=== PATIENT | female | born 1955 | race Hispanic/Latino ===

== ENCOUNTER 2016-07-21 00:48 | Inpatient (IN) | payer MEDICAID ==
[2016-04-20 15:01] VITALS: BMI 16.5
[2016-07-21] MEDS ORDERED: Piperacillin/Tazobact 3.375 gm 100 ML IVPB STA (02:00)
[2016-07-21] MEDS ORDERED: levoFLOXacin 750 mg in D5W 750 MG/150 ML BAG IVPB STA (02:00)
[2016-07-21] MEDS ORDERED: Heparin25000 units/250ml 1/2NS 25,000 UNITS/250 ML BAG IV SCH (03:30)
[2016-07-21] MEDS ORDERED: Vancomycin 1gm in NS 250ml 1 GM/250 ML BAG IVPB STA (03:30)
[2016-07-21] MEDS ORDERED: Potassium Chloride 40 mEq/30 ml LIQ UD GT SCH (04:00)
[2016-07-21] MEDS ORDERED: [UNRECOGNIZED DRUG - OTHER] IV SCH (05:30)
[2016-07-21] MEDS ORDERED: DEXTROSE IV SCH (05:30)
[2016-07-21] MEDS ORDERED: SODIUM BICARBONATE IV SCH (05:30)
[2016-07-21] MEDS ORDERED: Potassium Chloride 40 mEq/30 ml LIQ UD PO ONE (07:01)
[2016-07-21] MEDS ORDERED: Sodium Chloride 0.9% 1,000 ML IV ONE (15:56)
[2016-07-21 20:22] LABS: ADD MANUAL DIFF? NO
[2016-07-21 20:47] LABS: ARTERIAL BLOOD GAS PH 7.19 (7.35-7.45)
[2016-07-21 20:48] LABS: ARTERIAL BLOOD GAS HCO3 17.6 mmol/L (21-28)
[2016-07-21] MEDS ORDERED: DOPamine 400mg/250ml D5W 400 MG/250 ML BAG IV ONE (20:59)
[2016-07-21] MEDS: Albuterol-Ipratrop 3 mg / 0.5 (3 ml) UD IH SCH (21:00)
[2016-07-21] MEDS: DOPamine 400mg/250ml D5W 400 MG/250 ML BAG IV PRN (21:00)
[2016-07-21] MEDS: Sodium Bicarbonate 8.4% 150 MEQ in Dextrose 5%/0.45% NS 1,000 ML IV SCH (22:00)
[2016-07-21] MEDS: Piperacillin/Tazobact 3.375 gm 100 ML IVPB SCH (23:00)
[2016-07-21] MEDS: MethylPREDNISolone 40 mg Vial IVP SCH (23:00)
[2016-07-22] MEDS: Albuterol-Ipratrop 3 mg / 0.5 (3 ml) UD IH SCH ×4 (02:20→19:40)
[2016-07-22] MEDS: Midazolam 2 MG/2 ML VIAL IVP PRN ×3 (03:28→10:30)
[2016-07-22] MEDS: Vancomycin 1gm in NS 250ml 1 GM/250 ML BAG IVPB SCH (04:30)
[2016-07-22] MEDS: Piperacillin/Tazobact 3.375 gm 100 ML IVPB SCH ×5 (05:00→22:53)
--- NOTE | 2016-07-22 05:17 | CP.PCM.CON ---
<Jennifer Mendes - Last Filed: 07/22/16 09:21> History of Present Illness - History of Present Illness History of Present Illness: Resident ICU Consult Note for Dr. Dunbar 61 year old female with past medical history of anemia, anxiety, depression, osteoporosis and rheumatoid arthritis presents to [facility] ED for weakness and cough. Patient's son reports he found the patient lethargic on the bathroom floor at midnight. Patient was recovering from a cold recently. Two days ago patient became significantly weaker and coughing up brown color phlegm. Patient also had subjective fever and chills. Patient was admitted to the hospital 3 months for pneumonia and diarrhea. During that admission patient was found to have C. diff infection. Patient was lethargic during the examination. History was provided by her son through telephone. Patient did not have headache, shortness of breath, chest pain, abdominal pain, nausea, vomiting , diarrhea, or urinary symptoms. PMD: Keith, Son: Karson [phone], Pharmacy [facility] PMHx: osteoporosis and RA PSHx: Thyroid FNA 2013 Allergy: NKDA Social hx: former smoker, denies alcohol and other drug use Family hx: non contributory Home meds: gabapentin, motrin, methotrexate, ambien, lidoderm Review of Systems - Review of Systems Systems not reviewed;Unavailable: Respiratory Distress, Other (lethargic, unable to provide history) - Constitutional Constitutional: As Per HPI, Chills, Fever, Lethargy, Weakness. absent: Increased Appetite - EENT Eyes: As Per HPI Ears: As Per HPI Nose/Mouth/Throat: As Per HPI. absent: Change in Voice - Cardiovascular Cardiovascular: As Per HPI, Edema, Leg Edema, Pedal Edema. absent: Chest Pain - Respiratory Respiratory: As Per HPI, Cough, Dyspnea - Gastrointestinal Gastrointestinal: As Per HPI. absent: Nausea, Vomiting - Genitourinary Genitourinary: As Per HPI. absent: Urinary Incontinence, Urinary Frequency, Urinary Hesitance - Musculoskeletal Musculoskeletal: As Per HPI. absent: Numbness, Tingling - Integumentary Integumentary: As Per HPI. absent: Rash, Skin Pain - Neurological Neurological: As Per HPI, Weakness - Psychiatric Psychiatric: As Per HPI. absent: Auditory Hallucinations, Hallucinations, Visual Hallucinations - Endocrine Endocrine: As Per HPI - Hematologic/Lymphatic Hematologic: As Per HPI Past Patient History - Infectious Disease Hx of Infectious Diseases: None - Tetanus Immunizations Tetanus Immunization: Unknown - Past Social History Smoking Status: Former Smoker - CARDIAC Hx Pacemaker: No - PULMONARY Hx Respiratory Disorders: No Hx Sleep Apnea: No Hx Tuberculosis: No - NEUROLOGICAL Hx Paralysis: No - HEENT Hx HEENT Problems: No - RENAL Hx Chronic Kidney Disease: No - ENDOCRINE/METABOLIC Hx Endocrine Disorders: No - HEMATOLOGICAL/ONCOLOGICAL Hx Blood Disorders: No - INTEGUMENTARY Hx Dermatological Problems: No - MUSCULOSKELETAL/RHEUMATOLOGICAL Hx Arthritis: Yes Hx Rheumatoid Arthritis: Yes - GASTROINTESTINAL Hx Gastrointestinal Disorders: No - GENITOURINARY/GYNECOLOGICAL Hx Genitourinary Disorders: No (URGENCY) - PSYCHIATRIC Hx Substance Use: No - SURGICAL HISTORY Hx Amputation: No Hx Appendectomy: No Hx Cardiac Catheterization: No Hx Cholecystectomy: No Hx Coronary Stent: No Hx Gastric Bypass Surgery: No Hx Hysterectomy: No Hx Joint Replacement: No Hx Kidney Transplant: No Hx Liver Transplant: No Hx Mastectomy: No Hx Musculoskeletal Surgery: No Hx Open Heart Surgery: No Hx Orthopedic Surgery: No Hx Splenectomy: No Hx Valve Replacement: No - ANESTHESIA Hx Anesthesia Reactions: No Hx Malignant Hyperthermia: No Meds Allergies/Adverse Reactions: Allergies Allergy/AdvReac Type Severity Reaction Status Date / Time No Known Allergies Allergy Verified 02/11/14 09:05 - Medications Medications: Current Medications Albuterol/Ipratropium (Duoneb 3 Mg/0.5 Mg (3 Ml) Ud) 3 ml IH [id number] NISHANT Last Admin: 07/22/16 02:20 Dose: 3 ml Aspirin (Ecotrin) 81 mg PO DAILY NISHANT Clopidogrel Bisulfate (Plavix) 75 mg PO DAILY [facility] Heparin Sodium/Sodium Chloride (Heparin 55542 Units/250ml 1/2 Normal Saline) 25 ,000 units in 250 mls @ 5.389 mls/hr IV .Q24H NISHANT; 12 UNITS/KG/HR PRN Reason: Protocol Vancomycin HCl (Vancomycin 1gm) 1 gm in 250 mls @ 167 mls/hr IVPB Q12H NISHANT Piperacillin Sod/Tazobactam Sod (Zosyn 3.375 In Ns 100ml) 100 mls @ 200 mls/hr IVPB Q6H NISHANT Stop: 07/28/16 04:01 Last Admin: 07/21/16 23:00 Dose: 200 mls/hr Fentanyl Citrate (Fentanyl Citrate/Sodium Chloride 1 Mg/100 Ml) 1,000 mcg in 100 mls @ 7.5 mls/hr IV .[id number] PRN; Protocol; 75 MCG/HR PRN Reason: TITRATE PER MD ORDER Sodium Bicarbonate 150 meq/ (Dextrose/Sodium Chloride) 1,150 mls @ 75 mls/hr IV .[id number] NISHANT Last Admin: 07/21/16 22:00 Dose: 75 mls/hr Dopamine HCl/Dextrose (Dopamine 400mg/250ml D5w) 400 mg in 250 mls @ 3.368 mls/ hr IV .Q24H PRN; Protocol; 2 MCG/KG/MIN PRN Reason: TITRATE PER MD ORDER Last Admin: 07/21/16 21:00 Dose: 10 mcg/kg/min, 16.84 mls/hr Methylprednisolone (Solu-Medrol) 40 mg IVP Q8 [facility] Last Admin: 07/21/16 23:00 Dose: 40 mg Midazolam HCl (Versed Inj) 2 mg IVP Q2H PRN PRN Reason: Agitation Last Admin: 07/22/16 03:28 Dose: 2 mg Pantoprazole Sodium (Protonix Inj) 40 mg IVP DAILY [facility] Physical Exam - Constitutional Appears: Toxic, Older Than Stated Age, Chronically Ill - Head Exam Head Exam: ATRAUMATIC, NORMAL INSPECTION, NORMOCEPHALIC - Eye Exam Eye Exam: EOMI, Normal appearance, PERRL - ENT Exam ENT Exam: Mucous Membranes Moist - Neck Exam Neck exam: Positive for: Normal Inspection - Respiratory Exam Respiratory Exam: Decreased Breath Sounds, Respiratory Distress - Cardiovascular Exam Cardiovascular Exam: REGULAR RHYTHM, RRR, +S1, +S2 - GI/Abdominal Exam GI & Abdominal Exam: Normal Bowel Sounds, Soft. absent: Tenderness - Extremities Exam Extremities exam: Positive for: joint swelling, normal capillary refill, pedal edema, pedal pulses present - Back Exam Back exam: NORMAL INSPECTION - Neurological Exam Additional comments: lethargic, responsive to pain stimuli - Skin Skin Exam: Intact, Mottled, Pallor Results - Vital Signs Recent Vital Signs: Last Vital Signs Temp Pulse 85 07/21/16 23:43 Resp BP Pulse Ox 96 07/21/16 23:43 - Labs Result Diagrams: 07/22/16 07:15 Labs: Laboratory Results - last 24 hr 07/21/16 07/21/16 07/22/16 04:15 04:49 03:15 APTT 33.6 H pCO2 46 H pO2 276.0 H HCO3 17.6 L ABG pH 7.19 L* ABG Total CO2 19.0 L ABG O2 Saturation 10.2 L ABG Base Excess -10.0 L Chloride 118.0 H Glucose 119 H Lactate 1.0 Influenza Typ A,B (EIA) Negative for flu a/b Assessment & Plan - Assessment and Plan (Free Text) Assessment: 61 year old female with past medical history of anemia, anxiety, depression, osteoporosis and rheumatoid arthritis present with weakness cough was found to have hypoxic respiratory failure secondary to pneumonia, sepsis, NSTEMI, CHF. Patient was intubated in the ED and admitted to ICU. Plan: Neuro -Lethargic -No focal neuro deficits -Continue to monitor Cardiovascular -Elevated BNP -Echocardiogram performed 3 months ago showed 65% EF -NSTEMI -IV heparin -Trend cardiac enzyme -Cardiology consult, Dr. Jackson Pulmonary -Hypoxic respiratory failure secondary to pneumonia -Intubated in the ED, vent setting: PRVC, TV 300, PEEP 5, RR16 -Follow up ABG -Solumedrol -Duoneb -HCAP, started vancomycin and zosyn -Follow up procalcitonin, serum mycoplasma IgM, legionella ag, strep pneumo ag GI -NPO -OG tube inserted -Protonix IV ppx -Follow up C. diff toxin due to recent history of c.diff Renal -Slightly elevated Cr, unable to compare due to [facility] offline -Monitor urine output -Strict I & O -Hypokalemia, KCl 40meq x 2 via OG tube -monitor bmp repeats ID -Follow up rapid flu -Follow up blood and urine cultures -Follow up C. Diff toxin -Vancomycin 1gm IV q12 -Zosyn 3.375gm IV q6 Heme -Bandemia 20 on admission -Immunosupressed due to methotrexate use for RA treatment Endocrine -No acute issues Psych -Unable to assess <Latrell Dunbar Q - Last Filed: 07/23/16 00:58> Meds - Medications Medications: Current Medications Albuterol/Ipratropium (Duoneb 3 Mg/0.5 Mg (3 Ml) Ud) 3 ml IH [id number] [facility] Last Admin: 07/22/16 19:40 Dose: 3 ml Aspirin (Ecotrin) 81 mg PO DAILY NISHANT Last Admin: 07/22/16 09:48 Dose: Not Given Clopidogrel Bisulfate (Plavix) 75 mg PO DAILY [facility] Last Admin: 07/22/16 09:49 Dose: Not Given Vancomycin HCl (Vancomycin 1gm) 1 gm in 250 mls @ 167 mls/hr IVPB Q12H [facility] Last Admin: 07/22/16 04:30 Dose: 167 mls/hr Piperacillin Sod/Tazobactam Sod (Zosyn 3.375 In Ns 100ml) 100 mls @ 200 mls/hr IVPB Q6H [facility] Stop: 07/28/16 04:01 Last Admin: 07/22/16 22:53 Dose: 200 mls/hr Fentanyl Citrate (Fentanyl Citrate/Sodium Chloride 1 Mg/100 Ml) 1,000 mcg in 100 mls @ 7.5 mls/hr IV .[id number] PRN; Protocol; 75 MCG/HR PRN Reason: TITRATE PER MD ORDER Last Admin: 07/22/16 13:29 Dose: 100 mcg/hr, 10 mls/hr Sodium Bicarbonate 150 meq/ (Dextrose/Sodium Chloride) 1,150 mls @ 75 mls/hr IV .[id number] [facility] Last Admin: 07/22/16 17:43 Dose: 75 mls/hr Dopamine HCl/Dextrose (Dopamine 400mg/250ml D5w) 400 mg in 250 mls @ 3.368 mls/ hr IV .Q24H PRN; Protocol; 2 MCG/KG/MIN PRN Reason: TITRATE PER MD ORDER Last Titration: 07/22/16 14:51 Dose: 0 mcg/kg/min, 0 mls/hr Doxycycline Hyclate 100 mg/ (Sodium Chloride) 100 mls @ 100 mls/hr IVPB Q12 NISHANT PRN Reason: Protocol Last Admin: 07/22/16 22:45 Dose: 100 mls/hr Heparin Sodium/Sodium Chloride (Heparin 97573 Units/250ml 1/2 Normal Saline) 25 ,000 units in 250 mls @ 8.655 mls/hr IV .Q24H PRN; Protocol; 18 UNITS/KG/HR PRN Reason: ADJUST RATE PER PROTOCOL Last Admin: 07/22/16 12:49 Dose: 18 units/kg/hr, 8.655 mls/hr Dexmedetomidine HCl (Precedex 4 Mcg/Ml (100 Ml)) 400 mcg in 100 mls @ 2.404 mls /hr IV .Q24H PRN; Protocol; 0.2 MCG/KG/HR PRN Reason: Agitation Last Titration: 07/22/16 17:42 Dose: 0 mcg/kg/hr, 0 mls/hr Methylprednisolone (Solu-Medrol) 40 mg IVP Q8 NISHANT Last Admin: 07/22/16 22:53 Dose: 40 mg Midazolam HCl (Versed Inj) 2 mg IVP Q2H PRN PRN Reason: Agitation Last Admin: 07/22/16 10:30 Dose: 2 mg Morphine Sulfate (Morphine) 2 mg IVP Q4H PRN PRN Reason: Pain, moderate (4-7) Last Admin: 07/22/16 21:17 Dose: 2 mg Pantoprazole Sodium (Protonix Inj) 40 mg IVP DAILY [facility] Last Admin: 07/22/16 13:27 Dose: Not Given Results - Vital Signs Recent Vital Signs: Last Vital Signs Temp 97.1 F L 07/22/16 16:00 Pulse 51 L 07/22/16 18:01 Resp 30 H 07/22/16 18:01 BP 108/54 L 07/22/16 18:01 Pulse Ox 99 07/22/16 18:01 - Labs Result Diagrams: 07/22/16 07:15 07/22/16 18:31 Labs: Laboratory Results - last 24 hr 07/21/16 07/21/16 07/21/16 06:00 07:00 07:00 WBC 7.5 RBC 3.33 L Hgb 9.7 L Hct 29.0 L MCV 87.1 MCH 29.1 MCHC 33.4 RDW 14.0 Plt Count 442 MPV 9.4 Gran % Lymph % (Auto) [place] % (Auto) Eos % (Auto) Baso % (Auto) Gran # Lymph # [place] # Eos # Baso # PT INR APTT > 180.0 H* pCO2 pO2 HCO3 ABG pH ABG Total CO2 ABG O2 Saturation ABG Base Excess ABG Hemoglobin ABG Carboxyhemoglobin POC ABG HHb (Measured) ABG Methemoglobin ABG O2 Capacity ABG Potassium Hgb O2 Saturation Glucose Lactate FiO2 Sodium 142 Potassium 4.5 Chloride 112 H Carbon Dioxide 20 L Anion Gap 15 BUN 21 Creatinine 1.0 Est GFR ( Amer) > 60 Est GFR (Non-Af Amer) 57 Random Glucose 224 H Calcium 7.9 L Total Bilirubin AST ALT Alkaline Phosphatase Lactate Dehydrogenase Total Creatine Kinase Troponin I Total Protein Albumin Globulin Albumin/Globulin Ratio Procalcitonin Arterial Blood Potassium Urine Color Urine Appearance Urine pH Ur Specific [place] Urine Protein Urine Glucose (UA) Urine Ketones Urine Blood Urine Nitrate Urine Bilirubin Urine Urobilinogen Ur Leukocyte Esterase Urine RBC Urine WBC Ur Epithelial Cells 07/21/16 07/21/16 07/21/16 17:37 19:05 19:13 WBC RBC Hgb Hct MCV MCH MCHC RDW Plt Count MPV Gran % Lymph % (Auto) [place] % (Auto) Eos % (Auto) Baso % (Auto) Gran # Lymph # [place] # Eos # Baso # PT 19.5 H INR 1.81 H APTT 40.9 H pCO2 42 pO2 110.0 H HCO3 21.1 ABG pH 7.31 L ABG Total CO2 22.4 ABG O2 Saturation 99.4 H ABG Base Excess -4.9 L ABG Hemoglobin 9.6 L ABG Carboxyhemoglobin 1.8 H POC ABG HHb (Measured) 0.6 ABG Methemoglobin 1.4 ABG O2 Capacity 13.3 L ABG Potassium Hgb O2 Saturation 96.3 Glucose Lactate FiO2 50 Sodium Potassium Chloride Carbon Dioxide Anion Gap BUN Creatinine Est GFR ( Amer) Est GFR (Non-Af Amer) Random Glucose Calcium Total Bilirubin AST ALT Alkaline Phosphatase Lactate Dehydrogenase Total Creatine Kinase Troponin I Total Protein Albumin Globulin Albumin/Globulin Ratio Procalcitonin Arterial Blood Potassium Urine Color Straw Urine Appearance Sl cloudy Urine pH 7.0 Ur Specific [place] 1.010 Urine Protein Trace H Urine Glucose (UA) Negative Urine Ketones Negative Urine Blood Large H Urine Nitrate Negative Urine Bilirubin Negative Urine Urobilinogen 0.2 Ur Leukocyte Esterase Negative Urine RBC Tntc Urine WBC 0 - 2 Ur Epithelial Cells 0 - 2 07/22/16 07/22/16 07/22/16 03:15 06:09 07:15 WBC 12.0 H D RBC 3.31 L Hgb 9.7 L Hct 28.4 L MCV 85.8 MCH 29.3 MCHC 34.2 RDW 14.2 Plt Count 436 MPV 9.5 Gran % 95.2 H Lymph % (Auto) 2.3 L [place] % (Auto) 2.4 Eos % (Auto) 0.0 L Baso % (Auto) 0.1 Gran # 11.44 H Lymph # 0.3 L [place] # 0.3 Eos # 0.0 Baso # 0.01 PT INR APTT 33.6 H pCO2 40 pO2 156.0 H HCO3 25.4 ABG pH 7.41 ABG Total CO2 26.6 ABG O2 Saturation 99.9 H ABG Base Excess 0.7 ABG Hemoglobin ABG Carboxyhemoglobin POC ABG HHb (Measured) ABG Methemoglobin ABG O2 Capacity ABG Potassium 1.8 L* Hgb O2 Saturation Glucose 276 H Lactate 1.9 FiO2 50.0 Sodium 142.0 Potassium Chloride 116.0 H Carbon Dioxide Anion Gap BUN Creatinine Est GFR ( Amer) Est GFR (Non-Af Amer) Random Glucose Calcium Total Bilirubin AST ALT Alkaline Phosphatase Lactate Dehydrogenase Total Creatine Kinase Troponin I Total Protein Albumin Globulin Albumin/Globulin Ratio Procalcitonin Arterial Blood Potassium 1.8 L* Urine Color Urine Appearance Urine pH Ur Specific [place] Urine Protein Urine Glucose (UA) Urine Ketones Urine Blood Urine Nitrate Urine Bilirubin Urine Urobilinogen Ur Leukocyte Esterase Urine RBC Urine WBC Ur Epithelial Cells 07/22/16 07/22/16 07/22/16 07:15 07:15 07:15 WBC RBC Hgb Hct MCV MCH MCHC RDW Plt Count MPV Gran % Lymph % (Auto) [place] % (Auto) Eos % (Auto) Baso % (Auto) Gran # Lymph # [place] # Eos # Baso # PT 14.3 H INR 1.32 H APTT 33.2 H pCO2 pO2 HCO3 ABG pH ABG Total CO2 ABG O2 Saturation ABG Base Excess ABG Hemoglobin ABG Carboxyhemoglobin POC ABG HHb (Measured) ABG Methemoglobin ABG O2 Capacity ABG Potassium Hgb O2 Saturation Glucose Lactate FiO2 Sodium Cancelled 144 Potassium Cancelled 3.4 L Chloride Cancelled 107 Carbon Dioxide Cancelled 26 Anion Gap Cancelled 14 BUN Cancelled 14 Creatinine Cancelled 0.6 Est GFR ( Amer) Cancelled > 60 Est GFR (Non-Af Amer) Cancelled > 60 Random Glucose Cancelled 231 H Calcium Cancelled 6.5 L* Total Bilirubin Cancelled 0.5 AST Cancelled 16 ALT Cancelled 29 Alkaline Phosphatase Cancelled 70 Lactate Dehydrogenase 805 H Total Creatine Kinase 58 Troponin I 0.13 H* D Total Protein Cancelled 5.3 L Albumin Cancelled 2.4 L Globulin Cancelled 2.9 Albumin/Globulin Ratio Cancelled 0.8 L Procalcitonin Arterial Blood Potassium Urine Color Urine Appearance Urine pH Ur Specific [place] Urine Protein Urine Glucose (UA) Urine Ketones Urine Blood Urine Nitrate Urine Bilirubin Urine Urobilinogen Ur Leukocyte Esterase Urine RBC Urine WBC Ur Epithelial Cells 07/22/16 07/22/16 07/22/16 12:00 18:31 18:31 WBC RBC Hgb Hct MCV MCH MCHC RDW Plt Count MPV Gran % Lymph % (Auto) [place] % (Auto) Eos % (Auto) Baso % (Auto) Gran # Lymph # [place] # Eos # Baso # PT INR APTT 79.8 H* pCO2 pO2 HCO3 ABG pH ABG Total CO2 ABG O2 Saturation ABG Base Excess ABG Hemoglobin ABG Carboxyhemoglobin POC ABG HHb (Measured) ABG Methemoglobin ABG O2 Capacity ABG Potassium Hgb O2 Saturation Glucose Lactate FiO2 Sodium 141 Potassium 3.0 L Chloride 108 H Carbon Dioxide 27 Anion Gap 9 L BUN 13 Creatinine 0.6 Est GFR ( Amer) > 60 Est GFR (Non-Af Amer) > 60 Random Glucose 234 H Calcium 6.1 L* Total Bilirubin 0.4 AST 13 L ALT 26 Alkaline Phosphatase 62 Lactate Dehydrogenase 739 H Total Creatine Kinase 45 Troponin I 0.09 D Total Protein 4.4 L Albumin 2.2 L Globulin 2.3 Albumin/Globulin Ratio 1.0 L Procalcitonin 1.90 H Arterial Blood Potassium Urine Color Urine Appearance Urine pH Ur Specific [place] Urine Protein Urine Glucose (UA) Urine Ketones Urine Blood Urine Nitrate Urine Bilirubin Urine Urobilinogen Ur Leukocyte Esterase Urine RBC Urine WBC Ur Epithelial Cells Attending/Attestation - Attestation I have personally seen and examined this patient.: Yes I have fully participated in the care of the patient.: Yes I have reviewed all pertinent clinical information: Yes Notes (Text): 07/23/16 00:56 I agree with the above note and exam by the Resident with the addition/ exception of the followin y.o female with a PMHx RA presented to the ED after being found to be increasingly lethargic by her son. In the ED the patient was deemed to become increasingly obtunded and eventually wound up getting intubated due to her being unable to protect her airway. She was in the hospital recently back in April and treated for a pneumonia at that time. She is currently being admitted for a possible NSTEMI, HCAP vs lung disease due to immunosuppression with chronic Methotrexate. Case discussed at length with the physician caring for the patient in the ED labs and iamges reviewed personally total time of care: 45 minutes
[2016-07-22] MEDS: MethylPREDNISolone 40 mg Vial IVP SCH ×4 (05:41→22:53)
[2016-07-22 06:14] LABS: ARTERIAL BLOOD GAS HCO3 25.4 mmol/L (21-28); ARTERIAL BLOOD GAS PH 7.41 (7.35-7.45)
[2016-07-22 07:41] LABS: ADD MANUAL DIFF? NO
[2016-07-22 07:52] LABS: BASO # 0.01 K/mm3 (0.0-2.0); BASO % 0.1 % (0.0-3.0); GRAN # 11.44 (1.4-6.5); GRAN % 95.2 % (50.0-68.0); HEMATOCRIT 28.4 % (36.0-48.0); LYMPH # 0.3 (1.2-3.4); LYMPH % 2.3 % (22.0-35.0); MEAN CELL VOLUME 85.8 fL (80.0-105.0); MEAN CORPUSCULAR HEMOGLOBIN 29.3 pg (25.0-35.0); MEAN CORPUSCULAR HGB CONC 34.2 g/dl (31.0-37.0); MEAN PLATELET VOLUME 9.5 fl (7.0-11.0); MONO # 0.3 (0.1-0.6); MONO % 2.4 % (1.0-6.0); PLATELET COUNT 436 10^3/uL (120.0-450.0); RED CELL DISTRIBUTION WIDTH 14.2 % (11.5-14.5)
[2016-07-22 08:04] LABS: INR 1.32 (0.93-1.08); PARTIAL THROMBOPLASTIN TIME 33.2 Seconds (23.7-30.8)
--- NOTE | 2016-07-22 08:17 | CON ---
DATE: 07/21/2016 LOCATION: CCU 129, bed 4. The patient was seen earlier this morning in [facility], 07/21/2016. REASON FOR CONSULTATION: Rule out sepsis. HISTORY OF PRESENT ILLNESS: This is a 61-year-old female with past medical history of rheumatoid art hritis, history of pneumonia in 04/2016 who was brought in to [facility] because of gener alized weakness as well as confusion and lethargy for the past 2-3 days which has worsened. Yesterda y when the patient came into the ED, the patient was very lethargic and decision was made to intubate the patient for airway protection. The patient was also noted to be tachycardic and with low-grade fevers. There was apparently no note of convulsions, no loss of consciousness. No vomiting, no kecia turia, no diarrhea. REVIEW OF SYSTEMS: A full review of systems could not be obtained because the patient is currently i ntubated and relatively sedated. PAST MEDICAL HISTORY: As per history of present illness. FAMILY MEDICAL HISTORY: Noncontributory. PERSONAL AND SOCIAL HISTORY: Could not be obtained currently because of the patient's current condit ion and the patient is intubated. ALLERGIES: There are no known antibiotic allergies for the patient. OBJECTIVE: VITAL SIGNS: The patient is currently afebrile. The patient has a heart rate of 110, respiratory ra te of 24, blood pressure 100/70. HEENT: Normocephalic, atraumatic. ET tube in place in the mouth. CHEST: Decreased breath sounds bilaterally. HEART: The patient is tachycardic. S1, S2 are normal. ABDOMEN: Soft, nontender, nondistended. LABORATORY DATA: Unfortunately, because the computer systems are currently down we are unable to ful ly reviewed the patient's labs, but we do not know that the troponin that was taken yesterday was sli ghtly elevated at 0.9. CURRENT MEDICATIONS: For antibiotics, the patient is currently on vancomycin and Zosyn. ASSESSMENT: This is a 61-year-old female with past medical history of rheumatoid arthritis and pneum onia in 04/2016. Comes in with altered mental status, lethargy, and systemic inflammatory response s yndrome, now with ventilator-dependent respiratory failure, need to rule out sepsis, source to be det ermined, but we need to rule out healthcare-associated pneumonia. PLAN: We have started the patient on vancomycin and Zosyn pending blood cultures, urine cultures, sp utum cultures, procalcitonin and the chest x-ray. We have discussed this with the ICU team and we wi ll follow up further results before recommending further changes to the antibiotics that we have. Th e patient is currently in critical condition. Jonny Bardales M.D. cc: [id number] TT: 07/21/2016 14:14:33 Confirmation # [id number] Dictation # [id number] mn
--- NOTE | 2016-07-22 08:17 | CON ---
DATE: 07/20/2016 ADDENDUM Echo reviewed. Severely decreased RV function, severely dilated RV, low normal LV function, ejection fraction 50%-55%, right ventricular systolic pressure 51. Most likely the patient may have a PE sin ce the patient already on IV heparin. Awaiting for lower leg ___ which is swollen. We should order in the morning. We will consider a CT angio. We will discuss with the goldbeater. For now, in the interim, continue IV heparin. We will follow with you. Thank you, ____, for providing the opportunity in taking care of this patient. Robert Jackson MD cc: [id number] TT: 07/21/2016 18:30:10 Confirmation # [id number] Dictation # [id number] jn
--- NOTE | 2016-07-22 08:18 | CON ---
DATE: 07/21/2016 REASON FOR CONSULTATION: Non-ST segment myocardial infarction, status post respiratory failure, intu bated. BRIEF CLINICAL HISTORY: This is a 61-year-old female with a past medical history significant for rhe umatoid arthritis, osteoarthritis, who was in the rehab center, recently discharged from the hospital , went to rehab and then went home. The patient was being monitored by his son on video camera, marsha acosta he noticed that the patient collapsed, so he came to the Emergency Room, called the ambulance. The patient was found collapsed, so son saw on video and came to the Emergency Room, called the ambul ance 911. According to patient's son, Michael, telephone [phone], that patient was very weak ____ to talk, but later on in the ER her condition deteriorated, requiring intubation. The patient is cu rrently intubated. Repeat troponin shows 0.9 and CPK-MB fraction was 9. Most labs are not available as the computer system is down. Information obtained from the word of the mouth and very sketchy hi story from the chart because the computer system is down. PAST MEDICAL HISTORY: Significant for rheumatoid arthritis and osteoarthritis. CURRENT MEDICATIONS: Not available. FAMILY HISTORY: Not significant. SOCIAL HISTORY: No history of smoking. No history of alcohol abuse. Information obtained from the son. PHYSICAL EXAMINATION: GENERAL: The patient is currently intubated. VITAL SIGNS: Temperature afebrile, heart rate 86, blood pressure 110/60. HEENT: PERRLA. Extraocular muscles intact. NECK: Supple. No carotid bruits. No thyromegaly. CHEST: Clear to auscultation. HEART: S1, S2 regular. ABDOMEN: Soft. EXTREMITIES: Clubbing and cyanosis negative. EKG shows sinus tachycardia, nonspecific ST-T changes noted. LABORATORY DATA: Blood workup as follows: The lab ____ available 5.3 WBC, hemoglobin ____, hematocr it 30.9, platelet count 300. Sodium 139, potassium 3.4, chloride 108, carbon dioxide 20, BUN 25, cre atinine 1.3, blood glucose 129, PTT 277. IMPRESSION: Non-ST segment myocardial infarction, status post respiratory failure, swelling of the l eft leg, rule out deep venous thrombosis, respiratory failure, rule out sepsis, rule out pneumonia, e levated WBC count ____ admission. RECOMMENDATION: We will continue IV heparin. We will hold heparin since PTT is 277. We will check PTT at 11 accordingly, continue protocol. Start aspirin and Plavix. Will get a duplex scan of lower extremity to rule out DVT. We will get echo to assess LV function. Discussed with the son. Joo wheeler recommendation per the hospital course, depending upon the course. We will follow with you. Thank you, Dr. Davis, for providing the opportunity in taking care of the patient. Will ge t lipid profile, TSH, hemoglobin A1c, follow up serial CPK, troponin. Possible patient may need card iac catheterization depending upon the patient's course. We will follow with you. Robert Jackson MD cc: [id number] TT: 07/21/2016 15:58:35 Confirmation # [id number] Dictation # [id number] seda
[2016-07-22] MEDS ORDERED: Heparin25000 units/250ml 1/2NS 25,000 UNITS/250 ML BAG IV SCH (09:00)
--- NOTE | 2016-07-22 09:18 | CARD ---
APPROVED REPORT EXAM: Two-dimensional and M-mode echocardiogram with Doppler and color Doppler. INDICATION Cardiac Disease: CAD 2D DIMENSIONS Left Atrium (2D)3.8 (1.6-4.0cm)IVSd0.8 (0.7-1.1cm) LVDd3.1 (3.9-5.9cm)PWd0.9 (0.7-1.1cm) LVDs2.6 (2.5-4.0cm)FS (%) 18.5 % LVEF (%)39.7 (>50%) M-Mode DIMENSIONS Aortic Root2.80 (2.2-3.7cm)Aortic Cusp Exc.1.70 (1.5-2.0cm) Aortic Valve AoV Peak Lmnptdoh665.0cm/Lori Peak GR.11mmHg Mitral Valve E/A ratio0.0 TDI E/Lateral E'0.0E/Medial E'0.0 Tricuspid Valve TR Peak [id number] [id number] Peak Gr.41mmHg [id number] LEFT VENTRICLE The left ventricle is normal size. There is normal left ventricular wall thickness. The left ventricular function is low normal EF-50-55%. There is normal LV segmental wall motion. The left ventricular diastolic function is normal. No left ventricle thrombus noted on this study. There is no ventricular septal defect visualized. There is no left ventricular aneurysm. There is no mass noted in the left ventricle. RIGHT VENTRICLE The right ventricle is severely dilated. There is normal right ventricular wall thickness. Systolic function of RV is severely reduced. ATRIA The left atrium size is normal. The right atrium is moderately dilated. The interatrial septum is intact with no evidence for an atrial septal defect. AORTIC VALVE The aortic valve is thickened but opens well. No aortic regurgitation is present. There is no aortic valvular stenosis. There is no aortic valvular vegetation. MITRAL VALVE The mitral valve is thickened but opens well. Mitral regurgitation is trace. There is no mitral valve stenosis. There is no evidence of mitral valve prolapse. TRICUSPID VALVE The tricuspid valve leaflets are thickened , but open well. There is moderate tricuspid regurgitation.[id number] There is no tricuspid valve stenosis. There is no tricuspid valve prolapse or vegetation. PULMONIC VALVE The pulmonic valve is not well visualized. GREAT VESSELS The aortic root is normal in size. The ascending aorta is normal in size. The pulmonary artery is normal. The IVC is dilated. PERICARDIAL EFFUSION There is no pleural effusion. There is a trivial pericardial effusion. <Conclusion> The left ventricle is normal size. There is normal left ventricular wall thickness. The left ventricular function is low normal EF-50-55%. There is normal LV segmental wall motion. No aortic regurgitation is present. Mitral regurgitation is trace. There is moderate tricuspid regurgitation.[id number] The IVC is dilated. The left ventricle is normal size. There is normal left ventricular wall thickness. The left ventricular function is low normal EF-50-55%. The right ventricle is severely dilated. Systolic function of RV is severely reduced. No aortic regurgitation is present. Mitral regurgitation is trace. There is moderate tricuspid regurgitation.[id number] The IVC is dilated. There is a trivial pericardial effusion.
[2016-07-22 09:29] LABS: INR 1.81 (0.93-1.08); PARTIAL THROMBOPLASTIN TIME 40.9 Seconds (23.7-30.8)
[2016-07-22] MEDS ORDERED: Magnesium Sulfate 2 GM in Sodium Chloride 0.9% 100 ML IVPB ONE (09:30)
[2016-07-22] MEDS ORDERED: Iodixanol 320 MG/ML 100 ML BOTTLE IV ONE (09:41)
[2016-07-22] MEDS: Potassium Chloride 40 mEq/30 ml LIQ UD PO SCH ×3 (09:43→13:34)
--- NOTE | 2016-07-22 09:44 | RAD ---
HISTORY: intubated, respiratory failure COMPARISON: 04/25/2016 FINDINGS: LUNGS: Improvement in upper lobe infiltrates. PLEURA: Small pleural effusions right greater than left CARDIOVASCULAR: Normal. OSSEOUS STRUCTURES: No significant abnormalities. VISUALIZED UPPER ABDOMEN: Normal. OTHER FINDINGS: Endotracheal tube in satisfactory position. Nasogastric tube extends beyond the GE junction. One of the sideholes is above the diaphragm. The tube could be advanced IMPRESSION: Small pleural effusions. Improved infiltrates
[2016-07-22 10:08] LABS: URINE BILIRUBIN NEGATIVE (NEGATIVE); URINE BLOOD LARGE (NEGATIVE); URINE GLUCOSE (UA) NEGATIVE (NEGATIVE); URINE KETONE NEGATIVE (NEGATIVE); URINE LEUKOCYTE ESTERASE NEGATIVE Leu/uL (NEGATIVE); URINE PROTEIN TRACE mg/dL (<30 mg/dL); URINE UROBILINOGEN 0.2 E.U./dL (<1 E.U./dL)
[2016-07-22 10:09] LABS: URINE APPEARANCE SL CLOUDY (CLEAR); URINE COLOR STRAW (YELLOW)
[2016-07-22 10:10] LABS: URINE EPITHELIAL CELLS 0 - 2 /hpf (0-5); URINE RBC TNTC /hpf (0-2); URINE WBC 0 - 2 /hpf (0-6)
--- NOTE | 2016-07-22 10:11 | PN ---
DATE: 07/22/2016 REASON FOR CONSULTATION AND FOLLOWUP: Rule out [id number]-PC-[id number] myocardial infarction, positive tropon in, has respiratory failure, intubated. BRIEF CLINICAL HISTORY: This is a 61-year-old female with past medical history significant for rheum atoid arthritis, osteoarthritis, who was recently discharged to the [facility] and was at home, kt denly collapsed in the bathroom. The son noticed in the video monitor and came in, then called the carlos [facility] 911. The patient was very weak, lethargic in ER requiring intubation. The patient has a po sitive troponin. Cardiac consult was called. The patient is currently being intubated. Left leg ap pears swollen and echo was done yesterday, shows a huge enlargement of RV, preserved LV function, lo w normal, mild MR, but significant tricuspid regurg, RV systolic pressure of 50. The patient is alre zay on heparin, currently being intubated, remains on vent. PHYSICAL EXAMINATION: VITAL SIGNS: Temperature afebrile, heart rate 88, blood pressure 100/70. HEENT: PERRLA. Extraocular muscles intact. NECK: Supple. No carotid bruits. No thyromegaly. CHEST: Clear to auscultation. HEART: S1, S2 regular. ABDOMEN: Soft. EXTREMITIES: Clubbing and cyanosis negative. LABORATORY DATA: WBC 12, hemoglobin 9, hematocrit 28.4, platelet count 436. Chemistry shows sodium pending. The system was down. EKG shows normal sinus, heart rate 86, low voltage, T inversion noted in II, III, aVF and V5; left atrial abnormality. The patient had echocardiography done yesterday th at showed ejection fraction 55%. No segmental wall motion abnormality noted. The right ventricle is severely dilated. Systolic function was severely reduced. No aortic regurgitation is noted. Moder ate tricuspid regurg, RV systolic pressure of 51. The patient's prior echo on 04/26/2016; at that radha e, right ventricle was normal in size and thickness, RV systolic pressure 32. Though patient has a b orderline troponin yesterday that was reported 0.9, because of system is down, cannot see the trend. IMPRESSION: Definitely needs to rule out acute pulmonary embolism, rule out deep venous thrombosis. Continue heparin, continue aspirin and Plavix. Cannot rule out definitely coronary artery disease w ith acute coronary syndrome, but more likely, index of suspicion is for deep venous thrombosis/pulmon gema embolism. RECOMMENDATION: Continue heparin. We will get a CT angio to rule out PE. There is a significant ch birdie in echo from 2 month. There was a normal RV, now with RV severely dilated. Discussed with Dr. Cárdenas last night. I discussed this morning with Dr. Juan Holden, fitness center attendant, and also the reside nt taking care of the patient. We will get a duplex lower extremity as well as CT angio. For time b eing, no plan to take to the optical lab technician until the patient has a definite diagnosis. We will follow ser ial CPK, troponin and also we will order a lipid profile, TSH, hemoglobin A1c. Thank you, Dr. Padron, for providing us the opportunity in taking care of the patient. Robert Jackson MD cc: [id number] TT: 07/22/2016 10:10:53 Confirmation # [id number] Dictation # [id number] tn
--- NOTE | 2016-07-22 10:38 | US ---
HISTORY: Leg pain and swelling. Evaluate for DVT PHYSICIAN(S): Blu Vanegas MD. TECHNIQUE: Duplex sonography and color-flow Doppler with graded compression were used to evaluate the deep venous systems of both lower extremities. The exam is very limited by the patient's inability to position or cooperate FINDINGS: The visualized deep venous systems of both lower extremities are sonographically normal and compressible. Normal wave forms and augmentation are seen. There is no sonographic evidence for deep venous thrombosis in the visualized segments of both lower extremities. The tibial veins are not adequately seen IMPRESSION: No sonographic evidence for deep venous thrombosis in the visualized segments of both lower extremities. Limited study.
[2016-07-22 11:00] LABS: BLOOD UREA NITROGEN 21 mg/dL (7-21); CALCIUM 7.9 mg/dL (8.4-10.5); CARBON DIOXIDE 20 mmol/L (21-33); CHLORIDE 112 mmol/L (98-107); GFR AFRICAN-AMERICAN > 60; GLUCOSE,RANDOM 224 mg/dL (70-110); POTASSIUM 4.5 mmol/L (3.6-5.0); SODIUM 142 mmol/L (132-148)
--- NOTE | 2016-07-22 11:54 | CT ---
PROCEDURE: CT Chest with contrast (Pulmonary Angiogram) HISTORY: R/o Pulmonary embolism protocol COMPARISON: None available. TECHNIQUE: Axial computed tomography images were obtained of the chest in the pulmonary arterial phase of enhancement. Coronal and sagittal reformatted images were created and reviewed. Maximum intensity projection (MIP) reconstructed images in the following planes: Coronal only. Intravenous contrast dose: 100 cc Visipaque 320 Mean Hounsfield unit values in the main pulmonary artery: 323.87 Radiation dose: Total exam DLP = 271.31 mGy-cm. This CT exam was performed using one or more of the following dose reduction techniques: Automated exposure control, adjustment of the mA and/or kV according to patient size, and/or use of iterative reconstruction technique. FINDINGS: PULMONARY ARTERIES: Pulmonary emboli affecting right lower lobe, right middle lobe and left lower lobe. AORTA: No acute findings. No thoracic aortic aneurysm. LUNGS: Multifocal infiltrates affecting both upper and lower lobes. Underlying interstitial lung disease. Multiple large cysts/bulla identified. Bronchiectatic changes including cystic and traction bronchiectasis. PLEURAL SPACES: small right pleural effusion. HEART: Unremarkable. No cardiomegaly. No significant pericardial effusion. LYMPH NODES: No lymphadenopathy. BONES, CHEST WALL: Unremarkable. No fracture or destructive lesion OTHER FINDINGS: Satisfactory position of endotracheal tube and nasogastric tube. IMPRESSION: Bilateral acute pulmonary emboli affecting right lower lobe, right middle lobe and left upper lobe pulmonary arteries. Multifocal infiltrates. Communication of critical results: I discussed these critical findings with the hospitalist at 11:34. July 22, 2016.
--- NOTE | 2016-07-22 12:08 | CP.PCM.PN ---
Subjective - Date & Time of Evaluation Date of Evaluation: 07/22/16 Time of Evaluation: 09:40 - Subjective Subjective: Continues to be on the ventilator, sedated. Afebrile overnight. Objective - Vital Signs/Intake and Output Vital Signs (last 24 hours): Temp Pulse Resp BP Pulse Ox 99.4 F 94 H 24 88/63 L 86 L 07/22/16 08:00 07/22/16 09:45 07/22/16 08:23 07/22/16 09:45 07/22/16 09:45 Intake and Output: 07/22/16 07/22/16 06:59 18:59 Intake Total 1372 Output Total 1200 Balance 172 - Medications Medications: Current Medications Albuterol/Ipratropium (Duoneb 3 Mg/0.5 Mg (3 Ml) Ud) 3 ml IH [id number] [facility] Last Admin: 07/22/16 08:21 Dose: 3 ml Aspirin (Ecotrin) 81 mg PO DAILY [facility] Last Admin: 07/22/16 09:48 Dose: Not Given Clopidogrel Bisulfate (Plavix) 75 mg PO DAILY [facility] Last Admin: 07/22/16 09:49 Dose: Not Given Vancomycin HCl (Vancomycin 1gm) 1 gm in 250 mls @ 167 mls/hr IVPB Q12H [facility] Last Admin: 07/22/16 04:30 Dose: 167 mls/hr Piperacillin Sod/Tazobactam Sod (Zosyn 3.375 In Ns 100ml) 100 mls @ 200 mls/hr IVPB Q6H [facility] Stop: 07/28/16 04:01 Last Admin: 07/22/16 08:13 Dose: 200 mls/hr Fentanyl Citrate (Fentanyl Citrate/Sodium Chloride 1 Mg/100 Ml) 1,000 mcg in 100 mls @ 7.5 mls/hr IV .[id number] PRN; Protocol; 75 MCG/HR PRN Reason: TITRATE PER MD ORDER Last Admin: 07/22/16 00:00 Dose: 150 mcg/hr, 15 mls/hr Sodium Bicarbonate 150 meq/ (Dextrose/Sodium Chloride) 1,150 mls @ 75 mls/hr IV .[id number] [facility] Last Admin: 07/21/16 22:00 Dose: 75 mls/hr Dopamine HCl/Dextrose (Dopamine 400mg/250ml D5w) 400 mg in 250 mls @ 3.368 mls/ hr IV .Q24H PRN; Protocol; 2 MCG/KG/MIN PRN Reason: TITRATE PER MD ORDER Last Admin: 07/21/16 21:00 Dose: 10 mcg/kg/min, 16.84 mls/hr Heparin Sodium/Sodium Chloride (Heparin 40578 Units/250ml 1/2 Normal Saline) 25 ,000 units in 250 mls @ 5.77 mls/hr IV .Q24H NISHANT; 12 UNITS/KG/HR PRN Reason: Protocol Last Admin: 07/22/16 11:25 Dose: 12 units/kg/hr, 5.77 mls/hr Potassium Chloride (Potassium Chloride 20 Meq/100 Ml) 20 meq in 100 mls @ 50 mls/hr IVPB Q2H NISHANT Stop: 07/22/16 13:29 Last Admin: 07/22/16 09:42 Dose: 50 mls/hr Methylprednisolone (Solu-Medrol) 40 mg IVP Q8 NISHANT Last Admin: 07/22/16 05:41 Dose: 40 mg Midazolam HCl (Versed Inj) 2 mg IVP Q2H PRN PRN Reason: Agitation Last Admin: 07/22/16 08:11 Dose: 2 mg Pantoprazole Sodium (Protonix Inj) 40 mg IVP DAILY NISHANT Last Admin: 07/22/16 08:30 Dose: 40 mg Potassium Chloride (Potassium Chloride Oral Soln) 40 meq PO Q2H NISHANT Stop: 07/22/16 15:31 Last Admin: 07/22/16 11:40 Dose: 40 meq - Labs Labs: 07/22/16 07:15 07/22/16 07:15 PT 14.3 Seconds (9.9-11.8) H 07/22/16 07:15 INR 1.32 (0.93-1.08) H 07/22/16 07:15 APTT 33.2 Seconds (23.7-30.8) H 07/22/16 07:15 - Constitutional Appears: Other (Intubated, sedated) - ENT Exam Additional comments: ET tube in place - Neck Exam Neck Exam: absent: Lymphadenopathy, Meningismus - Respiratory Exam Respiratory Exam: Decreased Breath Sounds - Cardiovascular Exam Cardiovascular Exam: +S1, +S2 - GI/Abdominal Exam GI & Abdominal Exam: Soft. absent: Tenderness Assessment and Plan - Assessment and Plan (Free Text) Plan: Assessment Severe sepsis with ventilator-dependent respiratory failure due to multifocal healthcare-associated pneumonia with possible gram positive cocci and/or gram negative bacilli Acute pulmonary embolism history of bilateral upper lobe severe pneumonia with associated systemic viral illness with Influenza, with associated persistent Methicillin-sensitive Staph aureus bacteremia history of C diff associated diarrhea rheumatoid arthritis osteoarthritis history of depression and anxiety history of pneumonia Plan will hold IV Vancomycin for now because of the mild decrease in renal function and continue Zosyn (day 2) and add Doxycycline pending blood and sputum cx and PCT; reviewed CT chest; patient on anticoagulation of the pulmonary embolism will monitor clinically
[2016-07-22 12:15] LABS: ALB/GLOB RATIO 0.8 (1.1-1.8); ALKALINE PHOSPHATASE 70 U/L (38-133); ALT/SGPT 29 U/L (7-56); AST/SGOT 16 U/L (15-39); BILIRUBIN,TOTAL 0.5 mg/dL (0.2-1.3); BLOOD UREA NITROGEN 14 mg/dL (7-21); CARBON DIOXIDE 26 mmol/L (21-33); CHLORIDE 107 mmol/L (98-107); GFR AFRICAN-AMERICAN > 60; GLUCOSE,RANDOM 231 mg/dL (70-110); POTASSIUM 3.4 mmol/L (3.6-5.0); SODIUM 144 mmol/L (132-148); TOTAL PROTEIN 5.3 g/dL (5.8-8.3)
[2016-07-22 12:21] LABS: ARTERIAL BLOOD GAS HCO3 21.1 mmol/L (21-28); ARTERIAL BLOOD GAS PH 7.31 (7.35-7.45)
[2016-07-22 12:22] LABS: CALCIUM 6.5 mg/dL (8.4-10.5)
[2016-07-22 12:22] LABS: ARTERIAL BLOOD GAS O2 CAPACITY 13.3 mL/dL (16-24)
[2016-07-22 12:23] LABS: ARTERIAL BLOOD HGB O2 SAT 96.3 % (95.0-98.0); CARBOXYHEMOGLOBIN 1.8 % (0.5-1.5); HHB 0.6 % (0-5); METHEMOGLOBIN 1.4 % (0.0-3.0)
--- NOTE | 2016-07-22 12:46 | RAD ---
HISTORY: Shortness of breath COMPARISON: No prior. FINDINGS: LUNGS: Bilateral upper lobe infiltrates are seen. PLEURA: Small right pleural effusion CARDIOVASCULAR: Normal. OSSEOUS STRUCTURES: No significant abnormalities. VISUALIZED UPPER ABDOMEN: Normal. OTHER FINDINGS: None. IMPRESSION: Bilateral upper lobe infiltrates and small right effusion
--- NOTE | 2016-07-22 12:47 | RAD ---
HISTORY: Shortness of breath COMPARISON: No prior. FINDINGS: LUNGS: There is a left upper lobe interstitial infiltrate and dense consolidation in the right apex. PLEURA: Small right pleural effusion CARDIOVASCULAR: Normal. OSSEOUS STRUCTURES: No significant abnormalities. VISUALIZED UPPER ABDOMEN: Normal. OTHER FINDINGS: Endotracheal tube in satisfactory position IMPRESSION: Upper lobe infiltrates. Small right effusion. Endotracheal tube in satisfactory position
[2016-07-22] MEDS: Heparin25000 units/250ml 1/2NS 25,000 UNITS/250 ML BAG IV PRN (12:49)
[2016-07-22 13:00] LABS: TROPONIN I 0.13 ng/mL
[2016-07-22] MEDS: DOPamine 400mg/250ml D5W 400 MG/250 ML BAG IV PRN (13:25)
[2016-07-22] MEDS: Fentanyl 1000mcg/100ml NS 1,000 MCG/100 ML BAG IV PRN ×2 (13:29)
[2016-07-22 13:37] LABS: MEAN CELL VOLUME 87.1 fL (80.0-105.0); MEAN CORPUSCULAR HEMOGLOBIN 29.1 pg (25.0-35.0); MEAN CORPUSCULAR HGB CONC 33.4 g/dl (31.0-37.0); MEAN PLATELET VOLUME 9.4 fl (7.0-11.0); WHITE BLOOD COUNT 7.5 10^3/ul (4.5-11.0)
[2016-07-22] MEDS ORDERED: Dexmedetomidine HCl 4mcg/ml 400 MCG/100 ML BOTTLE IV PRN (14:26)
--- NOTE | 2016-07-22 15:36 | PN ---
DATE: 07/22/2016 ADDENDUM to the initial progress note dictated this morning. REASON FOR ADDENDUM: CAT scan angio, as suspected, shows multilobar PE. The patient is already on heparin, but because of mental status will get CT head to rule out any intracerebellar bleed, also some heparin issue. PLAN: To continue heparin. Later on will change to Coumadin or novel anticoagulant, Eliquis or Xarelto, depending on the clinical course, once the patient gets extubated. No further cardiac workup is planned or warranted at this time.Mild positive troponin is secondary to RV strain from PE. As mentioned, will change heparin to p.o. anticoagulation, Coumadin versus novel anticoagulant. Discuss with Dr. Cárdenas, yesterday and todat discuss with Dr. Juan Holden. Discuss with Dr. Parker also today. Robert Jackson MD cc: [id number] TT: 07/22/2016 15:36:21 Confirmation # [id number] Dictation # [id number] LR
--- NOTE | 2016-07-22 17:07 | CP.CCUPN ---
<Gilles Goddard - Last Filed: 07/22/16 16:49> CCU Subjective - Physician Review Events Since Last Encounter (Free Text): 07/22/16 16:50 Gilles Goddard D.O. PGY-1, Internal Medicine Resident, ICU Progress Note 61 year old female with a PMH of RA, chronic pain, osteoporosis who presented to [facility], brought in by her son who lives with her, after he found her down in the bathroom. Patient was seen and examined at bedside. Patient continues to be intubated so ROS unavailable. However, patient is able to follow commands and reaches for the ET with both hands. CCU Objective - Vital Signs / Intake & Output Vital Signs (Last 4 hours): Vital Signs Temp Pulse Resp BP Pulse Ox 07/22/16 16:00 97.1 F L 73 24 100/50 L 98 07/22/16 15:56 77 93/59 L 98 07/22/16 15:50 83 95/66 L 98 07/22/16 15:45 85 99/60 L 97 07/22/16 15:41 88 84/50 L 98 07/22/16 15:40 88 98 07/22/16 15:35 90 87/48 L 98 07/22/16 15:30 91 H 89/52 L 98 07/22/16 15:25 94 H 93/42 L 98 07/22/16 15:21 92 H 93/46 L 98 07/22/16 15:20 93 H 97 07/22/16 15:17 96 H 93/64 L 97 07/22/16 15:11 95 H 87/64 L 95 07/22/16 15:10 101 H 97 07/22/16 15:05 97 H 91/55 L 97 07/22/16 15:00 102 H 88/66 L 96 07/22/16 14:55 102 H 93/57 L 97 07/22/16 14:50 103 H 90/69 L 97 07/22/16 14:48 95 H 113/76 97 07/22/16 14:45 107 H 90/63 L 81 L 07/22/16 14:40 95 H 103/60 81 L 07/22/16 14:35 110 H 90/50 L 82 L 07/22/16 14:30 110 H 89/49 L 89 L 07/22/16 14:25 110 H 96/61 L 94 L 07/22/16 14:20 104 H 105/65 95 07/22/16 14:15 108 H 108/53 L 95 07/22/16 14:10 108 H 95 07/22/16 13:40 99 H 106/69 93 L 07/22/16 13:35 90 87/60 L 98 07/22/16 13:30 94 H 85/62 L 94 L 07/22/16 13:25 85 98/65 L 93 L 07/22/16 13:20 77 93 L 07/22/16 13:15 73 115/71 93 L 07/22/16 13:10 79 94 L 07/22/16 13:00 79 107/73 95 07/22/16 12:50 73 95 Intake and Output (Last 8hrs): Intake & Output 07/22/16 07/22/16 07/22/16 06:59 14:59 22:59 Intake Total 1472 155 0.5 Output Total 1200 Balance 272 155 0.5 Weight 48.081 kg Intake: IV 100 155 0.5 Oral 0 Other 1372 Output: Urine 1200 Urethral (Rondon) 1200 Stool 0 Other: Voiding Method Indwelling Catheter # Bowel Movements 0 - Physical Exam Head: Positive for: Atraumatic, Normocephalic Pupils: Positive for: PERRL Extroacular Muscles: Positive for: EOMI Conjunctiva: Positive for: Normal. Negative for: Injected, Icteric Ears: Positive for: Normal Mouth: Positive for: Other (ET tube in place) Pharnyx: Positive for: Other (ET tube in place) Nose (External): Positive for: Atraumatic Neck: Positive for: Trachea Midline. Negative for: JVD, Lymphadenopathy Respiratory/Chest: Positive for: Decreased Breath Sounds, Rhonchi (bibasilar). Negative for: Respiratory Distress, Accessory Muscle Use, Wheezes Cardiovascular: Positive for: Regular Rate and Rhythm, Murmurs (2/6 LSB). Negative for: Rub, Gallop Abdomen: Positive for: Normal Bowel Sounds. Negative for: Tenderness, Distention, Peritoneal Signs Back: Negative for: Midline Tenderness, Paraspinal Tenderness Upper Extremity: Positive for: Normal Inspection, Capillary Refill < 2s. Negative for: Cyanosis, Edema Lower Extremity: Positive for: Normal Inspection, Capillary Refill < 2 s. Negative for: Edema, CALF TENDERNESS Neurological: Positive for: Motor Func Grossly Intact. Negative for: GCS=15 ( 11T) Skin: Positive for: Warm, Dry - Medications Active Medications: Active Medications Generic Name Dose Route Start Last Admin Trade Name Freq PRN Reason Stop Dose Admin Albuterol/Ipratropium 3 ml 07/21/16 04:00 07/22/16 13:32 Duoneb 3 Mg/0.5 Mg (3 Ml) Ud IH 3 ml [id number] NISHANT Administration Aspirin 81 mg 07/22/16 10:00 07/22/16 09:48 Ecotrin PO Not Given DAILY NISHANT Calcium Gluconate 1,000 mg 07/22/16 16:45 Calcium Gluconate Iv IVP 07/22/16 16:46 ONCE ONE Clopidogrel Bisulfate 75 mg 07/22/16 10:00 07/22/16 09:49 Plavix PO Not Given DAILY NISHANT Vancomycin HCl 1 gm in 250 mls @ 167 mls/hr 07/21/16 04:00 07/22/16 04:30 Vancomycin 1gm IVPB 167 mls/hr Q12H NISHANT Administration Piperacillin Sod/Tazobactam Sod 100 mls @ 200 mls/hr 07/21/16 04:00 07/22/16 15:42 Zosyn 3.375 In Ns 100ml IVPB 07/28/16 04:01 200 mls/hr Q6H NISHANT Administration Fentanyl Citrate 1,000 mcg in 100 mls @ 7.5 mls/hr 07/21/16 04:00 07/22/16 13 :29 Fentanyl Citrate/Sodium Chloride 1 Mg/100 Ml IV 100 mcg/hr .[id number] PRN 10 mls/hr TITRATE PER MD ORDER Administration Protocol 75 MCG/HR Sodium Bicarbonate 150 meq/ 1,150 mls @ 75 mls/hr 07/21/16 06:00 07/21/16 22: 00 Dextrose/Sodium Chloride IV 75 mls/hr .[id number] NISHANT Administration Dopamine HCl/Dextrose 400 mg in 250 mls @ 3.368 mls/hr 07/22/16 01:17 14:51 Dopamine 400mg/250ml D5w IV 0 mcg/kg/min .Q24H PRN 0 mls/hr TITRATE PER MD ORDER Titration Protocol 2 MCG/KG/MIN Doxycycline Hyclate 100 mg/ 100 mls @ 100 mls/hr 07/22/16 12:15 07/22/16 15: 34 Sodium Chloride IVPB 100 mls/hr Q12 NISHANT Administration Protocol Heparin Sodium/Sodium Chloride 25,000 units in 250 mls @ 8.655 mls/hr 12:31 07/22/16 12:49 Heparin 94065 Units/250ml 1/2 Normal Saline IV 18 units/kg/hr .Q24H PRN 8.655 mls/hr ADJUST RATE PER PROTOCOL Administration Protocol 18 UNITS/KG/HR Dexmedetomidine HCl 400 mcg in 100 mls @ 2.404 mls/hr 07/22/16 14:26 15:36 Precedex 4 Mcg/Ml (100 Ml) IV 1 mcg/kg/hr .Q24H PRN 12.02 mls/hr Agitation Titration Protocol 0.2 MCG/KG/HR Methylprednisolone 40 mg 07/21/16 06:00 07/22/16 13:39 Solu-Medrol IVP 40 mg Q8 NISHANT Administration Midazolam HCl 2 mg 07/21/16 20:43 07/22/16 10:30 Versed Inj IVP 2 mg Q2H PRN Administration Agitation Pantoprazole Sodium 40 mg 07/21/16 10:00 07/22/16 13:27 Protonix Inj IVP Not Given DAILY [facility] - Patient Studies Lab Studies: Lab Studies 07/22/16 07/22/16 07/22/16 Range/Units 07:15 07:15 07:15 WBC (4.5-11.0) 10^3/ul RBC (3.5-6.1) 10^6/uL Hgb (12.0-16.0) gm/dL Hct (36.0-48.0) % MCV (80.0-105.0) fL MCH (25.0-35.0) pg MCHC (31.0-37.0) g/dl RDW (11.5-14.5) % Plt Count (120.0-450.0) 10^3/uL MPV (7.0-11.0) fl Gran % (50.0-68.0) % Lymph % (Auto) (22.0-35.0) % Whitfield % (Auto) (1.0-6.0) % Eos % (Auto) (1.5-5.0) % Baso % (Auto) (0.0-3.0) % Gran # (1.4-6.5) Lymph # (1.2-3.4) Whitfield # (0.1-0.6) Eos # (0.0-0.7) Baso # (0.0-2.0) K/mm3 PT 14.3 H (9.9-11.8) Seconds INR 1.32 H (0.93-1.08) APTT 33.2 H (23.7-30.8) Seconds pCO2 (35-45) mm/Hg pO2 (80-100) mm/Hg HCO3 (21-28) mmol/L ABG pH (7.35-7.45) ABG Total CO2 (22-28) mmol.L ABG O2 Saturation (95-98) % ABG Base Excess (-2.0-3.0) mmol/L ABG Hemoglobin (11.7-17.4) g/dL ABG Carboxyhemoglobin (0.5-1.5) % POC ABG HHb (Measured) (0-5) % ABG Methemoglobin (0.0-3.0) % ABG O2 Capacity (16-24) mL/dL ABG Potassium (3.6-5.2) mmol/L Hgb O2 Saturation (95.0-98.0) % Chloride 107 Cancelled (98-107) mmol/L Glucose (65-105) mg/dl Lactate (0.7-2.1) mmol/L FiO2 % Sodium 144 Cancelled (132-148) mmol/L Potassium 3.4 L Cancelled (3.6-5.0) mmol/L Carbon Dioxide 26 Cancelled (21-33) mmol/L Anion Gap 14 Cancelled (10-20) BUN 14 Cancelled (7-21) mg/dL Creatinine 0.6 Cancelled (0.5-1.4) mg/dL Est GFR ( Amer) > 60 Cancelled Est GFR (Non-Af Amer) > 60 Cancelled Random Glucose 231 H Cancelled (70-110) mg/dL Calcium 6.5 L* Cancelled (8.4-10.5) mg/dL Total Bilirubin 0.5 Cancelled AST 16 Cancelled ALT 29 Cancelled Alkaline Phosphatase 70 Cancelled Lactate Dehydrogenase 805 H (333-699) U/L Total Creatine Kinase 58 (35-230) U/L Troponin I 0.13 H* D ng/mL Total Protein 5.3 L Cancelled Albumin 2.4 L Cancelled Globulin 2.9 Cancelled Albumin/Globulin Ratio 0.8 L Cancelled Arterial Blood Potassium (3.6-5.2) mmol/L Urine Color (YELLOW) Urine Appearance (CLEAR) Urine pH (4.7-8.0) Ur Specific Leckrone (1.005-1.035) Urine Protein (<30 mg/dL) mg/dL Urine Glucose (UA) (NEGATIVE) mg/dL Urine Ketones (NEGATIVE) mg/dL Urine Blood (NEGATIVE) Urine Nitrate (NEGATIVE) Urine Bilirubin (NEGATIVE) Urine Urobilinogen (<1 E.U./dL) E.U./dL Ur Leukocyte Esterase (NEGATIVE) Remy/uL Urine RBC (0-2) /hpf Urine WBC (0-6) /hpf Ur Epithelial Cells (0-5) /hpf Influenza Typ A,B (EIA) (NEGATIVE) 07/22/16 07/22/16 07/22/16 Range/Units 07:15 06:09 03:15 WBC 12.0 H D (4.5-11.0) 10^3/ul RBC 3.31 L (3.5-6.1) 10^6/uL Hgb 9.7 L (12.0-16.0) gm/dL Hct 28.4 L (36.0-48.0) % MCV 85.8 (80.0-105.0) fL MCH 29.3 (25.0-35.0) pg MCHC 34.2 (31.0-37.0) g/dl RDW 14.2 (11.5-14.5) % Plt Count 436 (120.0-450.0) 10^3/uL MPV 9.5 (7.0-11.0) fl Gran % 95.2 H (50.0-68.0) % Lymph % (Auto) 2.3 L (22.0-35.0) % Whitfield % (Auto) 2.4 (1.0-6.0) % Eos % (Auto) 0.0 L (1.5-5.0) % Baso % (Auto) 0.1 (0.0-3.0) % Gran # 11.44 H (1.4-6.5) Lymph # 0.3 L (1.2-3.4) Whitfield # 0.3 (0.1-0.6) Eos # 0.0 (0.0-0.7) Baso # 0.01 (0.0-2.0) K/mm3 PT (9.9-11.8) Seconds INR (0.93-1.08) APTT 33.6 H (23.7-30.8) Seconds pCO2 40 (35-45) mm/Hg pO2 156.0 H (80-100) mm/Hg HCO3 25.4 (21-28) mmol/L ABG pH 7.41 (7.35-7.45) ABG Total CO2 26.6 (22-28) mmol.L ABG O2 Saturation 99.9 H (95-98) % ABG Base Excess 0.7 (-2.0-3.0) mmol/L ABG Hemoglobin (11.7-17.4) g/dL ABG Carboxyhemoglobin (0.5-1.5) % POC ABG HHb (Measured) (0-5) % ABG Methemoglobin (0.0-3.0) % ABG O2 Capacity (16-24) mL/dL ABG Potassium 1.8 L* (3.6-5.2) mmol/L Hgb O2 Saturation (95.0-98.0) % Chloride 116.0 H (98-107) mmol/L Glucose 276 H (65-105) mg/dl Lactate 1.9 (0.7-2.1) mmol/L FiO2 50.0 % Sodium 142.0 (132-148) mmol/L Potassium (3.6-5.0) mmol/L Carbon Dioxide (21-33) mmol/L Anion Gap (10-20) BUN (7-21) mg/dL Creatinine (0.5-1.4) mg/dL Est GFR ( Amer) Est GFR (Non-Af Amer) Random Glucose (70-110) mg/dL Calcium (8.4-10.5) mg/dL Total Bilirubin AST ALT Alkaline Phosphatase Lactate Dehydrogenase (333-699) U/L Total Creatine Kinase (35-230) U/L Troponin I ng/mL Total Protein Albumin Globulin Albumin/Globulin Ratio Arterial Blood Potassium 1.8 L* (3.6-5.2) mmol/L Urine Color (YELLOW) Urine Appearance (CLEAR) Urine pH (4.7-8.0) Ur Specific Le[place]rone (1.005-1.035) Urine Protein (<30 mg/dL) mg/dL Urine Glucose (UA) (NEGATIVE) mg/dL Urine Ketones (NEGATIVE) mg/dL Urine Blood (NEGATIVE) Urine Nitrate (NEGATIVE) Urine Bilirubin (NEGATIVE) Urine Urobilinogen (<1 E.U./dL) E.U./dL Ur Leukocyte Esterase (NEGATIVE) Remy/uL Urine RBC (0-2) /hpf Urine WBC (0-6) /hpf Ur Epithelial Cells (0-5) /hpf Influenza Typ A,B (EIA) (NEGATIVE) 07/21/16 07/21/16 07/21/16 Range/Units 19:13 19:05 17:37 WBC (4.5-11.0) 10^3/ul RBC (3.5-6.1) 10^6/uL Hgb (12.0-16.0) gm/dL Hct (36.0-48.0) % MCV (80.0-105.0) fL MCH (25.0-35.0) pg MCHC (31.0-37.0) g/dl RDW (11.5-14.5) % Plt Count (120.0-450.0) 10^3/uL MPV (7.0-11.0) fl Gran % (50.0-68.0) % Lymph % (Auto) (22.0-35.0) % Whitfield % (Auto) (1.0-6.0) % Eos % (Auto) (1.5-5.0) % Baso % (Auto) (0.0-3.0) % Gran # (1.4-6.5) Lymph # (1.2-3.4) Whitfield # (0.1-0.6) Eos # (0.0-0.7) Baso # (0.0-2.0) K/mm3 PT 19.5 H (9.9-11.8) Seconds INR 1.81 H (0.93-1.08) APTT 40.9 H (23.7-30.8) Seconds pCO2 42 (35-45) mm/Hg pO2 110.0 H (80-100) mm/Hg HCO3 21.1 (21-28) mmol/L ABG pH 7.31 L (7.35-7.45) ABG Total CO2 22.4 (22-28) mmol.L ABG O2 Saturation 99.4 H (95-98) % ABG Base Excess -4.9 L (-2.0-3.0) mmol/L ABG Hemoglobin 9.6 L (11.7-17.4) g/dL ABG Carboxyhemoglobin 1.8 H (0.5-1.5) % POC ABG HHb (Measured) 0.6 (0-5) % ABG Methemoglobin 1.4 (0.0-3.0) % ABG O2 Capacity 13.3 L (16-24) mL/dL ABG Potassium (3.6-5.2) mmol/L Hgb O2 Saturation 96.3 (95.0-98.0) % Chloride (98-107) mmol/L Glucose (65-105) mg/dl Lactate (0.7-2.1) mmol/L FiO2 50 % Sodium (132-148) mmol/L Potassium (3.6-5.0) mmol/L Carbon Dioxide (21-33) mmol/L Anion Gap (10-20) BUN (7-21) mg/dL Creatinine (0.5-1.4) mg/dL Est GFR ( Amer) Est GFR (Non-Af Amer) Random Glucose (70-110) mg/dL Calcium (8.4-10.5) mg/dL Total Bilirubin AST ALT Alkaline Phosphatase Lactate Dehydrogenase (333-699) U/L Total Creatine Kinase (35-230) U/L Troponin I ng/mL Total Protein Albumin Globulin Albumin/Globulin Ratio Arterial Blood Potassium (3.6-5.2) mmol/L Urine Color Straw (YELLOW) Urine Appearance Sl cloudy (CLEAR) Urine pH 7.0 (4.7-8.0) Ur Specific [place] 1.010 (1.005-1.035) Urine Protein Trace H (<30 mg/dL) mg/dL Urine Glucose (UA) Negative (NEGATIVE) mg/dL Urine Ketones Negative (NEGATIVE) mg/dL Urine Blood Large H (NEGATIVE) Urine Nitrate Negative (NEGATIVE) Urine Bilirubin Negative (NEGATIVE) Urine Urobilinogen 0.2 (<1 E.U./dL) E.U./dL Ur Leukocyte Esterase Negative (NEGATIVE) Remy/uL Urine RBC Tntc (0-2) /hpf Urine WBC 0 - 2 (0-6) /hpf Ur Epithelial Cells 0 - 2 (0-5) /hpf Influenza Typ A,B (EIA) (NEGATIVE) 07/21/16 07/21/16 07/21/16 Range/Units 07:00 07:00 06:00 WBC 7.5 D (4.5-11.0) 10^3/ul RBC 3.33 L (3.5-6.1) 10^6/uL Hgb 9.7 L (12.0-16.0) gm/dL Hct 29.0 L (36.0-48.0) % MCV 87.1 (80.0-105.0) fL MCH 29.1 (25.0-35.0) pg MCHC 33.4 (31.0-37.0) g/dl RDW 14.0 (11.5-14.5) % Plt Count 442 (120.0-450.0) 10^3/uL MPV 9.4 (7.0-11.0) fl Gran % (50.0-68.0) % Lymph % (Auto) (22.0-35.0) % [place]field % (Auto) (1.0-6.0) % Eos % (Auto) (1.5-5.0) % Baso % (Auto) (0.0-3.0) % Gran # (1.4-6.5) Lymph # (1.2-3.4) Whitfield # (0.1-0.6) Eos # (0.0-0.7) Baso # (0.0-2.0) K/mm3 PT (9.9-11.8) Seconds INR (0.93-1.08) APTT > 180.0 H* (23.7-30.8) Seconds pCO2 (35-45) mm/Hg pO2 (80-100) mm/Hg HCO3 (21-28) mmol/L ABG pH (7.35-7.45) ABG Total CO2 (22-28) mmol.L ABG O2 Saturation (95-98) % ABG Base Excess (-2.0-3.0) mmol/L ABG Hemoglobin (11.7-17.4) g/dL ABG Carboxyhemoglobin (0.5-1.5) % POC ABG HHb (Measured) (0-5) % ABG Methemoglobin (0.0-3.0) % ABG O2 Capacity (16-24) mL/dL ABG Potassium (3.6-5.2) mmol/L Hgb O2 Saturation (95.0-98.0) % Chloride 112 H (98-107) mmol/L Glucose (65-105) mg/dl Lactate (0.7-2.1) mmol/L FiO2 % Sodium 142 (132-148) mmol/L Potassium 4.5 (3.6-5.0) mmol/L Carbon Dioxide 20 L (21-33) mmol/L Anion Gap 15 (10-20) BUN 21 (7-21) mg/dL Creatinine 1.0 (0.5-1.4) mg/dL Est GFR ( Amer) > 60 Est GFR (Non-Af Amer) 57 Random Glucose 224 H (70-110) mg/dL Calcium 7.9 L (8.4-10.5) mg/dL Total Bilirubin AST ALT Alkaline Phosphatase Lactate Dehydrogenase (333-699) U/L Total Creatine Kinase (35-230) U/L Troponin I ng/mL Total Protein Albumin Globulin Albumin/Globulin Ratio Arterial Blood Potassium (3.6-5.2) mmol/L Urine Color (YELLOW) Urine Appearance (CLEAR) Urine pH (4.7-8.0) Ur Specific Leckrone (1.005-1.035) Urine Protein (<30 mg/dL) mg/dL Urine Glucose (UA) (NEGATIVE) mg/dL Urine Ketones (NEGATIVE) mg/dL Urine Blood (NEGATIVE) Urine Nitrate (NEGATIVE) Urine Bilirubin (NEGATIVE) Urine Urobilinogen (<1 E.U./dL) E.U./dL Ur Leukocyte Esterase (NEGATIVE) Remy/uL Urine RBC (0-2) /hpf Urine WBC (0-6) /hpf Ur Epithelial Cells (0-5) /hpf Influenza Typ A,B (EIA) (NEGATIVE) 07/21/16 07/21/16 Range/Units 04:49 04:15 WBC (4.5-11.0) 10^3/ul RBC (3.5-6.1) 10^6/uL Hgb (12.0-16.0) gm/dL Hct (36.0-48.0) % MCV (80.0-105.0) fL MCH (25.0-35.0) pg MCHC (31.0-37.0) g/dl RDW (11.5-14.5) % Plt Count (120.0-450.0) 10^3/uL MPV (7.0-11.0) fl Gran % (50.0-68.0) % Lymph % (Auto) (22.0-35.0) % Whitfield % (Auto) (1.0-6.0) % Eos % (Auto) (1.5-5.0) % Baso % (Auto) (0.0-3.0) % Gran # (1.4-6.5) Lymph # (1.2-3.4) Whitfield # (0.1-0.6) Eos # (0.0-0.7) Baso # (0.0-2.0) K/mm3 PT (9.9-11.8) Seconds INR (0.93-1.08) APTT (23.7-30.8) Seconds pCO2 46 H (35-45) mm/Hg pO2 276.0 H (80-100) mm/Hg HCO3 17.6 L (21-28) mmol/L ABG pH 7.19 L* (7.35-7.45) ABG Total CO2 19.0 L (22-28) mmol.L ABG O2 Saturation 10.2 L (95-98) % ABG Base Excess -10.0 L (-2.0-3.0) mmol/L ABG Hemoglobin (11.7-17.4) g/dL ABG Carboxyhemoglobin (0.5-1.5) % POC ABG HHb (Measured) (0-5) % ABG Methemoglobin (0.0-3.0) % ABG O2 Capacity (16-24) mL/dL ABG Potassium (3.6-5.2) mmol/L Hgb O2 Saturation (95.0-98.0) % Chloride 118.0 H (98-107) mmol/L Glucose 119 H (65-105) mg/dl Lactate 1.0 (0.7-2.1) mmol/L FiO2 % Sodium (132-148) mmol/L Potassium (3.6-5.0) mmol/L Carbon Dioxide (21-33) mmol/L Anion Gap (10-20) BUN (7-21) mg/dL Creatinine (0.5-1.4) mg/dL Est GFR ( Amer) Est GFR (Non-Af Amer) Random Glucose (70-110) mg/dL Calcium (8.4-10.5) mg/dL Total Bilirubin AST ALT Alkaline Phosphatase Lactate Dehydrogenase (333-699) U/L Total Creatine Kinase (35-230) U/L Troponin I ng/mL Total Protein Albumin Globulin Albumin/Globulin Ratio Arterial Blood Potassium (3.6-5.2) mmol/L Urine Color (YELLOW) Urine Appearance (CLEAR) Urine pH (4.7-8.0) Ur Specific [place]rone (1.005-1.035) Urine Protein (<30 mg/dL) mg/dL Urine Glucose (UA) (NEGATIVE) mg/dL Urine Ketones (NEGATIVE) mg/dL Urine Blood (NEGATIVE) Urine Nitrate (NEGATIVE) Urine Bilirubin (NEGATIVE) Urine Urobilinogen (<1 E.U./dL) E.U./dL Ur Leukocyte Esterase (NEGATIVE) Remy/uL Urine RBC (0-2) /hpf Urine WBC (0-6) /hpf Ur Epithelial Cells (0-5) /hpf Influenza Typ A,B (EIA) Negative for flu a/b (NEGATIVE) Laboratory Results - last 24 hr 07/21/16 07/21/16 07/21/16 04:15 04:49 06:00 WBC 7.5 D RBC 3.33 L Hgb 9.7 L Hct 29.0 L MCV 87.1 MCH 29.1 MCHC 33.4 RDW 14.0 Plt Count 442 MPV 9.4 Gran % Lymph % (Auto) [place]field % (Auto) Eos % (Auto) Baso % (Auto) Gran # Lymph # Whitfield # Eos # Baso # PT INR APTT pCO2 46 H pO2 276.0 H HCO3 17.6 L ABG pH 7.19 L* ABG Total CO2 19.0 L ABG O2 Saturation 10.2 L ABG Base Excess -10.0 L ABG Hemoglobin ABG Carboxyhemoglobin POC ABG HHb (Measured) ABG Methemoglobin ABG O2 Capacity ABG Potassium Hgb O2 Saturation Chloride 118.0 H Glucose 119 H Lactate 1.0 FiO2 Sodium Potassium Carbon Dioxide Anion Gap BUN Creatinine Est GFR ( Amer) Est GFR (Non-Af Amer) Random Glucose Calcium Total Bilirubin AST ALT Alkaline Phosphatase Lactate Dehydrogenase Total Creatine Kinase Troponin I Total Protein Albumin Globulin Albumin/Globulin Ratio Arterial Blood Potassium Urine Color Urine Appearance Urine pH Ur Specific Leckrone Urine Protein Urine Glucose (UA) Urine Ketones Urine Blood Urine Nitrate Urine Bilirubin Urine Urobilinogen Ur Leukocyte Esterase Urine RBC Urine WBC Ur Epithelial Cells Influenza Typ A,B (EIA) Negative for flu a/b 07/21/16 07/21/16 07/21/16 07:00 07:00 17:37 WBC RBC Hgb Hct MCV MCH MCHC RDW Plt Count MPV Gran % Lymph % (Auto) [place]field % (Auto) Eos % (Auto) Baso % (Auto) Gran # Lymph # Whitfield # Eos # Baso # PT INR APTT > 180.0 H* pCO2 pO2 HCO3 ABG pH ABG Total CO2 ABG O2 Saturation ABG Base Excess ABG Hemoglobin ABG Carboxyhemoglobin POC ABG HHb (Measured) ABG Methemoglobin ABG O2 Capacity ABG Potassium Hgb O2 Saturation Chloride 112 H Glucose Lactate FiO2 Sodium 142 Potassium 4.5 Carbon Dioxide 20 L Anion Gap 15 BUN 21 Creatinine 1.0 Est GFR ( Amer) > 60 Est GFR (Non-Af Amer) 57 Random Glucose 224 H Calcium 7.9 L Total Bilirubin AST ALT Alkaline Phosphatase Lactate Dehydrogenase Total Creatine Kinase Troponin I Total Protein Albumin Globulin Albumin/Globulin Ratio Arterial Blood Potassium Urine Color Straw Urine Appearance Sl cloudy Urine pH 7.0 Ur Specific [place] 1.010 Urine Protein Trace H Urine Glucose (UA) Negative Urine Ketones Negative Urine Blood Large H Urine Nitrate Negative Urine Bilirubin Negative Urine Urobilinogen 0.2 Ur Leukocyte Esterase Negative Urine RBC Tntc Urine WBC 0 - 2 Ur Epithelial Cells 0 - 2 Influenza Typ A,B (EIA) 07/21/16 07/21/16 07/22/16 19:05 19:13 03:15 WBC RBC Hgb Hct MCV MCH MCHC RDW Plt Count MPV Gran % Lymph % (Auto) [place]field % (Auto) Eos % (Auto) Baso % (Auto) Gran # Lymph # [place]field # Eos # Baso # PT 19.5 H INR 1.81 H APTT 40.9 H 33.6 H pCO2 42 pO2 110.0 H HCO3 21.1 ABG pH 7.31 L ABG Total CO2 22.4 ABG O2 Saturation 99.4 H ABG Base Excess -4.9 L ABG Hemoglobin 9.6 L ABG Carboxyhemoglobin 1.8 H POC ABG HHb (Measured) 0.6 ABG Methemoglobin 1.4 ABG O2 Capacity 13.3 L ABG Potassium Hgb O2 Saturation 96.3 Chloride Glucose Lactate FiO2 50 Sodium Potassium Carbon Dioxide Anion Gap BUN Creatinine Est GFR ( Amer) Est GFR (Non-Af Amer) Random Glucose Calcium Total Bilirubin AST ALT Alkaline Phosphatase Lactate Dehydrogenase Total Creatine Kinase Troponin I Total Protein Albumin Globulin Albumin/Globulin Ratio Arterial Blood Potassium Urine Color Urine Appearance Urine pH Ur Specific [place] Urine Protein Urine Glucose (UA) Urine Ketones Urine Blood Urine Nitrate Urine Bilirubin Urine Urobilinogen Ur Leukocyte Esterase Urine RBC Urine WBC Ur Epithelial Cells Influenza Typ A,B (EIA) 07/22/16 07/22/16 07/22/16 06:09 07:15 07:15 WBC 12.0 H D RBC 3.31 L Hgb 9.7 L Hct 28.4 L MCV 85.8 MCH 29.3 MCHC 34.2 RDW 14.2 Plt Count 436 MPV 9.5 Gran % 95.2 H Lymph % (Auto) 2.3 L Whitfield % (Auto) 2.4 Eos % (Auto) 0.0 L Baso % (Auto) 0.1 Gran # 11.44 H Lymph # 0.3 L Whitfield # 0.3 Eos # 0.0 Baso # 0.01 PT 14.3 H INR 1.32 H APTT 33.2 H pCO2 40 pO2 156.0 H HCO3 25.4 ABG pH 7.41 ABG Total CO2 26.6 ABG O2 Saturation 99.9 H ABG Base Excess 0.7 ABG Hemoglobin ABG Carboxyhemoglobin POC ABG HHb (Measured) ABG Methemoglobin ABG O2 Capacity ABG Potassium 1.8 L* Hgb O2 Saturation Chloride 116.0 H Glucose 276 H Lactate 1.9 FiO2 50.0 Sodium 142.0 Potassium Carbon Dioxide Anion Gap BUN Creatinine Est GFR ( Amer) Est GFR (Non-Af Amer) Random Glucose Calcium Total Bilirubin AST ALT Alkaline Phosphatase Lactate Dehydrogenase Total Creatine Kinase Troponin I Total Protein Albumin Globulin Albumin/Globulin Ratio Arterial Blood Potassium 1.8 L* Urine Color Urine Appearance Urine pH Ur Specific [place] Urine Protein Urine Glucose (UA) Urine Ketones Urine Blood Urine Nitrate Urine Bilirubin Urine Urobilinogen Ur Leukocyte Esterase Urine RBC Urine WBC Ur Epithelial Cells Influenza Typ A,B (EIA) 07/22/16 07/22/16 07:15 07:15 WBC RBC Hgb Hct MCV MCH MCHC RDW Plt Count MPV Gran % Lymph % (Auto) Whitfield % (Auto) Eos % (Auto) Baso % (Auto) Gran # Lymph # Whitfield # Eos # Baso # PT INR APTT pCO2 pO2 HCO3 ABG pH ABG Total CO2 ABG O2 Saturation ABG Base Excess ABG Hemoglobin ABG Carboxyhemoglobin POC ABG HHb (Measured) ABG Methemoglobin ABG O2 Capacity ABG Potassium Hgb O2 Saturation Chloride Cancelled 107 Glucose Lactate FiO2 Sodium Cancelled 144 Potassium Cancelled 3.4 L Carbon Dioxide Cancelled 26 Anion Gap Cancelled 14 BUN Cancelled 14 Creatinine Cancelled 0.6 Est GFR ( Amer) Cancelled > 60 Est GFR (Non-Af Amer) Cancelled > 60 Random Glucose Cancelled 231 H Calcium Cancelled 6.5 L* Total Bilirubin Cancelled 0.5 AST Cancelled 16 ALT Cancelled 29 Alkaline Phosphatase Cancelled 70 Lactate Dehydrogenase 805 H Total Creatine Kinase 58 Troponin I 0.13 H* D Total Protein Cancelled 5.3 L Albumin Cancelled 2.4 L Globulin Cancelled 2.9 Albumin/Globulin Ratio Cancelled 0.8 L Arterial Blood Potassium Urine Color Urine Appearance Urine pH Ur Specific [place] Urine Protein Urine Glucose (UA) Urine Ketones Urine Blood Urine Nitrate Urine Bilirubin Urine Urobilinogen Ur Leukocyte Esterase Urine RBC Urine WBC Ur Epithelial Cells Influenza Typ A,B (EIA) Review of Systems - Review of Systems Systems not reviewed;Unavailable: Intubated Critical Care Progress Note - Ventilator Checklist Head of Bed 30 Degrees: Yes Daily Sedation Vacation: Yes Daily Assessment of Readiness to Wean: Yes Daily Spontaneous Breathing Trial: Yes PUD Prophalyxis: Yes DVT Prophylaxis: Yes Oral Care with Chlorhexidine Gluconate {CHG}: Yes - Vent Settings MODE:: PRVC TIDAL VOLUME:: 350 RESP RATE:: 25 FIO2:: 40 PEEP:: 10 - Extremities/Vascular Does the Patient have a Central Venous Catheter?: No Does the Patient have a Rondon Catheter?: Yes Does the Patient need a Rondon Catheter?: Yes Catheter Insertion Criteria: Need for accurate measurement of output in critically ill patient - Restraints Justification for Restraints: High risk for self extubation, High risk for removing IV access - Prophylaxis GI Prophylaxis GI: PPI - Prophylaxis DVT Prophylaxis DVT: Heparin SQ (DRIP) Assessment/Plan - Assessment and Plan (Free Text) Assessment: 61 year old female with a PMH of RA, chronic pain, osteoporosis who presented to [facility], brought in by her son who lives with her, after he found her down in the bathroom, brought in and needed intubation due to tachypnea and inability to protect airway, code sepsis called for elevated lactate and bandemia as well as tachypnea, now found to have a pulmonary embolus. Plan: Neurological Following commands off sedation, nonfocal exam Sedation vacations, on fentanyl gtt, PRN versed Cardiovascular Hypotension responding to fluids, continue IV hydration Echo showed RV systolic dysfunction, poss RV ischemia, on heparin drip, cardio following, on ASA and plavix Poss PE, pending CTA chest PE protocol, could be cause for RV dilation and dysfunction On duonebs and solumedrol 40q8 Pulmonary Intubated, 350/25/10/40%, maintain O2sat >90%, poss extubation today if does well on trial CXR appears improved Renal/ Fluids / Electrolytes Gentle hydration Repleting K, check again in afternoon On bicarb drip for metabolic acidosis Continue to maintain euvolemia GI NPO, intubated, GI ppx Infectious disease ID following, on vanco/zosyn day 2 BCxs, Sputum Cx, and urine cx pending Hematology/Oncology Hgb stable, on methotrexate at home Hemodynamically improved Hem/Onc following Endocrine Maintain euglycemia Prophylaxis PPI/SCDs/heparin drip Patient was seen and examined and case was discussed at length with attending physician. - Date & Time Date: 07/22/16 Time: 09:45 <Juan Holden MD H - Last Filed: 07/22/16 18:46> CCU Objective - Vital Signs / Intake & Output Vital Signs (Last 4 hours): Vital Signs Temp Pulse Resp BP Pulse Ox 07/22/16 18:01 51 L 30 H 108/54 L 99 07/22/16 18:00 52 L 29 H 99 07/22/16 17:50 53 L 31 H 99 07/22/16 17:41 54 L 29 H 106/47 L 99 07/22/16 17:40 52 L 27 H 99 07/22/16 17:30 52 L 25 H 99 07/22/16 17:20 49 L 29 H 109/59 L 99 07/22/16 17:10 56 L 24 98 07/22/16 17:00 58 L 26 H 109/68 97 07/22/16 16:52 18 07/22/16 16:50 74 26 H 91 L 07/22/16 16:40 73 26 H 102/69 91 L 07/22/16 16:30 85 33 H 90 L 07/22/16 16:20 71 26 H 93/63 L 93 L 07/22/16 16:10 82 34 H 94 L 07/22/16 16:00 97.1 F L 73 24 100/50 L 98 07/22/16 15:56 77 93/59 L 98 07/22/16 15:50 83 95/66 L 98 07/22/16 15:45 85 99/60 L 97 07/22/16 15:41 88 84/50 L 98 07/22/16 15:40 88 98 07/22/16 15:35 90 87/48 L 98 07/22/16 15:30 91 H 89/52 L 98 07/22/16 15:25 94 H 93/42 L 98 07/22/16 15:21 92 H 93/46 L 98 07/22/16 15:20 93 H 97 07/22/16 15:17 96 H 93/64 L 97 07/22/16 15:11 95 H 87/64 L 95 07/22/16 15:10 101 H 97 07/22/16 15:05 97 H 91/55 L 97 07/22/16 15:00 102 H 88/66 L 96 07/22/16 14:55 102 H 93/57 L 97 07/22/16 14:50 103 H 90/69 L 97 07/22/16 14:48 95 H 113/76 97 07/22/16 14:45 107 H 90/63 L 81 L Intake and Output (Last 8hrs): Intake & Output 07/22/16 07/22/16 07/22/16 06:59 14:59 22:59 Intake Total 0676 486 5856.0 Output Total 1200 1400 Balance 272 155 -33.0 Weight 106 lb Intake: IV 305 953 9753.0 Left Hand 1292 Oral 0 Other 1372 Output: Urine 1200 1400 Urethral ([place]) 1200 1400 Stool 0 Other: Voiding Method Indwelling Catheter # Bowel Movements 0 1 - Medications Active Medications: Active Medications Generic Name Dose Route Start Last Admin Trade Name Freq PRN Reason Stop Dose Admin Albuterol/Ipratropium 3 ml 07/21/16 04:00 07/22/16 13:32 Duoneb 3 Mg/0.5 Mg (3 Ml) Ud IH 3 ml [id number] NISHANT Administration Aspirin 81 mg 07/22/16 10:00 07/22/16 09:48 Ecotrin PO Not Given DAILY NISHANT Clopidogrel Bisulfate 75 mg 07/22/16 10:00 07/22/16 09:49 Plavix PO Not Given DAILY NISHANT Vancomycin HCl 1 gm in 250 mls @ 167 mls/hr 07/21/16 04:00 07/22/16 04:30 Vancomycin 1gm IVPB 167 mls/hr Q12H NISHANT Administration Piperacillin Sod/Tazobactam Sod 100 mls @ 200 mls/hr 07/21/16 04:00 07/22/16 15:42 Zosyn 3.375 In Ns 100ml IVPB 07/28/16 04:01 200 mls/hr Q6H NISHANT Administration Fentanyl Citrate 1,000 mcg in 100 mls @ 7.5 mls/hr 07/21/16 04:00 07/22/16 13 :29 Fentanyl Citrate/Sodium Chloride 1 Mg/100 Ml IV 100 mcg/hr .[id number] PRN 10 mls/hr TITRATE PER MD ORDER Administration Protocol 75 MCG/HR Sodium Bicarbonate 150 meq/ 1,150 mls @ 75 mls/hr 07/21/16 06:00 07/22/16 17: 43 Dextrose/Sodium Chloride IV 75 mls/hr .[id number] NISHANT Administration Dopamine HCl/Dextrose 400 mg in 250 mls @ 3.368 mls/hr 07/22/16 01:17 14:51 Dopamine 400mg/250ml D5w IV 0 mcg/kg/min .Q24H PRN 0 mls/hr TITRATE PER MD ORDER Titration Protocol 2 MCG/KG/MIN Doxycycline Hyclate 100 mg/ 100 mls @ 100 mls/hr 07/22/16 12:15 07/22/16 15: 34 Sodium Chloride IVPB 100 mls/hr Q12 NISHANT Administration Protocol Heparin Sodium/Sodium Chloride 25,000 units in 250 mls @ 8.655 mls/hr 12:31 07/22/16 12:49 Heparin 43139 Units/250ml 1/2 Normal Saline IV 18 units/kg/hr .Q24H PRN 8.655 mls/hr ADJUST RATE PER PROTOCOL Administration Protocol 18 UNITS/KG/HR Dexmedetomidine HCl 400 mcg in 100 mls @ 2.404 mls/hr 07/22/16 14:26 17:42 Precedex 4 Mcg/Ml (100 Ml) IV 0 mcg/kg/hr .Q24H PRN 0 mls/hr Agitation Titration Protocol 0.2 MCG/KG/HR Methylprednisolone 40 mg 07/21/16 06:00 07/22/16 13:39 Solu-Medrol IVP 40 mg Q8 NISHANT Administration Midazolam HCl 2 mg 07/21/16 20:43 07/22/16 10:30 Versed Inj IVP 2 mg Q2H PRN Administration Agitation Pantoprazole Sodium 40 mg 07/21/16 10:00 07/22/16 13:27 Protonix Inj IVP Not Given DAILY NISHANT - Patient Studies Lab Studies: Lab Studies 07/22/16 07/22/16 07/22/16 Range/Units 07:15 07:15 07:15 WBC (4.5-11.0) 10^3/ul RBC (3.5-6.1) 10^6/uL Hgb (12.0-16.0) gm/dL Hct (36.0-48.0) % MCV (80.0-105.0) fL MCH (25.0-35.0) pg MCHC (31.0-37.0) g/dl RDW (11.5-14.5) % Plt Count (120.0-450.0) 10^3/uL MPV (7.0-11.0) fl Gran % (50.0-68.0) % Lymph % (Auto) (22.0-35.0) % [place] % (Auto) (1.0-6.0) % Eos % (Auto) (1.5-5.0) % Baso % (Auto) (0.0-3.0) % Gran # (1.4-6.5) Lymph # (1.2-3.4) [place] # (0.1-0.6) Eos # (0.0-0.7) Baso # (0.0-2.0) K/mm3 PT 14.3 H (9.9-11.8) Seconds INR 1.32 H (0.93-1.08) APTT 33.2 H (23.7-30.8) Seconds pCO2 (35-45) mm/Hg pO2 (80-100) mm/Hg HCO3 (21-28) mmol/L ABG pH (7.35-7.45) ABG Total CO2 (22-28) mmol.L ABG O2 Saturation (95-98) % ABG Base Excess (-2.0-3.0) mmol/L ABG Hemoglobin (11.7-17.4) g/dL ABG Carboxyhemoglobin (0.5-1.5) % POC ABG HHb (Measured) (0-5) % ABG Methemoglobin (0.0-3.0) % ABG O2 Capacity (16-24) mL/dL ABG Potassium (3.6-5.2) mmol/L Hgb O2 Saturation (95.0-98.0) % Chloride 107 Cancelled (98-107) mmol/L Glucose (65-105) mg/dl Lactate (0.7-2.1) mmol/L FiO2 % Sodium 144 Cancelled (132-148) mmol/L Potassium 3.4 L Cancelled (3.6-5.0) mmol/L Carbon Dioxide 26 Cancelled (21-33) mmol/L Anion Gap 14 Cancelled (10-20) BUN 14 Cancelled (7-21) mg/dL Creatinine 0.6 Cancelled (0.5-1.4) mg/dL Est GFR ( Amer) > 60 Cancelled Est GFR (Non-Af Amer) > 60 Cancelled Random Glucose 231 H Cancelled (70-110) mg/dL Calcium 6.5 L* Cancelled (8.4-10.5) mg/dL Total Bilirubin 0.5 Cancelled AST 16 Cancelled ALT 29 Cancelled Alkaline Phosphatase 70 Cancelled Lactate Dehydrogenase 805 H (333-699) U/L Total Creatine Kinase 58 (35-230) U/L Troponin I 0.13 H* D ng/mL Total Protein 5.3 L Cancelled Albumin 2.4 L Cancelled Globulin 2.9 Cancelled Albumin/Globulin Ratio 0.8 L Cancelled Arterial Blood Potassium (3.6-5.2) mmol/L Urine Color (YELLOW) Urine Appearance (CLEAR) Urine pH (4.7-8.0) Ur Specific [place] (1.005-1.035) Urine Protein (<30 mg/dL) mg/dL Urine Glucose (UA) (NEGATIVE) mg/dL Urine Ketones (NEGATIVE) mg/dL Urine Blood (NEGATIVE) Urine Nitrate (NEGATIVE) Urine Bilirubin (NEGATIVE) Urine Urobilinogen (<1 E.U./dL) E.U./dL Ur Leukocyte Esterase (NEGATIVE) Remy/uL Urine RBC (0-2) /hpf Urine WBC (0-6) /hpf Ur Epithelial Cells (0-5) /hpf Influenza Typ A,B (EIA) (NEGATIVE) 07/22/16 07/22/16 07/22/16 Range/Units 07:15 06:09 03:15 WBC 12.0 H D (4.5-11.0) 10^3/ul RBC 3.31 L (3.5-6.1) 10^6/uL Hgb 9.7 L (12.0-16.0) gm/dL Hct 28.4 L (36.0-48.0) % MCV 85.8 (80.0-105.0) fL MCH 29.3 (25.0-35.0) pg MCHC 34.2 (31.0-37.0) g/dl RDW 14.2 (11.5-14.5) % Plt Count 436 (120.0-450.0) 10^3/uL MPV 9.5 (7.0-11.0) fl Gran % 95.2 H (50.0-68.0) % Lymph % (Auto) 2.3 L (22.0-35.0) % [place] % (Auto) 2.4 (1.0-6.0) % Eos % (Auto) 0.0 L (1.5-5.0) % Baso % (Auto) 0.1 (0.0-3.0) % Gran # 11.44 H (1.4-6.5) Lymph # 0.3 L (1.2-3.4) [place] # 0.3 (0.1-0.6) Eos # 0.0 (0.0-0.7) Baso # 0.01 (0.0-2.0) K/mm3 PT (9.9-11.8) Seconds INR (0.93-1.08) APTT 33.6 H (23.7-30.8) Seconds pCO2 40 (35-45) mm/Hg pO2 156.0 H (80-100) mm/Hg HCO3 25.4 (21-28) mmol/L ABG pH 7.41 (7.35-7.45) ABG Total CO2 26.6 (22-28) mmol.L ABG O2 Saturation 99.9 H (95-98) % ABG Base Excess 0.7 (-2.0-3.0) mmol/L ABG Hemoglobin (11.7-17.4) g/dL ABG Carboxyhemoglobin (0.5-1.5) % POC ABG HHb (Measured) (0-5) % ABG Methemoglobin (0.0-3.0) % ABG O2 Capacity (16-24) mL/dL ABG Potassium 1.8 L* (3.6-5.2) mmol/L Hgb O2 Saturation (95.0-98.0) % Chloride 116.0 H (98-107) mmol/L Glucose 276 H (65-105) mg/dl Lactate 1.9 (0.7-2.1) mmol/L FiO2 50.0 % Sodium 142.0 (132-148) mmol/L Potassium (3.6-5.0) mmol/L Carbon Dioxide (21-33) mmol/L Anion Gap (10-20) BUN (7-21) mg/dL Creatinine (0.5-1.4) mg/dL Est GFR ( Amer) Est GFR (Non-Af Amer) Random Glucose (70-110) mg/dL Calcium (8.4-10.5) mg/dL Total Bilirubin AST ALT Alkaline Phosphatase Lactate Dehydrogenase (333-699) U/L Total Creatine Kinase (35-230) U/L Troponin I ng/mL Total Protein Albumin Globulin Albumin/Globulin Ratio Arterial Blood Potassium 1.8 L* (3.6-5.2) mmol/L Urine Color (YELLOW) Urine Appearance (CLEAR) Urine pH (4.7-8.0) Ur Specific [place] (1.005-1.035) Urine Protein (<30 mg/dL) mg/dL Urine Glucose (UA) (NEGATIVE) mg/dL Urine Ketones (NEGATIVE) mg/dL Urine Blood (NEGATIVE) Urine Nitrate (NEGATIVE) Urine Bilirubin (NEGATIVE) Urine Urobilinogen (<1 E.U./dL) E.U./dL Ur Leukocyte Esterase (NEGATIVE) Remy/uL Urine RBC (0-2) /hpf Urine WBC (0-6) /hpf Ur Epithelial Cells (0-5) /hpf Influenza Typ A,B (EIA) (NEGATIVE) 07/21/16 07/21/16 07/21/16 Range/Units 19:13 19:05 17:37 WBC (4.5-11.0) 10^3/ul RBC (3.5-6.1) 10^6/uL Hgb (12.0-16.0) gm/dL Hct (36.0-48.0) % MCV (80.0-105.0) fL MCH (25.0-35.0) pg MCHC (31.0-37.0) g/dl RDW (11.5-14.5) % Plt Count (120.0-450.0) 10^3/uL MPV (7.0-11.0) fl Gran % (50.0-68.0) % Lymph % (Auto) (22.0-35.0) % [place] % (Auto) (1.0-6.0) % Eos % (Auto) (1.5-5.0) % Baso % (Auto) (0.0-3.0) % Gran # (1.4-6.5) Lymph # (1.2-3.4) [place] # (0.1-0.6) Eos # (0.0-0.7) Baso # (0.0-2.0) K/mm3 PT 19.5 H (9.9-11.8) Seconds INR 1.81 H (0.93-1.08) APTT 40.9 H (23.7-30.8) Seconds pCO2 42 (35-45) mm/Hg pO2 110.0 H (80-100) mm/Hg HCO3 21.1 (21-28) mmol/L ABG pH 7.31 L (7.35-7.45) ABG Total CO2 22.4 (22-28) mmol.L ABG O2 Saturation 99.4 H (95-98) % ABG Base Excess -4.9 L (-2.0-3.0) mmol/L ABG Hemoglobin 9.6 L (11.7-17.4) g/dL ABG Carboxyhemoglobin 1.8 H (0.5-1.5) % POC ABG HHb (Measured) 0.6 (0-5) % ABG Methemoglobin 1.4 (0.0-3.0) % ABG O2 Capacity 13.3 L (16-24) mL/dL ABG Potassium (3.6-5.2) mmol/L Hgb O2 Saturation 96.3 (95.0-98.0) % Chloride (98-107) mmol/L Glucose (65-105) mg/dl Lactate (0.7-2.1) mmol/L FiO2 50 % Sodium (132-148) mmol/L Potassium (3.6-5.0) mmol/L Carbon Dioxide (21-33) mmol/L Anion Gap (10-20) BUN (7-21) mg/dL Creatinine (0.5-1.4) mg/dL Est GFR ( Amer) Est GFR (Non-Af Amer) Random Glucose (70-110) mg/dL Calcium (8.4-10.5) mg/dL Total Bilirubin AST ALT Alkaline Phosphatase Lactate Dehydrogenase (333-699) U/L Total Creatine Kinase (35-230) U/L Troponin I ng/mL Total Protein Albumin Globulin Albumin/Globulin Ratio Arterial Blood Potassium (3.6-5.2) mmol/L Urine Color Straw (YELLOW) Urine Appearance Sl cloudy (CLEAR) Urine pH 7.0 (4.7-8.0) Ur Specific [place] 1.010 (1.005-1.035) Urine Protein Trace H (<30 mg/dL) mg/dL Urine Glucose (UA) Negative (NEGATIVE) mg/dL Urine Ketones Negative (NEGATIVE) mg/dL Urine Blood Large H (NEGATIVE) Urine Nitrate Negative (NEGATIVE) Urine Bilirubin Negative (NEGATIVE) Urine Urobilinogen 0.2 (<1 E.U./dL) E.U./dL Ur Leukocyte Esterase Negative (NEGATIVE) Remy/uL Urine RBC Tntc (0-2) /hpf Urine WBC 0 - 2 (0-6) /hpf Ur Epithelial Cells 0 - 2 (0-5) /hpf Influenza Typ A,B (EIA) (NEGATIVE) 07/21/16 07/21/16 07/21/16 Range/Units 07:00 07:00 06:00 WBC 7.5 (4.5-11.0) 10^3/ul RBC 3.33 L (3.5-6.1) 10^6/uL Hgb 9.7 L (12.0-16.0) gm/dL Hct 29.0 L (36.0-48.0) % MCV 87.1 (80.0-105.0) fL MCH 29.1 (25.0-35.0) pg MCHC 33.4 (31.0-37.0) g/dl RDW 14.0 (11.5-14.5) % Plt Count 442 (120.0-450.0) 10^3/uL MPV 9.4 (7.0-11.0) fl Gran % (50.0-68.0) % Lymph % (Auto) (22.0-35.0) % [place] % (Auto) (1.0-6.0) % Eos % (Auto) (1.5-5.0) % Baso % (Auto) (0.0-3.0) % Gran # (1.4-6.5) Lymph # (1.2-3.4) [place] # (0.1-0.6) Eos # (0.0-0.7) Baso # (0.0-2.0) K/mm3 PT (9.9-11.8) Seconds INR (0.93-1.08) APTT > 180.0 H* (23.7-30.8) Seconds pCO2 (35-45) mm/Hg pO2 (80-100) mm/Hg HCO3 (21-28) mmol/L ABG pH (7.35-7.45) ABG Total CO2 (22-28) mmol.L ABG O2 Saturation (95-98) % ABG Base Excess (-2.0-3.0) mmol/L ABG Hemoglobin (11.7-17.4) g/dL ABG Carboxyhemoglobin (0.5-1.5) % POC ABG HHb (Measured) (0-5) % ABG Methemoglobin (0.0-3.0) % ABG O2 Capacity (16-24) mL/dL ABG Potassium (3.6-5.2) mmol/L Hgb O2 Saturation (95.0-98.0) % Chloride 112 H (98-107) mmol/L Glucose (65-105) mg/dl Lactate (0.7-2.1) mmol/L FiO2 % Sodium 142 (132-148) mmol/L Potassium 4.5 (3.6-5.0) mmol/L Carbon Dioxide 20 L (21-33) mmol/L Anion Gap 15 (10-20) BUN 21 (7-21) mg/dL Creatinine 1.0 (0.5-1.4) mg/dL Est GFR ( Amer) > 60 Est GFR (Non-Af Amer) 57 Random Glucose 224 H (70-110) mg/dL Calcium 7.9 L (8.4-10.5) mg/dL Total Bilirubin AST ALT Alkaline Phosphatase Lactate Dehydrogenase (333-699) U/L Total Creatine Kinase (35-230) U/L Troponin I ng/mL Total Protein Albumin Globulin Albumin/Globulin Ratio Arterial Blood Potassium (3.6-5.2) mmol/L Urine Color (YELLOW) Urine Appearance (CLEAR) Urine pH (4.7-8.0) Ur Specific [place] (1.005-1.035) Urine Protein (<30 mg/dL) mg/dL Urine Glucose (UA) (NEGATIVE) mg/dL Urine Ketones (NEGATIVE) mg/dL Urine Blood (NEGATIVE) Urine Nitrate (NEGATIVE) Urine Bilirubin (NEGATIVE) Urine Urobilinogen (<1 E.U./dL) E.U./dL Ur Leukocyte Esterase (NEGATIVE) Remy/uL Urine RBC (0-2) /hpf Urine WBC (0-6) /hpf Ur Epithelial Cells (0-5) /hpf Influenza Typ A,B (EIA) (NEGATIVE) 07/21/16 07/21/16 Range/Units 04:49 04:15 WBC (4.5-11.0) 10^3/ul RBC (3.5-6.1) 10^6/uL Hgb (12.0-16.0) gm/dL Hct (36.0-48.0) % MCV (80.0-105.0) fL MCH (25.0-35.0) pg MCHC (31.0-37.0) g/dl RDW (11.5-14.5) % Plt Count (120.0-450.0) 10^3/uL MPV (7.0-11.0) fl Gran % (50.0-68.0) % Lymph % (Auto) (22.0-35.0) % [place] % (Auto) (1.0-6.0) % Eos % (Auto) (1.5-5.0) % Baso % (Auto) (0.0-3.0) % Gran # (1.4-6.5) Lymph # (1.2-3.4) [place] # (0.1-0.6) Eos # (0.0-0.7) Baso # (0.0-2.0) K/mm3 PT (9.9-11.8) Seconds INR (0.93-1.08) APTT (23.7-30.8) Seconds pCO2 46 H (35-45) mm/Hg pO2 276.0 H (80-100) mm/Hg HCO3 17.6 L (21-28) mmol/L ABG pH 7.19 L* (7.35-7.45) ABG Total CO2 19.0 L (22-28) mmol.L ABG O2 Saturation 10.2 L (95-98) % ABG Base Excess -10.0 L (-2.0-3.0) mmol/L ABG Hemoglobin (11.7-17.4) g/dL ABG Carboxyhemoglobin (0.5-1.5) % POC ABG HHb (Measured) (0-5) % ABG Methemoglobin (0.0-3.0) % ABG O2 Capacity (16-24) mL/dL ABG Potassium (3.6-5.2) mmol/L Hgb O2 Saturation (95.0-98.0) % Chloride 118.0 H (98-107) mmol/L Glucose 119 H (65-105) mg/dl Lactate 1.0 (0.7-2.1) mmol/L FiO2 % Sodium (132-148) mmol/L Potassium (3.6-5.0) mmol/L Carbon Dioxide (21-33) mmol/L Anion Gap (10-20) BUN (7-21) mg/dL Creatinine (0.5-1.4) mg/dL Est GFR ( Amer) Est GFR (Non-Af Amer) Random Glucose (70-110) mg/dL Calcium (8.4-10.5) mg/dL Total Bilirubin AST ALT Alkaline Phosphatase Lactate Dehydrogenase (333-699) U/L Total Creatine Kinase (35-230) U/L Troponin I ng/mL Total Protein Albumin Globulin Albumin/Globulin Ratio Arterial Blood Potassium (3.6-5.2) mmol/L Urine Color (YELLOW) Urine Appearance (CLEAR) Urine pH (4.7-8.0) Ur Specific [place] (1.005-1.035) Urine Protein (<30 mg/dL) mg/dL Urine Glucose (UA) (NEGATIVE) mg/dL Urine Ketones (NEGATIVE) mg/dL Urine Blood (NEGATIVE) Urine Nitrate (NEGATIVE) Urine Bilirubin (NEGATIVE) Urine Urobilinogen (<1 E.U./dL) E.U./dL Ur Leukocyte Esterase (NEGATIVE) Remy/uL Urine RBC (0-2) /hpf Urine WBC (0-6) /hpf Ur Epithelial Cells (0-5) /hpf Influenza Typ A,B (EIA) Negative for flu a/b (NEGATIVE) Laboratory Results - last 24 hr 07/21/16 07/21/16 07/21/16 04:15 04:49 06:00 WBC 7.5 RBC 3.33 L Hgb 9.7 L Hct 29.0 L MCV 87.1 MCH 29.1 MCHC 33.4 RDW 14.0 Plt Count 442 MPV 9.4 Gran % Lymph % (Auto) [place] % (Auto) Eos % (Auto) Baso % (Auto) Gran # Lymph # [place] # Eos # Baso # PT INR APTT pCO2 46 H pO2 276.0 H HCO3 17.6 L ABG pH 7.19 L* ABG Total CO2 19.0 L ABG O2 Saturation 10.2 L ABG Base Excess -10.0 L ABG Hemoglobin ABG Carboxyhemoglobin POC ABG HHb (Measured) ABG Methemoglobin ABG O2 Capacity ABG Potassium Hgb O2 Saturation Chloride 118.0 H Glucose 119 H Lactate 1.0 FiO2 Sodium Potassium Carbon Dioxide Anion Gap BUN Creatinine Est GFR ( Amer) Est GFR (Non-Af Amer) Random Glucose Calcium Total Bilirubin AST ALT Alkaline Phosphatase Lactate Dehydrogenase Total Creatine Kinase Troponin I Total Protein Albumin Globulin Albumin/Globulin Ratio Arterial Blood Potassium Urine Color Urine Appearance Urine pH Ur Specific [place] Urine Protein Urine Glucose (UA) Urine Ketones Urine Blood Urine Nitrate Urine Bilirubin Urine Urobilinogen Ur Leukocyte Esterase Urine RBC Urine WBC Ur Epithelial Cells Influenza Typ A,B (EIA) Negative for flu a/b 07/21/16 07/21/16 07/21/16 07:00 07:00 17:37 WBC RBC Hgb Hct MCV MCH MCHC RDW Plt Count MPV Gran % Lymph % (Auto) [place] % (Auto) Eos % (Auto) Baso % (Auto) Gran # Lymph # [place] # Eos # Baso # PT INR APTT > 180.0 H* pCO2 pO2 HCO3 ABG pH ABG Total CO2 ABG O2 Saturation ABG Base Excess ABG Hemoglobin ABG Carboxyhemoglobin POC ABG HHb (Measured) ABG Methemoglobin ABG O2 Capacity ABG Potassium Hgb O2 Saturation Chloride 112 H Glucose Lactate FiO2 Sodium 142 Potassium 4.5 Carbon Dioxide 20 L Anion Gap 15 BUN 21 Creatinine 1.0 Est GFR ( Amer) > 60 Est GFR (Non-Af Amer) 57 Random Glucose 224 H Calcium 7.9 L Total Bilirubin AST ALT Alkaline Phosphatase Lactate Dehydrogenase Total Creatine Kinase Troponin I Total Protein Albumin Globulin Albumin/Globulin Ratio Arterial Blood Potassium Urine Color Straw Urine Appearance Sl cloudy Urine pH 7.0 Ur Specific [place] 1.010 Urine Protein Trace H Urine Glucose (UA) Negative Urine Ketones Negative Urine Blood Large H Urine Nitrate Negative Urine Bilirubin Negative Urine Urobilinogen 0.2 Ur Leukocyte Esterase Negative Urine RBC Tntc Urine WBC 0 - 2 Ur Epithelial Cells 0 - 2 Influenza Typ A,B (EIA) 07/21/16 07/21/16 07/22/16 19:05 19:13 03:15 WBC RBC Hgb Hct MCV MCH MCHC RDW Plt Count MPV Gran % Lymph % (Auto) [place] % (Auto) Eos % (Auto) Baso % (Auto) Gran # Lymph # [place] # Eos # Baso # PT 19.5 H INR 1.81 H APTT 40.9 H 33.6 H pCO2 42 pO2 110.0 H HCO3 21.1 ABG pH 7.31 L ABG Total CO2 22.4 ABG O2 Saturation 99.4 H ABG Base Excess -4.9 L ABG Hemoglobin 9.6 L ABG Carboxyhemoglobin 1.8 H POC ABG HHb (Measured) 0.6 ABG Methemoglobin 1.4 ABG O2 Capacity 13.3 L ABG Potassium Hgb O2 Saturation 96.3 Chloride Glucose Lactate FiO2 50 Sodium Potassium Carbon Dioxide Anion Gap BUN Creatinine Est GFR ( Amer) Est GFR (Non-Af Amer) Random Glucose Calcium Total Bilirubin AST ALT Alkaline Phosphatase Lactate Dehydrogenase Total Creatine Kinase Troponin I Total Protein Albumin Globulin Albumin/Globulin Ratio Arterial Blood Potassium Urine Color Urine Appearance Urine pH Ur Specific [place] Urine Protein Urine Glucose (UA) Urine Ketones Urine Blood Urine Nitrate Urine Bilirubin Urine Urobilinogen Ur Leukocyte Esterase Urine RBC Urine WBC Ur Epithelial Cells Influenza Typ A,B (EIA) 07/22/16 07/22/16 07/22/16 06:09 07:15 07:15 WBC 12.0 H D RBC 3.31 L Hgb 9.7 L Hct 28.4 L MCV 85.8 MCH 29.3 MCHC 34.2 RDW 14.2 Plt Count 436 MPV 9.5 Gran % 95.2 H Lymph % (Auto) 2.3 L Whitfield % (Auto) 2.4 Eos % (Auto) 0.0 L Baso % (Auto) 0.1 Gran # 11.44 H Lymph # 0.3 L Whitfield # 0.3 Eos # 0.0 Baso # 0.01 PT 14.3 H INR 1.32 H APTT 33.2 H pCO2 40 pO2 156.0 H HCO3 25.4 ABG pH 7.41 ABG Total CO2 26.6 ABG O2 Saturation 99.9 H ABG Base Excess 0.7 ABG Hemoglobin ABG Carboxyhemoglobin POC ABG HHb (Measured) ABG Methemoglobin ABG O2 Capacity ABG Potassium 1.8 L* Hgb O2 Saturation Chloride 116.0 H Glucose 276 H Lactate 1.9 FiO2 50.0 Sodium 142.0 Potassium Carbon Dioxide Anion Gap BUN Creatinine Est GFR ( Amer) Est GFR (Non-Af Amer) Random Glucose Calcium Total Bilirubin AST ALT Alkaline Phosphatase Lactate Dehydrogenase Total Creatine Kinase Troponin I Total Protein Albumin Globulin Albumin/Globulin Ratio Arterial Blood Potassium 1.8 L* Urine Color Urine Appearance Urine pH Ur Specific [place] Urine Protein Urine Glucose (UA) Urine Ketones Urine Blood Urine Nitrate Urine Bilirubin Urine Urobilinogen Ur Leukocyte Esterase Urine RBC Urine WBC Ur Epithelial Cells Influenza Typ A,B (EIA) 07/22/16 07/22/16 07:15 07:15 WBC RBC Hgb Hct MCV MCH MCHC RDW Plt Count MPV Gran % Lymph % (Auto) Whitfield % (Auto) Eos % (Auto) Baso % (Auto) Gran # Lymph # Whitfield # Eos # Baso # PT INR APTT pCO2 pO2 HCO3 ABG pH ABG Total CO2 ABG O2 Saturation ABG Base Excess ABG Hemoglobin ABG Carboxyhemoglobin POC ABG HHb (Measured) ABG Methemoglobin ABG O2 Capacity ABG Potassium Hgb O2 Saturation Chloride Cancelled 107 Glucose Lactate FiO2 Sodium Cancelled 144 Potassium Cancelled 3.4 L Carbon Dioxide Cancelled 26 Anion Gap Cancelled 14 BUN Cancelled 14 Creatinine Cancelled 0.6 Est GFR ( Amer) Cancelled > 60 Est GFR (Non-Af Amer) Cancelled > 60 Random Glucose Cancelled 231 H Calcium Cancelled 6.5 L* Total Bilirubin Cancelled 0.5 AST Cancelled 16 ALT Cancelled 29 Alkaline Phosphatase Cancelled 70 Lactate Dehydrogenase 805 H Total Creatine Kinase 58 Troponin I 0.13 H* D Total Protein Cancelled 5.3 L Albumin Cancelled 2.4 L Globulin Cancelled 2.9 Albumin/Globulin Ratio Cancelled 0.8 L Arterial Blood Potassium Urine Color Urine Appearance Urine pH Ur Specific [place] Urine Protein Urine Glucose (UA) Urine Ketones Urine Blood Urine Nitrate Urine Bilirubin Urine Urobilinogen Ur Leukocyte Esterase Urine RBC Urine WBC Ur Epithelial Cells Influenza Typ A,B (EIA) Attending/Attestation - Attestation I have personally seen and examined this patient.: Yes I have fully participated in the care of the patient.: Yes I have reviewed all pertinent clinical information: Yes Notes (Text): 07/22/16 18:41 61 y/o F w/ Acute resp failure brought in and found to be hypotensive yesterday. Unclear RV function, but bedside ECHO showed normal RV but Colapsed IVC After 1 L n.S pt's BP improved and Dopamine was stopped. STAT CT chest was done and found to have subsegmental P.E B/L, unlikely to contribute to the hypotension and hypoxia. On Heparin drip for P.E protocol w/ PTT WNL Started on Precedex and P.S trial and patient tolerated 2 hrs at p.s 6. Extubated on on Precedex and minimal Fentanyl. Placed on HFNC due to some poor effort. 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 High concern for METHTREXATE LUNG and ILD. Would be carefull w/ Narcotics , steroids in the setting of poor lung function. cc time 72 min
[2016-07-22] MEDS: Sodium Bicarbonate 8.4% 150 MEQ in Dextrose 5%/0.45% NS 1,000 ML IV SCH ×2 (17:10→17:43)
[2016-07-22 18:37] LABS: BASO # 0.01 K/mm3 (0.0-2.0); BASO % 0.1 % (0.0-3.0); GRAN % 90.7 % (50.0-68.0); LYMPH # 0.4 (1.2-3.4); LYMPH % 5.6 % (22.0-35.0); MEAN CORPUSCULAR HEMOGLOBIN 29.1 pg (25.0-35.0); MEAN CORPUSCULAR HGB CONC 30.6 g/dl (31.0-37.0); MEAN PLATELET VOLUME 10.6 fl (7.0-11.0); MONO # 0.3 (0.1-0.6); MONO % 3.6 % (1.0-6.0); PLATELET COUNT 493 10^3/uL (120.0-450.0); RED CELL DISTRIBUTION WIDTH 14.2 % (11.5-14.5); WHITE BLOOD COUNT 7.5 10^3/ul (4.5-11.0)
[2016-07-22 18:45] LABS: ALKALINE PHOSPHATASE 62 U/L (38-133); ALT/SGPT 26 U/L (7-56); AST/SGOT 13 U/L (15-39); BILIRUBIN,TOTAL 0.4 mg/dL (0.2-1.3); BLOOD UREA NITROGEN 13 mg/dL (7-21); CARBON DIOXIDE 27 mmol/L (21-33); CHLORIDE 108 mmol/L (98-107); GFR AFRICAN-AMERICAN > 60; GLUCOSE,RANDOM 234 mg/dL (70-110); SODIUM 141 mmol/L (132-148); TOTAL PROTEIN 4.4 g/dL (5.8-8.3)
[2016-07-22 18:58] LABS: TROPONIN I 0.09 ng/mL
[2016-07-22 19:10] LABS: CALCIUM 6.1 mg/dL (8.4-10.5)
[2016-07-22] MEDS ORDERED: Albumin Human 25% (12.5 gm/50 ml) IV ONE (19:45)
[2016-07-22] MEDS: Morphine 2 mg/ml ISec IVP PRN (21:17)
--- NOTE | 2016-07-22 21:20 | PN ---
DATE: 07/22/2016 The patient remains in intensive care unit. She is intubated. She was admitted for respiratory failure, hypotension and sepsis. The patient is sedated. She is presently on dopamine, heparin and IV fluids. PHYSICAL EXAMINATION: VITAL SIGNS: Temperature this morning was 98.4, pulse 88, blood pressure 89/49 , respiratory rate 24. Oxygen saturation 98%. GENERAL: The patient is sedated, pale looking. NECK: With no jaundice. LUNGS: With decreased breath sounds, some crackles in the base, no wheezing. HEART: With regular rhythm, rate of 88 per minute. ABDOMEN: Soft, nontender, nondistended. EXTREMITIES: With some distal edema of both hands and some edema of the lower extremities. DIAGNOSTIC TESTS: This morning, CBC with WBC 12, hemoglobin 9.7, hematocrit 28.4 and platelet count 436,000. Chemistry: Sodium 144, potassium 3.4. Her renal function is stable with BUN 14, creatinine 0.6. Her glucose was 231. Calcium is low at 6.5. Her troponin was slightly elevated at 0.13. Her total protein is low at 5.3. Her chest x-ray yesterday showed right upper lobe infiltrations with consolidation in the right apex. The venous Doppler of yesterday was negative for DVT. The patient had an echocardiogram with severe right ventricular dilation and suspicious for pulmonary embolism. Her CT angiogram done today showed bilateral diffuse pulmonary emboli. Her cultures are still pending. ASSESSMENT: 1. Respiratory failure with severe hypoxia, intubated. 2. Bilateral pulmonary embolism. 3. Sepsis with bilateral pneumonia. 4. Hypocalcemia. 5. Rheumatoid arthritis. PLAN OF TREATMENT: The case was discussed with reservoir engineering consultant and supervisor engine assembly. The patient is on heparin drip since yesterday. We will continue with present antibiotic coverage, Zosyn and doxycycline. Respiratory treatment will depend on patient's condition with plans of extubation for this evening. We will monitor patient closely. Her condition is guarded. Mini Davis MD cc: [id number] TT: 07/22/2016 21:19:56 Confirmation # [id number] Dictation # [id number] [facility]
--- NOTE | 2016-07-22 22:39 | CT ---
EXAM: CT Head Without Intravenous Contrast CLINICAL HISTORY: 61 years old, female; Signs and symptoms; Other: R/O icb TECHNIQUE: Axial computed tomography images of the head/brain without intravenous contrast. This CT exam was performed using one or more of the following dose reduction techniques: automated exposure control, adjustment of the mA and/or kV according to patient size, and/or use of iterative reconstruction technique. COMPARISON: CT - HEAD W/O CONTRAST 04/20/2016 3:58:57 PM FINDINGS: Evaluation limited by streak artifact from bilateral ears. Evaluation of the inferior aspect of the brain is limited. Brain: No hemorrhage. No significant white matter disease. No edema. Vascular calcification. Ventricles: No hydrocephalus. Bones: Skull is intact. Sinuses: No acute sinusitis. Mastoid air cells: No mastoid effusion. IMPRESSION: Evaluation limited by streak artifact from bilateral ears. Evaluation of the inferior aspect of the brain is limited. Within the limitations of study, no CT evidence of acute intracranial abnormality. If clinical concern persists, repeat imaging recommended.
[2016-07-22] MEDS ORDERED: DiphenhydrAMINE 50 mg/ml Inj IVP ONE (22:58)
--- NOTE | 2016-07-22 23:18 | CARD ---
APPROVED REPORT EKG Measurement Heart [id number] <Conclusion> Normal sinus rhythm T wave abnormality, consider inferior ischemia Prolonged QT Abnormal ECG
[2016-07-23] MEDS: Morphine 2 mg/ml ISec IVP PRN (01:44)
[2016-07-23] MEDS: Albuterol-Ipratrop 3 mg / 0.5 (3 ml) UD IH SCH ×4 (03:15→20:09)
[2016-07-23] MEDS: Piperacillin/Tazobact 3.375 gm 100 ML IVPB SCH (04:00)
[2016-07-23] MEDS: MethylPREDNISolone 40 mg Vial IVP SCH ×4 (05:48→22:05)
[2016-07-23 06:01] LABS: MEAN CELL VOLUME 85.6 fL (80.0-105.0); MEAN CORPUSCULAR HEMOGLOBIN 28.4 pg (25.0-35.0); MEAN CORPUSCULAR HGB CONC 33.2 g/dl (31.0-37.0); MEAN PLATELET VOLUME 9.6 fl (7.0-11.0); PLATELET COUNT 332 10^3/uL (120.0-450.0); RED CELL DISTRIBUTION WIDTH 14.2 % (11.5-14.5); WHITE BLOOD COUNT 12.1 10^3/ul (4.5-11.0)
[2016-07-23 06:08] LABS: ALKALINE PHOSPHATASE 66 U/L (38-133); ALT/SGPT 31 U/L (7-56); AST/SGOT 24 U/L (15-39); BILIRUBIN,TOTAL 0.5 mg/dL (0.2-1.3); BLOOD UREA NITROGEN 14 mg/dL (7-21); CARBON DIOXIDE 33 mmol/L (21-33); CHLORIDE 108 mmol/L (98-107); GFR AFRICAN-AMERICAN > 60; GLUCOSE,RANDOM 199 mg/dL (70-110); MAGNESIUM 1.8 mg/dL (1.7-2.2); SODIUM 146 mmol/L (132-148); TOTAL PROTEIN 4.7 g/dL (5.8-8.3)
[2016-07-23 06:19] LABS: TROPONIN I 0.09 ng/mL
[2016-07-23 06:24] LABS: ADD MANUAL DIFF? YES
[2016-07-23 06:28] LABS: INR 1.26 (0.93-1.08)
[2016-07-23 06:36] LABS: PARTIAL THROMBOPLASTIN TIME 88.5 Seconds (23.7-30.8)
[2016-07-23 07:06] LABS: CHOLESTEROL < 50 mg/dL (130-200)
[2016-07-23 07:09] LABS: CALCIUM 6.8 mg/dL (8.4-10.5); PHOSPHOROUS 0.9 mg/dL (2.5-4.5); POTASSIUM 2.6 mmol/L (3.6-5.0)
[2016-07-23] MEDS ORDERED: Magnesium Sulfate 2 GM in Sodium Chloride 0.9% 100 ML IVPB ONE (07:34)
[2016-07-23] MEDS ORDERED: Albumin Human 25% (12.5 gm/50 ml) IV ONE (07:34)
[2016-07-23] MEDS ORDERED: Potassium Chloride 20 mEq ER Tab PO SCH (07:45)
[2016-07-23] MEDS: Sodium Bicarbonate 8.4% 150 MEQ in Dextrose 5%/0.45% NS 1,000 ML IV SCH (08:21)
[2016-07-23] MEDS ORDERED: Potassium Phosphate 15 MMOLE in Sodium Chloride 0.9% 250 ML IVPB ONE (08:40)
[2016-07-23 08:50] LABS: BAND 3 % (0-2); NEUTROPHIL 90 % (50.0-70.0)
[2016-07-23 08:51] LABS: ANISOCYTOSIS 1+; HYPOCHROMIA 2+; OVALOCYTES SLIGHT; PLATELET ESTIMATE NORMAL (NORMAL); POIKILOCYTOSIS SLIGHT; POLYCHROMASIA SLIGHT; TEAR DROP CELLS SLIGHT
--- NOTE | 2016-07-23 09:10 | PN ---
DATE: 07/23/2016 (For Dr. Jackson.) The patient is extubated, remains mildly dyspneic at rest. PHYSICAL EXAMINATION: VITAL SIGNS: Blood pressure is 96/60, the heart rate is in the 90s, normal sinus rhythm. NECK: Negative JVD. LUNGS: Decreased breath sounds. HEART: Reveals S1, S2. EXTREMITIES: Without edema. LABORATORY DATA: Hemoglobin is 8.3. Chemistries: The troponins are 0.09 with a potassium of 2.6. IMPRESSION: 1. Pneumonia. 2. Pulmonary embolism. 3. Status post respiratory failure. 4. Dyspnea. 5. Hypokalemia. PLAN: Given these findings, the patient on anticoagulation. We will order potassium replacement. Blu Ferreira MD cc: [id number] TT: 07/23/2016 09:09:47 Confirmation # [id number] Dictation # [id number] tn
[2016-07-23] MEDS: Potassium & Sodium Phosphate PO SCH ×4 (09:21→17:20)
[2016-07-23] MEDS: Potassium Chloride 40 mEq/30 ml LIQ UD PO SCH ×2 (09:21→10:18)
[2016-07-23] MEDS: Magnesium Oxide 400 mg Tab UD PO SCH ×2 (09:23→17:19)
[2016-07-23] MEDS: PIGGYBACK IVPB SCH ×3 (10:23→22:00)
[2016-07-23] MEDS: MEROPENEM IVPB SCH ×3 (10:23→22:00)
--- NOTE | 2016-07-23 10:32 | PN ---
DATE: 07/23/2016 SUBJECTIVE: The patient is resting in bed with high-flow oxygen. Note that she is at this time awak e and alert, has a good cough and is coughing up the phlegm. The patient is on high flow oxygen, but continues to have some shortness of breath, but is comfortable. She has an IV heparin drip. Albumi n is being given at this time and sodium bicarb drip as well. PHYSICAL EXAMINATION: VITAL SIGNS: Note that her temperature is 99, her pulse is 71, respirations are 22, and BP is 96/60. SKIN: Warm and dry. HEAD: Atraumatic, normocephalic. EYES: Reactive to light. EARS, NOSE AND THROAT: Seem to be within normal limits. NECK: Supple, no JVD, no thyroid enlargement, no lymph nodes. HEART: Has a regular rate and rhythm. Normal S1, S2. LUNGS: Reveal bilateral rhonchi. ABDOMEN: Soft. Decreased bowel sounds. GENITALIA AND RECTAL: Deferred. MUSCULOSKELETAL: The patient does have some joint deformity secondary to her arthritis. EXTREMITIES: Reveal positive edema. NEUROLOGIC: She seemed to be grossly intact. LABORATORY DATA: Her white count is 12.1, hemoglobin is 8.3 and hematocrit is 25 with platelets of 3 32,000. PT is 13.6, INR is 1.26 and PTT is 88.5. Arterial blood gas is pending and her sodium is 14 3, potassium 2.6, chloride 108, CO2 of 33 with a glucose of 199. The patient's calcium is 6.8, phosp horus is 0.9. IMPRESSION: This patient has respiratory failure with pulmonary fibrosis and bilateral pulmonary emb olus. She has severe rheumatoid arthritis and a history of methotrexate and this may be methotrexate pulmonary fibrosis in the lung. The patient does not have coagulopathy. 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 PLAN: We will continue with high flow oxygen support. The patient is on doxycycline twice a day as well as DuoNeb and aspirin. She is on heparin IV and getting magnesium replacement and antibiotic is meropenem. She is on Protonix and continues to get IV fluid. Note that the patient is on heparin I V, albumin IV and a sodium bicarb drip. She is getting Solu-Medrol as well as her vancomycin and karuna e Xanax for anxiety. We will continue to follow and watch her labs and correct as needed and continu e to treat aggressively along with the other consultants and the primary care doctor. Latrell Cuellar MD cc: [id number] TT: 07/23/2016 10:31:26 Confirmation # [id number] Dictation # [id number] tn
[2016-07-23] MEDS ORDERED: Oxycodone/Acetaminophen 10/325 mg Tab PO PRN (11:04)
--- NOTE | 2016-07-23 11:43 | PN ---
DATE: 07/23/2016 SUBJECTIVE: The patient remains in intensive care unit. The patient was extubated last night. She is tolerating nasal cannula. The patient is anxious. She is n.p.o. She complains of generalized pain. PHYSICAL EXAMINATION: VITAL SIGNS: Temperature is 99, blood pressure 96/60, pulse 70 per minute and regular, respiratory rate 26. Her oxygen saturation is 95% on 50% of FiO2. GENERAL: She is alert, awake, anxious. HEENT: Pale looking. Oral mucosa is dry. NECK: Supple. LUNGS: With decreased breath sounds, some crackles in anterior upper chest bilaterally. HEART: Regular rhythm and rate. ABDOMEN: Soft, nontender, nondistended. EXTREMITIES: With no edema. DIAGNOSTIC TESTS: CBC this morning significant for WBC 12.1, which is stable, hemoglobin 8.3 down from 9.7 yesterday, platelet count 332. She has gram negative rods in sputum. Chemistry severe hypokalemia with potassium of 2.6. This morning, sodium 146, CO2 32. BUN is 14, creatinine 0.6. The patient has low calcium and low albumin and protein level. Her procalcitonin is positive at 1.9. Followup troponin is stable at 0.09. CT angiogram yesterday showed bilateral pulmonary emboli. The patient is currently on heparin drip. ASSESSMENT: 1. Status post respiratory failure with severe hypoxia, extubated and improved. 2. Pulmonary emboli, bilateral. 3. Sepsis with bilateral pneumonia. 4. Hypocalcemia with hypoproteinemia and malnutrition. 5. Anemia of chronic disease. 6. Diarrhea, rule out C.difficle infection. 7. Anxiety. 8. Severe rheumatoid arthritis. PLAN OF TREATMENT: Discussed with security installer and resident. The patient will remain on heparin drip. Will continue IV antibiotic coverage. Follow up blood cultures and sputum culture when available. Stool will be sent for evaluation. We will continue gastric protection with Protonix. The patient is currently n.p.o. We will evaluate with swallow study and will start nutrition. Mini Davis MD cc: [id number] TT: 07/23/2016 11:42:46 Confirmation # [id number] Dictation # [id number] seda [facility]
--- NOTE | 2016-07-23 12:28 | CP.PCM.PN ---
Subjective - Date & Time of Evaluation Date of Evaluation: 07/23/16 Time of Evaluation: 09:50 - Subjective Subjective: Patient is now extubated and feeling better, on high flow O2 and speaking in phrases, not in sentences yet. No fevers overnight. Objective - Vital Signs/Intake and Output Vital Signs (last 24 hours): Temp Pulse Resp BP Pulse Ox 99 F 71 22 96/60 L 95 07/23/16 06:00 07/23/16 05:40 07/23/16 06:00 07/23/16 05:40 07/23/16 05:40 Intake and Output: 07/23/16 07/23/16 06:59 18:59 Intake Total 1220 Output Total 700 Balance 520 - Medications Medications: Current Medications Albuterol/Ipratropium (Duoneb 3 Mg/0.5 Mg (3 Ml) Ud) 3 ml IH [id number] [facility] Last Admin: 07/23/16 07:47 Dose: 3 ml Alprazolam (Xanax) 0.5 mg PO BID [facility] PRN Reason: Protocol Aspirin (Ecotrin) 81 mg PO DAILY [facility] Last Admin: 07/23/16 09:23 Dose: 81 mg Clopidogrel Bisulfate (Plavix) 75 mg PO DAILY [facility] Last Admin: 07/23/16 09:23 Dose: 75 mg Vancomycin HCl (Vancomycin 1gm) 1 gm in 250 mls @ 167 mls/hr IVPB Q12H [facility] Last Admin: 07/22/16 04:30 Dose: 167 mls/hr Dopamine HCl/Dextrose (Dopamine 400mg/250ml D5w) 400 mg in 250 mls @ 3.368 mls/ hr IV .Q24H PRN; Protocol; 2 MCG/KG/MIN PRN Reason: TITRATE PER MD ORDER Last Titration: 07/22/16 14:51 Dose: 0 mcg/kg/min, 0 mls/hr Doxycycline Hyclate 100 mg/ (Sodium Chloride) 100 mls @ 100 mls/hr IVPB Q12 [facility] PRN Reason: Protocol Last Admin: 07/23/16 09:19 Dose: 100 mls/hr Heparin Sodium/Sodium Chloride (Heparin 43182 Units/250ml 1/2 Normal Saline) 25 ,000 units in 250 mls @ 8.655 mls/hr IV .Q24H PRN; Protocol; 18 UNITS/KG/HR PRN Reason: ADJUST RATE PER PROTOCOL Last Admin: 07/22/16 12:49 Dose: 18 units/kg/hr, 8.655 mls/hr Dexmedetomidine HCl (Precedex 4 Mcg/Ml (100 Ml)) 400 mcg in 100 mls @ 2.404 mls /hr IV .Q24H PRN; Protocol; 0.2 MCG/KG/HR PRN Reason: Agitation Last Titration: 07/22/16 17:42 Dose: 0 mcg/kg/hr, 0 mls/hr Potassium Phosphate 15 mmole/ (Sodium Chloride) 255 mls @ 42.5 mls/hr IVPB ONCE ONE Stop: 07/23/16 14:39 Last Admin: 07/23/16 10:27 Dose: 42.5 mls/hr Meropenem 1g/NS 100mL IVPB (Meropenem 1g/Ns 100ml Ivpb) 1 g in 100 mls @ 100 mls/hr IVPB Q8 [facility] PRN Reason: Protocol Stop: 07/30/16 09:16 Last Admin: 07/23/16 10:23 Dose: 100 mls/hr Potassium Chloride (Potassium Chloride 20 Meq/100 Ml) 20 meq in 100 mls @ 50 mls/hr IVPB Q2H [facility] Stop: 07/23/16 17:59 Last Admin: 07/23/16 10:24 Dose: 50 mls/hr Magnesium Oxide (Mag-Ox) 400 mg PO BID [facility] Last Admin: 07/23/16 09:23 Dose: 400 mg Methylprednisolone (Solu-Medrol) 40 mg IVP Q8 [facility] Last Admin: 07/23/16 05:48 Dose: 40 mg Midazolam HCl (Versed Inj) 2 mg IVP Q2H PRN PRN Reason: Agitation Last Admin: 07/22/16 10:30 Dose: 2 mg Morphine Sulfate (Morphine) 2 mg IVP Q4H PRN PRN Reason: Pain, moderate (4-7) Last Admin: 07/23/16 01:44 Dose: 2 mg Nystatin (Nystatin Oral Susp) 5 ml PO QID [facility] Oxycodone/Acetaminophen (Percocet 10/325 Mg Tab) 1 tab PO Q4H PRN PRN Reason: Pain, severe (8-10) Pantoprazole Sodium (Protonix Inj) 40 mg IVP DAILY [facility] Last Admin: 07/23/16 09:21 Dose: 40 mg Potassium Phos/Sodium Phos (Neutra-Phos) 2 pkt PO TID [facility] Last Admin: 07/23/16 10:17 Dose: Not Given - Labs Labs: 07/23/16 05:00 07/23/16 05:00 PT 13.6 Seconds (9.9-11.8) H 07/23/16 05:00 INR 1.26 (0.93-1.08) H 07/23/16 05:00 APTT 88.5 Seconds (23.7-30.8) H* 07/23/16 05:00 - Constitutional Appears: Other (still in some respiratory distress ) - Head Exam Head Exam: NORMAL INSPECTION - Neck Exam Neck Exam: absent: Lymphadenopathy, Meningismus - Respiratory Exam Respiratory Exam: Decreased Breath Sounds - Cardiovascular Exam Cardiovascular Exam: +S1, +S2 - GI/Abdominal Exam GI & Abdominal Exam: Soft. absent: Tenderness Assessment and Plan - Assessment and Plan (Free Text) Plan: Assessment Severe sepsis with ventilator-dependent respiratory failure due to multifocal healthcare-associated pneumonia with gram negative bacilli Acute pulmonary embolism history of bilateral upper lobe severe pneumonia with associated systemic viral illness with Influenza, with associated persistent Methicillin-sensitive Staph aureus bacteremia history of C diff associated diarrhea rheumatoid arthritis osteoarthritis history of depression and anxiety history of pneumonia Plan will continue IV Vancomycin fanmd switch Zosyn to Merrem (day 3) and Doxycycline pending identification and sensitivities of the gram negative bacilli in the sputum will continue to monitor clinically
--- NOTE | 2016-07-23 12:59 | CARD ---
APPROVED REPORT EKG Measurement Heart [id number] [place] 126P56 [id number] <Conclusion> Sinus bradycardia with premature supraventricular complexes Low voltage QRS Anterior ischemic T wave abnormality Prolonged QT Abnormal ECG
[2016-07-23] MEDS: Midazolam 2 MG/2 ML VIAL IVP PRN (13:01)
[2016-07-23] MEDS: Nystatin 100,000 Units/ml Oral Susp 5 ml UD PO SCH ×3 (13:01→22:00)
[2016-07-23 13:22] LABS: ALKALINE PHOSPHATASE 54 U/L (38-133); ALT/SGPT 29 U/L (7-56); AST/SGOT 25 U/L (15-39); BILIRUBIN,TOTAL 0.1 mg/dL (0.2-1.3); BLOOD UREA NITROGEN 11 mg/dL (7-21); CARBON DIOXIDE 25 mmol/L (21-33); CHLORIDE 111 mmol/L (98-107); GFR AFRICAN-AMERICAN > 60; GLUCOSE,RANDOM 97 mg/dL (70-110); SODIUM 146 mmol/L (132-148); TOTAL PROTEIN 3.8 g/dL (5.8-8.3)
[2016-07-23 13:36] LABS: POTASSIUM 5.7 mmol/L (3.6-5.0)
[2016-07-23 14:32] LABS: ALKALINE PHOSPHATASE 75 U/L (38-133); ALT/SGPT 33 U/L (7-56); AST/SGOT 26 U/L (15-39); BILIRUBIN,TOTAL 0.5 mg/dL (0.2-1.3); BLOOD UREA NITROGEN 14 mg/dL (7-21); CARBON DIOXIDE 30 mmol/L (21-33); GFR AFRICAN-AMERICAN > 60; GLUCOSE,RANDOM 182 mg/dL (70-110); POTASSIUM 3.1 mmol/L (3.6-5.0); SODIUM 146 mmol/L (132-148); TOTAL PROTEIN 5.2 g/dL (5.8-8.3)
[2016-07-23 14:39] LABS: CHLORIDE 109 mmol/L (98-107)
[2016-07-23 14:41] LABS: CALCIUM 6.6 mg/dL (8.4-10.5)
[2016-07-23] MEDS: Heparin25000 units/250ml 1/2NS 25,000 UNITS/250 ML BAG IV PRN (14:55)
[2016-07-23] MEDS: Albumin Human 25% (12.5 gm/50 ml) IV SCH ×4 (14:58→20:51)
[2016-07-23] MEDS ORDERED: Dexmedetomidine HCl 4mcg/ml 400 MCG/100 ML BOTTLE IV PRN (15:39)
[2016-07-23] MEDS: Vancomycin 1gm in NS 250ml 1 GM/250 ML BAG IVPB SCH (16:26)
[2016-07-23] MEDS: Vancomycin 25 MG/ML PO SCH ×2 (17:45→22:05)
[2016-07-23 17:47] LABS: ARTERIAL BLOOD GAS HCO3 30.3 mmol/L (21-28); ARTERIAL BLOOD GAS O2 CAPACITY 10.6 mL/dl (16-24); ARTERIAL BLOOD GAS O2 CONTENT 10.5 ML/dl (15-23); ARTERIAL BLOOD GAS PH 7.51 (7.35-7.45); ARTERIAL BLOOD HGB O2 SAT 96.7 % (95.0-98.0); CARBOXYHEMOGLOBIN 1.7 % (0.5-1.5); HHB 0.6 % (0-5)
--- NOTE | 2016-07-23 18:06 | RAD ---
HISTORY: PNA, crackles COMPARISON: 07/22/2016 at 4:56 a.m. FINDINGS: LUNGS: Left upper lobe opacity persists without significant interval change. Examination limited due to steep Sigifredo oblique positioning. PLEURA: Small right pleural effusion. No left pleural effusion. No pneumothorax. CARDIOVASCULAR: Normal. OSSEOUS STRUCTURES: Bilateral chronic rotator cuff insufficiency with remodeling of the acromion bilaterally. VISUALIZED UPPER ABDOMEN: Normal. OTHER FINDINGS: None. IMPRESSION: Left upper lobe infiltrate, unchanged. Small right pleural effusion.
[2016-07-23 21:08] LABS: ALB/GLOB RATIO 1.3 (1.1-1.8); ALKALINE PHOSPHATASE 61 U/L (38-133); ALT/SGPT 36 U/L (7-56); AST/SGOT 31 U/L (15-39); BILIRUBIN,TOTAL 0.5 mg/dL (0.2-1.3); BLOOD UREA NITROGEN 14 mg/dL (7-21); CARBON DIOXIDE 30 mmol/L (21-33); GFR AFRICAN-AMERICAN > 60; GLUCOSE,RANDOM 181 mg/dL (70-110); SODIUM 148 mmol/L (132-148); TOTAL PROTEIN 5.4 g/dL (5.8-8.3)
[2016-07-23 21:18] LABS: CHLORIDE 112 mmol/L (98-107)
[2016-07-23 21:19] LABS: CALCIUM 6.8 mg/dL (8.4-10.5)
[2016-07-24] MEDS: Albuterol-Ipratrop 3 mg / 0.5 (3 ml) UD IH SCH ×4 (02:00→20:16)
[2016-07-24] MEDS: Vancomycin 1gm in NS 250ml 1 GM/250 ML BAG IVPB SCH (03:31)
[2016-07-24] MEDS: MEROPENEM IVPB SCH ×3 (05:30→21:16)
[2016-07-24] MEDS: PIGGYBACK IVPB SCH ×3 (05:30→21:16)
[2016-07-24] MEDS: MethylPREDNISolone 40 mg Vial IVP SCH ×3 (05:32→21:51)
[2016-07-24 06:00] LABS: ALB/GLOB RATIO 1.2 (1.1-1.8); ALKALINE PHOSPHATASE 66 U/L (38-133); ALT/SGPT 33 U/L (7-56); AST/SGOT 38 U/L (15-39); BILIRUBIN,TOTAL 0.4 mg/dL (0.2-1.3); BLOOD UREA NITROGEN 19 mg/dL (7-21); CARBON DIOXIDE 29 mmol/L (21-33); CHLORIDE 113 mmol/L (98-107); GFR AFRICAN-AMERICAN > 60; GLUCOSE,RANDOM 174 mg/dL (70-110); POTASSIUM 4.1 mmol/L (3.6-5.0); SODIUM 151 mmol/L (132-148); TOTAL PROTEIN 5.5 g/dL (5.8-8.3)
[2016-07-24 06:01] LABS: BASO # 0.01 K/mm3 (0.0-2.0); BASO % 0.1 % (0.0-3.0); EOS % 0.1 % (1.5-5.0); GRAN # 9.83 (1.4-6.5); HEMATOCRIT 24.1 % (36.0-48.0); LYMPH # 0.3 (1.2-3.4); LYMPH % 3.1 % (22.0-35.0); MEAN CELL VOLUME 88.3 fL (80.0-105.0); MEAN CORPUSCULAR HEMOGLOBIN 28.6 pg (25.0-35.0); MEAN CORPUSCULAR HGB CONC 32.4 g/dl (31.0-37.0); MEAN PLATELET VOLUME 9.9 fl (7.0-11.0); MONO # 0.4 (0.1-0.6); MONO % 3.7 % (1.0-6.0); PLATELET COUNT 263 10^3/uL (120.0-450.0); RED CELL DISTRIBUTION WIDTH 14.7 % (11.5-14.5); WHITE BLOOD COUNT 10.6 10^3/ul (4.5-11.0)
[2016-07-24 06:06] LABS: INR 1.28 (0.93-1.08); PARTIAL THROMBOPLASTIN TIME 60.7 Seconds (23.7-30.8)
[2016-07-24 06:53] LABS: CALCIUM 6.8 mg/dL (8.4-10.5)
[2016-07-24 07:43] LABS: ADD MANUAL DIFF? NO
[2016-07-24] MEDS ORDERED: Propofol 10 mg/ml 1,000 MG/100 ML VIAL ONE (07:59)
[2016-07-24] MEDS: Propofol 10 mg/ml 1,000 MG/100 ML VIAL IV PRN ×2 (08:10→17:47)
[2016-07-24] MEDS: Nystatin 100,000 Units/ml Oral Susp 5 ml UD PO SCH ×4 (09:48→21:51)
[2016-07-24] MEDS: Potassium & Sodium Phosphate PO SCH ×3 (09:48→17:49)
[2016-07-24] MEDS: Vancomycin 25 MG/ML PO SCH ×4 (09:48→21:52)
[2016-07-24] MEDS: Magnesium Oxide 400 mg Tab UD PO SCH ×2 (09:48→17:49)
--- NOTE | 2016-07-24 11:10 | PN ---
DATE: 07/24/2016 SUBJECTIVE: The patient, this morning, had respiratory insufficiency with labored breathing, increas ing respiratory rate and very somnolent, required intubation. At this time, she is on the ventilator and FiO2 is being titrated down as tolerated. The patient's O2 saturation is 100%. She is very com fortable. She is on Diprivan for comfort and sedation. PHYSICAL EXAMINATION: VITAL SIGNS: Her temperature is 98.3, her pulse is 78, respirations are 28, and her BP is 117/86. SKIN: Warm and dry. HEAD: Atraumatic, normocephalic. EYES: Reactive to light. EARS, NOSE AND THROAT: Seem to be within normal limits. NECK: Supple, positive JVD, no thyroid enlargement, no lymph nodes. HEART: Has a regular rate and rhythm. Normal S1, S2. LUNGS: Reveal bilateral rhonchi. ABDOMEN: Soft. Decreased bowel sounds. GENITALIA AND RECTAL: Deferred. MUSCULOSKELETAL: No joint deformities. EXTREMITIES: Reveal trace lower extremity edema. NEUROLOGIC: She is grossly intact, but at this time she is sedated on the ventilator. As far as her chest x-ray, it reveals a left upper lobe infiltrate unchanged and a small right pleura l effusion. LABORATORIES: Reveal white count of 10.6, hemoglobin is 7.8, hematocrit 24.1 with platelets of 263,0 00. Arterial blood gas is pending. Sodium is 151, potassium 4.1, chloride 113, CO2 of 29 with a BUN of 19, creatinine of 0.7 and a glucose of 174. IMPRESSION: The patient has respiratory failure requiring ventilator support. She has pulmonary fib rosis with bilateral pulmonary emboli. The patient has severe rheumatoid arthritis with a history of methotrexate and there may be a component of methotrexate fibrosis. She carries a diagnosis of oste oporosis, chronic pain syndrome, hypertension, and at this time does have anemia. PLAN: We will continue to titrate the FiO2 down as the patient tolerates. Follow her chest x-ray an d arterial blood gas closely. The patient will continue on doxycycline and DuoNeb as well as aspirin . She is on IV heparin and meropenem as well as Protonix and IV fluids. We will continue with the S rossy-Medrol as well as the vancomycin and we will follow closely and treat aggressively along with the other consultants and the primary care doctor. Latrell Cuellar MD cc: [id number] TT: 07/24/2016 11:09:08 Confirmation # [id number] Dictation # [id number]
[2016-07-24 11:16] LABS: ARTERIAL BLOOD GAS PH 7.38 (7.35-7.45)
[2016-07-24 11:17] LABS: ARTERIAL BLOOD GAS HCO3 25.4 mmol/L (21-28)
--- NOTE | 2016-07-24 12:34 | RAD ---
HISTORY: ETT placement COMPARISON: No prior. FINDINGS: LUNGS: Persistent left upper lobe opacity without significant interval change. Probable right basilar subsegmental atelectasis. PLEURA: Small right pleural effusion. No left pleural effusion. . CARDIOVASCULAR: Normal heart size. New ET tube positioned 3 cm above tracheal sidney. NG tube extends to left upper quadrant of abdomen. OSSEOUS STRUCTURES: No significant abnormalities. VISUALIZED UPPER ABDOMEN: Normal. OTHER FINDINGS: None. IMPRESSION: Persistent left upper lobe opacity. Small right pleural effusion. New ET tube and NG tube in grossly appropriate positioning.
--- NOTE | 2016-07-24 14:14 | CP.PCM.PN ---
Subjective - Date & Time of Evaluation Date of Evaluation: 07/24/16 Time of Evaluation: 11:00 - Subjective Subjective: Patient was re-intubated today, has some loose stools, afebrile overnight. Objective - Vital Signs/Intake and Output Vital Signs (last 24 hours): Temp Pulse Resp BP Pulse Ox 97.4 F L 72 32 H 115/78 93 L 07/24/16 13:54 07/24/16 13:54 07/24/16 13:54 07/24/16 13:54 07/24/16 06:00 Intake and Output: 07/24/16 07/24/16 06:59 18:59 Intake Total 801.5 0 Output Total 600 Balance 201.5 0 - Medications Medications: Current Medications Albuterol/Ipratropium (Duoneb 3 Mg/0.5 Mg (3 Ml) Ud) 3 ml IH [id number] [facility] Last Admin: 07/24/16 13:58 Dose: 3 ml Alprazolam (Xanax) 0.5 mg PO BID [facility] PRN Reason: Protocol Last Admin: 07/24/16 09:50 Dose: Not Given Aspirin (Ecotrin) 81 mg PO DAILY [facility] Last Admin: 07/24/16 09:48 Dose: 81 mg Clopidogrel Bisulfate (Plavix) 75 mg PO DAILY [facility] Last Admin: 07/24/16 09:48 Dose: 75 mg Dopamine HCl/Dextrose (Dopamine 400mg/250ml D5w) 400 mg in 250 mls @ 3.368 mls/ hr IV .Q24H PRN; Protocol; 2 MCG/KG/MIN PRN Reason: TITRATE PER MD ORDER Last Titration: 07/22/16 14:51 Dose: 0 mcg/kg/min, 0 mls/hr Doxycycline Hyclate 100 mg/ (Sodium Chloride) 100 mls @ 100 mls/hr IVPB Q12 [facility] PRN Reason: Protocol Last Admin: 07/24/16 09:47 Dose: 100 mls/hr Heparin Sodium/Sodium Chloride (Heparin 19413 Units/250ml 1/2 Normal Saline) 25 ,000 units in 250 mls @ 8.655 mls/hr IV .Q24H PRN; Protocol; 18 UNITS/KG/HR PRN Reason: ADJUST RATE PER PROTOCOL Last Admin: 07/23/16 14:55 Dose: 16 units/kg/hr, 7.693 mls/hr Meropenem 1g/NS 100mL IVPB (Meropenem 1g/Ns 100ml Ivpb) 1 g in 100 mls @ 100 mls/hr IVPB Q8 [facility] PRN Reason: Protocol Stop: 07/30/16 09:16 Last Admin: 07/24/16 13:43 Dose: 100 mls/hr Dexmedetomidine HCl (Precedex 4 Mcg/Ml (100 Ml)) 400 mcg in 100 mls @ 2.722 mls /hr IV .Q24H PRN; Protocol; 0.2 MCG/KG/HR PRN Reason: Agitation Last Titration: 07/23/16 23:55 Dose: 1.5 mcg/kg/hr, 20.412 mls/hr Propofol (Diprivan) 1,000 mg in 100 mls @ 1.633 mls/hr IV .Q24H PRN; Protocol; 5 MCG/KG/MIN PRN Reason: TITRATE PER MD ORDER Last Admin: 07/24/16 08:10 Dose: 20 mcg/kg/min, 6.532 mls/hr Magnesium Oxide (Mag-Ox) 400 mg PO BID [facility] Last Admin: 07/24/16 09:48 Dose: 400 mg Methylprednisolone (Solu-Medrol) 40 mg IVP Q8 [facility] Last Admin: 07/24/16 13:43 Dose: 40 mg Midazolam HCl (Versed Inj) 2 mg IVP Q2H PRN PRN Reason: Agitation Last Admin: 07/23/16 13:01 Dose: 2 mg Morphine Sulfate (Morphine) 2 mg IVP Q4H PRN PRN Reason: Pain, moderate (4-7) Last Admin: 07/23/16 01:44 Dose: 2 mg Nystatin (Nystatin Oral Susp) 5 ml PO QID [facility] Last Admin: 07/24/16 13:43 Dose: 5 ml Oxycodone/Acetaminophen (Percocet 10/325 Mg Tab) 1 tab PO Q4H PRN PRN Reason: Pain, severe (8-10) Pantoprazole Sodium (Protonix Inj) 40 mg IVP DAILY [facility] Last Admin: 07/24/16 09:50 Dose: 40 mg Potassium Phos/Sodium Phos (Neutra-Phos) 2 pkt PO TID [facility] Last Admin: 07/24/16 13:45 Dose: 2 pkt Vancomycin HCl (Vancocin 25 Mg/Ml (Oral Use)) 125 mg PO QID [facility] PRN Reason: Protocol Last Admin: 07/24/16 13:44 Dose: 125 mg - Labs Labs: 07/24/16 05:00 07/24/16 05:00 PT 13.8 Seconds (9.9-11.8) H 07/24/16 05:00 INR 1.28 (0.93-1.08) H 07/24/16 05:00 APTT 60.7 Seconds (23.7-30.8) H 07/24/16 05:00 - Constitutional Appears: Other (Intubated and sedated) - ENT Exam Additional comments: ET tube in place - Neck Exam Neck Exam: absent: Lymphadenopathy, Meningismus - Respiratory Exam Respiratory Exam: Decreased Breath Sounds - Cardiovascular Exam Cardiovascular Exam: +S1, +S2 - GI/Abdominal Exam GI & Abdominal Exam: Soft. absent: Tenderness Assessment and Plan - Assessment and Plan (Free Text) Plan: Assessment Severe sepsis with ventilator-dependent respiratory failure due to multifocal healthcare-associated pneumonia with gram negative bacilli Acute pulmonary embolism probable new C. diff. infection history of bilateral upper lobe severe pneumonia with associated systemic viral illness with Influenza, with associated persistent Methicillin-sensitive Staph aureus bacteremia history of C diff associated diarrhea rheumatoid arthritis osteoarthritis history of depression and anxiety history of pneumonia Plan will continue Merrem (day 4) and Doxycycline pending identification and sensitivities of the gram negative bacilli in the sputum started PO Vancomycin will continue to monitor clinically
[2016-07-24] MEDS: Fentanyl 1000mcg/100ml NS 1,000 MCG/100 ML BAG IV PRN (15:19)
[2016-07-24 17:38] LABS: HEMATOCRIT 29.4 % (36.0-48.0); MEAN CELL VOLUME 87.8 fL (80.0-105.0); MEAN CORPUSCULAR HEMOGLOBIN 28.7 pg (25.0-35.0); MEAN CORPUSCULAR HGB CONC 32.7 g/dl (31.0-37.0); MEAN PLATELET VOLUME 10.7 fl (7.0-11.0); PLATELET COUNT 267 10^3/uL (120.0-450.0); RED CELL DISTRIBUTION WIDTH 14.8 % (11.5-14.5); WHITE BLOOD COUNT 11.9 10^3/ul (4.5-11.0)
[2016-07-24 17:56] LABS: ADD MANUAL DIFF? YES
[2016-07-24] MEDS ORDERED: Sodium Chloride 0.45% 1,000 ML IV SCH (18:15)
[2016-07-24 18:19] LABS: BAND 8 % (0-2); NEUTROPHIL 83 % (50.0-70.0)
[2016-07-24 18:20] LABS: ANISOCYTOSIS SLIGHT; MYELOCYTE 2 %; PLATELET ESTIMATE NORMAL (NORMAL)
[2016-07-25 00:45] LABS: ALB/GLOB RATIO 0.8 (1.1-1.8); BILIRUBIN,TOTAL 0.7 mg/dL (0.2-1.3); CALCIUM 7.6 mg/dL (8.4-10.5); TOTAL PROTEIN 5.9 g/dL (5.8-8.3)
[2016-07-25 00:48] LABS: POTASSIUM 2.4 mmol/L (3.6-5.0)
[2016-07-25 00:50] LABS: TROPONIN I 0.95 ng/mL
[2016-07-25 01:16] LABS: INR 1.81 (0.93-1.08); PARTIAL THROMBOPLASTIN TIME 40.9 Seconds (23.7-30.8)
[2016-07-25 01:51] LABS: POTASSIUM 2.4 mmol/L (3.6-5.0)
[2016-07-25 01:55] LABS: ALB/GLOB RATIO 0.9 (1.1-1.8); BILIRUBIN,TOTAL 0.7 mg/dL (0.2-1.3); CALCIUM 8.2 mg/dL (8.4-10.5); MAGNESIUM 1.8 mg/dL (1.7-2.2); PHOSPHOROUS 3.2 mg/dL (2.5-4.5); TOTAL PROTEIN 5.9 g/dL (5.8-8.3)
[2016-07-25 01:57] LABS: TROPONIN I 0.8 ng/mL
[2016-07-25 03:05] LABS: PH,URINE 6.5 (4.7-8.0); URINE APPEARANCE CLOUDY (CLEAR); URINE BILIRUBIN NEGATIVE (NEGATIVE); URINE BLOOD NEGATIVE (NEGATIVE); URINE COLOR YELLOW (YELLOW); URINE GLUCOSE (UA) NEGATIVE (NEGATIVE); URINE KETONE NEGATIVE (NEGATIVE); URINE PROTEIN 100 mg/dL (<30 mg/dL)
[2016-07-25 03:06] LABS: URINE LEUKOCYTE ESTERASE SMALL Leu/uL (NEGATIVE); URINE RBC 0 - 2 /hpf (0-2); URINE UROBILINOGEN 0.2 E.U./dL (<1 E.U./dL)
[2016-07-25 03:07] LABS: URINE BACTERIA RARE (NEG)
[2016-07-25 03:12] LABS: ARTERIAL BLOOD GAS HCO3 18.2 mmol/L (21-28)
[2016-07-25 03:18] LABS: VENOUS BLOOD GAS BASE EXCESS -10.5 mmol/L (0.0-2.0); VENOUS BLOOD PH 7.19 (7.32-7.43)
[2016-07-25] MEDS: PIGGYBACK IVPB SCH ×3 (05:18→21:00)
[2016-07-25] MEDS: MEROPENEM IVPB SCH ×3 (05:18→21:00)
[2016-07-25] MEDS: MethylPREDNISolone 40 mg Vial IVP SCH ×3 (05:19→21:01)
[2016-07-25 06:16] LABS: ARTERIAL BLOOD GAS HCO3 27.3 mmol/L (21-28); ARTERIAL BLOOD GAS O2 CAPACITY 12.7 mL/dl (16-24); ARTERIAL BLOOD GAS O2 CONTENT 12.4 ML/dl (15-23); ARTERIAL BLOOD GAS PH 7.41 (7.35-7.45); ARTERIAL BLOOD HGB O2 SAT 95.2 % (95.0-98.0); CARBOXYHEMOGLOBIN 1.5 % (0.5-1.5); HHB 2.3 % (0-5); METHEMOGLOBIN 0.9 % (0.0-3.0)
[2016-07-25 06:22] LABS: BASO # 0.02 K/mm3 (0.0-2.0); BASO % 0.2 % (0.0-3.0); EOS % 0.1 % (1.5-5.0); GRAN # 11.89 (1.4-6.5); GRAN % 95.5 % (50.0-68.0); HEMATOCRIT 30.2 % (36.0-48.0); LYMPH # 0.3 (1.2-3.4); LYMPH % 2.7 % (22.0-35.0); MEAN CELL VOLUME 87.8 fL (80.0-105.0); MEAN CORPUSCULAR HEMOGLOBIN 29.4 pg (25.0-35.0); MEAN CORPUSCULAR HGB CONC 33.4 g/dl (31.0-37.0); MEAN PLATELET VOLUME 10.4 fl (7.0-11.0); MONO # 0.2 (0.1-0.6); MONO % 1.5 % (1.0-6.0); PLATELET COUNT 270 10^3/uL (120.0-450.0); RED CELL DISTRIBUTION WIDTH 15.5 % (11.5-14.5); WHITE BLOOD COUNT 12.5 10^3/ul (4.5-11.0)
[2016-07-25 06:28] LABS: ADD MANUAL DIFF? NO
[2016-07-25 06:42] LABS: INR 1.19 (0.93-1.08); PARTIAL THROMBOPLASTIN TIME 55.1 Seconds (23.7-30.8)
--- NOTE | 2016-07-25 07:01 | RAD ---
HISTORY: pulm fibrosis, PNA COMPARISON: 07/24/2016 FINDINGS: LUNGS: Persistent bilateral upper lobe opacities without significant interval change findings may represent some combination of underlying fibrosis and superimposed pneumonia. . Probable right basilar subsegmental atelectasis. In situ ETT, tip of which lies approximately 2.5 cm above sidney. In situ feeding tube. PLEURA: No significant pleural effusion identified, no pneumothorax apparent. CARDIOVASCULAR: Normal. OSSEOUS STRUCTURES: No significant abnormalities. VISUALIZED UPPER ABDOMEN: Normal. OTHER FINDINGS: None. IMPRESSION: Persistent bilateral upper lobe opacities without significant interval change findings may represent some combination of underlying fibrosis and superimposed pneumonia. . Probable right basilar subsegmental atelectasis.
[2016-07-25] MEDS: Albuterol-Ipratrop 3 mg / 0.5 (3 ml) UD IH SCH ×3 (07:26→20:38)
--- NOTE | 2016-07-25 08:56 | PN ---
DATE: 07/24/2016 SUBJECTIVE: The patient remains in intensive care unit. The patient developed respiratory distress, and she was intubated early this morning. She is presently on ventilatory support with sedation. PHYSICAL EXAMINATION: VITAL SIGNS: The patient is afebrile, temperature 97.4; her blood pressure 112/ 78; her pulse rate is 78, regular; her respiratory rate 28; oxygen saturation 96 %. GENERAL: The patient is sedated. She looks pale. HEENT: Head is normocephalic, atraumatic. NECK: Supple. LUNGS: Decreased breath sounds. Scattered crackles in upper lungs . ABDOMEN: Nondistended. Bowel sounds are positive. EXTREMITIES: With trace of edema of the distal hands. DIAGNOSTIC TESTS: CBC with WBC 11.9, hemoglobin 9.6, improved after 1 unit of packed red cells yesterday; hematocrit 29.4 and platelet count 300. Chemistry showed improved potassium 4.1, [id number], BUN 19, creatinine 0.7, random glucose 174. Her calcium remained low, 6.8. Total protein and albumin level improved. Cultures: The sputum culture with E. coli. The urine culture positive for pseudomonas . The patient has stool positive for C. difficile. Chest x-ray showed persistent left upper lobe infiltration.. ASSESSMENT: 1. Respiratory failure. 2. Sepsis with bilateral pneumonia with sputum with Escherichia coli . 3. Clostridium difficile colitis. 4. Pulmonary embolism. 6. Anemia of chronic disease. 7. Persistent hypocalcemia due to malnutrition. PLAN OF TREATMENT: The patient will be maintained on ventilatory support. We will monitor electrolytes, continue present coverage as per infectious disease specialist's recommendations. The patient is on doxycycline, meropenem and vancomycin orally for C. difficile infection. Continue heparin IV for pulmonary embolus therapy. Mini Davis MD cc: [id number] TT: 07/24/2016 22:10:04 Confirmation # [id number] Dictation # [id number] tn MTDD
[2016-07-25 09:02] LABS: ALB/GLOB RATIO 1.2 (1.1-1.8); ALKALINE PHOSPHATASE 71 U/L (38-133); ALT/SGPT 37 U/L (7-56); AST/SGOT 47 U/L (15-39); BILIRUBIN,TOTAL 0.5 mg/dL (0.2-1.3); BLOOD UREA NITROGEN 24 mg/dL (7-21); CARBON DIOXIDE 28 mmol/L (21-33); CHLORIDE 110 mmol/L (95-110); GFR AFRICAN-AMERICAN > 60; GLUCOSE,RANDOM 244 mg/dL (70-110); SODIUM 151 mmol/L (132-148); TOTAL PROTEIN 5.3 g/dL (5.8-8.3)
[2016-07-25 09:16] LABS: POTASSIUM 2.6 mmol/L (3.6-5.0)
[2016-07-25] MEDS: Propofol 10 mg/ml 1,000 MG/100 ML VIAL IV PRN ×2 (09:27→12:54)
[2016-07-25] MEDS: Magnesium Oxide 400 mg Tab UD PO SCH ×2 (09:33→18:06)
[2016-07-25] MEDS: Nystatin 100,000 Units/ml Oral Susp 5 ml UD PO SCH ×4 (09:33→21:01)
[2016-07-25] MEDS: Potassium & Sodium Phosphate PO SCH ×3 (09:34→18:07)
[2016-07-25] MEDS: Vancomycin 25 MG/ML PO SCH ×4 (10:00→21:48)
[2016-07-25 10:25] LABS: T4 2.4 ug/dL (5.5-11.0)
[2016-07-25 10:39] LABS: T3 0.41 ng/mL (0.97-1.69)
--- NOTE | 2016-07-25 11:02 | CP.PCM.CON ---
History of Present Illness - History of Present Illness History of Present Illness: Unable to assess from patient; obtained history from chart review Ms. Malik hinkle 61 y/o female with a pmhx significant for anemia, anxiety, depression, osteoporosis and RA (on MTX) who was found down at home by son brought to ED and was subsequently found to have b/l PE. The preceding several days the patient was reported to have had subjective feves/chills and sputum production. She was admitted to the hospital previously for pneumonia. Hospital course has been complicated by respiratory failure requiring intubation today and now C-diff. PMD: Keith, Son: Karson [phone], [place] [facility] [place]: osteoporosis and RA PSHx: Thyroid FNA 2013 Allergy: NKDA Social hx: former smoker, denies alcohol and other drug use Family hx: non contributory Home meds: gabapentin, motrin, methotrexate, ambien, lidode Review of Systems - Review of Systems Systems not reviewed;Unavailable: Uncooperative, Intubated Past Patient History - Infectious Disease Hx of Infectious Diseases: None - Tetanus Immunizations Tetanus Immunization: Unknown - Past Social History Smoking Status: Former Smoker - CARDIAC Hx Pacemaker: No - PULMONARY Hx Respiratory Disorders: No Hx Sleep Apnea: No Hx Tuberculosis: No - NEUROLOGICAL Hx Paralysis: No - HEENT Hx HEENT Problems: No - RENAL Hx Chronic Kidney Disease: No - ENDOCRINE/METABOLIC Hx Endocrine Disorders: No - HEMATOLOGICAL/ONCOLOGICAL Hx Blood Disorders: No - INTEGUMENTARY Hx Dermatological Problems: No - MUSCULOSKELETAL/RHEUMATOLOGICAL Hx Rheumatoid Arthritis: Yes - GASTROINTESTINAL Hx Gastrointestinal Disorders: No - GENITOURINARY/GYNECOLOGICAL Hx Genitourinary Disorders: No (URGENCY) - PSYCHIATRIC Hx Substance Use: No - SURGICAL HISTORY Hx Amputation: No Hx Appendectomy: No Hx Cardiac Catheterization: No Hx Cholecystectomy: No Hx Coronary Stent: No Hx Gastric Bypass Surgery: No Hx Hysterectomy: No Hx Joint Replacement: No Hx Kidney Transplant: No Hx Liver Transplant: No Hx Mastectomy: No Hx Musculoskeletal Surgery: No Hx Open Heart Surgery: No Hx Orthopedic Surgery: No Hx Splenectomy: No Hx Valve Replacement: No - ANESTHESIA Hx Anesthesia Reactions: No Hx Malignant Hyperthermia: No Meds Allergies/Adverse Reactions: Allergies Allergy/AdvReac Type Severity Reaction Status Date / Time No Known Allergies Allergy Verified 02/11/14 09:05 - Medications Medications: Current Medications Albuterol/Ipratropium (Duoneb 3 Mg/0.5 Mg (3 Ml) Ud) 3 ml IH [id number] [facility] Last Admin: 07/25/16 07:26 Dose: 3 ml Alprazolam (Xanax) 0.5 mg PO BID [facility] PRN Reason: Protocol Last Admin: 07/25/16 10:33 Dose: 0.5 mg Aspirin (Ecotrin) 81 mg PO DAILY [facility] Last Admin: 07/25/16 09:33 Dose: 81 mg Clopidogrel Bisulfate (Plavix) 75 mg PO DAILY [facility] Last Admin: 07/25/16 09:33 Dose: 75 mg Dopamine HCl/Dextrose (Dopamine 400mg/250ml D5w) 400 mg in 250 mls @ 3.368 mls/ hr IV .Q24H PRN; Protocol; 2 MCG/KG/MIN PRN Reason: TITRATE PER MD ORDER Last Titration: 07/22/16 14:51 Dose: 0 mcg/kg/min, 0 mls/hr Doxycycline Hyclate 100 mg/ (Sodium Chloride) 100 mls @ 100 mls/hr IVPB Q12 [facility] PRN Reason: Protocol Last Admin: 07/25/16 10:34 Dose: 100 mls/hr Heparin Sodium/Sodium Chloride (Heparin 09181 Units/250ml 1/2 Normal Saline) 25 ,000 units in 250 mls @ 8.655 mls/hr IV .Q24H PRN; Protocol; 18 UNITS/KG/HR PRN Reason: ADJUST RATE PER PROTOCOL Last Admin: 07/23/16 14:55 Dose: 16 units/kg/hr, 7.693 mls/hr Meropenem 1g/NS 100mL IVPB (Meropenem 1g/Ns 100ml Ivpb) 1 g in 100 mls @ 100 mls/hr IVPB Q8 [facility] PRN Reason: Protocol Stop: 07/30/16 09:16 Last Admin: 07/25/16 05:18 Dose: 100 mls/hr Dexmedetomidine HCl (Precedex 4 Mcg/Ml (100 Ml)) 400 mcg in 100 mls @ 2.722 mls /hr IV .Q24H PRN; Protocol; 0.2 MCG/KG/HR PRN Reason: Agitation Last Titration: 07/24/16 08:00 Dose: Infused Propofol (Diprivan) 1,000 mg in 100 mls @ 1.633 mls/hr IV .Q24H PRN; Protocol; 5 MCG/KG/MIN PRN Reason: TITRATE PER MD ORDER Last Admin: 07/25/16 09:27 Dose: 80 mcg/kg/min, 26.127 mls/hr Fentanyl Citrate (Fentanyl Citrate/Sodium Chloride 1 Mg/100 Ml) 1,000 mcg in 100 mls @ 2 mls/hr IV .Q24H PRN; Protocol; 20 MCG/HR PRN Reason: TITRATE PER MD ORDER Last Titration: 07/25/16 03:00 Dose: 60 mcg/hr, 6 mls/hr Potassium Chloride (Potassium Chloride 10 Meq/100 Ml) 10 meq in 100 mls @ 100 mls/hr IVPB Q2H [facility] Stop: 07/25/16 12:29 Last Admin: 07/25/16 10:30 Dose: 100 mls/hr Potassium Chloride 20 meq/ (Sodium Chloride) 1,010 mls @ 80 mls/hr IV .[id number] [facility] Magnesium Oxide (Mag-Ox) 400 mg PO BID [facility] Last Admin: 07/25/16 09:33 Dose: 400 mg Methylprednisolone (Solu-Medrol) 40 mg IVP Q8 [facility] Last Admin: 07/25/16 05:19 Dose: 40 mg Midazolam HCl (Versed Inj) 2 mg IVP Q2H PRN PRN Reason: Agitation Last Admin: 07/23/16 13:01 Dose: 2 mg Morphine Sulfate (Morphine) 2 mg IVP Q4H PRN PRN Reason: Pain, moderate (4-7) Last Admin: 07/23/16 01:44 Dose: 2 mg Nystatin (Nystatin Oral Susp) 5 ml PO QID [facility] Last Admin: 07/25/16 09:33 Dose: 5 ml Oxycodone/Acetaminophen (Percocet 10/325 Mg Tab) 1 tab PO Q4H PRN PRN Reason: Pain, severe (8-10) Pantoprazole Sodium (Protonix Inj) 40 mg IVP DAILY [facility] Last Admin: 07/25/16 09:33 Dose: 40 mg Potassium Phos/Sodium Phos (Neutra-Phos) 2 pkt PO TID [facility] Last Admin: 07/25/16 09:34 Dose: 2 pkt Vancomycin HCl (Vancocin 25 Mg/Ml (Oral Use)) 125 mg PO QID [facility] PRN Reason: Protocol Last Admin: 07/24/16 21:52 Dose: 125 mg Physical Exam - Constitutional Appears: No Acute Distress, Confused Additional comments: intubated on sedataives - Respiratory Exam Respiratory Exam: Decreased Breath Sounds. absent: Accessory Muscle Use - Cardiovascular Exam Cardiovascular Exam: REGULAR RHYTHM - GI/Abdominal Exam GI & Abdominal Exam: Normal Bowel Sounds, Soft. absent: Tenderness - Extremities Exam Extremities exam: Positive for: normal inspection Results - Vital Signs Recent Vital Signs: Last Vital Signs Temp 98.6 F 07/25/16 04:00 Pulse 112 H 07/25/16 06:00 Resp 27 H 07/25/16 06:00 BP 113/74 07/25/16 09:26 Pulse Ox 95 07/25/16 06:00 - Labs Result Diagrams: 07/25/16 06:00 07/25/16 08:40 Labs: Laboratory Results - last 24 hr 07/21/16 07/21/16 07/24/16 06:00 06:00 11:00 WBC RBC Hgb Hct MCV MCH MCHC RDW Plt Count MPV Gran % Lymph % (Auto) [place] % (Auto) Eos % (Auto) Baso % (Auto) Gran # Lymph # [place] # Eos # Baso # Neutrophils % (Manual) Band Neutrophils % Lymphocytes % (Manual) Monocytes % (Manual) Myelocytes % Platelet Evaluation Anisocytosis (manual) PT INR APTT pCO2 43 pO2 340.0 H HCO3 25.4 ABG pH 7.38 ABG Total CO2 26.7 ABG O2 Saturation 100.0 H ABG O2 Content ABG Base Excess 0.2 ABG Hemoglobin ABG Carboxyhemoglobin POC ABG HHb (Measured) ABG Methemoglobin ABG O2 Capacity ABG Potassium 3.4 L Hgb O2 Saturation Glucose 212 H Lactate 1.7 FiO2 100.0 Sodium 139 150.0 H Potassium 2.4 L* Chloride 104 121.0 H Carbon Dioxide 21 Anion Gap 16 BUN 25 H Creatinine 1.3 Est GFR ( Amer) 51 Est GFR (Non-Af Amer) 42 Random Glucose 121 H Lactic Acid 1.0 Calcium 8.2 L Phosphorus 3.2 Magnesium 1.8 Total Bilirubin 0.7 AST 40 H ALT 28 Alkaline Phosphatase 99 Lactate Dehydrogenase 1118 H Total Creatine Kinase 253 H CK-MB (CK-2) 9.9 H CK-MB (CK-2) % 3.9 H Troponin I 0.80 H* Total Protein 5.9 Albumin 2.8 L Globulin 3.1 Albumin/Globulin Ratio 0.9 L Thyroxine (T4) Arterial Blood Potassium 3.4 L Blood Type Antibody Screen Crossmatch BBK History Checked 07/24/16 07/24/16 07/25/16 11:05 17:20 05:50 WBC 11.9 H RBC 3.35 L Hgb 9.6 L Hct 29.4 L MCV 87.8 MCH 28.7 MCHC 32.7 RDW 14.8 H Plt Count 267 MPV 10.7 Gran % Lymph % (Auto) [place] % (Auto) Eos % (Auto) Baso % (Auto) Gran # Lymph # [place] # Eos # Baso # Neutrophils % (Manual) 83 H Band Neutrophils % 8 H Lymphocytes % (Manual) 6 L Monocytes % (Manual) 1 Myelocytes % 2 Platelet Evaluation Normal Anisocytosis (manual) Slight PT INR APTT pCO2 43 pO2 78.0 L HCO3 27.3 ABG pH 7.41 ABG Total CO2 28.6 H ABG O2 Saturation 97.6 ABG O2 Content 12.4 L ABG Base Excess 2.4 ABG Hemoglobin 9.2 L ABG Carboxyhemoglobin 1.5 POC ABG HHb (Measured) 2.3 ABG Methemoglobin 0.9 ABG O2 Capacity 12.7 L ABG Potassium Hgb O2 Saturation 95.2 Glucose Lactate FiO2 40.0 Sodium Potassium Chloride Carbon Dioxide Anion Gap BUN Creatinine Est GFR ( Amer) Est GFR (Non-Af Amer) Random Glucose Lactic Acid Calcium Phosphorus Magnesium Total Bilirubin AST ALT Alkaline Phosphatase Lactate Dehydrogenase Total Creatine Kinase CK-MB (CK-2) CK-MB (CK-2) % Troponin I Total Protein Albumin Globulin Albumin/Globulin Ratio Thyroxine (T4) Arterial Blood Potassium Blood Type A POSITIVE Antibody Screen Negative Crossmatch See Detail BBK History Checked Patient has bt 07/25/16 07/25/16 07/25/16 06:00 06:00 06:30 WBC 12.5 H RBC 3.44 L Hgb 10.1 L Hct 30.2 L MCV 87.8 MCH 29.4 MCHC 33.4 RDW 15.5 H Plt Count 270 MPV 10.4 Gran % 95.5 H Lymph % (Auto) 2.7 L [place] % (Auto) 1.5 Eos % (Auto) 0.1 L Baso % (Auto) 0.2 Gran # 11.89 H Lymph # 0.3 L [place] # 0.2 Eos # 0.0 Baso # 0.02 Neutrophils % (Manual) Band Neutrophils % Lymphocytes % (Manual) Monocytes % (Manual) Myelocytes % Platelet Evaluation Anisocytosis (manual) PT 12.8 H INR 1.19 H APTT 55.1 H pCO2 pO2 HCO3 ABG pH ABG Total CO2 ABG O2 Saturation ABG O2 Content ABG Base Excess ABG Hemoglobin ABG Carboxyhemoglobin POC ABG HHb (Measured) ABG Methemoglobin ABG O2 Capacity ABG Potassium Hgb O2 Saturation Glucose Lactate FiO2 Sodium Potassium Chloride Carbon Dioxide Anion Gap BUN Creatinine Est GFR ( Amer) Est GFR (Non-Af Amer) Random Glucose Lactic Acid Calcium Phosphorus 3.3 Magnesium Total Bilirubin AST ALT Alkaline Phosphatase Lactate Dehydrogenase Total Creatine Kinase CK-MB (CK-2) CK-MB (CK-2) % Troponin I Total Protein Albumin Globulin Albumin/Globulin Ratio Thyroxine (T4) Arterial Blood Potassium Blood Type Antibody Screen Crossmatch BBK History Checked 07/25/16 07/25/16 08:40 09:50 WBC RBC Hgb Hct MCV MCH MCHC RDW Plt Count MPV Gran % Lymph % (Auto) [place] % (Auto) Eos % (Auto) Baso % (Auto) Gran # Lymph # [place] # Eos # Baso # Neutrophils % (Manual) Band Neutrophils % Lymphocytes % (Manual) Monocytes % (Manual) Myelocytes % Platelet Evaluation Anisocytosis (manual) PT INR APTT pCO2 pO2 HCO3 ABG pH ABG Total CO2 ABG O2 Saturation ABG O2 Content ABG Base Excess ABG Hemoglobin ABG Carboxyhemoglobin POC ABG HHb (Measured) ABG Methemoglobin ABG O2 Capacity ABG Potassium Hgb O2 Saturation Glucose Lactate FiO2 Sodium 151 H Potassium 2.6 L* D Chloride 110 Carbon Dioxide 28 Anion Gap 16 BUN 24 H Creatinine 0.7 Est GFR ( Amer) > 60 Est GFR (Non-Af Amer) > 60 Random Glucose 244 H Lactic Acid Calcium 7.0 L Phosphorus Magnesium Total Bilirubin 0.5 AST 47 H ALT 37 Alkaline Phosphatase 71 Lactate Dehydrogenase Total Creatine Kinase CK-MB (CK-2) CK-MB (CK-2) % Troponin I Total Protein 5.3 L Albumin 2.9 L Globulin 2.4 Albumin/Globulin Ratio 1.2 Thyroxine (T4) 2.4 L Arterial Blood Potassium Blood Type Antibody Screen Crossmatch BBK History Checked Assessment & Plan - Assessment and Plan (Free Text) Assessment: Ms. Garcia is 61 year old female with past medical history of anemia, anxiety, depression, osteoporosis, RA (on MTX) who presents after having been found down in the setting of recent URI symptoms in the preceding days and who on admission found to have b/l PE with suggestion of RV strain and hypoxic respiratory failure in setting of PNA requiring intubation. Patient's respiratory status appears stable s/p intubation. Agree with on going anti- coagulation with heparin. This is likely a provoked thrombus in the setting of being found down. Would defer any thrombophilia w/up for now. Once medically stable can be converted to coumadin (with lovenox bridge), therapuetic lonvenox (1mg/kg BID) or a NOAC (apixaban, xarelto ect). IF signs of respiratory compromised in setting of known PE could potentially consider utilization of lytics if respiratory/hemodynamic compromise thought to be 2/2 to PE. But would defer use for now. Patient's mild normocytic anemia likely related to underlying sepsis physiology could also be related to previous MTX use and known RA which could contribute to anemia of chronic disease. Would monitor for now. Avoid transfusion unless hgb <7 or if significantly symptmoatic and <8.
[2016-07-25] MEDS ORDERED: Levothyroxine 100 mcg (0.1 mg) Inj IVP STA (11:21)
[2016-07-25] MEDS: Potassium Chloride 20 MEQ in Sodium Chloride 0.45% 1,000 ML IV SCH (13:16)
[2016-07-25 14:27] LABS: BLOOD UREA NITROGEN 23 mg/dL (7-21); CALCIUM 7.2 mg/dL (8.4-10.5); CARBON DIOXIDE 32 mmol/L (21-33); CHLORIDE 108 mmol/L (98-107); GFR AFRICAN-AMERICAN > 60; GLUCOSE,RANDOM 262 mg/dL (70-110); MAGNESIUM 1.9 mg/dL (1.7-2.2); PHOSPHOROUS 3.3 mg/dL (2.5-4.5); SODIUM 148 mmol/L (132-148)
[2016-07-25 14:36] LABS: POTASSIUM 2.6 mmol/L (3.6-5.0)
[2016-07-25] MEDS ORDERED: Potassium Chloride 20 mEq/15 ml LIQ UD PO STA (14:39)
[2016-07-25] MEDS: Potassium Chloride 40 mEq/30 ml LIQ UD NG SCH ×3 (15:25→21:47)
--- NOTE | 2016-07-25 15:26 | PN ---
DATE: 07/25/2016 REASON FOR CONSULTATION AND FOLLOWUP: Positive troponin, respiratory failure, pneumonia, bilateral P E. BRIEF CLINICAL HISTORY: A 61-year-old female with a past medical history significant for rheumatoid arthritis, osteoarthritis, history of on methotrexate. Admitted after syncopal episode at home, foun d to be PE and pneumonia. Extubated successfully. Now, patient reintubated yesterday, has a fever a nd C. diff positive. PHYSICAL EXAMINATION: VITAL SIGNS: Temperature afebrile, heart rate 92, blood pressure 110/73. HEENT: PERRLA. Extraocular muscles intact. NECK: Supple. No carotid bruits. No thyromegaly. CHEST: Clear to auscultation. HEART: S1, S2 regular. ABDOMEN: Soft. EXTREMITIES: Clubbing, cyanosis negative. BLOOD WORKUP: WBC , hemoglobin 10. , hematocrit 30.2, platelet count 270. Chemistry shows sodium , potassium 2.6, chloride 110, carbon dioxide 28, anion gap of , BUN 24, creatinine 0.7. IMPRESSION: Bilateral pulmonary embolism, pneumonia, sepsis, reintubated, hypernatremia, hypokalemia , protein-calorie malnutrition which was not present on admission, anemia, rheumatoid arthritis, oste oarthritis, respiratory failure, recurrent, reintubated. RECOMMENDATION: Continue vent management. Try to diuresed, extubated. Continue heparin. Continue anticoagulation, heparin to either Coumadin or novel anticoagulation. Discontinue Plavix and possibl y this troponin is secondary to pulmonary embolism, this borderline troponin, doubt it is a cardiac e vent. It is most likely secondary to pulmonary embolism when compared the echo this time from before , significant change in right ventricle. This time echo, severe right ventricle dilated and hypofunc tioning right ventricle, decreased right ventricular function. When the patient had in April norm al functioning right ventricle and normal right ventricular pressure. Now, the right ventricular pre ssure systolic is increased as well as huge . All this is secondary to large pulmonary embolism . Also, this little borderline troponin positive is secondary to right ventricle strain, so no furth er cardiac intervention at this time is planned or warranted. Will follow with you. Plavix was disc ontinued. Continue antibiotic. We will follow with you. Continue levothyroxine. Discussed with Dr Calderon Parker on Monday. Robert Jackson MD cc: [id number] TT: 07/25/2016 15:25:57 Confirmation # [id number] Dictation # [id number]
--- NOTE | 2016-07-25 15:58 | CP.CCUPN ---
<Gilles Goddard - Last Filed: 07/25/16 15:55> CCU Subjective - Physician Review Events Since Last Encounter (Free Text): 07/25/16 15:55 Gilles Goddard D.O. PGY-1, Internal Medicine Resident, ICU Progress Note 61 year old female with a PMH of RA, chronic pain, osteoporosis who presented after she was found down in the bathroom, found to have BL subsegmental pulmonary emboli with RV dilatation. Patient was seen and examined and at bedside. Yesterday patient was again in respiratory distress and required intubation. Patient at this time unable to provide ROS. No other acute events. CCU Objective - Vital Signs / Intake & Output Vital Signs (Last 4 hours): Vital Signs Pulse BP Pulse Ox 07/25/16 13:20 92 H 07/25/16 13:16 88 07/25/16 13:14 90 07/25/16 13:12 91 H 07/25/16 13:11 94 H 07/25/16 13:10 96 H 100 07/25/16 13:09 106 H 07/25/16 13:06 93 H 07/25/16 13:05 88 07/25/16 13:04 93 H 07/25/16 13:03 87 07/25/16 13:01 91 H 07/25/16 13:00 110/73 07/25/16 12:59 92 H 100 07/25/16 12:58 93 H 111/59 L 100 07/25/16 12:56 90 07/25/16 12:50 91 H 100 07/25/16 12:48 92 H 07/25/16 12:46 92 H 07/25/16 12:44 93 H 07/25/16 12:43 93 H 07/25/16 12:42 90 07/25/16 12:41 90 07/25/16 12:40 93 H 07/25/16 12:38 88 07/25/16 12:37 95 H 07/25/16 12:32 92 H 07/25/16 12:30 95 H 100 07/25/16 12:20 88 90 L 07/25/16 12:10 92 H 100 07/25/16 12:08 93 H 07/25/16 12:07 91 H 07/25/16 12:06 93 H 05/22/17 12:05 94 H 07/25/16 12:04 94 H 07/25/16 12:03 93 H 07/25/16 12:02 95 H 07/25/16 12:01 93 H Intake and Output (Last 8hrs): Intake & Output 07/25/16 07/25/16 07/25/16 06:59 14:59 22:59 Intake Total 1836.3 140 Output Total 300 Balance 1536.3 140 Weight 51.936 kg Intake: IV 1736.3 140 Left Forearm 1351 Right Forearm 238 Other 100 Output: Urine 300 Urethral (Dumont) 300 Other: Voiding Method Indwelling Catheter # Bowel Movements 1 - Physical Exam Head: Positive for: Atraumatic, Normocephalic Pupils: Positive for: PERRL Extroacular Muscles: Positive for: EOMI Conjunctiva: Positive for: Normal. Negative for: Injected, Icteric Ears: Positive for: Normal Mouth: Positive for: Other (ET tube in place) Pharnyx: Positive for: Other (ET tube in place) Nose (External): Positive for: Atraumatic Neck: Positive for: JVD (notable), Trachea Midline. Negative for: Lymphadenopathy Respiratory/Chest: Positive for: Decreased Breath Sounds, Rales, Rhonchi ( bibasilar). Negative for: Respiratory Distress, Accessory Muscle Use, Wheezes Cardiovascular: Positive for: Regular Rate and Rhythm, Murmurs (2/6 LSB). Negative for: Rub, Gallop Abdomen: Positive for: Normal Bowel Sounds. Negative for: Tenderness, Distention, Peritoneal Signs Genitourinary/Pelvic Exam: Positive for: Other (dumont in place with clear yellow urine) Back: Negative for: Midline Tenderness, Paraspinal Tenderness Upper Extremity: Positive for: Normal Inspection, Capillary Refill < 2s. Negative for: Cyanosis, Edema Lower Extremity: Positive for: Normal Inspection, Capillary Refill < 2 s. Negative for: Edema, CALF TENDERNESS Neurological: Positive for: Motor Func Grossly Intact. Negative for: GCS=15 ( 11T) Skin: Positive for: Warm, Dry - Medications Active Medications: Active Medications Generic Name Dose Route Start Last Admin Trade Name Freq PRN Reason Stop Dose Admin Albuterol/Ipratropium 3 ml 07/21/16 04:00 07/25/16 13:43 Duoneb 3 Mg/0.5 Mg (3 Ml) Ud IH 3 ml [id number] NISHANT Administration Alprazolam 0.5 mg 07/23/16 18:00 07/25/16 10:33 Xanax PO 0.5 mg BID NISHANT Administration Protocol Aspirin 81 mg 07/22/16 10:00 07/25/16 09:33 Ecotrin PO 81 mg DAILY NISHANT Administration Doxycycline Hyclate 100 mg/ 100 mls @ 100 mls/hr 07/22/16 12:15 07/25/16 10: 34 Sodium Chloride IVPB 100 mls/hr Q12 NISHANT Administration Protocol Heparin Sodium/Sodium Chloride 25,000 units in 250 mls @ 8.655 mls/hr 12:31 07/23/16 14:55 Heparin 31885 Units/250ml 1/2 Normal Saline IV 16 units/kg/hr .Q24H PRN 7.693 mls/hr ADJUST RATE PER PROTOCOL Administration Protocol 18 UNITS/KG/HR Meropenem 1g/NS 100mL IVPB 1 g in 100 mls @ 100 mls/hr 07/23/16 09:15 15:30 Meropenem 1g/Ns 100ml Ivpb IVPB 07/30/16 09:16 100 mls/hr Q8 NISHANT Administration Protocol Fentanyl Citrate 1,000 mcg in 100 mls @ 2 mls/hr 07/24/16 15:07 07/25/16 03: 00 Fentanyl Citrate/Sodium Chloride 1 Mg/100 Ml IV 60 mcg/hr .Q24H PRN 6 mls/hr TITRATE PER MD ORDER Titration Protocol 20 MCG/HR Potassium Chloride 20 meq/ 1,010 mls @ 80 mls/hr 07/25/16 09:30 07/25/16 13: 16 Sodium Chloride IV 80 mls/hr .[id number] NISHANT Administration Dexmedetomidine HCl 400 mcg in 100 mls @ 2.597 mls/hr 07/25/16 14:29 Precedex 4 Mcg/Ml (100 Ml) IV .Q24H PRN Agitation Protocol 0.2 MCG/KG/HR Potassium Chloride 20 meq in 100 mls @ 50 mls/hr 07/25/16 14:45 07/25/16 15: 30 Potassium Chloride 20 Meq/100 Ml IVPB 07/25/16 18:44 50 mls/hr Q2H NISHANT Administration Magnesium Oxide 400 mg 07/23/16 10:00 07/25/16 09:33 Mag-Ox PO 400 mg BID NISHANT Administration Methylprednisolone 40 mg 07/21/16 06:00 07/25/16 15:36 Solu-Medrol IVP 40 mg Q8 NISHANT Administration Midazolam HCl 2 mg 07/21/16 20:43 07/23/16 13:01 Versed Inj IVP 2 mg Q2H PRN Administration Agitation Morphine Sulfate 2 mg 07/22/16 20:52 07/23/16 01:44 Morphine IVP 2 mg Q4H PRN Administration Pain, moderate (4-7) Nystatin 5 ml 07/23/16 14:00 07/25/16 15:36 Nystatin Oral Susp PO 5 ml QID NISHANT Administration Oxycodone/Acetaminophen 1 tab 07/23/16 11:04 Percocet 10/325 Mg Tab PO Q4H PRN Pain, severe (8-10) Pantoprazole Sodium 40 mg 07/21/16 10:00 07/25/16 09:33 Protonix Inj IVP 40 mg DAILY NISHANT Administration Potassium Chloride 40 meq 07/25/16 14:45 07/25/16 15:25 Potassium Chloride Oral Soln NG 07/26/16 02:46 Not Given Q4H NISHANT Potassium Phos/Sodium Phos 2 pkt 07/23/16 10:00 07/25/16 15:00 Neutra-Phos PO 2 pkt TID NISHANT Administration Vancomycin HCl 125 mg 07/24/16 10:31 07/24/16 21:52 Vancocin 25 Mg/Ml (Oral Use) PO 125 mg QID NISHANT Administration Protocol - Patient Studies Lab Studies: Microbiology Studies 07/21/16 15:30 Gram Stain - Final Sputum Sputum Culture - Final Escherichia Coli Lab Studies 07/25/16 07/25/16 07/25/16 Range/Units 14:00 12:40 09:50 WBC (4.5-11.0) 10^3/ul RBC (3.5-6.1) 10^6/uL Hgb (12.0-16.0) gm/dL Hct (36.0-48.0) % MCV (80.0-105.0) fL MCH (25.0-35.0) pg MCHC (31.0-37.0) g/dl RDW (11.5-14.5) % Plt Count (120.0-450.0) 10^3/uL MPV (7.0-11.0) fl Gran % (50.0-68.0) % Lymph % (Auto) (22.0-35.0) % [place] % (Auto) (1.0-6.0) % Eos % (Auto) (1.5-5.0) % Baso % (Auto) (0.0-3.0) % Gran # (1.4-6.5) Lymph # (1.2-3.4) [place] # (0.1-0.6) Eos # (0.0-0.7) Baso # (0.0-2.0) K/mm3 Neutrophils % (Manual) (50.0-70.0) % Band Neutrophils % (0-2) % Lymphocytes % (Manual) (22.0-35.0) % Monocytes % (Manual) (1.0-6.0) % Myelocytes % % Platelet Evaluation (NORMAL) Anisocytosis (manual) PT (9.9-11.8) Seconds INR (0.93-1.08) APTT 46.8 H (23.7-30.8) Seconds pCO2 (35-45) mm/Hg pO2 (80-100) mm/Hg HCO3 (21-28) mmol/L ABG pH (7.35-7.45) ABG Total CO2 (22-28) mmol.L ABG O2 Saturation (95-98) % ABG O2 Content (15-23) ML/dl ABG Base Excess (-2.0-3.0) mmol/L ABG Hemoglobin (11.7-17.4) g/dL ABG Carboxyhemoglobin (0.5-1.5) % POC ABG HHb (Measured) (0-5) % ABG Methemoglobin (0.0-3.0) % ABG O2 Capacity (16-24) mL/dl ABG Potassium (3.6-5.2) mmol/L Hgb O2 Saturation (95.0-98.0) % Glucose (65-105) mg/dl Lactate (0.7-2.1) mmol/L FiO2 % Sodium 148 (132-148) mmol/L Potassium 2.6 L* D (3.6-5.0) mmol/L Chloride 108 H (98-107) mmol/L Carbon Dioxide 32 (21-33) mmol/L Anion Gap 11 (10-20) BUN 23 H (7-21) mg/dL Creatinine 0.7 (0.5-1.4) mg/dL Est GFR ( Amer) > 60 Est GFR (Non-Af Amer) > 60 Random Glucose 262 H (70-110) mg/dL Lactic Acid (0.7-2.1) mmol/L Calcium 7.2 L (8.4-10.5) mg/dL Phosphorus 3.3 (2.5-4.5) mg/dL Magnesium 1.9 (1.7-2.2) mg/dL Total Bilirubin (0.2-1.3) mg/dL AST (15-39) U/L ALT (7-56) U/L Alkaline Phosphatase (38-133) U/L Lactate Dehydrogenase (333-699) U/L Total Creatine Kinase (35-230) U/L CK-MB (CK-2) (0.0-3.6) ng/mL CK-MB (CK-2) % (2.5-3.0) % Troponin I ng/mL Total Protein (5.8-8.3) g/dL Albumin (3.0-4.8) g/dL Globulin gm/dL Albumin/Globulin Ratio (1.1-1.8) Thyroxine (T4) 2.4 L (5.5-11.0) ug/dL Total T3 0.41 L (0.97-1.69) ng/mL Arterial Blood Potassium (3.6-5.2) mmol/L Crossmatch 07/25/16 07/25/16 07/25/16 Range/Units 08:40 06:30 06:00 WBC (4.5-11.0) 10^3/ul RBC (3.5-6.1) 10^6/uL Hgb (12.0-16.0) gm/dL Hct (36.0-48.0) % MCV (80.0-105.0) fL MCH (25.0-35.0) pg MCHC (31.0-37.0) g/dl RDW (11.5-14.5) % Plt Count (120.0-450.0) 10^3/uL MPV (7.0-11.0) fl Gran % (50.0-68.0) % Lymph % (Auto) (22.0-35.0) % [place] % (Auto) (1.0-6.0) % Eos % (Auto) (1.5-5.0) % Baso % (Auto) (0.0-3.0) % Gran # (1.4-6.5) Lymph # (1.2-3.4) [place] # (0.1-0.6) Eos # (0.0-0.7) Baso # (0.0-2.0) K/mm3 Neutrophils % (Manual) (50.0-70.0) % Band Neutrophils % (0-2) % Lymphocytes % (Manual) (22.0-35.0) % Monocytes % (Manual) (1.0-6.0) % Myelocytes % % Platelet Evaluation (NORMAL) Anisocytosis (manual) PT 12.8 H (9.9-11.8) Seconds INR 1.19 H (0.93-1.08) APTT 55.1 H (23.7-30.8) Seconds pCO2 (35-45) mm/Hg pO2 (80-100) mm/Hg HCO3 (21-28) mmol/L ABG pH (7.35-7.45) ABG Total CO2 (22-28) mmol.L ABG O2 Saturation (95-98) % ABG O2 Content (15-23) ML/dl ABG Base Excess (-2.0-3.0) mmol/L ABG Hemoglobin (11.7-17.4) g/dL ABG Carboxyhemoglobin (0.5-1.5) % POC ABG HHb (Measured) (0-5) % ABG Methemoglobin (0.0-3.0) % ABG O2 Capacity (16-24) mL/dl ABG Potassium (3.6-5.2) mmol/L Hgb O2 Saturation (95.0-98.0) % Glucose (65-105) mg/dl Lactate (0.7-2.1) mmol/L FiO2 % Sodium 151 H (132-148) mmol/L Potassium 2.6 L* D (3.6-5.0) mmol/L Chloride 110 (98-107) mmol/L Carbon Dioxide 28 (21-33) mmol/L Anion Gap 16 (10-20) BUN 24 H (7-21) mg/dL Creatinine 0.7 (0.5-1.4) mg/dL Est GFR ( Amer) > 60 Est GFR (Non-Af Amer) > 60 Random Glucose 244 H (70-110) mg/dL Lactic Acid (0.7-2.1) mmol/L Calcium 7.0 L (8.4-10.5) mg/dL Phosphorus 3.3 (2.5-4.5) mg/dL Magnesium (1.7-2.2) mg/dL Total Bilirubin 0.5 (0.2-1.3) mg/dL AST 47 H (15-39) U/L ALT 37 (7-56) U/L Alkaline Phosphatase 71 (38-133) U/L Lactate Dehydrogenase (333-699) U/L Total Creatine Kinase (35-230) U/L CK-MB (CK-2) (0.0-3.6) ng/mL CK-MB (CK-2) % (2.5-3.0) % Troponin I ng/mL Total Protein 5.3 L (5.8-8.3) g/dL Albumin 2.9 L (3.0-4.8) g/dL Globulin 2.4 gm/dL Albumin/Globulin Ratio 1.2 (1.1-1.8) Thyroxine (T4) (5.5-11.0) ug/dL Total T3 (0.97-1.69) ng/mL Arterial Blood Potassium (3.6-5.2) mmol/L Crossmatch 07/25/16 07/25/16 07/24/16 Range/Units 06:00 05:50 17:20 WBC 12.5 H 11.9 H (4.5-11.0) 10^3/ul RBC 3.44 L 3.35 L (3.5-6.1) 10^6/uL Hgb 10.1 L 9.6 L (12.0-16.0) gm/dL Hct 30.2 L 29.4 L (36.0-48.0) % MCV 87.8 87.8 (80.0-105.0) fL MCH 29.4 28.7 (25.0-35.0) pg MCHC 33.4 32.7 (31.0-37.0) g/dl RDW 15.5 H 14.8 H (11.5-14.5) % Plt Count 270 267 (120.0-450.0) 10^3/uL MPV 10.4 10.7 (7.0-11.0) fl Gran % 95.5 H (50.0-68.0) % Lymph % (Auto) 2.7 L (22.0-35.0) % [place] % (Auto) 1.5 (1.0-6.0) % Eos % (Auto) 0.1 L (1.5-5.0) % Baso % (Auto) 0.2 (0.0-3.0) % Gran # 11.89 H (1.4-6.5) Lymph # 0.3 L (1.2-3.4) [place] # 0.2 (0.1-0.6) Eos # 0.0 (0.0-0.7) Baso # 0.02 (0.0-2.0) K/mm3 Neutrophils % (Manual) 83 H (50.0-70.0) % Band Neutrophils % 8 H (0-2) % Lymphocytes % (Manual) 6 L (22.0-35.0) % Monocytes % (Manual) 1 (1.0-6.0) % Myelocytes % 2 % Platelet Evaluation Normal (NORMAL) Anisocytosis (manual) Slight PT (9.9-11.8) Seconds INR (0.93-1.08) APTT (23.7-30.8) Seconds pCO2 43 (35-45) mm/Hg pO2 78.0 L (80-100) mm/Hg HCO3 27.3 (21-28) mmol/L ABG pH 7.41 (7.35-7.45) ABG Total CO2 28.6 H (22-28) mmol.L ABG O2 Saturation 97.6 (95-98) % ABG O2 Content 12.4 L (15-23) ML/dl ABG Base Excess 2.4 (-2.0-3.0) mmol/L ABG Hemoglobin 9.2 L (11.7-17.4) g/dL ABG Carboxyhemoglobin 1.5 (0.5-1.5) % POC ABG HHb (Measured) 2.3 (0-5) % ABG Methemoglobin 0.9 (0.0-3.0) % ABG O2 Capacity 12.7 L (16-24) mL/dl ABG Potassium (3.6-5.2) mmol/L Hgb O2 Saturation 95.2 (95.0-98.0) % Glucose (65-105) mg/dl Lactate (0.7-2.1) mmol/L FiO2 40.0 % Sodium (132-148) mmol/L Potassium (3.6-5.0) mmol/L Chloride (98-107) mmol/L Carbon Dioxide (21-33) mmol/L Anion Gap (10-20) BUN (7-21) mg/dL Creatinine (0.5-1.4) mg/dL Est GFR ( Amer) Est GFR (Non-Af Amer) Random Glucose (70-110) mg/dL Lactic Acid (0.7-2.1) mmol/L Calcium (8.4-10.5) mg/dL Phosphorus (2.5-4.5) mg/dL Magnesium (1.7-2.2) mg/dL Total Bilirubin (0.2-1.3) mg/dL AST (15-39) U/L ALT (7-56) U/L Alkaline Phosphatase (38-133) U/L Lactate Dehydrogenase (333-699) U/L Total Creatine Kinase (35-230) U/L CK-MB (CK-2) (0.0-3.6) ng/mL CK-MB (CK-2) % (2.5-3.0) % Troponin I ng/mL Total Protein (5.8-8.3) g/dL Albumin (3.0-4.8) g/dL Globulin gm/dL Albumin/Globulin Ratio (1.1-1.8) Thyroxine (T4) (5.5-11.0) ug/dL Total T3 (0.97-1.69) ng/mL Arterial Blood Potassium (3.6-5.2) mmol/L Crossmatch 07/24/16 07/24/16 07/21/16 Range/Units 11:05 11:00 06:00 WBC (4.5-11.0) 10^3/ul RBC (3.5-6.1) 10^6/uL Hgb (12.0-16.0) gm/dL Hct (36.0-48.0) % MCV (80.0-105.0) fL MCH (25.0-35.0) pg MCHC (31.0-37.0) g/dl RDW (11.5-14.5) % Plt Count (120.0-450.0) 10^3/uL MPV (7.0-11.0) fl Gran % (50.0-68.0) % Lymph % (Auto) (22.0-35.0) % [place] % (Auto) (1.0-6.0) % Eos % (Auto) (1.5-5.0) % Baso % (Auto) (0.0-3.0) % Gran # (1.4-6.5) Lymph # (1.2-3.4) [place] # (0.1-0.6) Eos # (0.0-0.7) Baso # (0.0-2.0) K/mm3 Neutrophils % (Manual) (50.0-70.0) % Band Neutrophils % (0-2) % Lymphocytes % (Manual) (22.0-35.0) % Monocytes % (Manual) (1.0-6.0) % Myelocytes % % Platelet Evaluation (NORMAL) Anisocytosis (manual) PT (9.9-11.8) Seconds INR (0.93-1.08) APTT (23.7-30.8) Seconds pCO2 (35-45) mm/Hg pO2 (80-100) mm/Hg HCO3 (21-28) mmol/L ABG pH (7.35-7.45) ABG Total CO2 (22-28) mmol.L ABG O2 Saturation (95-98) % ABG O2 Content (15-23) ML/dl ABG Base Excess (-2.0-3.0) mmol/L ABG Hemoglobin (11.7-17.4) g/dL ABG Carboxyhemoglobin (0.5-1.5) % POC ABG HHb (Measured) (0-5) % ABG Methemoglobin (0.0-3.0) % ABG O2 Capacity (16-24) mL/dl ABG Potassium 3.4 L (3.6-5.2) mmol/L Hgb O2 Saturation (95.0-98.0) % Glucose 212 H (65-105) mg/dl Lactate 1.7 (0.7-2.1) mmol/L FiO2 % Sodium 150.0 H (132-148) mmol/L Potassium (3.6-5.0) mmol/L Chloride (98-107) mmol/L Carbon Dioxide (21-33) mmol/L Anion Gap (10-20) BUN (7-21) mg/dL Creatinine (0.5-1.4) mg/dL Est GFR ( Amer) Est GFR (Non-Af Amer) Random Glucose (70-110) mg/dL Lactic Acid 1.0 (0.7-2.1) mmol/L Calcium (8.4-10.5) mg/dL Phosphorus (2.5-4.5) mg/dL Magnesium (1.7-2.2) mg/dL Total Bilirubin (0.2-1.3) mg/dL AST (15-39) U/L ALT (7-56) U/L Alkaline Phosphatase (38-133) U/L Lactate Dehydrogenase (333-699) U/L Total Creatine Kinase (35-230) U/L CK-MB (CK-2) (0.0-3.6) ng/mL CK-MB (CK-2) % (2.5-3.0) % Troponin I ng/mL Total Protein (5.8-8.3) g/dL Albumin (3.0-4.8) g/dL Globulin gm/dL Albumin/Globulin Ratio (1.1-1.8) Thyroxine (T4) (5.5-11.0) ug/dL Total T3 (0.97-1.69) ng/mL Arterial Blood Potassium 3.4 L (3.6-5.2) mmol/L Crossmatch See Detail 07/21/16 Range/Units 06:00 WBC (4.5-11.0) 10^3/ul RBC (3.5-6.1) 10^6/uL Hgb (12.0-16.0) gm/dL Hct (36.0-48.0) % MCV (80.0-105.0) fL MCH (25.0-35.0) pg MCHC (31.0-37.0) g/dl RDW (11.5-14.5) % Plt Count (120.0-450.0) 10^3/uL MPV (7.0-11.0) fl Gran % (50.0-68.0) % Lymph % (Auto) (22.0-35.0) % [place] % (Auto) (1.0-6.0) % Eos % (Auto) (1.5-5.0) % Baso % (Auto) (0.0-3.0) % Gran # (1.4-6.5) Lymph # (1.2-3.4) [place] # (0.1-0.6) Eos # (0.0-0.7) Baso # (0.0-2.0) K/mm3 Neutrophils % (Manual) (50.0-70.0) % Band Neutrophils % (0-2) % Lymphocytes % (Manual) (22.0-35.0) % Monocytes % (Manual) (1.0-6.0) % Myelocytes % % Platelet Evaluation (NORMAL) Anisocytosis (manual) PT (9.9-11.8) Seconds INR (0.93-1.08) APTT (23.7-30.8) Seconds pCO2 (35-45) mm/Hg pO2 (80-100) mm/Hg HCO3 (21-28) mmol/L ABG pH (7.35-7.45) ABG Total CO2 (22-28) mmol.L ABG O2 Saturation (95-98) % ABG O2 Content (15-23) ML/dl ABG Base Excess (-2.0-3.0) mmol/L ABG Hemoglobin (11.7-17.4) g/dL ABG Carboxyhemoglobin (0.5-1.5) % POC ABG HHb (Measured) (0-5) % ABG Methemoglobin (0.0-3.0) % ABG O2 Capacity (16-24) mL/dl ABG Potassium (3.6-5.2) mmol/L Hgb O2 Saturation (95.0-98.0) % Glucose (65-105) mg/dl Lactate (0.7-2.1) mmol/L FiO2 % Sodium 139 (132-148) mmol/L Potassium 2.4 L* (3.6-5.0) mmol/L Chloride 104 (98-107) mmol/L Carbon Dioxide 21 (21-33) mmol/L Anion Gap 16 (10-20) BUN 25 H (7-21) mg/dL Creatinine 1.3 (0.5-1.4) mg/dL Est GFR ( Amer) 51 Est GFR (Non-Af Amer) 42 Random Glucose 121 H (70-110) mg/dL Lactic Acid (0.7-2.1) mmol/L Calcium 8.2 L (8.4-10.5) mg/dL Phosphorus 3.2 (2.5-4.5) mg/dL Magnesium 1.8 (1.7-2.2) mg/dL Total Bilirubin 0.7 (0.2-1.3) mg/dL AST 40 H (15-39) U/L ALT 28 (7-56) U/L Alkaline Phosphatase 99 (38-133) U/L Lactate Dehydrogenase 1118 H (333-699) U/L Total Creatine Kinase 253 H (35-230) U/L CK-MB (CK-2) 9.9 H (0.0-3.6) ng/mL CK-MB (CK-2) % 3.9 H (2.5-3.0) % Troponin I 0.80 H* ng/mL Total Protein 5.9 (5.8-8.3) g/dL Albumin 2.8 L (3.0-4.8) g/dL Globulin 3.1 gm/dL Albumin/Globulin Ratio 0.9 L (1.1-1.8) Thyroxine (T4) (5.5-11.0) ug/dL Total T3 (0.97-1.69) ng/mL Arterial Blood Potassium (3.6-5.2) mmol/L Crossmatch Laboratory Results - last 24 hr 05/07/21/16 07/24/16 06:00 06:00 11:00 WBC RBC Hgb Hct MCV MCH MCHC RDW Plt Count MPV Gran % Lymph % (Auto) [place] % (Auto) Eos % (Auto) Baso % (Auto) Gran # Lymph # [place] # Eos # Baso # Neutrophils % (Manual) Band Neutrophils % Lymphocytes % (Manual) Monocytes % (Manual) Myelocytes % Platelet Evaluation Anisocytosis (manual) PT INR APTT pCO2 pO2 HCO3 ABG pH ABG Total CO2 ABG O2 Saturation ABG O2 Content ABG Base Excess ABG Hemoglobin ABG Carboxyhemoglobin POC ABG HHb (Measured) ABG Methemoglobin ABG O2 Capacity ABG Potassium 3.4 L Hgb O2 Saturation Glucose 212 H Lactate 1.7 FiO2 Sodium 139 150.0 H Potassium 2.4 L* Chloride 104 Carbon Dioxide 21 Anion Gap 16 BUN 25 H Creatinine 1.3 Est GFR ( Amer) 51 Est GFR (Non-Af Amer) 42 Random Glucose 121 H Lactic Acid 1.0 Calcium 8.2 L Phosphorus 3.2 Magnesium 1.8 Total Bilirubin 0.7 AST 40 H ALT 28 Alkaline Phosphatase 99 Lactate Dehydrogenase 1118 H Total Creatine Kinase 253 H CK-MB (CK-2) 9.9 H CK-MB (CK-2) % 3.9 H Troponin I 0.80 H* Total Protein 5.9 Albumin 2.8 L Globulin 3.1 Albumin/Globulin Ratio 0.9 L Thyroxine (T4) Total T3 Arterial Blood Potassium 3.4 L Crossmatch 07/24/16 07/24/16 07/25/16 11:05 17:20 05:50 WBC 11.9 H RBC 3.35 L Hgb 9.6 L Hct 29.4 L MCV 87.8 MCH 28.7 MCHC 32.7 RDW 14.8 H Plt Count 267 MPV 10.7 Gran % Lymph % (Auto) [place] % (Auto) Eos % (Auto) Baso % (Auto) Gran # Lymph # [place] # Eos # Baso # Neutrophils % (Manual) 83 H Band Neutrophils % 8 H Lymphocytes % (Manual) 6 L Monocytes % (Manual) 1 Myelocytes % 2 Platelet Evaluation Normal Anisocytosis (manual) Slight PT INR APTT pCO2 43 pO2 78.0 L HCO3 27.3 ABG pH 7.41 ABG Total CO2 28.6 H ABG O2 Saturation 97.6 ABG O2 Content 12.4 L ABG Base Excess 2.4 ABG Hemoglobin 9.2 L ABG Carboxyhemoglobin 1.5 POC ABG HHb (Measured) 2.3 ABG Methemoglobin 0.9 ABG O2 Capacity 12.7 L ABG Potassium Hgb O2 Saturation 95.2 Glucose Lactate FiO2 40.0 Sodium Potassium Chloride Carbon Dioxide Anion Gap BUN Creatinine Est GFR ( Amer) Est GFR (Non-Af Amer) Random Glucose Lactic Acid Calcium Phosphorus Magnesium Total Bilirubin AST ALT Alkaline Phosphatase Lactate Dehydrogenase Total Creatine Kinase CK-MB (CK-2) CK-MB (CK-2) % Troponin I Total Protein Albumin Globulin Albumin/Globulin Ratio Thyroxine (T4) Total T3 Arterial Blood Potassium Crossmatch See Detail 07/25/16 07/25/16 07/25/16 06:00 06:00 06:30 WBC 12.5 H RBC 3.44 L Hgb 10.1 L Hct 30.2 L MCV 87.8 MCH 29.4 MCHC 33.4 RDW 15.5 H Plt Count 270 MPV 10.4 Gran % 95.5 H Lymph % (Auto) 2.7 L [place] % (Auto) 1.5 Eos % (Auto) 0.1 L Baso % (Auto) 0.2 Gran # 11.89 H Lymph # 0.3 L [place] # 0.2 Eos # 0.0 Baso # 0.02 Neutrophils % (Manual) Band Neutrophils % Lymphocytes % (Manual) Monocytes % (Manual) Myelocytes % Platelet Evaluation Anisocytosis (manual) PT 12.8 H INR 1.19 H APTT 55.1 H pCO2 pO2 HCO3 ABG pH ABG Total CO2 ABG O2 Saturation ABG O2 Content ABG Base Excess ABG Hemoglobin ABG Carboxyhemoglobin POC ABG HHb (Measured) ABG Methemoglobin ABG O2 Capacity ABG Potassium Hgb O2 Saturation Glucose Lactate FiO2 Sodium Potassium Chloride Carbon Dioxide Anion Gap BUN Creatinine Est GFR ( Amer) Est GFR (Non-Af Amer) Random Glucose Lactic Acid Calcium Phosphorus 3.3 Magnesium Total Bilirubin AST ALT Alkaline Phosphatase Lactate Dehydrogenase Total Creatine Kinase CK-MB (CK-2) CK-MB (CK-2) % Troponin I Total Protein Albumin Globulin Albumin/Globulin Ratio Thyroxine (T4) Total T3 Arterial Blood Potassium Crossmatch 07/25/16 07/25/16 07/25/16 08:40 09:50 12:40 WBC RBC Hgb Hct MCV MCH MCHC RDW Plt Count MPV Gran % Lymph % (Auto) [place] % (Auto) Eos % (Auto) Baso % (Auto) Gran # Lymph # [place] # Eos # Baso # Neutrophils % (Manual) Band Neutrophils % Lymphocytes % (Manual) Monocytes % (Manual) Myelocytes % Platelet Evaluation Anisocytosis (manual) PT INR APTT 46.8 H pCO2 pO2 HCO3 ABG pH ABG Total CO2 ABG O2 Saturation ABG O2 Content ABG Base Excess ABG Hemoglobin ABG Carboxyhemoglobin POC ABG HHb (Measured) ABG Methemoglobin ABG O2 Capacity ABG Potassium Hgb O2 Saturation Glucose Lactate FiO2 Sodium 151 H Potassium 2.6 L* D Chloride 110 Carbon Dioxide 28 Anion Gap 16 BUN 24 H Creatinine 0.7 Est GFR ( Amer) > 60 Est GFR (Non-Af Amer) > 60 Random Glucose 244 H Lactic Acid Calcium 7.0 L Phosphorus Magnesium Total Bilirubin 0.5 AST 47 H ALT 37 Alkaline Phosphatase 71 Lactate Dehydrogenase Total Creatine Kinase CK-MB (CK-2) CK-MB (CK-2) % Troponin I Total Protein 5.3 L Albumin 2.9 L Globulin 2.4 Albumin/Globulin Ratio 1.2 Thyroxine (T4) 2.4 L Total T3 0.41 L Arterial Blood Potassium Crossmatch 07/25/16 14:00 WBC RBC Hgb Hct MCV MCH MCHC RDW Plt Count MPV Gran % Lymph % (Auto) [place] % (Auto) Eos % (Auto) Baso % (Auto) Gran # Lymph # [place] # Eos # Baso # Neutrophils % (Manual) Band Neutrophils % Lymphocytes % (Manual) Monocytes % (Manual) Myelocytes % Platelet Evaluation Anisocytosis (manual) PT INR APTT pCO2 pO2 HCO3 ABG pH ABG Total CO2 ABG O2 Saturation ABG O2 Content ABG Base Excess ABG Hemoglobin ABG Carboxyhemoglobin POC ABG HHb (Measured) ABG Methemoglobin ABG O2 Capacity ABG Potassium Hgb O2 Saturation Glucose Lactate FiO2 Sodium 148 Potassium 2.6 L* D Chloride 108 H Carbon Dioxide 32 Anion Gap 11 BUN 23 H Creatinine 0.7 Est GFR ( Amer) > 60 Est GFR (Non-Af Amer) > 60 Random Glucose 262 H Lactic Acid Calcium 7.2 L Phosphorus 3.3 Magnesium 1.9 Total Bilirubin AST ALT Alkaline Phosphatase Lactate Dehydrogenase Total Creatine Kinase CK-MB (CK-2) CK-MB (CK-2) % Troponin I Total Protein Albumin Globulin Albumin/Globulin Ratio Thyroxine (T4) Total T3 Arterial Blood Potassium Crossmatch Results Reviewed to Date: Yes Review of Systems - Review of Systems Systems not reviewed;Unavailable: Intubated Critical Care Progress Note - Ventilator Checklist Head of Bed 30 Degrees: Yes Daily Sedation Vacation: Yes Daily Assessment of Readiness to Wean: Yes Daily Spontaneous Breathing Trial: Yes PUD Prophalyxis: Yes DVT Prophylaxis: Yes Oral Care with Chlorhexidine Gluconate {CHG}: Yes - Vent Settings MODE:: PRVC TIDAL VOLUME:: 350 RESP RATE:: 14 FIO2:: 40 PEEP:: 5 - Extremities/Vascular Does the Patient have a Central Venous Catheter?: No - Prophylaxis GI Prophylaxis GI: PPI - Prophylaxis DVT Prophylaxis DVT: Heparin SQ Assessment/Plan - Assessment and Plan (Free Text) Assessment: 61 year old female with a PMH of RA, chronic pain, osteoporosis who presented to [facility], brought in by her son who lives with her, after he found her down in the bathroom, brought in and needed intubation due to tachypnea and inability to protect airway, code sepsis called for elevated lactate and bandemia as well as tachypnea, now found to have a pulmonary embolus, able to get extubated but then again required intubation due to labored tachypnea. Plan: Neurological Sedated on fentanyl gtt and will switch from propofol to precedex Monitoring closely, no focal deficits Cardiovascular Hemodynamically stable, known habitually in the 90s-100s systolic Cardio following, on ASA and plavix Has RV systolic dysfunction 2/2 subsegmental PEs, JVD noted Pulmonary Had to be re-intubated, PRVC 350/14/5/40%, maintain O2sat >90%, crackles noted started on lasix 20 IV q12 Known pulm fibrosis with poss underlying PNA, on meropenem D3 and doxycycline D4 Continues to over-breathe vent, sedation switched as above Renal/ Fluids / Electrolytes ~+4.5L, started on lasix, electrolytes being repleted IV and PO, improved off bicarb drip Strict IxOs, dumont in place GI NG in place for meds, intubated, on GI ppx Infectious disease ID following, recs appreciated On vanco PO due to +C Diff, erlinda and doxy as above Hematology/Oncology Hgb stable, s/p 1U PRBCs On methotrexate at home for RA Hem/Onc following, recs appreciated Hemodynamically stable Endocrine Low TSH, T4, and T3, rT3 pending, poss central hypothyroidism Endo Dr. Cazares consulted, pending recs Given levothyroxine 75mcg IV x1 Prophylaxis PPI/SCDs/heparin drip Patient was seen and examined and case was discussed at length with attending physician. - Date & Time Date: 07/25/16 Time: 11:00 <Adina SHEPHERD,Juan H - Last Filed: 07/25/16 17:47> CCU Objective - Vital Signs / Intake & Output Intake and Output (Last 8hrs): Intake & Output 07/25/16 07/25/16 07/25/16 06:59 14:59 22:59 Intake Total 1836.3 140 Output Total 300 Balance 1536.3 140 Weight 114 lb 8 oz Intake: IV 1736.3 140 Left Forearm 1351 Right Forearm 238 Other 100 Output: Urine 300 Urethral (Dumont) 300 Other: Voiding Method Indwelling Catheter # Bowel Movements 1 - Medications Active Medications: Active Medications Generic Name Dose Route Start Last Admin Trade Name Freq PRN Reason Stop Dose Admin Acetaminophen 650 mg 07/25/16 16:23 Tylenol 650mg/20.3ml Solution Ud PO Q6H PRN fever Albuterol/Ipratropium 3 ml 07/21/16 04:00 07/25/16 13:43 Duoneb 3 Mg/0.5 Mg (3 Ml) Ud IH 3 ml [id number] NISHANT Administration Alprazolam 0.5 mg 07/23/16 18:00 07/25/16 10:33 Xanax PO 0.5 mg BID NISHANT Administration Protocol Aspirin 81 mg 07/22/16 10:00 07/25/16 09:33 Ecotrin PO 81 mg DAILY NISHANT Administration Furosemide 20 mg 07/25/16 22:00 Lasix IVP Q12 NISHANT Doxycycline Hyclate 100 mg/ 100 mls @ 100 mls/hr 07/22/16 12:15 07/25/16 10: 34 Sodium Chloride IVPB 100 mls/hr Q12 NISHANT Administration Protocol Heparin Sodium/Sodium Chloride 25,000 units in 250 mls @ 8.655 mls/hr 12:31 07/23/16 14:55 Heparin 55847 Units/250ml 1/2 Normal Saline IV 16 units/kg/hr .Q24H PRN 7.693 mls/hr ADJUST RATE PER PROTOCOL Administration Protocol 18 UNITS/KG/HR Meropenem 1g/NS 100mL IVPB 1 g in 100 mls @ 100 mls/hr 07/23/16 09:15 15:30 Meropenem 1g/Ns 100ml Ivpb IVPB 07/30/16 09:16 100 mls/hr Q8 NISHANT Administration Protocol Fentanyl Citrate 1,000 mcg in 100 mls @ 2 mls/hr 07/24/16 15:07 07/25/16 03: 00 Fentanyl Citrate/Sodium Chloride 1 Mg/100 Ml IV 60 mcg/hr .Q24H PRN 6 mls/hr TITRATE PER MD ORDER Titration Protocol 20 MCG/HR Potassium Chloride 20 meq/ 1,010 mls @ 80 mls/hr 07/25/16 09:30 07/25/16 13: 16 Sodium Chloride IV 80 mls/hr .[id number] NISHANT Administration Dexmedetomidine HCl 400 mcg in 100 mls @ 2.597 mls/hr 07/25/16 14:29 16:04 Precedex 4 Mcg/Ml (100 Ml) IV 0.2 mcg/kg/hr .Q24H PRN 2.597 mls/hr Agitation Administration Protocol 0.2 MCG/KG/HR Potassium Chloride 20 meq in 100 mls @ 50 mls/hr 07/25/16 14:45 07/25/16 15: 30 Potassium Chloride 20 Meq/100 Ml IVPB 07/25/16 18:44 50 mls/hr Q2H NISHANT Administration Magnesium Oxide 400 mg 07/23/16 10:00 07/25/16 09:33 Mag-Ox PO 400 mg BID NISHANT Administration Methylprednisolone 40 mg 07/21/16 06:00 07/25/16 15:36 Solu-Medrol IVP 40 mg Q8 NISHANT Administration Midazolam HCl 2 mg 07/21/16 20:43 07/23/16 13:01 Versed Inj IVP 2 mg Q2H PRN Administration Agitation Morphine Sulfate 2 mg 07/22/16 20:52 07/23/16 01:44 Morphine IVP 2 mg Q4H PRN Administration Pain, moderate (4-7) Nystatin 5 ml 07/23/16 14:00 07/25/16 15:36 Nystatin Oral Susp PO 5 ml QID NISHANT Administration Oxycodone/Acetaminophen 1 tab 07/23/16 11:04 Percocet 10/325 Mg Tab PO Q4H PRN Pain, severe (8-10) Pantoprazole Sodium 40 mg 07/21/16 10:00 07/25/16 09:33 Protonix Inj IVP 40 mg DAILY NISHANT Administration Potassium Chloride 40 meq 07/25/16 14:45 07/25/16 15:25 Potassium Chloride Oral Soln NG 07/26/16 02:46 Not Given Q4H NISHANT Potassium Phos/Sodium Phos 2 pkt 07/23/16 10:00 07/25/16 15:00 Neutra-Phos PO 2 pkt TID NISHANT Administration Vancomycin HCl 125 mg 07/24/16 10:31 07/25/16 15:00 Vancocin 25 Mg/Ml (Oral Use) PO 125 mg QID NISHANT Administration Protocol - Patient Studies Lab Studies: Microbiology Studies 07/21/16 15:30 Gram Stain - Final Sputum Sputum Culture - Final Escherichia Coli Lab Studies 07/25/16 07/25/16 07/25/16 Range/Units 14:00 12:40 09:50 WBC (4.5-11.0) 10^3/ul RBC (3.5-6.1) 10^6/uL Hgb (12.0-16.0) gm/dL Hct (36.0-48.0) % MCV (80.0-105.0) fL MCH (25.0-35.0) pg MCHC (31.0-37.0) g/dl RDW (11.5-14.5) % Plt Count (120.0-450.0) 10^3/uL MPV (7.0-11.0) fl Gran % (50.0-68.0) % Lymph % (Auto) (22.0-35.0) % [place] % (Auto) (1.0-6.0) % Eos % (Auto) (1.5-5.0) % Baso % (Auto) (0.0-3.0) % Gran # (1.4-6.5) Lymph # (1.2-3.4) [place] # (0.1-0.6) Eos # (0.0-0.7) Baso # (0.0-2.0) K/mm3 Neutrophils % (Manual) (50.0-70.0) % Band Neutrophils % (0-2) % Lymphocytes % (Manual) (22.0-35.0) % Monocytes % (Manual) (1.0-6.0) % Myelocytes % % Platelet Evaluation (NORMAL) Anisocytosis (manual) PT (9.9-11.8) Seconds INR (0.93-1.08) APTT 46.8 H (23.7-30.8) Seconds pCO2 (35-45) mm/Hg pO2 (80-100) mm/Hg HCO3 (21-28) mmol/L ABG pH (7.35-7.45) ABG Total CO2 (22-28) mmol.L ABG O2 Saturation (95-98) % ABG O2 Content (15-23) ML/dl ABG Base Excess (-2.0-3.0) mmol/L ABG Hemoglobin (11.7-17.4) g/dL ABG Carboxyhemoglobin (0.5-1.5) % POC ABG HHb (Measured) (0-5) % ABG Methemoglobin (0.0-3.0) % ABG O2 Capacity (16-24) mL/dl ABG Potassium (3.6-5.2) mmol/L Hgb O2 Saturation (95.0-98.0) % Glucose (65-105) mg/dl Lactate (0.7-2.1) mmol/L FiO2 % Sodium 148 (132-148) mmol/L Potassium 2.6 L* D (3.6-5.0) mmol/L Chloride 108 H (98-107) mmol/L Carbon Dioxide 32 (21-33) mmol/L Anion Gap 11 (10-20) BUN 23 H (7-21) mg/dL Creatinine 0.7 (0.5-1.4) mg/dL Est GFR ( Amer) > 60 Est GFR (Non-Af Amer) > 60 Random Glucose 262 H (70-110) mg/dL Lactic Acid (0.7-2.1) mmol/L Calcium 7.2 L (8.4-10.5) mg/dL Phosphorus 3.3 (2.5-4.5) mg/dL Magnesium 1.9 (1.7-2.2) mg/dL Total Bilirubin (0.2-1.3) mg/dL AST (15-39) U/L ALT (7-56) U/L Alkaline Phosphatase (38-133) U/L Lactate Dehydrogenase (333-699) U/L Total Creatine Kinase (35-230) U/L CK-MB (CK-2) (0.0-3.6) ng/mL CK-MB (CK-2) % (2.5-3.0) % Troponin I ng/mL Total Protein (5.8-8.3) g/dL Albumin (3.0-4.8) g/dL Globulin gm/dL Albumin/Globulin Ratio (1.1-1.8) Thyroxine (T4) 2.4 L (5.5-11.0) ug/dL Total T3 0.41 L (0.97-1.69) ng/mL Arterial Blood Potassium (3.6-5.2) mmol/L 07/25/16 07/25/16 07/25/16 Range/Units 08:40 06:30 06:00 WBC (4.5-11.0) 10^3/ul RBC (3.5-6.1) 10^6/uL Hgb (12.0-16.0) gm/dL Hct (36.0-48.0) % MCV (80.0-105.0) fL MCH (25.0-35.0) pg MCHC (31.0-37.0) g/dl RDW (11.5-14.5) % Plt Count (120.0-450.0) 10^3/uL MPV (7.0-11.0) fl Gran % (50.0-68.0) % Lymph % (Auto) (22.0-35.0) % [place] % (Auto) (1.0-6.0) % Eos % (Auto) (1.5-5.0) % Baso % (Auto) (0.0-3.0) % Gran # (1.4-6.5) Lymph # (1.2-3.4) [place] # (0.1-0.6) Eos # (0.0-0.7) Baso # (0.0-2.0) K/mm3 Neutrophils % (Manual) (50.0-70.0) % Band Neutrophils % (0-2) % Lymphocytes % (Manual) (22.0-35.0) % Monocytes % (Manual) (1.0-6.0) % Myelocytes % % Platelet Evaluation (NORMAL) Anisocytosis (manual) PT 12.8 H (9.9-11.8) Seconds INR 1.19 H (0.93-1.08) APTT 55.1 H (23.7-30.8) Seconds pCO2 (35-45) mm/Hg pO2 (80-100) mm/Hg HCO3 (21-28) mmol/L ABG pH (7.35-7.45) ABG Total CO2 (22-28) mmol.L ABG O2 Saturation (95-98) % ABG O2 Content (15-23) ML/dl ABG Base Excess (-2.0-3.0) mmol/L ABG Hemoglobin (11.7-17.4) g/dL ABG Carboxyhemoglobin (0.5-1.5) % POC ABG HHb (Measured) (0-5) % ABG Methemoglobin (0.0-3.0) % ABG O2 Capacity (16-24) mL/dl ABG Potassium (3.6-5.2) mmol/L Hgb O2 Saturation (95.0-98.0) % Glucose (65-105) mg/dl Lactate (0.7-2.1) mmol/L FiO2 % Sodium 151 H (132-148) mmol/L Potassium 2.6 L* D (3.6-5.0) mmol/L Chloride 110 (98-107) mmol/L Carbon Dioxide 28 (21-33) mmol/L Anion Gap 16 (10-20) BUN 24 H (7-21) mg/dL Creatinine 0.7 (0.5-1.4) mg/dL Est GFR ( Amer) > 60 Est GFR (Non-Af Amer) > 60 Random Glucose 244 H (70-110) mg/dL Lactic Acid (0.7-2.1) mmol/L Calcium 7.0 L (8.4-10.5) mg/dL Phosphorus 3.3 (2.5-4.5) mg/dL Magnesium (1.7-2.2) mg/dL Total Bilirubin 0.5 (0.2-1.3) mg/dL AST 47 H (15-39) U/L ALT 37 (7-56) U/L Alkaline Phosphatase 71 (38-133) U/L Lactate Dehydrogenase (333-699) U/L Total Creatine Kinase (35-230) U/L CK-MB (CK-2) (0.0-3.6) ng/mL CK-MB (CK-2) % (2.5-3.0) % Troponin I ng/mL Total Protein 5.3 L (5.8-8.3) g/dL Albumin 2.9 L (3.0-4.8) g/dL Globulin 2.4 gm/dL Albumin/Globulin Ratio 1.2 (1.1-1.8) Thyroxine (T4) (5.5-11.0) ug/dL Total T3 (0.97-1.69) ng/mL Arterial Blood Potassium (3.6-5.2) mmol/L 07/25/16 07/25/16 07/24/16 Range/Units 06:00 05:50 17:20 WBC 12.5 H 11.9 H (4.5-11.0) 10^3/ul RBC 3.44 L 3.35 L (3.5-6.1) 10^6/uL Hgb 10.1 L 9.6 L (12.0-16.0) gm/dL Hct 30.2 L 29.4 L (36.0-48.0) % MCV 87.8 87.8 (80.0-105.0) fL MCH 29.4 28.7 (25.0-35.0) pg MCHC 33.4 32.7 (31.0-37.0) g/dl RDW 15.5 H 14.8 H (11.5-14.5) % Plt Count 270 267 (120.0-450.0) 10^3/uL MPV 10.4 10.7 (7.0-11.0) fl Gran % 95.5 H (50.0-68.0) % Lymph % (Auto) 2.7 L (22.0-35.0) % [place] % (Auto) 1.5 (1.0-6.0) % Eos % (Auto) 0.1 L (1.5-5.0) % Baso % (Auto) 0.2 (0.0-3.0) % Gran # 11.89 H (1.4-6.5) Lymph # 0.3 L (1.2-3.4) [place] # 0.2 (0.1-0.6) Eos # 0.0 (0.0-0.7) Baso # 0.02 (0.0-2.0) K/mm3 Neutrophils % (Manual) 83 H (50.0-70.0) % Band Neutrophils % 8 H (0-2) % Lymphocytes % (Manual) 6 L (22.0-35.0) % Monocytes % (Manual) 1 (1.0-6.0) % Myelocytes % 2 % Platelet Evaluation Normal (NORMAL) Anisocytosis (manual) Slight PT (9.9-11.8) Seconds INR (0.93-1.08) APTT (23.7-30.8) Seconds pCO2 43 (35-45) mm/Hg pO2 78.0 L (80-100) mm/Hg HCO3 27.3 (21-28) mmol/L ABG pH 7.41 (7.35-7.45) ABG Total CO2 28.6 H (22-28) mmol.L ABG O2 Saturation 97.6 (95-98) % ABG O2 Content 12.4 L (15-23) ML/dl ABG Base Excess 2.4 (-2.0-3.0) mmol/L ABG Hemoglobin 9.2 L (11.7-17.4) g/dL ABG Carboxyhemoglobin 1.5 (0.5-1.5) % POC ABG HHb (Measured) 2.3 (0-5) % ABG Methemoglobin 0.9 (0.0-3.0) % ABG O2 Capacity 12.7 L (16-24) mL/dl ABG Potassium (3.6-5.2) mmol/L Hgb O2 Saturation 95.2 (95.0-98.0) % Glucose (65-105) mg/dl Lactate (0.7-2.1) mmol/L FiO2 40.0 % Sodium (132-148) mmol/L Potassium (3.6-5.0) mmol/L Chloride (98-107) mmol/L Carbon Dioxide (21-33) mmol/L Anion Gap (10-20) BUN (7-21) mg/dL Creatinine (0.5-1.4) mg/dL Est GFR ( Amer) Est GFR (Non-Af Amer) Random Glucose (70-110) mg/dL Lactic Acid (0.7-2.1) mmol/L Calcium (8.4-10.5) mg/dL Phosphorus (2.5-4.5) mg/dL Magnesium (1.7-2.2) mg/dL Total Bilirubin (0.2-1.3) mg/dL AST (15-39) U/L ALT (7-56) U/L Alkaline Phosphatase (38-133) U/L Lactate Dehydrogenase (333-699) U/L Total Creatine Kinase (35-230) U/L CK-MB (CK-2) (0.0-3.6) ng/mL CK-MB (CK-2) % (2.5-3.0) % Troponin I ng/mL Total Protein (5.8-8.3) g/dL Albumin (3.0-4.8) g/dL Globulin gm/dL Albumin/Globulin Ratio (1.1-1.8) Thyroxine (T4) (5.5-11.0) ug/dL Total T3 (0.97-1.69) ng/mL Arterial Blood Potassium (3.6-5.2) mmol/L 07/24/16 07/21/16 07/21/16 Range/Units 11:00 06:00 06:00 WBC (4.5-11.0) 10^3/ul RBC (3.5-6.1) 10^6/uL Hgb (12.0-16.0) gm/dL Hct (36.0-48.0) % MCV (80.0-105.0) fL MCH (25.0-35.0) pg MCHC (31.0-37.0) g/dl RDW (11.5-14.5) % Plt Count (120.0-450.0) 10^3/uL MPV (7.0-11.0) fl Gran % (50.0-68.0) % Lymph % (Auto) (22.0-35.0) % [place] % (Auto) (1.0-6.0) % Eos % (Auto) (1.5-5.0) % Baso % (Auto) (0.0-3.0) % Gran # (1.4-6.5) Lymph # (1.2-3.4) [place] # (0.1-0.6) Eos # (0.0-0.7) Baso # (0.0-2.0) K/mm3 Neutrophils % (Manual) (50.0-70.0) % Band Neutrophils % (0-2) % Lymphocytes % (Manual) (22.0-35.0) % Monocytes % (Manual) (1.0-6.0) % Myelocytes % % Platelet Evaluation (NORMAL) Anisocytosis (manual) PT (9.9-11.8) Seconds INR (0.93-1.08) APTT (23.7-30.8) Seconds pCO2 (35-45) mm/Hg pO2 (80-100) mm/Hg HCO3 (21-28) mmol/L ABG pH (7.35-7.45) ABG Total CO2 (22-28) mmol.L ABG O2 Saturation (95-98) % ABG O2 Content (15-23) ML/dl ABG Base Excess (-2.0-3.0) mmol/L ABG Hemoglobin (11.7-17.4) g/dL ABG Carboxyhemoglobin (0.5-1.5) % POC ABG HHb (Measured) (0-5) % ABG Methemoglobin (0.0-3.0) % ABG O2 Capacity (16-24) mL/dl ABG Potassium 3.4 L (3.6-5.2) mmol/L Hgb O2 Saturation (95.0-98.0) % Glucose 212 H (65-105) mg/dl Lactate 1.7 (0.7-2.1) mmol/L FiO2 % Sodium 150.0 H 139 (132-148) mmol/L Potassium 2.4 L* (3.6-5.0) mmol/L Chloride 104 (98-107) mmol/L Carbon Dioxide 21 (21-33) mmol/L Anion Gap 16 (10-20) BUN 25 H (7-21) mg/dL Creatinine 1.3 (0.5-1.4) mg/dL Est GFR ( Amer) 51 Est GFR (Non-Af Amer) 42 Random Glucose 121 H (70-110) mg/dL Lactic Acid 1.0 (0.7-2.1) mmol/L Calcium 8.2 L (8.4-10.5) mg/dL Phosphorus 3.2 (2.5-4.5) mg/dL Magnesium 1.8 (1.7-2.2) mg/dL Total Bilirubin 0.7 (0.2-1.3) mg/dL AST 40 H (15-39) U/L ALT 28 (7-56) U/L Alkaline Phosphatase 99 (38-133) U/L Lactate Dehydrogenase 1118 H (333-699) U/L Total Creatine Kinase 253 H (35-230) U/L CK-MB (CK-2) 9.9 H (0.0-3.6) ng/mL CK-MB (CK-2) % 3.9 H (2.5-3.0) % Troponin I 0.80 H* ng/mL Total Protein 5.9 (5.8-8.3) g/dL Albumin 2.8 L (3.0-4.8) g/dL Globulin 3.1 gm/dL Albumin/Globulin Ratio 0.9 L (1.1-1.8) Thyroxine (T4) (5.5-11.0) ug/dL Total T3 (0.97-1.69) ng/mL Arterial Blood Potassium 3.4 L (3.6-5.2) mmol/L Laboratory Results - last 24 hr 07/21/16 07/21/16 07/24/16 06:00 06:00 11:00 WBC RBC Hgb Hct MCV MCH MCHC RDW Plt Count MPV Gran % Lymph % (Auto) [place] % (Auto) Eos % (Auto) Baso % (Auto) Gran # Lymph # [place] # Eos # Baso # Neutrophils % (Manual) Band Neutrophils % Lymphocytes % (Manual) Monocytes % (Manual) Myelocytes % Platelet Evaluation Anisocytosis (manual) PT INR APTT pCO2 pO2 HCO3 ABG pH ABG Total CO2 ABG O2 Saturation ABG O2 Content ABG Base Excess ABG Hemoglobin ABG Carboxyhemoglobin POC ABG HHb (Measured) ABG Methemoglobin ABG O2 Capacity ABG Potassium 3.4 L Hgb O2 Saturation Glucose 212 H Lactate 1.7 FiO2 Sodium 139 150.0 H Potassium 2.4 L* Chloride 104 Carbon Dioxide 21 Anion Gap 16 BUN 25 H Creatinine 1.3 Est GFR ( Amer) 51 Est GFR (Non-Af Amer) 42 Random Glucose 121 H Lactic Acid 1.0 Calcium 8.2 L Phosphorus 3.2 Magnesium 1.8 Total Bilirubin 0.7 AST 40 H ALT 28 Alkaline Phosphatase 99 Lactate Dehydrogenase 1118 H Total Creatine Kinase 253 H CK-MB (CK-2) 9.9 H CK-MB (CK-2) % 3.9 H Troponin I 0.80 H* Total Protein 5.9 Albumin 2.8 L Globulin 3.1 Albumin/Globulin Ratio 0.9 L Thyroxine (T4) Total T3 Arterial Blood Potassium 3.4 L 07/24/16 07/25/16 07/25/16 17:20 05:50 06:00 WBC 11.9 H 12.5 H RBC 3.35 L 3.44 L Hgb 9.6 L 10.1 L Hct 29.4 L 30.2 L MCV 87.8 87.8 MCH 28.7 29.4 MCHC 32.7 33.4 RDW 14.8 H 15.5 H Plt Count 267 270 MPV 10.7 10.4 Gran % 95.5 H Lymph % (Auto) 2.7 L [place] % (Auto) 1.5 Eos % (Auto) 0.1 L Baso % (Auto) 0.2 Gran # 11.89 H Lymph # 0.3 L [place] # 0.2 Eos # 0.0 Baso # 0.02 Neutrophils % (Manual) 83 H Band Neutrophils % 8 H Lymphocytes % (Manual) 6 L Monocytes % (Manual) 1 Myelocytes % 2 Platelet Evaluation Normal Anisocytosis (manual) Slight PT INR APTT pCO2 43 pO2 78.0 L HCO3 27.3 ABG pH 7.41 ABG Total CO2 28.6 H ABG O2 Saturation 97.6 ABG O2 Content 12.4 L ABG Base Excess 2.4 ABG Hemoglobin 9.2 L ABG Carboxyhemoglobin 1.5 POC ABG HHb (Measured) 2.3 ABG Methemoglobin 0.9 ABG O2 Capacity 12.7 L ABG Potassium Hgb O2 Saturation 95.2 Glucose Lactate FiO2 40.0 Sodium Potassium Chloride Carbon Dioxide Anion Gap BUN Creatinine Est GFR ( Amer) Est GFR (Non-Af Amer) Random Glucose Lactic Acid Calcium Phosphorus Magnesium Total Bilirubin AST ALT Alkaline Phosphatase Lactate Dehydrogenase Total Creatine Kinase CK-MB (CK-2) CK-MB (CK-2) % Troponin I Total Protein Albumin Globulin Albumin/Globulin Ratio Thyroxine (T4) Total T3 Arterial Blood Potassium 07/25/16 07/25/16 07/25/16 06:00 06:30 08:40 WBC RBC Hgb Hct MCV MCH MCHC RDW Plt Count MPV Gran % Lymph % (Auto) [place] % (Auto) Eos % (Auto) Baso % (Auto) Gran # Lymph # [place] # Eos # Baso # Neutrophils % (Manual) Band Neutrophils % Lymphocytes % (Manual) Monocytes % (Manual) Myelocytes % Platelet Evaluation Anisocytosis (manual) PT 12.8 H INR 1.19 H APTT 55.1 H pCO2 pO2 HCO3 ABG pH ABG Total CO2 ABG O2 Saturation ABG O2 Content ABG Base Excess ABG Hemoglobin ABG Carboxyhemoglobin POC ABG HHb (Measured) ABG Methemoglobin ABG O2 Capacity ABG Potassium Hgb O2 Saturation Glucose Lactate FiO2 Sodium 151 H Potassium 2.6 L* D Chloride 110 Carbon Dioxide 28 Anion Gap 16 BUN 24 H Creatinine 0.7 Est GFR ( Amer) > 60 Est GFR (Non-Af Amer) > 60 Random Glucose 244 H Lactic Acid Calcium 7.0 L Phosphorus 3.3 Magnesium Total Bilirubin 0.5 AST 47 H ALT 37 Alkaline Phosphatase 71 Lactate Dehydrogenase Total Creatine Kinase CK-MB (CK-2) CK-MB (CK-2) % Troponin I Total Protein 5.3 L Albumin 2.9 L Globulin 2.4 Albumin/Globulin Ratio 1.2 Thyroxine (T4) Total T3 Arterial Blood Potassium 07/25/16 07/25/16 07/25/16 09:50 12:40 14:00 WBC RBC Hgb Hct MCV MCH MCHC RDW Plt Count MPV Gran % Lymph % (Auto) [place] % (Auto) Eos % (Auto) Baso % (Auto) Gran # Lymph # [place] # Eos # Baso # Neutrophils % (Manual) Band Neutrophils % Lymphocytes % (Manual) Monocytes % (Manual) Myelocytes % Platelet Evaluation Anisocytosis (manual) PT INR APTT 46.8 H pCO2 pO2 HCO3 ABG pH ABG Total CO2 ABG O2 Saturation ABG O2 Content ABG Base Excess ABG Hemoglobin ABG Carboxyhemoglobin POC ABG HHb (Measured) ABG Methemoglobin ABG O2 Capacity ABG Potassium Hgb O2 Saturation Glucose Lactate FiO2 Sodium 148 Potassium 2.6 L* D Chloride 108 H Carbon Dioxide 32 Anion Gap 11 BUN 23 H Creatinine 0.7 Est GFR ( Amer) > 60 Est GFR (Non-Af Amer) > 60 Random Glucose 262 H Lactic Acid Calcium 7.2 L Phosphorus 3.3 Magnesium 1.9 Total Bilirubin AST ALT Alkaline Phosphatase Lactate Dehydrogenase Total Creatine Kinase CK-MB (CK-2) CK-MB (CK-2) % Troponin I Total Protein Albumin Globulin Albumin/Globulin Ratio Thyroxine (T4) 2.4 L Total T3 0.41 L Arterial Blood Potassium Attending/Attestation - Attestation I have personally seen and examined this patient.: Yes I have fully participated in the care of the patient.: Yes I have reviewed all pertinent clinical information: Yes Notes (Text): 07/25/16 17:44 61 y/o F re- intubated over the weekend for resp distress. Unclear if it was related to fluid overload, and is currently 5 L + or worsening infiltrates and greater sputum production , cx pending gram - On sedation w/ Propofol/ precedex and Fentanyl w/ rr 30's. 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 B/L Sub seg P.E noted on Heparin drip, keep PTT 50-60. Noted to have RV failure on admission, currently being diuresed to keep euvolemic status. Poor prognosis cc time 65 min
[2016-07-25] MEDS: Dexmedetomidine HCl 4mcg/ml 400 MCG/100 ML BOTTLE IV PRN (16:04)
--- NOTE | 2016-07-25 16:15 | CP.PCM.PN ---
Subjective - Date & Time of Evaluation Date of Evaluation: 07/25/16 Time of Evaluation: 08:50 - Subjective Subjective: Continues to be intubated and sedated, no fevers overnight. Objective - Vital Signs/Intake and Output Vital Signs (last 24 hours): Temp Pulse Resp BP Pulse Ox 99.8 F H 92 H 32 H 110/73 100 07/25/16 11:42 07/25/16 13:20 07/25/16 11:42 07/25/16 13:00 07/25/16 13:10 Intake and Output: 07/25/16 07/25/16 06:59 18:59 Intake Total 1836.3 140 Output Total 300 Balance 1536.3 140 - Medications Medications: Current Medications Albuterol/Ipratropium (Duoneb 3 Mg/0.5 Mg (3 Ml) Ud) 3 ml IH [id number] Last Admin: 07/25/16 13:43 Dose: 3 ml Alprazolam (Xanax) 0.5 mg PO BID [facility] PRN Reason: Protocol Last Admin: 07/25/16 10:33 Dose: 0.5 mg Aspirin (Ecotrin) 81 mg PO DAILY [facility] Last Admin: 07/25/16 09:33 Dose: 81 mg Doxycycline Hyclate 100 mg/ (Sodium Chloride) 100 mls @ 100 mls/hr IVPB Q12 [facility] PRN Reason: Protocol Last Admin: 07/25/16 10:34 Dose: 100 mls/hr Heparin Sodium/Sodium Chloride (Heparin 75681 Units/250ml 1/2 Normal Saline) 25 ,000 units in 250 mls @ 8.655 mls/hr IV .Q24H PRN; Protocol; 18 UNITS/KG/HR PRN Reason: ADJUST RATE PER PROTOCOL Last Admin: 07/23/16 14:55 Dose: 16 units/kg/hr, 7.693 mls/hr Meropenem 1g/NS 100mL IVPB (Meropenem 1g/Ns 100ml Ivpb) 1 g in 100 mls @ 100 mls/hr IVPB Q8 [facility] PRN Reason: Protocol Stop: 07/30/16 09:16 Last Admin: 07/25/16 15:30 Dose: 100 mls/hr Fentanyl Citrate (Fentanyl Citrate/Sodium Chloride 1 Mg/100 Ml) 1,000 mcg in 100 mls @ 2 mls/hr IV .Q24H PRN; Protocol; 20 MCG/HR PRN Reason: TITRATE PER MD ORDER Last Titration: 07/25/16 03:00 Dose: 60 mcg/hr, 6 mls/hr Potassium Chloride 20 meq/ (Sodium Chloride) 1,010 mls @ 80 mls/hr IV .[id number] [facility] Last Admin: 07/25/16 13:16 Dose: 80 mls/hr Dexmedetomidine HCl (Precedex 4 Mcg/Ml (100 Ml)) 400 mcg in 100 mls @ 2.597 mls /hr IV .Q24H PRN; Protocol; 0.2 MCG/KG/HR PRN Reason: Agitation Last Admin: 07/25/16 16:04 Dose: 0.2 mcg/kg/hr, 2.597 mls/hr Potassium Chloride (Potassium Chloride 20 Meq/100 Ml) 20 meq in 100 mls @ 50 mls/hr IVPB Q2H [facility] Stop: 07/25/16 18:44 Last Admin: 07/25/16 15:30 Dose: 50 mls/hr Magnesium Oxide (Mag-Ox) 400 mg PO BID [facility] Last Admin: 07/25/16 09:33 Dose: 400 mg Methylprednisolone (Solu-Medrol) 40 mg IVP Q8 [facility] Last Admin: 07/25/16 15:36 Dose: 40 mg Midazolam HCl (Versed Inj) 2 mg IVP Q2H PRN PRN Reason: Agitation Last Admin: 07/23/16 13:01 Dose: 2 mg Morphine Sulfate (Morphine) 2 mg IVP Q4H PRN PRN Reason: Pain, moderate (4-7) Last Admin: 07/23/16 01:44 Dose: 2 mg Nystatin (Nystatin Oral Susp) 5 ml PO QID [facility] Last Admin: 07/25/16 15:36 Dose: 5 ml Oxycodone/Acetaminophen (Percocet 10/325 Mg Tab) 1 tab PO Q4H PRN PRN Reason: Pain, severe (8-10) Pantoprazole Sodium (Protonix Inj) 40 mg IVP DAILY [facility] Last Admin: 07/25/16 09:33 Dose: 40 mg Potassium Chloride (Potassium Chloride Oral Soln) 40 meq NG Q4H [facility] Stop: 07/26/16 02:46 Last Admin: 07/25/16 15:25 Dose: Not Given Potassium Phos/Sodium Phos (Neutra-Phos) 2 pkt PO TID [facility] Last Admin: 07/25/16 15:00 Dose: 2 pkt Vancomycin HCl (Vancocin 25 Mg/Ml (Oral Use)) 125 mg PO QID [facility] PRN Reason: Protocol Last Admin: 07/25/16 15:00 Dose: 125 mg - Labs Labs: 07/25/16 06:00 07/25/16 14:00 PT 12.8 Seconds (9.9-11.8) H 07/25/16 06:00 INR 1.19 (0.93-1.08) H 07/25/16 06:00 APTT 46.8 Seconds (23.7-30.8) H 07/25/16 12:40 - Constitutional Appears: Other (Intubated and sedated) - Head Exam Head Exam: NORMAL INSPECTION - Neck Exam Neck Exam: absent: Meningismus - Respiratory Exam Respiratory Exam: Decreased Breath Sounds - Cardiovascular Exam Cardiovascular Exam: +S1, +S2 - GI/Abdominal Exam GI & Abdominal Exam: Soft. absent: Tenderness Assessment and Plan - Assessment and Plan (Free Text) Plan: Assessment Severe sepsis with ventilator-dependent respiratory failure due to multifocal healthcare-associated pneumonia with E. coli Pseudomonas in urine cx Acute pulmonary embolism probable new C. diff. infection history of bilateral upper lobe severe pneumonia with associated systemic viral illness with Influenza, with associated persistent Methicillin-sensitive Staph aureus bacteremia history of C diff associated diarrhea rheumatoid arthritis osteoarthritis history of depression and anxiety history of pneumonia Plan will continue Merrem (day 5) and Doxycycline to complete at least a 7 day course continue PO Vancomycin day 2 will continue to monitor clinically
[2016-07-25] MEDS ORDERED: Acetaminophen 650mg/20.3ml solution UD PO PRN (16:23)
[2016-07-25] MEDS: Morphine 2 mg/ml ISec IVP PRN (18:38)
[2016-07-25] MEDS: Fentanyl 1000mcg/100ml NS 1,000 MCG/100 ML BAG IV PRN (19:34)
[2016-07-25] MEDS: Saliva Substitute 44.3 ML PO SCH (23:00)
--- NOTE | 2016-07-26 00:55 | PN ---
DATE: 07/25/2016 SUBJECTIVE: The patient remains in intensive care unit. The patient is intubated, currently on FIO2-60 percent with oxygen saturation 95%. The patient has NG tube for oral medication. The patient is sedated. She has diarrhea. PHYSICAL EXAMINATION: VITAL SIGNS: Stable. The patient developed a low grade fever this , 99.8. Her pulse ranges between 100 to 110 regular. Blood pressure this morning 110/ 72. GENERAL: The patient is sedated, pale. NECK: Supple. LUNGS: With decreased breath sounds and bilateral crackles in base and left upper lung. HEART: With regular rhythm, tachycardia. ABDOMEN: Soft, nontender, nondistended. EXTREMITIES: With no edema. The patient's upper extremities are with restraints. LABORATORY TESTS: CBC with WBC 12.5, hemoglobin 10.1, hematocrit 30.2. Chemistry significant for sodium 151, potassium 2.6, chloride 110, and BUN 24 and creatinine 0.7. Her calcium improved. Cultures significant for positive Escherichia coli in the sputum and urine culture positive for Pseudomonas. The patient has positive stool for C. diff. Chest x-ray this morning shows persistent infiltration in the left upper lobe. There is also bilateral pleural effusion. pleural effusion. ASSESSMENT: 1. Respiratory failure. 2. Sepsis with bilateral pneumonia with sputum with Escherichia coli infection. 3. Pulmonary embolism. 4. Clostridium difficile colitis. 5. Severe hypokalemia. 6. Persistent hypercalcemia. 7. Anemia of chronic disease. PLAN OF TREATMENT: The patient will be maintained on ventilatory support, started on IV fluids. Potassium is replaced daily. We will add potassium to IV fluids. Continue heparin drip, present antibiotics, doxycycline and Merrem, as well as oral vancomycin for Clostridium difficile. Mini Davis MD cc: [id number] TT: 07/26/2016 00:54:48 Confirmation # [id number] Dictation # [id number] LR
[2016-07-26] MEDS: Potassium Chloride 20 MEQ in Sodium Chloride 0.45% 1,000 ML IV SCH (01:49)
[2016-07-26] MEDS: Potassium Chloride 40 mEq/30 ml LIQ UD NG SCH (01:50)
[2016-07-26] MEDS ORDERED: Sodium Chloride 0.9% 250 ML IV STA ×2 (02:19→04:16)
[2016-07-26] MEDS: Albuterol-Ipratrop 3 mg / 0.5 (3 ml) UD IH SCH ×5 (04:55→19:52)
[2016-07-26] MEDS: MethylPREDNISolone 40 mg Vial IVP SCH ×3 (05:04→21:26)
--- NOTE | 2016-07-26 05:18 | CON ---
DATE: 07/25/2016 LOCATION: CCU 129, room 4. HISTORY OF PRESENT ILLNESS: This is a 61-year-old female with longstanding history of rheumatoid art hritis on methotrexate medication and admitted here with sudden onset of shortness of breath, progres sively worsening until the time of admission with subsequent acute respiratory failure and endotrache al intubation as noted thereof. She also was found to have subsegmental pulmonary emboli bilaterally with RV dilatation. She is currently endotracheally intubated at this time and sedated. She is trini ng referred now for endocrine evaluation because of some prior history of hypothyroidism with a fine needle aspiration biopsy of an underlying nodule, but has currently been off medications for a few mo nths prior to admission. Also history of generalized anxiety and depression, insomnia and currently on psychotropic medications and also on Ambien for management of persistent insomnia, history of gene ralized osteoarthritis and osteoporosis as noted, history of low back pain with polyarthralgias and p olymyalgia. FAMILY HISTORY: Positive for hypertension and heart disease. SOCIAL HISTORY: No known substance use. Has a prior history of smoking, but quit a few years ago. She has a very supportive family otherwise. REVIEW OF SYSTEMS: Initially noted to increasing generalized body weakness with easy fatigability an d tiredness over the past few days prior to admission. Was also found to have an upper respiratory i nfection with fever, chills and bronchorrhea few days prior to admission. Her oral intake has been v ariable and suboptimal with nausea, dyspepsia, and vague upper abdominal pains. No recent alteration s of bowel or urinary patterns. PHYSICAL EXAMINATION: GENERAL: This is an average-built female in no apparent distress. VITAL SIGNS: Blood pressure of 150/90. Pulse of 100 beats per minute, regular. Temperature 100. R espirations as per ventilator parameters. Height is 5 feet 2 inches, weight is 114 pounds. HEENT: Head normocephalic. Eyes anicteric with pink conjunctivae. Fundoscopy not possible at this time. Ears, nose, and throat otherwise normal. NECK: Supple. Thyroid gland is normal size. No carotid bruits. No cervical adenopathy. CARDIOPULMONARY: Some adynamic precordium. S1, S2 is rapid and regular. LUNGS: Show scattered rhonchi. ABDOMEN: Flat, soft with positive bowel sounds. EXTREMITIES: No peripheral edema. Pulses are +2 bilaterally. LABORATORY DATA: The chemistries showed the BUN of 19, sodium 151, potassium 4.1, chloride 113, CO2 29, glucose 174, creatinine 0.7. Her calcium level is 6.8 with albumin level of 3.0 and a corrected calcium of 7.8 mg/dL. Her thyroid study showed a TSH of 0.03 with a T4 of 2.4, and a total T3 of 0.4 1. ASSESSMENT: This is a 61-year-old female with acute respiratory failure, currently endotracheally in tubated and sedated with underlying bilateral pulmonary emboli and is now being followed for closer h emodynamic monitoring in the ICU as noted. She also is clinically euthyroid and biochemically has ev idence of the so-called acute sick euthyroid syndrome with underlying hypoalbuminemia causing the low -normal total T4 and T3 levels because of the reduced thyroxine-binding globulin levels thereof. Mor eover, she also has intercurrent TSH suppression from the IV steroid therapy as given, which can caus e the aforementioned transient TSH suppression with superimposed acute sick euthyroid syndrome causin g the low-normal total T4 and T3 levels and suppressed TSH thereof. Should expect normalization of t he aforementioned clinical condition improves accordingly. No indication at this time for any kind of thyroid pharmacotherapy. PLAN OF MANAGEMENT: We will obtain a comprehensive thyroid hormonal profile with a total T4, free T4 , and TSH tomorrow morning. We will also add a thyroid peroxidase antibody and a thyroglobulin antib jason, which will confirm and/or indicate the presence of underlying thyroid autoimmunity. We will obt ain a comprehensive hormonal profile tomorrow as ordered. We will follow. Briana Cazares MD cc: [id number] TT: 07/26/2016 05:17:27 Confirmation # [id number] Dictation # [id number] tn
[2016-07-26] MEDS: MEROPENEM IVPB SCH ×3 (05:27→21:29)
[2016-07-26] MEDS: PIGGYBACK IVPB SCH ×3 (05:27→21:29)
[2016-07-26 05:35] LABS: ARTERIAL BLOOD GAS HCO3 24.4 mmol/L (21-28); ARTERIAL BLOOD GAS O2 CAPACITY 13.9 mL/dl (16-24); ARTERIAL BLOOD GAS O2 CONTENT 13.2 ML/dl (15-23); ARTERIAL BLOOD GAS PH 7.24 (7.35-7.45); ARTERIAL BLOOD HGB O2 SAT 92.7 % (95.0-98.0); CARBOXYHEMOGLOBIN 1.7 % (0.5-1.5); HHB 4.7 % (0-5); METHEMOGLOBIN 0.9 % (0.0-3.0)
[2016-07-26 06:41] LABS: ADD MANUAL DIFF? NO
[2016-07-26 06:45] LABS: BASO # 0.06 K/mm3 (0.0-2.0); BASO % 0.4 % (0.0-3.0); GRAN % 94.3 % (50.0-68.0); HEMATOCRIT 29.4 % (36.0-48.0); LYMPH # 0.4 (1.2-3.4); LYMPH % 3.2 % (22.0-35.0); MEAN CELL VOLUME 92.2 fL (80.0-105.0); MEAN CORPUSCULAR HEMOGLOBIN 29.2 pg (25.0-35.0); MEAN CORPUSCULAR HGB CONC 31.6 g/dl (31.0-37.0); MEAN PLATELET VOLUME 10.4 fl (7.0-11.0); MONO # 0.3 (0.1-0.6); MONO % 2.1 % (1.0-6.0); PLATELET COUNT 229 10^3/uL (120.0-450.0); RED CELL DISTRIBUTION WIDTH 16.1 % (11.5-14.5); WHITE BLOOD COUNT 13.6 10^3/ul (4.5-11.0)
[2016-07-26] MEDS: Heparin25000 units/250ml 1/2NS 25,000 UNITS/250 ML BAG IV PRN (07:52)
--- NOTE | 2016-07-26 08:24 | RAD ---
HISTORY: ILD, PNA COMPARISON: 07/25/2016 FINDINGS: LUNGS: There is a large pneumothorax at the right lung base. There is mediastinal shift to the left consistent with a tension pneumothorax. Discussed with the CCU staff at 8:15 a.m. PLEURA: As above CARDIOVASCULAR: Normal. OSSEOUS STRUCTURES: No significant abnormalities. VISUALIZED UPPER ABDOMEN: Normal. OTHER FINDINGS: Endotracheal tube and nasogastric tube in satisfactory position IMPRESSION: Large pneumothorax at the right lung base with mediastinal shift to the left consistent with tension pneumothorax
[2016-07-26 08:34] LABS: FREE T4 0.69 ng/dL (0.78-2.19); T4 2.4 ug/dL (5.5-11.0)
[2016-07-26 08:47] LABS: THYROID STIMULATING HORMONE 0.33 mIU/mL (0.46-4.68)
[2016-07-26] MEDS ORDERED: Vancomycin 1gm in NS 250ml 250 ML IVPB SCH (09:45)
[2016-07-26] MEDS: Magnesium Oxide 400 mg Tab UD PO SCH ×2 (09:50→18:27)
[2016-07-26] MEDS: Nystatin 100,000 Units/ml Oral Susp 5 ml UD PO SCH ×4 (09:51→21:26)
[2016-07-26] MEDS: Potassium & Sodium Phosphate PO SCH (09:51)
[2016-07-26] MEDS: Vancomycin 25 MG/ML PO SCH ×4 (09:51→21:29)
--- NOTE | 2016-07-26 10:33 | PN ---
DATE: 07/26/2016 REASON FOR CONSULTATION AND FOLLOWUP: Positive troponin, respiratory failure, pneumonia, bilateral P E, possible tension pneumothorax. BRIEF CLINICAL HISTORY: A 61-year-old female with a past medical history significant for rheumatoid arthritis, osteoarthritis, history of on methotrexate. Admitted with a syncopal episode at home, fou nd to be PE, pneumonia. Extubated successfully, but over the weekend, patient's respiratory status d eteriorated requiring intubation. This morning, patient is very tachypneic. Family is at the [facility]. Son's name is Michael and the patient's sister is at the bedside. History of fever, history of rec ent C. diff colitis. Still remains intubated and critically ill. PHYSICAL EXAMINATION: VITAL SIGNS: Temperature afebrile, heart rate 87, respiratory rate 33 on vent and biting the vent, b lood pressure 86/54. HEENT: PERRLA. Extraocular muscles intact. NECK: Supple. No carotid bruits. No thyromegaly. CHEST: Decreased air entry at the bases. ABDOMEN: Soft. EXTREMITIES: Clubbing, cyanosis negative. Chest x-ray this morning shows a large pneumothorax at the right base with mediastinal shift to the l eft, consistent with a tension pneumothorax. IMPRESSION: Large tension pneumothorax on right with a shift of mediastinum, tachypneic, respiratory insufficiency, respiratory rate 33, history of pulmonary embolism bilateral, history of pneumonia, s epsis. This positive troponin is secondary to large pulmonary embolism. Most recent echo shows sign ificantly increased right ventricle size, severe hypokinesis of right ventricle with with signi ficantly changed from the echo 2 months before where the right ventricular function was normal, right ventricular systolic pressure 22. Now, the right ventricular systolic pressure is 57. Echo dated shows left ventricle function low normal at 50%-55%, normal segmental wall motion, right flavia tricular systolic pressure 51, right ventricle size, normal, right ventricular systolic pressure 51. RECOMMENDATION: I discussed case with Dr. Cárdenas about the patient's respiratory status. Continue for now heparin, try to wean and once the patient is weaned off the vent, put oral anticoagulation. Possibly, patient may need a chest tube for large tension pneumothorax as the patient has a shift of mediastinum as mentioned in the today chest x-ray, probably a spontaneous pneumothorax, large pneumo thorax at the right base with mediastinal shift to the left, tension pneumothorax. Overall, patient' s condition is critical. Prognosis is guarded. Discussed with the son. Interim, continue heparin, continue broad spectrum antibiotic. No plan for cardiac intervention at this time as patient cardiac intervention is not warranted at this time. We will closely follow with you. History of Clostridiu m difficile colitis as well. Monitor I's and O's carefully. We will try to diurese cautiously and n ot to over diurese to prevent intervascular volume depletion because this tension pneumothorax as wel l as cause hypotension. Will follow with you. As mentioned, overall, patient's condition is c ritical. Thank you, , for providing us the opportunity in taking care of the patient. Robert Jackson MD cc: [id number] TT: 07/26/2016 10:32:56 Confirmation # [id number] Dictation # [id number] en
--- NOTE | 2016-07-26 10:51 | RAD ---
HISTORY: s/p chest tube insertion COMPARISON: 07/26/2016 FINDINGS: LUNGS: Right basilar chest tube has been placed. No residual pneumothorax is evident. There is no gross evidence of midline shift although the patient is obliquely positioned for this examination. Patchy right basilar opacity is evident. This may rib select subsegmental atelectasis or pneumonia. There is interstitial infiltrate, nonspecific, noted in both upper lobes. PLEURA: No pneumothorax. No pleural effusion. CARDIOVASCULAR: Endotracheal tube and nasogastric tube are grossly unchanged. OSSEOUS STRUCTURES: Bilateral glenohumeral osteoarthritis. VISUALIZED UPPER ABDOMEN: Normal. OTHER FINDINGS: None. IMPRESSION: New right chest tube. Resolved right pneumothorax. Patchy right basilar opacity, nonspecific. Bilateral upper lobe interstitial infiltrate, left greater than right. ET tube and NG tube unchanged.
[2016-07-26] MEDS ORDERED: Dextrose 50% SYRINGE Inj (50 ml) IVP STA (10:56)
[2016-07-26] MEDS ORDERED: Insulin Regular 1 UNITS/0.01 ML ML IVP STA (10:56)
[2016-07-26 10:58] LABS: BODY FLUID TYPE PLEURAL
--- NOTE | 2016-07-26 11:21 | PN ---
DATE: 07/26/2016 The patient seen and examined at bedside. She is on Precedex 0.2 mcg/kg per hour. Her blood pressure is 91/62 (status post emergent chest tube on the right side placement in the location of the tension pneumothorax concomitant with 1 liter of normal saline wide open bolus). The patient is on PRVC 350/20/ 30/5/50%, oxygen saturation 94%, end-tidal CO2 on the monitor 27, heart rate 58. There is tidal movement of the pleural fluid in the Pleur-evac tubes. There is also an air leak present. About 80 mL of pleural effusion was drained with the chest tube. The patient is on a heparin drip. PHYSICAL EXAMINATION: HEAD AND NECK: Atraumatic. LUNGS: Decreased breath sounds bilaterally. HEART: Regular rate and rhythm. S1, S2 distant. ABDOMEN: Soft, nontender, nondistended. MUSCULOSKELETAL: Trace bilateral pedal and ankle edema. NEUROLOGIC: The patient is sedated. SKIN: Moist. PSYCHIATRIC: The patient is sedated. LABORATORY DATA: WBC 13.6, hemoglobin 9.3, platelet count 229. Sodium 146, potassium 2.6, chloride 108, carbon dioxide 32, BUN 23, creatinine 0.7, glucose 262. TSH is 0.33, T4 0.69 and T3 2.4 (consistent with sick euthyroid). MEDICATIONS: Normal saline 80 mL per hour, Percocet p.r.n., Xanax, aspirin, Precedex, doxycycline, heparin drip, meropenem, Solu-Medrol 40 mg IV q. 8, Protonix, Zosyn, vancomycin p.o., vancomycin IV. ASSESSMENT AND PLAN: This is a 61-year-old lady with respiratory failure in the setting of pulmonary embolism with right ventricular failure, GNR pneumonia in the setting of some architectural distortion/fibrosis of lung parenchyma/ traction bronchiectases. Cavitating mass in the RLL is concerning and differential diagnosis includes infectious and non-infectious etiology.. At present time, the patient is on meropenem and therapeutic anticoagulation. She developed a tension pneumothorax likely due to barotrauma and emergent chest tube was placed to evacuate the air, which was done successfully. Chest x-ray showed reexpanded lung. Neurologic: The patient is sedated with Precedex. We will consider repeating CT scan and EEG as her sedation appears to be out of proportion to her AMS. Pulmonary: We will continue with protective lung ventilation strategy. We will repeat ABG. We will continue with conservative oxygen management, head of bed elevated more than 35 degrees. We will continue with conservative fluid management once she recovered from obstructive shock. The patient has gram- negative pneumonia in the setting of fibrotic changes and traction bronchiectases. She is on meropenem. Underlying ILD can also represent a complicating factor. Predominance of fibrotic changes in the upper lobe may suggest chronic HP and may or may not be related to prior treatment with MTX. Combination of some fibrotic changes with superimposed ground glass opacities in the setting of RA makes NSIP type ILD (fibrotic or cellular type) possible as well. No clear cut subpleural sparing noted (finding that would suggest NSIP) . Absence of low lobe predominance nor honeycombing, makes UIP pattern unlikely. Cavitary lesion in the RLL is of concerm, especially in this relatively immunocompromised patient. While necrotizing pneumonia is a most apparent possibility, MTB and NMTB are possibiloties as well, especially that some areas of tree-in-bud opacities are seen as well. I will resend sputum for AFB and fungal staining and culture, however if negative will consider bronchoscopy. Will get quantiferron as well, even though negative results wont rule out active Mtb infection. Anaerobic and invasive fungal infection is also on differential. Possibility of underlying rheumatoid lung nodules which may cavitate is also there. Of note pleural fluid ph is 6.0 (chest tube placed) and differential diagnosis include empyema, rheumatoid arthritis and Mtb--> respective labs were ordered. I will also order galactomannan and D-b-1,3 glucan. ID service is following patient as well. Cardiovascular: Patient is hemodynamically stable Renal: patient is making urine and creatinine stable. Glucose control and euvolemia, avoiding nephrotoxic medication but not in expense of treating underlying disease Endo: Maintain BG within 140-180 according to NICE-SUGAR trial ID: Abx, ID service is following GI: will start enteral nutrition DVT/GI prophylaxis ccm time 40 min Dale Cárdenas MD cc: [id number] TT: 07/26/2016 11:21:14 Confirmation # [id number] Dictation # [id number] cn MTDD
[2016-07-26] MEDS: Vancomycin 1gm in NS 250ml 1 GM/250 ML BAG IVPB SCH ×2 (11:32→21:30)
[2016-07-26 11:47] LABS: ALB/GLOB RATIO 1.1 (1.1-1.8); ALKALINE PHOSPHATASE 66 U/L (38-133); ALT/SGPT 172 U/L (7-56); BILIRUBIN,TOTAL 0.7 mg/dL (0.2-1.3); BLOOD UREA NITROGEN 30 mg/dL (7-21); CARBON DIOXIDE 25 mmol/L (21-33); CHLORIDE 116 mmol/L (95-110); GFR AFRICAN-AMERICAN > 60; GLUCOSE,RANDOM 228 mg/dL (70-110); MAGNESIUM 1.7 mg/dL (1.7-2.2); SODIUM 146 mmol/L (132-148); TOTAL PROTEIN 4.8 g/dL (5.8-8.3)
[2016-07-26 11:48] LABS: AST/SGOT 647 U/L (15-39)
[2016-07-26 11:56] LABS: CALCIUM 6.7 mg/dL (8.4-10.5)
[2016-07-26 12:05] LABS: BF GROSS APPEARANCE CLOUDY (CLEAR)
[2016-07-26 12:32] LABS: BODY FLUID TOTAL COUNT 100 (0-0)
[2016-07-26 12:36] LABS: POTASSIUM 6.7 mmol/L (3.6-5.0)
--- NOTE | 2016-07-26 12:41 | PN ---
DATE: 07/26/2016 SUBJECTIVE: The patient remains in intensive care unit. The patient was intubated for the past 2 days. She developed new respiratory distress, found to have a tension pneumothorax on the right side and treated with chest tube inserted successfully. The patient currently is sedated, in no respiratory distress with stable blood pressure and O2 saturation in the range of 95%.There is persistent diarrhea. PHYSICAL EXAMINATION: VITAL SIGNS: Her temperature this morning was 98.5, but she spiked a low grade fever last night temperature with T-max 100.5. Her pulse rate is 57 and regular , her blood pressure is 92/62, and respiratory rate 25. GENERAL: She is sedated, pale, in no acute distress. HEENT: Head is normocephalic, Gastric tube intact. NECK: Supple. LUNGS: With decreased breath sounds, some coarse cracking sounds at the left anterior chest. Chest tube intact. HEART: With regular rhythm and rate, bradycardic at 52 per minute. ABDOMEN: Soft, nontender, nondistended. EXTREMITIES: With no edema. DIAGNOSTIC TESTS: This morning, CBC with stable WBC 13.6, hemoglobin 9.3, hematocrit 29.4, her platelet count 229. Chemistry is still pending. Her blood was hemolyzed this morning. Her blood cultures are negative after 4 days. Repeated sputum culture is still pending. Chest x-ray after chest tube showed no residual pneumothorax, persistent infiltration and opacities in the right base. There is bilateral upper lobe interstitial infiltration. ASSESSMENT: 1. Respiratory failure due to tension pneumothorax relieved with a chest tube placed this morning. The patient currently hemodynamically stable. 2. Sepsis with bilateral pneumonia with sputum positive Escherichia coli. 3. Chronic interstitial lung changes with newly visualized area suspicious for the necrotizing lesions. Must rule out mycobacterial infection. 4. Pulmonary embolism. 5. Clostridium difficile colitis. 6. Electrolyte imbalance with persistent hypokalemia and hypocalcemia. 7. Anemia of chronic disease. PLAN OF TREATMENT: Case was discussed at length with food technologist. There is concern for diffuse chronic lung disease and the possibility of necrotizing pneumonia. At the present time, we will continue IV antibiotic coverage. If the patient's condition improved, may benefit from bronchoscopy. We will continue heparin drip and continue with chest tube for pneumothorax. We will monitor condition closely, follow up her electrolytes, will need to have potassium replacement if still hypokalemic. The patient's prognosis is very poor considering her malnourished and immunocompromised state. Mini Davis MD cc: [id number] TT: 07/26/2016 12:40:42 Confirmation # [id number] Dictation # [id number] tony LR
--- NOTE | 2016-07-26 12:53 | CP.PCM.CON ---
History of Present Illness - History of Present Illness History of Present Illness: General Surgery Dr. Case HPI: 61 y/o F w/ PMHx of anemia, anxiety, depression, osteoporosis and rheumatoid arthritis presented to the ED on 07/21/16 for weakness and cough. Pt is currently intubated and sedated. Information obtained from EMR. According to the ICU notes, the pt's son found the pt acting lethargic and lying on the bathroom floor. Pt had been sick in the days leading up to presentation w/ URI sxs. 3mons ago pt dx w/ PNA and C. diff. On admission, pt found to have respiratory failure 2/2 PNA, NSTEMI, and CHF. Pt was intubated in the ED. CXR this AM showed Right tension pneumothorax. Surgery consulted for emergent placement of R chest tube. PMHx: see above Meds: reviewed in chart NKDA PSHx: thyroid FNA 2013 SHx: former smoker, denies EtOH, drug use FHx: non-contributory Review of Systems - Review of Systems Systems not reviewed;Unavailable: Intubated Past Patient History - Infectious Disease Hx of Infectious Diseases: None - Tetanus Immunizations Tetanus Immunization: Unknown - Past Social History Smoking Status: Former Smoker - CARDIAC Hx Pacemaker: No - PULMONARY Hx Respiratory Disorders: No Hx Sleep Apnea: No Hx Tuberculosis: No - NEUROLOGICAL Hx Paralysis: No - HEENT Hx HEENT Problems: No - RENAL Hx Chronic Kidney Disease: No - ENDOCRINE/METABOLIC Hx Endocrine Disorders: No - HEMATOLOGICAL/ONCOLOGICAL Hx Blood Disorders: No - INTEGUMENTARY Hx Dermatological Problems: No - MUSCULOSKELETAL/RHEUMATOLOGICAL Hx Rheumatoid Arthritis: Yes - GASTROINTESTINAL Hx Gastrointestinal Disorders: No - GENITOURINARY/GYNECOLOGICAL Hx Genitourinary Disorders: No (URGENCY) - PSYCHIATRIC Hx Substance Use: No - SURGICAL HISTORY Hx Amputation: No Hx Appendectomy: No Hx Cardiac Catheterization: No Hx Cholecystectomy: No Hx Coronary Stent: No Hx Gastric Bypass Surgery: No Hx Hysterectomy: No Hx Joint Replacement: No Hx Kidney Transplant: No Hx Liver Transplant: No Hx Mastectomy: No Hx Musculoskeletal Surgery: No Hx Open Heart Surgery: No Hx Orthopedic Surgery: No Hx Splenectomy: No Hx Valve Replacement: No - ANESTHESIA Hx Anesthesia Reactions: No Hx Malignant Hyperthermia: No Meds Allergies/Adverse Reactions: Allergies Allergy/AdvReac Type Severity Reaction Status Date / Time No Known Allergies Allergy Verified 12/09/14 09:05 - Medications Medications: Current Medications Acetaminophen (Tylenol 650mg/20.3ml Solution Ud) 650 mg PO Q6H PRN PRN Reason: fever Last Admin: 07/25/16 18:08 Dose: 650 mg Albuterol/Ipratropium (Duoneb 3 Mg/0.5 Mg (3 Ml) Ud) 3 ml IH [id number] [facility] Last Admin: 07/26/16 10:46 Dose: 3 ml Alprazolam (Xanax) 0.5 mg PO BID [facility] PRN Reason: Protocol Last Admin: 07/26/16 09:52 Dose: Not Given Aspirin (Ecotrin) 81 mg PO DAILY [facility] Last Admin: 07/26/16 09:50 Dose: 81 mg Doxycycline Hyclate 100 mg/ (Sodium Chloride) 100 mls @ 100 mls/hr IVPB Q12 [facility] PRN Reason: Protocol Last Admin: 07/26/16 09:30 Dose: 100 mls/hr Heparin Sodium/Sodium Chloride (Heparin 13190 Units/250ml 1/2 Normal Saline) 25 ,000 units in 250 mls @ 8.655 mls/hr IV .Q24H PRN; Protocol; 18 UNITS/KG/HR PRN Reason: ADJUST RATE PER PROTOCOL Last Admin: 07/26/16 07:52 Dose: 16 units/kg/hr, 7.693 mls/hr Meropenem 1g/NS 100mL IVPB (Meropenem 1g/Ns 100ml Ivpb) 1 g in 100 mls @ 100 mls/hr IVPB Q8 [facility] PRN Reason: Protocol Stop: 07/30/16 09:16 Last Admin: 07/26/16 05:27 Dose: 100 mls/hr Fentanyl Citrate (Fentanyl Citrate/Sodium Chloride 1 Mg/100 Ml) 1,000 mcg in 100 mls @ 2 mls/hr IV .Q24H PRN; Protocol; 20 MCG/HR PRN Reason: TITRATE PER MD ORDER Last Titration: 07/26/16 06:06 Dose: Infused Potassium Chloride 20 meq/ (Sodium Chloride) 1,010 mls @ 80 mls/hr IV .[id number] [facility] Last Admin: 07/26/16 01:49 Dose: 80 mls/hr Dexmedetomidine HCl (Precedex 4 Mcg/Ml (100 Ml)) 400 mcg in 100 mls @ 2.597 mls /hr IV .Q24H PRN; Protocol; 0.2 MCG/KG/HR PRN Reason: Agitation Last Titration: 07/26/16 05:03 Dose: 0.2 mcg/kg/hr, 2.597 mls/hr Vancomycin HCl (Vancomycin 1gm) 1 gm in 250 mls @ 167 mls/hr IVPB Q12H [facility] PRN Reason: Protocol Last Admin: 07/26/16 11:32 Dose: 167 mls/hr Magnesium Oxide (Mag-Ox) 400 mg PO BID [facility] Last Admin: 07/26/16 09:50 Dose: 400 mg Methylprednisolone (Solu-Medrol) 40 mg IVP Q8 [facility] Last Admin: 07/26/16 05:04 Dose: 40 mg Midazolam HCl (Versed Inj) 2 mg IVP Q2H PRN PRN Reason: Agitation Last Admin: 07/23/16 13:01 Dose: 2 mg Morphine Sulfate (Morphine) 2 mg IVP Q4H PRN PRN Reason: Pain, moderate (4-7) Last Admin: 07/25/16 18:38 Dose: 2 mg Nystatin (Nystatin Oral Susp) 5 ml PO QID [facility] Last Admin: 07/26/16 09:51 Dose: 5 ml Oxycodone/Acetaminophen (Percocet 10/325 Mg Tab) 1 tab PO Q4H PRN PRN Reason: Pain, severe (8-10) Pantoprazole Sodium (Protonix Inj) 40 mg IVP DAILY [facility] Last Admin: 07/26/16 09:51 Dose: 40 mg Potassium Phos/Sodium Phos (Neutra-Phos) 2 pkt PO TID [facility] Last Admin: 07/26/16 09:51 Dose: 2 pkt Vancomycin HCl (Vancocin 25 Mg/Ml (Oral Use)) 125 mg PO QID [facility] PRN Reason: Protocol Last Admin: 07/26/16 09:51 Dose: 125 mg Physical Exam - Constitutional Appears: Non-toxic, Toxic, No Acute Distress - Head Exam Head Exam: NORMAL INSPECTION - Eye Exam Eye Exam: Normal appearance - ENT Exam ENT Exam: Mucous Membranes Moist - Respiratory Exam Respiratory Exam: absent: Accessory Muscle Use, Clear to Auscultation Bilateral , Respiratory Distress (intubatd and ventilated), NORMAL BREATHING PATTERN ( tachypnic, shallow) - Cardiovascular Exam Cardiovascular Exam: absent: Bradycardia, Tachycardia - GI/Abdominal Exam GI & Abdominal Exam: Soft. absent: Distended - Exam Additional comments: dumont in place - Extremities Exam Extremities exam: Positive for: normal inspection - Neurological Exam Neurological exam: Altered (sedated) - Psychiatric Exam Additional comments: unable to assess - Skin Skin Exam: Dry, Warm Results - Vital Signs Recent Vital Signs: Last Vital Signs Temp 98.5 F 07/26/16 04:00 Pulse 60 07/26/16 10:00 Resp 33 H 07/26/16 07:11 BP 91/62 L 07/26/16 10:00 Pulse Ox 94 L 07/26/16 10:00 - Labs Result Diagrams: 07/26/16 06:15 07/26/16 10:40 Labs: Laboratory Results - last 24 hr 07/25/16 07/25/16 07/25/16 12:40 14:00 18:26 WBC RBC Hgb Hct MCV MCH MCHC RDW Plt Count MPV Gran % Lymph % (Auto) Wolfe % (Auto) Eos % (Auto) Baso % (Auto) Gran # Lymph # Wolfe # Eos # Baso # APTT 46.8 H 44.7 H pCO2 pO2 HCO3 ABG pH ABG Total CO2 ABG O2 Saturation ABG O2 Content ABG Base Excess ABG Hemoglobin ABG Carboxyhemoglobin POC ABG HHb (Measured) ABG Methemoglobin ABG O2 Capacity Hgb O2 Saturation FiO2 Sodium 148 Potassium 2.6 L* D Chloride 108 H Carbon Dioxide 32 Anion Gap 11 BUN 23 H Creatinine 0.7 Est GFR ( Amer) > 60 Est GFR (Non-Af Amer) > 60 Random Glucose 262 H Calcium 7.2 L Phosphorus 3.3 Magnesium 1.9 Total Bilirubin AST ALT Alkaline Phosphatase Total Protein Albumin Globulin Albumin/Globulin Ratio Free T4 Thyroxine (T4) TSH 3rd Generation Fluid Source Fluid Appearance Fluid WBC Fluid RBC Fluid Tot Cell Count Fluid Neutrophils Fluid Lymphocytes Fld Monocyte/Macrophag Fluid Comment Pleural pH 07/26/16 07/26/16 07/26/16 01:40 05:32 05:45 WBC RBC Hgb Hct MCV MCH MCHC RDW Plt Count MPV Gran % Lymph % (Auto) Wolfe % (Auto) Eos % (Auto) Baso % (Auto) Gran # Lymph # Wolfe # Eos # Baso # APTT 67.9 H pCO2 57 H pO2 71.0 L HCO3 24.4 ABG pH 7.24 L ABG Total CO2 26.1 ABG O2 Saturation 95.2 ABG O2 Content 13.2 L ABG Base Excess -3.4 L ABG Hemoglobin 10.1 L ABG Carboxyhemoglobin 1.7 H POC ABG HHb (Measured) 4.7 ABG Methemoglobin 0.9 ABG O2 Capacity 13.9 L Hgb O2 Saturation 92.7 L FiO2 60.0 Sodium Potassium Chloride Carbon Dioxide Anion Gap BUN Creatinine Est GFR ( Amer) Est GFR (Non-Af Amer) Random Glucose Calcium Phosphorus Magnesium Total Bilirubin AST ALT Alkaline Phosphatase Total Protein Albumin Globulin Albumin/Globulin Ratio Free T4 0.69 L Thyroxine (T4) 2.4 L TSH 3rd Generation 0.33 L Fluid Source Fluid Appearance Fluid WBC Fluid RBC Fluid Tot Cell Count Fluid Neutrophils Fluid Lymphocytes Fld Monocyte/Macrophag Fluid Comment Pleural pH 07/26/16 07/26/16 07/26/16 06:15 06:15 10:00 WBC 13.6 H RBC 3.19 L Hgb 9.3 L Hct 29.4 L MCV 92.2 MCH 29.2 MCHC 31.6 RDW 16.1 H Plt Count 229 MPV 10.4 Gran % 94.3 H Lymph % (Auto) 3.2 L Wolfe % (Auto) 2.1 Eos % (Auto) 0.0 L Baso % (Auto) 0.4 Gran # 12.80 H Lymph # 0.4 L Wolfe # 0.3 Eos # 0.0 Baso # 0.06 APTT 84.4 H* pCO2 pO2 HCO3 ABG pH ABG Total CO2 ABG O2 Saturation ABG O2 Content ABG Base Excess ABG Hemoglobin ABG Carboxyhemoglobin POC ABG HHb (Measured) ABG Methemoglobin ABG O2 Capacity Hgb O2 Saturation FiO2 Sodium Cancelled Potassium Cancelled Chloride Cancelled Carbon Dioxide Cancelled Anion Gap Cancelled BUN Cancelled Creatinine Cancelled Est GFR ( Amer) Cancelled Est GFR (Non-Af Amer) Cancelled Random Glucose Cancelled Calcium Cancelled Phosphorus Cancelled Magnesium Cancelled Total Bilirubin Cancelled AST Cancelled ALT Cancelled Alkaline Phosphatase Cancelled Total Protein Cancelled Albumin Cancelled Globulin Cancelled Albumin/Globulin Ratio Cancelled Free T4 Thyroxine (T4) TSH 3rd Generation Fluid Source Fluid Appearance Fluid WBC Fluid RBC Fluid Tot Cell Count Fluid Neutrophils Fluid Lymphocytes Fld Monocyte/Macrophag Fluid Comment Pleural pH 07/26/16 07/26/16 07/26/16 10:35 10:36 10:40 WBC RBC Hgb Hct MCV MCH MCHC RDW Plt Count MPV Gran % Lymph % (Auto) Wolfe % (Auto) Eos % (Auto) Baso % (Auto) Gran # Lymph # Wolfe # Eos # Baso # APTT pCO2 pO2 HCO3 ABG pH ABG Total CO2 ABG O2 Saturation ABG O2 Content ABG Base Excess ABG Hemoglobin ABG Carboxyhemoglobin POC ABG HHb (Measured) ABG Methemoglobin ABG O2 Capacity Hgb O2 Saturation FiO2 Sodium 146 Potassium 6.7 H* D Chloride 116 H Carbon Dioxide 25 Anion Gap 12 BUN 30 H Creatinine 0.8 Est GFR ( Amer) > 60 Est GFR (Non-Af Amer) > 60 Random Glucose 228 H Calcium 6.7 L* Phosphorus 4.0 Magnesium 1.7 Total Bilirubin 0.7 AST 647 H ALT 172 H Alkaline Phosphatase 66 Total Protein 4.8 L Albumin 2.5 L Globulin 2.3 Albumin/Globulin Ratio 1.1 Free T4 Thyroxine (T4) TSH 3rd Generation Fluid Source Pleural Fluid Appearance Cloudy Fluid WBC 346.0 H Fluid RBC 8000.0 H Fluid Tot Cell Count 100 H Fluid Neutrophils 90.0 H Fluid Lymphocytes 10.0 H Fld Monocyte/Macrophag TEST NOT PERFORMED Fluid Comment White Pleural pH 6.0 - Imaging and Cardiology Chest x-ray Status: Image reviewed by me, Report reviewed by me Assessment & Plan - Assessment and Plan (Free Text) Assessment: 61 y/o F w/ right tension pneumothorax s/p emergent bedside RCT placement - RCT to continuous suction - monitor output - daily CXR - daily dressing changes by surgical team - cont critical care management Pt seen and discussed w/ Dr. Manpreet Chao DO PGY1 Procedures - Chest Tube Chest Tube Location: Mid-Axillary Right Size of Tube (cm): 28 (kenyan) Chest Tube Procedure: Chlorhexidine Tube Sutured to Skin: Yes Sterile Dressing Applied: Yes Anesthesia: Lidocaine 1% Volume Anesthetic (mls): 15 Incision Made With: #11 blade Post Procedure: sutured to skin, sterile dressing applied, air occlusive dressing Cuevas of Air Johnson: Yes Tube Drainage: fluid Amount of Initial Drainage: 50 Post Procedure CXR?: Yes Patient Tolerated Procedure: Yes
[2016-07-26] MEDS: Morphine 2 mg/ml ISec IVP PRN (18:03)
--- NOTE | 2016-07-26 18:30 | CP.PCM.PN ---
Subjective - Date & Time of Evaluation Date of Evaluation: 07/26/16 Time of Evaluation: 10:00 - Subjective Subjective: Continues to be on the ventilator, sedated, still in some respiratory distress. No fevers overnight. Objective - Vital Signs/Intake and Output Vital Signs (last 24 hours): Temp Pulse Resp BP Pulse Ox 97.9 F 83 33 H 112/85 91 L 07/26/16 16:09 07/26/16 16:20 07/26/16 07:11 07/26/16 16:00 07/26/16 16:20 Intake and Output: 07/26/16 07/26/16 06:59 18:59 Intake Total 3044 250 Output Total 2700 Balance 344 250 - Medications Medications: Current Medications Acetaminophen (Tylenol 650mg/20.3ml Solution Ud) 650 mg PO Q6H PRN PRN Reason: fever Last Admin: 07/25/16 18:08 Dose: 650 mg Albuterol/Ipratropium (Duoneb 3 Mg/0.5 Mg (3 Ml) Ud) 3 ml IH [id number] [facility] Last Admin: 07/26/16 16:04 Dose: 3 ml Alprazolam (Xanax) 0.5 mg PO BID [facility] PRN Reason: Protocol Last Admin: 07/26/16 09:52 Dose: Not Given Aspirin (Ecotrin) 81 mg PO DAILY [facility] Last Admin: 07/26/16 09:50 Dose: 81 mg Doxycycline Hyclate 100 mg/ (Sodium Chloride) 100 mls @ 100 mls/hr IVPB Q12 [facility] PRN Reason: Protocol Last Admin: 07/26/16 09:30 Dose: 100 mls/hr Heparin Sodium/Sodium Chloride (Heparin 45168 Units/250ml 1/2 Normal Saline) 25 ,000 units in 250 mls @ 8.655 mls/hr IV .Q24H PRN; Protocol; 18 UNITS/KG/HR PRN Reason: ADJUST RATE PER PROTOCOL Last Admin: 07/26/16 07:52 Dose: 16 units/kg/hr, 7.693 mls/hr Meropenem 1g/NS 100mL IVPB (Meropenem 1g/Ns 100ml Ivpb) 1 g in 100 mls @ 100 mls/hr IVPB Q8 [facility] PRN Reason: Protocol Stop: 07/30/16 09:16 Last Admin: 07/26/16 13:41 Dose: 100 mls/hr Fentanyl Citrate (Fentanyl Citrate/Sodium Chloride 1 Mg/100 Ml) 1,000 mcg in 100 mls @ 2 mls/hr IV .Q24H PRN; Protocol; 20 MCG/HR PRN Reason: TITRATE PER MD ORDER Last Titration: 07/26/16 06:06 Dose: Infused Dexmedetomidine HCl (Precedex 4 Mcg/Ml (100 Ml)) 400 mcg in 100 mls @ 2.597 mls /hr IV .Q24H PRN; Protocol; 0.2 MCG/KG/HR PRN Reason: Agitation Last Titration: 07/26/16 05:03 Dose: 0.2 mcg/kg/hr, 2.597 mls/hr Vancomycin HCl (Vancomycin 1gm) 1 gm in 250 mls @ 167 mls/hr IVPB Q12H [facility] PRN Reason: Protocol Last Admin: 07/26/16 11:32 Dose: 167 mls/hr Magnesium Oxide (Mag-Ox) 400 mg PO BID [facility] Last Admin: 07/26/16 09:50 Dose: 400 mg Methylprednisolone (Solu-Medrol) 40 mg IVP Q8 [facility] Last Admin: 07/26/16 13:42 Dose: 40 mg Midazolam HCl (Versed Inj) 2 mg IVP Q2H PRN PRN Reason: Agitation Last Admin: 07/23/16 13:01 Dose: 2 mg Morphine Sulfate (Morphine) 2 mg IVP Q4H PRN PRN Reason: Pain, moderate (4-7) Last Admin: 07/26/16 18:03 Dose: 2 mg Nystatin (Nystatin Oral Susp) 5 ml PO QID [facility] Last Admin: 07/26/16 13:42 Dose: 5 ml Oxycodone/Acetaminophen (Percocet 10/325 Mg Tab) 1 tab PO Q4H PRN PRN Reason: Pain, severe (8-10) Pantoprazole Sodium (Protonix Inj) 40 mg IVP DAILY [facility] Last Admin: 07/26/16 09:51 Dose: 40 mg Vancomycin HCl (Vancocin 25 Mg/Ml (Oral Use)) 125 mg PO QID [facility] PRN Reason: Protocol Last Admin: 07/26/16 13:45 Dose: 125 mg - Labs Labs: 07/26/16 06:15 07/26/16 10:40 PT 12.8 Seconds (9.9-11.8) H 07/25/16 06:00 INR 1.19 (0.93-1.08) H 07/25/16 06:00 APTT 66.5 Seconds (23.7-30.8) H 07/26/16 13:57 - Constitutional Appears: Other (Intubated and sedated) - Head Exam Head Exam: NORMAL INSPECTION - ENT Exam Additional comments: ET tube in place - Neck Exam Neck Exam: absent: Lymphadenopathy, Meningismus - Respiratory Exam Respiratory Exam: Decreased Breath Sounds - Cardiovascular Exam Cardiovascular Exam: +S1, +S2 - GI/Abdominal Exam GI & Abdominal Exam: Soft. absent: Tenderness Assessment and Plan - Assessment and Plan (Free Text) Plan: Assessment Severe sepsis with ventilator-dependent respiratory failure due to multifocal healthcare-associated pneumonia with E. coli Pseudomonas in urine cx Acute pulmonary embolism probable new C. diff. infection history of bilateral upper lobe severe pneumonia with associated systemic viral illness with Influenza, with associated persistent Methicillin-sensitive Staph aureus bacteremia history of C diff associated diarrhea rheumatoid arthritis osteoarthritis history of depression and anxiety history of pneumonia Plan will continue Merrem (day 6) and Doxycycline; as discussed with Dr. Cárdenas, since the patient is not improving significantly, we may consider bronchoscopy for work up for fungi, mycobacteria continue PO Vancomycin day 3 will continue to monitor clinically
--- NOTE | 2016-07-26 18:33 | PN ---
DATE: 07/26/2016 ROOM: In CCU 129 room 4. SUBJECTIVE: This is a 61-year-old female with acute respiratory failure and currently endotracheally intubated with underlying bilateral pulmonary embolism and is now also being followed closely for sc tabolic management. She had a previous history of hypothyroidism and has been currently off thyroid medications for the present time. Her latest chemistry showed a BUN of 13, sodium 146, potassium 6.7 , chloride , CO2 of 25, glucose 228 and creatinine 0.8. Her calcium level is 6.7 with an albumi n level of 2.5 and a corrected calcium of 8.2 mg/dL. Her latest thyroid study showed a T4 of 2.4 wit h a TSH of 0.33 and a free T4 of 0.69. She remains clinically euthyroid at this time. Biochemically , she has the so-called acute sick euthyroid syndrome with superimposed transient TSH suppression fro m the intercurrent IV steroid therapy as given. There is no indication at this time for any kind of thyroid pharmacotherapy. Would expect improvement of her abnormal thyroid studies as her clinical co ndition improves. The low normal total T4 is also related to the hypoalbuminemia with expected lower thyroxine binding globulin levels as noted. We will obtain serial chemistries and serial thyroid st udies accordingly. Briana Cazares MD cc: [id number] TT: 07/26/2016 18:32:32 Confirmation # [id number] Dictation # [id number]
[2016-07-27] MEDS: Albuterol-Ipratrop 3 mg / 0.5 (3 ml) UD IH SCH ×6 (00:05→23:45)
[2016-07-27] MEDS: Fentanyl 1000mcg/100ml NS 1,000 MCG/100 ML BAG IV PRN (01:11)
[2016-07-27 01:33] LABS: BLOOD UREA NITROGEN 32 mg/dL (7-21); CALCIUM 7.4 mg/dL (8.4-10.5); CARBON DIOXIDE 27 mmol/L (21-33); CHLORIDE 116 mmol/L (95-110); GFR AFRICAN-AMERICAN > 60; GLUCOSE,RANDOM 214 mg/dL (70-110); POTASSIUM 4.9 mmol/L (3.6-5.0); SODIUM 149 mmol/L (132-148)
[2016-07-27] MEDS: Dexmedetomidine HCl 4mcg/ml 400 MCG/100 ML BOTTLE IV PRN ×2 (03:00→18:52)
[2016-07-27] MEDS: MEROPENEM IVPB SCH ×3 (05:10→21:34)
[2016-07-27] MEDS: PIGGYBACK IVPB SCH ×3 (05:10→21:34)
[2016-07-27] MEDS: MethylPREDNISolone 40 mg Vial IVP SCH ×3 (05:11→21:34)
[2016-07-27 07:45] LABS: ADD MANUAL DIFF? NO
[2016-07-27 08:43] LABS: BASO # 0.03 K/mm3 (0.0-2.0); BASO % 0.2 % (0.0-3.0); GRAN # 16.78 (1.4-6.5); GRAN % 96.4 % (50.0-68.0); HEMATOCRIT 32.3 % (36.0-48.0); LYMPH # 0.4 (1.2-3.4); LYMPH % 2.4 % (22.0-35.0); MEAN CELL VOLUME 90.5 fL (80.0-105.0); MEAN CORPUSCULAR HEMOGLOBIN 28.9 pg (25.0-35.0); MEAN CORPUSCULAR HGB CONC 31.9 g/dl (31.0-37.0); MEAN PLATELET VOLUME 11.5 fl (7.0-11.0); MONO # 0.2 (0.1-0.6); PLATELET COUNT 201 10^3/uL (120.0-450.0); RED CELL DISTRIBUTION WIDTH 15.8 % (11.5-14.5); WHITE BLOOD COUNT 17.4 10^3/ul (4.5-11.0)
--- NOTE | 2016-07-27 08:55 | CP.PCM.PN ---
Subjective - Date & Time of Evaluation Date of Evaluation: 07/27/16 Time of Evaluation: 08:52 - Subjective Subjective: General surgery progress note for Johny Gamez PGY1 Patient seen and examined at bedside this morning. No acute overnight events reported. Chest tube in place on suction. CXR reviewed. Objective - Vital Signs/Intake and Output Vital Signs (last 24 hours): Temp Pulse Resp BP Pulse Ox 97.1 F L 65 26 H 119/79 95 07/27/16 08:00 07/27/16 08:00 07/27/16 08:00 07/27/16 08:00 07/27/16 08:00 Intake and Output: 07/27/16 07/27/16 06:59 18:59 Intake Total 824 Output Total 490 Balance 334 - Medications Medications: Current Medications Acetaminophen (Tylenol 650mg/20.3ml Solution Ud) 650 mg PO Q6H PRN PRN Reason: fever Last Admin: 07/25/16 18:08 Dose: 650 mg Albuterol/Ipratropium (Duoneb 3 Mg/0.5 Mg (3 Ml) Ud) 3 ml IH [id number] [facility] Last Admin: 07/27/16 07:28 Dose: 3 ml Alprazolam (Xanax) 0.5 mg PO BID [facility] PRN Reason: Protocol Last Admin: 07/26/16 18:27 Dose: 0.5 mg Aspirin (Ecotrin) 81 mg PO DAILY [facility] Last Admin: 07/26/16 09:50 Dose: 81 mg Doxycycline Hyclate 100 mg/ (Sodium Chloride) 100 mls @ 100 mls/hr IVPB Q12 [facility] PRN Reason: Protocol Last Admin: 07/26/16 21:29 Dose: 100 mls/hr Heparin Sodium/Sodium Chloride (Heparin 26566 Units/250ml 1/2 Normal Saline) 25 ,000 units in 250 mls @ 8.655 mls/hr IV .Q24H PRN; Protocol; 18 UNITS/KG/HR PRN Reason: ADJUST RATE PER PROTOCOL Last Admin: 07/26/16 07:52 Dose: 16 units/kg/hr, 7.693 mls/hr Meropenem 1g/NS 100mL IVPB (Meropenem 1g/Ns 100ml Ivpb) 1 g in 100 mls @ 100 mls/hr IVPB Q8 [facility] PRN Reason: Protocol Stop: 07/30/16 09:16 Last Admin: 07/27/16 05:10 Dose: 100 mls/hr Fentanyl Citrate (Fentanyl Citrate/Sodium Chloride 1 Mg/100 Ml) 1,000 mcg in 100 mls @ 2 mls/hr IV .Q24H PRN; Protocol; 20 MCG/HR PRN Reason: TITRATE PER MD ORDER Last Titration: 07/27/16 02:28 Dose: 80 mcg/hr, 8 mls/hr Dexmedetomidine HCl (Precedex 4 Mcg/Ml (100 Ml)) 400 mcg in 100 mls @ 2.597 mls /hr IV .Q24H PRN; Protocol; 0.2 MCG/KG/HR PRN Reason: Agitation Last Admin: 07/27/16 03:00 Dose: 0.5 mcg/kg/hr, 6.492 mls/hr Vancomycin HCl (Vancomycin 1gm) 1 gm in 250 mls @ 167 mls/hr IVPB Q12H [facility] PRN Reason: Protocol Last Admin: 07/26/16 21:30 Dose: 167 mls/hr Magnesium Oxide (Mag-Ox) 400 mg PO BID [facility] Last Admin: 07/26/16 18:27 Dose: 400 mg Methylprednisolone (Solu-Medrol) 40 mg IVP Q8 [facility] Last Admin: 07/27/16 05:11 Dose: 40 mg Midazolam HCl (Versed Inj) 2 mg IVP Q2H PRN PRN Reason: Agitation Last Admin: 07/23/16 13:01 Dose: 2 mg Morphine Sulfate (Morphine) 2 mg IVP Q4H PRN PRN Reason: Pain, moderate (4-7) Last Admin: 07/26/16 18:03 Dose: 2 mg Nystatin (Nystatin Oral Susp) 5 ml PO QID [facility] Last Admin: 07/26/16 21:26 Dose: 5 ml Oxycodone/Acetaminophen (Percocet 10/325 Mg Tab) 1 tab PO Q4H PRN PRN Reason: Pain, severe (8-10) Pantoprazole Sodium (Protonix Inj) 40 mg IVP DAILY [facility] Last Admin: 07/26/16 09:51 Dose: 40 mg Vancomycin HCl (Vancocin 25 Mg/Ml (Oral Use)) 125 mg PO QID [facility] PRN Reason: Protocol Last Admin: 07/26/16 21:29 Dose: 125 mg - Labs Labs: 07/27/16 06:50 07/27/16 01:00 PT 12.8 Seconds (9.9-11.8) H 07/25/16 06:00 INR 1.19 (0.93-1.08) H 07/25/16 06:00 APTT 81.5 Seconds (23.7-30.8) H* 07/27/16 08:00 - Head Exam Head Exam: ATRAUMATIC, NORMAL INSPECTION, NORMOCEPHALIC - Neck Exam Neck Exam: Normal Inspection - Respiratory Exam Respiratory Exam: Decreased Breath Sounds - Cardiovascular Exam Cardiovascular Exam: RRR, +S1, +S2. absent: Gallop, Rubs - GI/Abdominal Exam GI & Abdominal Exam: Soft. absent: Distended, Firm, Rigid, Tenderness - Extremities Exam Extremities Exam: Pedal Edema - Skin Skin Exam: Dry, Intact, Normal Color, Warm Assessment and Plan - Assessment and Plan (Free Text) Plan: 61yo female with history of rheumatoid arthritis, osteoporosis right admitted with bilateral pulmonary embolism. Surgery consulted due to tension pneumothorax s/p emergent bedside RCT placement -Patient is s/p RCT placement yesterday; continue with continuous suction -Will continue monitor output -Daily CXR; Reviewed current CXR results -Reviewed Chest CT -Continue medical management as per ICU team Case discussed with attending, Dr. Manpreet Randolph DO PGY1
[2016-07-27] MEDS: Vancomycin 1gm in NS 250ml 1 GM/250 ML BAG IVPB SCH ×2 (08:56→21:35)
[2016-07-27 08:59] LABS: BLOOD UREA NITROGEN 31 mg/dL (7-21); CALCIUM 7.6 mg/dL (8.4-10.5); CARBON DIOXIDE 26 mmol/L (21-33); CHLORIDE 116 mmol/L (98-107); GFR AFRICAN-AMERICAN > 60; GLUCOSE,RANDOM 194 mg/dL (70-110); MAGNESIUM 1.9 mg/dL (1.7-2.2); PHOSPHOROUS 3.4 mg/dL (2.5-4.5); POTASSIUM 4.5 mmol/L (3.6-5.0); SODIUM 149 mmol/L (132-148)
[2016-07-27] MEDS: Nystatin 100,000 Units/ml Oral Susp 5 ml UD PO SCH ×2 (09:03→15:09)
--- NOTE | 2016-07-27 09:27 | CON ---
DATE: 07/26/2016 PULMONARY CONSULT REFERRING PHYSICIAN: Mini Davis MD. REASON FOR CONSULT: Respiratory failure, on ventilator, pulmonary embolism, spontaneous pneumothorax requiring chest tube. HISTORY OF PRESENT ILLNESS: This is a 61-year-old female with past medical history significant for r heumatoid arthritis on methotrexate, anemia, anxiety disorder, depression, osteoporosis, recently had C. diff colitis, apparently found at home on the floor by her son, brought in to Emergency Room. Wo rkup showed that she has right heart dilated and pulmonary hypertension. On echo, subsequently, foun d to have a bilateral pulmonary embolism, started on anticoagulation. Originally, she was extubated, and again, had shortness of breath, was intubated, found to have a right-sided pneumothorax requirin g chest tube. Presently, she is on a ventilator, mildly sedated, awake, arousable. Son and family are at bedside. Not much ET tube secretion. No hemoptysis, no hematemesis, no hematuria, no diarrhea reported. PAST MEDICAL HISTORY: Rheumatoid arthritis, methotrexate used, depression, osteoporosis, anxiety, C. diff colitis. ALLERGIES: None known. SOCIAL HISTORY: Former smoker. Denies any alcohol use. FAMILY HISTORY: No significant cardiopulmonary disease reported. MEDICATIONS: She is on doxycycline 100 mg twice a day, DuoNeb q. 4 hours, Ecotrin 81 mg daily, fenta nyl IV, heparin weight-based protocol, mag oxide 400 mg twice a day, meropenem 1 g q. 8 hours, morphi ne 2 mg q. 4 hours p.r.n., Percocet 10/325 one tab q. 4 hours p.r.n., Precedex IV started, Protonix 40 mg daily, Solu-Medrol 40 mg q. 8 hours, Tylenol p.r.n. basis, vancomycin 125 mg q.i.d., also vanco mycin 1 g IV q. 12 hours, Versed p.r.n. basis, Xanax 0.5 mg twice a day. REVIEW OF SYSTEMS: No headache, no rhinitis, on a ventilator, arousable. Not much ET tube secretion . Her right-sided chest tube with air leak. No hemoptysis, no hematemesis, no hematuria, no diarrhe a, no leg swelling reported. PHYSICAL EXAMINATION: GENERAL: Mildly sedated, intubated, tachypneic, tachycardic. VITAL SIGNS: Afebrile. Heart rate is 90. Respiratory rate is 30, blood pressure 97/72, pulse ox 94 % on ventilator with 50% oxygen. HEENT: Moist mucous membranes. Crowded airway. ET tube not much secretion. NECK: Supple. No JVD. LUNGS: Scattered rhonchi and crackles. Has a right-sided chest tube. HEART: S1, S2. ABDOMEN: Soft, nontender. No organomegaly. EXTREMITIES: There is no edema. NEUROLOGIC: Sedated, arousable. LABORATORY DATA: Shows hemoglobin 9.3, hematocrit 29.4, WBC 13.6. Platelets are 229. PTT 77. Bloo d gases shows pH 7.24, pCO2 of 57, O2 of 71. This is on 60% oxygen on ventilator. Sodium 146, potas sium 6.7, chloride 116, bicarbonate 25, BUN 30, creatinine 0.8, glucose 228. Calcium is 6.7, phospho jenifer 4.0, magnesium 1.7. AST 647, ALT 172. Alk phos is 66. Albumin is 2.5. T4 free is 0.69. T4 is 2.4. TSH is 0.33. Pleural fluid with a chest tube was sent. Studies showed WBC 346, RBC 8000, misti trophils 95____. Influenza A and B have been negative. Microbiology: Her urine culture has Pseudomonas aeruginosa. Sputum has E. coli. Stool for C. diff antigen is positive. Pleural fluid culture - so far there is no growth. On admission, blood culture s were negative. Latest chest x-ray shows right-sided chest tube, resolved right pneumothorax, patchy right basilar op acities, bilateral upper lobe interstitial infiltrate - left greater than the right. Had a CAT scan of the head done on 07/22, and it shows limited. No acute finding reported. Also had a CAT scan of the chest done, which shows bilateral pulmonary embolism, right middle lobe an d left lower lobe pulmonary arteries involved multifocal infiltrate. Echocardiogram done on admission shows right ventricular systolic pressure is 51. LV ejection fraction is 50-55. IVC is dilated. Left atrium size is normal. Right atrium is moderat milli dilated. IMPRESSION AND PLAN: Respiratory failure, bilateral pulmonary embolism and with pneumothorax requiri ng chest tube, pulmonary hypertension, probably also has pneumonia, has Escherichia coli in the sputu m. Clostridium difficile antigen also positive, electrolyte imbalance. History of rheumatoid arthri tis, been on methotrexate. The patient is already on broad-spectrum antibiotics covering healthcare- associated organisms. We will keep present vent settings. I spoke to the nursing staff. I also spoke to the respiratory t herapist. Suggested to sedate the patient totally. We will get BNP, procalcitonin in the morning. Most likely, has acute lung injury with a combination of pulmonary embolism and aspiration pneumonia. May need to consider starting the patient on a small dose of dobutamine with pulmonary hypertension . We will order ABG, CBC, CMP, procalcitonin, and BNP in the morning, and we will make further recom mendations. Case discussed also spoke with the patient's son at bedside. All the questions answered . We will follow with you. Robert Hankins MD cc: [phone] TT: 07/27/2016 09:26:45 Confirmation # [id number] Dictation # [id number] karly
[2016-07-27] MEDS: Vancomycin 25 MG/ML PO SCH (10:08)
[2016-07-27] MEDS: Magnesium Oxide 400 mg Tab UD PO SCH (10:08)
--- NOTE | 2016-07-27 10:17 | RAD ---
HISTORY: R chest tube COMPARISON: 07/26/2016 FINDINGS: LUNGS: Increasing infiltrate left upper lobe PLEURA: There is a small recurrent pneumothorax on the right. A chest tube is seen at the right lung base. There is no mediastinal shift. CARDIOVASCULAR: Normal. OSSEOUS STRUCTURES: No significant abnormalities. VISUALIZED UPPER ABDOMEN: Normal. OTHER FINDINGS: No change in position of central lines and tubes IMPRESSION: Small recurrent right-sided pneumothorax. Increasing left upper lobe infiltrate
[2016-07-27 10:20] LABS: ARTERIAL BLOOD GAS PH 7.35 (7.35-7.45)
[2016-07-27] MEDS ORDERED: Propofol 10 mg/ml 1,000 MG/100 ML VIAL ONE (10:20)
[2016-07-27 10:21] LABS: ARTERIAL BLOOD GAS HCO3 23.2 mmol/L (21-28)
[2016-07-27 10:23] LABS: ARTERIAL BLOOD HGB O2 SAT 94.4 % (95.0-98.0); CARBOXYHEMOGLOBIN 1.4 % (0.5-1.5); HHB 3.1 % (0-5)
[2016-07-27] MEDS ORDERED: Propofol 10 mg/ml Inj (20 ML) IVP ONE (10:51)
--- NOTE | 2016-07-27 11:36 | PN ---
DATE: 07/27/2016 REASON FOR CONSULTATION AND FOLLOWUP: Acute pulmonary embolism, positive troponin secondary to PE, p neumothorax, possible tension pneumothorax, spontaneous, on vent, status post chest tube. BRIEF CLINICAL HISTORY: A 61-year-old female with past medical history significant for rheumatoid ar thritis, osteoarthritis, on methotrexate, admitted with syncopal episode at home, found to be PE, pne umonia, extubated, but over the weekend, patient ____ reintubated yesterday for very short of breath. Chest x-ray shows tension pneumothorax, status post chest tube ____ episode, comfortable respirator y status, relatively stable. Also, patient has Clostridium difficile colitis. Son is at the bedside . PHYSICAL EXAMINATION: VITAL SIGNS: Temperature afebrile, heart rate 65, blood pressure 119/79. HEENT: PERRLA. Extraocular muscles intact. NECK: Supple. No carotid bruits. No thyromegaly. CHEST: Clear to auscultation. HEART: S1, S2 regular. ABDOMEN: Soft. EXTREMITIES: Clubbing and cyanosis negative. LABORATORY DATA: Blood workup as follows: WBC 13.6, hemoglobin ____, hematocrit 29.4, platelet coun t 229. Chemistry shows sodium ____, potassium 4.9, chloride ____, carbon dioxide 27, anion gap of 11 , BUN 32, creatinine 0.9. BNP 32,900. Repeat echo done, was changed from previous significantly, di lated RV, RV systolic pressure ____ preserved LV function dated 07/21/2016. RV is severely dilated, t race mitral regurg, moderate tricuspid regurg, right ventricular systolic pressure 51. Status post p neumothorax, status post chest tube. Repeat chest x-ray post-resolving pneumothorax, air bronchogram noted. IMPRESSION: Status post spontaneous pneumothorax, status post chest tube, positive troponin secondar y to pulmonary embolism, right ventricular strain, significantly dilated right ventricle, preserved l eft ventricular function, osteoarthritis and rheumatoid arthritis, on methotrexate at home. As mateo leary, most recent echo shows preserved left ventricular function dated 07/21/2016, low normal ____ 50% -55% ejection fraction, severely dilated right ventricle. RECOMMENDATION: Continue vent management. Continue chest tube. Continue broad-spectrum antibiotic. Continue heparin. Once the patient is extubated, will change to oral anticoagulation, either Couma din or ____ anticoagulation drugs. Will follow with you. In the interim, continue heparin, suppleme nt electrolytes as needed, monitor electrolytes. Plavix was discontinued. No further cardiac interve ntion is planned at this time, is not warranted, but will continue aspirin now. Thank you, Dr. Davis, for providing the opportunity in taking care of the patient. We will follow. We will start some tube feeding because patient is getting protein calorie malnutrition, no w is moderate which was present on admission, but is getting worse. Robert Jackson MD cc: [phone] TT: 07/27/2016 10:55:48 Confirmation # [id number] Dictation # [id number] rn 07/27/2016 10:35:32
[2016-07-27 13:24] LABS: ARTERIAL BLOOD GAS HCO3 25.4 mmol/L (21-28); ARTERIAL BLOOD GAS O2 CAPACITY 13.3 mL/dl (16-24); ARTERIAL BLOOD GAS O2 CONTENT 12.7 ML/dl (15-23); ARTERIAL BLOOD GAS PH 7.37 (7.35-7.45); ARTERIAL BLOOD HGB O2 SAT 92.9 % (95.0-98.0); CARBOXYHEMOGLOBIN 1.7 % (0.5-1.5); HHB 4.5 % (0-5); METHEMOGLOBIN 0.9 % (0.0-3.0)
[2016-07-27] MEDS ORDERED: DOBUTamine 500mg/250ml D5W 500 MG/250 ML BAG IV PRN (14:15)
[2016-07-27] MEDS: Morphine 2 mg/ml ISec IVP PRN (15:49)
[2016-07-27 16:33] LABS: ARTERIAL BLOOD GAS HCO3 14.5 mmol/L (21-28); ARTERIAL BLOOD GAS O2 CAPACITY 9.6 mL/dl (16-24); ARTERIAL BLOOD GAS O2 CONTENT 9.6 ML/dl (15-23); ARTERIAL BLOOD GAS PH 7.37 (7.35-7.45); ARTERIAL BLOOD HGB O2 SAT 98.9 % (95.0-98.0); CARBOXYHEMOGLOBIN 1.4 % (0.5-1.5)
[2016-07-27 16:34] LABS: HHB -0.4 % (0-5)
--- NOTE | 2016-07-27 17:36 | PN ---
DATE: 07/27/2016 The patient seen and examined at bedside. She is following commands. She is a little bit anxious, but otherwise comfortable. She tolerated pressure support 5 /5. She is on Precedex 0.25 mcg per kilogram per minute. The patient just got extubated and doing well on BiPAP 18/6 with FiO2 of 60%. O2 sat varies between 90 and 100. Repeated ABG is pending. ABG before extubation (on pressure support) 7.37/44/66. PHYSICAL EXAMINATION: VITAL SIGNS: Heart rate 68, blood pressure 119/77, respiratory rate 23-33, oxygen saturation varies between 93% and 100%. HEAD AND NECK: Atraumatic. LUNGS: Few crackles bilaterally, decreased breath sounds on the right side. Chest tube present. There is a tidal variation visible and occasional air leak present. HEART: Regular rate and rhythm. S1, S2 distant. ABDOMEN: Soft, nontender, nondistended. MUSCULOSKELETAL: No C/C/E. NEUROLOGIC: The patient moves all extremities spontaneously. SKIN: Moist. PSYCHIATRIC: The patient is alert and awake. LABORATORIES: WBC 17.4, hemoglobin 10.3, platelet count 201. Sodium 149, potassium 4.5, chloride 116, carbon dioxide 26, BUN 31, creatinine 0.7, glucose 194. ProBNP 32,900. MEDICATIONS: Tylenol p.r.n., Percocet p.r.n., DuoNeb every 4, Precedex, dobutamine, doxycycline, fentanyl, heparin drip, regular insulin sliding scale, meropenem, Solu-Medrol 40 mg IV q. 8, midazolam, morphine p.r.n., vancomycin p.o., vancomycin IV. ASSESSMENT AND PLAN: This is a 61-year-old lady with respiratory failure secondary to necrotizing pneumonia (gram-negative rods in sputum), pulmonary embolism with right ventricular failure who actually showed some signs of improvement and was successfully extubated after therapeutic and diagnostic bronchoscopy. The patient was put on BiPAP and currently is on BiPAP 18/6. We will add dobutamine in attempt to improve right ventricular afterload. The patient is on Precedex, which should help with some component of anxiety. We will continue with antibiotics. Bronchoscopy was uncomplicated. We will continue with therapeutic anticoagulation after bronchoscopy. We will continue to target euvolemia, euglycemia, normothermia and oxygen saturation more than 90 %. We will continue with gastrointestinal prophylaxis. ID service followup appreciated. Addendum: increased Precedex to 1.5 and gave extra dose of morphine-->RR down to 18, Vt >500, ph 7.37/25. Patient is very comfortable. ccm time 40 min Dale Cárdenas MD cc: [phone] TT: 07/27/2016 17:35:59 Confirmation # [id number] Dictation # [id number] en MTDD
[2016-07-27] MEDS: Heparin25000 units/250ml 1/2NS 25,000 UNITS/250 ML BAG IV PRN (17:43)
--- NOTE | 2016-07-27 18:29 | CP.PCM.PN ---
Subjective - Date & Time of Evaluation Date of Evaluation: 07/27/16 Time of Evaluation: 10:00 - Subjective Subjective: Still on the ventilator, but may be extubated as per discussion with Dr. Cárdenas. No fevers overnight. Had bronchoscopy this morning. Objective - Vital Signs/Intake and Output Vital Signs (last 24 hours): Temp Pulse Resp BP Pulse Ox 97.1 F L 65 26 H 119/79 95 07/27/16 08:00 07/27/16 08:00 07/27/16 08:00 07/27/16 08:00 07/27/16 08:00 Intake and Output: 07/27/16 07/27/16 06:59 18:59 Intake Total 824 150 Output Total 490 Balance 334 150 - Medications Medications: Current Medications Acetaminophen (Tylenol 650mg/20.3ml Solution Ud) 650 mg PO Q6H PRN PRN Reason: fever Last Admin: 07/25/16 18:08 Dose: 650 mg Albuterol/Ipratropium (Duoneb 3 Mg/0.5 Mg (3 Ml) Ud) 3 ml IH [id number] [facility] Last Admin: 07/27/16 07:28 Dose: 3 ml Alprazolam (Xanax) 0.5 mg PO BID NISHANT PRN Reason: Protocol Last Admin: 07/27/16 10:07 Dose: 0.5 mg Aspirin (Ecotrin) 81 mg PO DAILY [facility] Last Admin: 07/27/16 10:07 Dose: 81 mg Doxycycline Hyclate 100 mg/ (Sodium Chloride) 100 mls @ 100 mls/hr IVPB Q12 NISHANT PRN Reason: Protocol Last Admin: 07/27/16 10:09 Dose: 100 mls/hr Heparin Sodium/Sodium Chloride (Heparin 38355 Units/250ml 1/2 Normal Saline) 25 ,000 units in 250 mls @ 8.655 mls/hr IV .Q24H PRN; Protocol; 18 UNITS/KG/HR PRN Reason: ADJUST RATE PER PROTOCOL Last Titration: 07/27/16 09:06 Dose: 14 units/kg/hr, 6.731 mls/hr Meropenem 1g/NS 100mL IVPB (Meropenem 1g/Ns 100ml Ivpb) 1 g in 100 mls @ 100 mls/hr IVPB Q8 NISHANT PRN Reason: Protocol Stop: 07/30/16 09:16 Last Admin: 07/27/16 05:10 Dose: 100 mls/hr Fentanyl Citrate (Fentanyl Citrate/Sodium Chloride 1 Mg/100 Ml) 1,000 mcg in 100 mls @ 2 mls/hr IV .Q24H PRN; Protocol; 20 MCG/HR PRN Reason: TITRATE PER MD ORDER Last Titration: 07/27/16 02:28 Dose: 80 mcg/hr, 8 mls/hr Dexmedetomidine HCl (Precedex 4 Mcg/Ml (100 Ml)) 400 mcg in 100 mls @ 2.597 mls /hr IV .Q24H PRN; Protocol; 0.2 MCG/KG/HR PRN Reason: Agitation Last Admin: 07/27/16 03:00 Dose: 0.5 mcg/kg/hr, 6.492 mls/hr Vancomycin HCl (Vancomycin 1gm) 1 gm in 250 mls @ 167 mls/hr IVPB Q12H NISHANT PRN Reason: Protocol Last Admin: 07/27/16 08:56 Dose: 167 mls/hr Magnesium Oxide (Mag-Ox) 400 mg PO BID [facility] Last Admin: 07/27/16 10:08 Dose: 400 mg Methylprednisolone (Solu-Medrol) 40 mg IVP Q8 [facility] Last Admin: 07/27/16 05:11 Dose: 40 mg Midazolam HCl (Versed Inj) 2 mg IVP Q2H PRN PRN Reason: Agitation Last Admin: 07/23/16 13:01 Dose: 2 mg Morphine Sulfate (Morphine) 2 mg IVP Q4H PRN PRN Reason: Pain, moderate (4-7) Last Admin: 07/26/16 18:03 Dose: 2 mg Nystatin (Nystatin Oral Susp) 5 ml PO QID [facility] Last Admin: 07/27/16 09:03 Dose: 5 ml Oxycodone/Acetaminophen (Percocet 10/325 Mg Tab) 1 tab PO Q4H PRN PRN Reason: Pain, severe (8-10) Pantoprazole Sodium (Protonix Inj) 40 mg IVP DAILY [facility] Last Admin: 07/27/16 09:03 Dose: 40 mg Vancomycin HCl (Vancocin 25 Mg/Ml (Oral Use)) 125 mg PO QID [facility] PRN Reason: Protocol Last Admin: 07/27/16 10:08 Dose: 125 mg - Labs Labs: 07/27/16 06:50 07/27/16 06:50 PT 12.8 Seconds (9.9-11.8) H 07/25/16 06:00 INR 1.19 (0.93-1.08) H 07/25/16 06:00 APTT 81.5 Seconds (23.7-30.8) H* 07/27/16 08:00 - Constitutional Appears: Non-toxic, No Acute Distress - Head Exam Head Exam: NORMAL INSPECTION - Neck Exam Neck Exam: absent: Lymphadenopathy, Meningismus - Respiratory Exam Respiratory Exam: Decreased Breath Sounds - Cardiovascular Exam Cardiovascular Exam: +S1, +S2 - GI/Abdominal Exam GI & Abdominal Exam: Soft. absent: Tenderness Assessment and Plan - Assessment and Plan (Free Text) Plan: Assessment Severe sepsis with ventilator-dependent respiratory failure due to multifocal healthcare-associated pneumonia with E. coli S/P bronchoscopy Pseudomonas in urine cx Acute pulmonary embolism probable new C. diff. infection history of bilateral upper lobe severe pneumonia with associated systemic viral illness with Influenza, with associated persistent Methicillin-sensitive Staph aureus bacteremia history of C diff associated diarrhea rheumatoid arthritis osteoarthritis history of depression and anxiety history of pneumonia Plan will continue Merrem (day 7) and Doxycycline; as discussed with Dr. Cárdenas, follow up results of bronchoscopy for work up for fungi, mycobacteria continue PO Vancomycin day 4 will continue to monitor clinically
--- NOTE | 2016-07-27 18:37 | PN ---
DATE: 07/27/2016 The patient was seen in the ICU. She has a chest tube that is functioning well. A fair amount of fl uid has been removed, but there is no residual pneumothorax. The plan will be to follow expectantly. While she remains intubated, we will probably leave the ches t tube in. For now, will follow periodically. Please recall as necessary. Ranjeet Case MD cc: [id number] TT: 07/27/2016 18:36:04 Confirmation # [id number] Dictation # [id number] seda
--- NOTE | 2016-07-27 18:40 | PN ---
DATE: 07/27/2016 PULMONARY CRITICAL CARE REFERRING PHYSICIAN: Dr. Davis. SUBJECTIVE: She is just extubated, placed on BiPAP with high pressure, sleepy, arousable, tachypneic , mild cough. No hemoptysis, no emesis, no hematuria, no diarrhea reported, requiring right-sided ch est tube for pneumothorax. OBJECTIVE: GENERAL: Mild to moderate distress. VITAL SIGNS: Temp is 98, heart rate is 68, respiratory rate is 30-35, blood pressure 119/77, pulse o x 93% on noninvasive ventilation. HEENT: Moist mucous membrane. Crowded airway. NECK: Supple, no JVD. LUNGS: Scattered rhonchi. Right-sided chest tube. HEART: S1 and S2. ABDOMEN: Soft, nontender. No organomegaly. EXTREMITIES: There is not much edema. NEUROLOGIC: Sleepy, arousable. MEDICATIONS: She is on doxycycline 100 mg twice a day, DuoNeb q. 6 hours, Ecotrin 81 mg daily, Haldo l 2 mg q. 6 hours p.r.n., heparin weight based protocol, mag oxide 400 mg twice a day, meropenem 1 g IV q. 8 hours, morphine 2 mg IV q. 4 hours p.r.n., nystatin 5 mL q.i.d. affected area, Percocet 12/06 25 one tab q. 4 hours p.r.n., Protonix 40 mg daily, saliva substitute, Solu-Medrol 40 mg q. 8 hours, Tylenol on a p.r.n. basis, vancomycin 125 mg q.i.d., vancomycin 1 g IV q. 12 hours, Versed p.r.n. ba sis, Xanax 0.5 mg twice a day. LABORATORY DATA: Shows hemoglobin 10.3, hematocrit 32.3, WBC 17,000, platelet count is 201. PTT is 82. Blood gases shows pH 7.37, pCO2 of 44, O2 of 66, this is on BiPAP with supplemental oxygen. Sod ium 149, potassium 4.5, chloride 116, bicarbonate 26, BUN 31, creatinine 0.7, glucose 194, calcium is 7.6, phosphorus 3.5, magnesium 1.9. ProBNP 32,900. Influenza A and B have been negative. Microbio logy: Pleural fluid so far there is no growth. Blood culture, repeat on 07/26, there is no growth. There is some yeast in the sputum from 07/25. Chest x-ray done this morning shows a small recurrent r ight-sided pneumothorax, there are bilateral pulmonary infiltrates. IMPRESSION AND PLAN: Respiratory failure, bilateral pulmonary embolism, pneumothorax, bilateral infi ltrate, some of them are cavitating, pulmonary hypertension. She has Escherichia coli in the sputum, electrolyte imbalance, also history of rheumatoid arthritis, history of immunocompromise because of methotrexate use, anxiety disorder. Echocardiogram was suggestive of pulmonary hypertension. Case d iscussed with production zone leader, Dr. Cárdenas in detail. I agree with the present treatment. Bronchoscopy was done before extubation and bronchial washings sent for studies. Suggested to place on dobutamin e, the heart rate is in 60s. She has a high pulmonary pressure with cardiopulmonary compromise at pr esent time. If there is any issue with tachypnea or tachycardia, may discontinue it, but let us try it and see how she does hemodynamically. Continue steroids. Continue antibiotics as per infectious diseases. Keep head elevated at 45 degree. High risk for and going back on ventilator. Follo w up ABG, chest x-ray, CBC, CMP in the morning. Critical care time more than 35 minutes. Thank you and will follow with you. Robert Hankins MD cc: [phone] TT: 07/27/2016 18:39:13 Confirmation # [id number] Dictation # [id number] karly
--- NOTE | 2016-07-27 18:51 | PN ---
DATE: 07/27/2016 The patient presented here with acute respiratory failure and started on IV steroid therapy and was e xtubated today as noted and is now being also followed closely for metabolic management. Her glycemic levels are fluctuating, but improved, and the glucose values have ranged from 194-214 mg /dL. Her latest chemistry showed a BUN of 31, sodium 149, potassium 4.5, chloride 116, CO2 26, gluco se 194 and creatinine 0.7. Her proBNP is 32,900 as noted. Her thyroid studies showed a T4 of 2.4 mc g/dL with a free T4 of 0.69 and a TSH of 0.33. She remains clinically euthyroid at this time. Biochemically, this is consistent with the so-called acute sick euthyroid syndrome with superimposed TSH suppression from the intercurrent IV steroid ther apy as given. This should improve over the next few days as her clinical condition improves accordin gly. No indication at this time for any kind of thyroid pharmacotherapy. We will follow and advise accordingly. Briana Cazares MD cc: [id number] TT: 07/27/2016 18:50:12 Confirmation # [id number] Dictation # [id number] en
[2016-07-27] MEDS: Vancomycin 500 mg (Oral/Rectal USE) PR SCH ×3 (18:54→23:14)
[2016-07-27] MEDS: Saliva Substitute 44.3 ML PO SCH (18:54)
--- NOTE | 2016-07-27 20:01 | BRONCH ---
PROCEDURE DATE: 07/27/2016 PROCEDURE: Bronchoscopy INDICATION: Unresolving necrotizing pneumonia. DESCRIPTION OF PROCEDURE: After obtaining informed the patient received 5 mL of propofol. Bronchoscope was advanced via endotracheal tube that was present prior to procedure. Initial examination of left bronchial tree revealed mild erythema, no significant amount of secretion or pus. No obvious endobronchial lesion. Then bronchoscope was advanced to right bronchial tree, moderate to large amount of mucopurulent secretion was found. No endobronchial lesion. Right bronchial mucosa was somewhat erythematous throughout. Bronchial washings performed, sent for AFB culture, fungal, staining culture. The patient tolerated the procedure well. Dale Cárdenas MD cc: [id number] TT: 07/27/2016 20:00:46 jn BE
--- NOTE | 2016-07-27 23:12 | PN ---
DATE: 07/27/2016 This is the patient's hospital visit in the intensive care unit. For Dr. Viramontes. SUBJECTIVE: The patient is a 61-year-old female now on BiPAP with some labored breathing noted after being intubated and having a bronchoscopy earlier today with the patient now opening eyes to command . She is status post respiratory failure secondary to necrotizing pneumonia, gram-negative rods in t he sputum, pulmonary embolism with pressors needed. She appears in no acute distress at this point. PHYSICAL EXAMINATION: VITAL SIGNS: Temperature was 97.4, pulse 92, respirations 25, blood pressure 123/83 with a pulse ox of 100% on BiPAP. HEENT: Unremarkable. The patient opens eyes to command. NECK: Supple. BiPAP is on. HEART: Tachy rate, regular rhythm. LUNGS: Occasional rhonchi. Right-sided chest tube for pneumothorax. ABDOMEN: Soft, nontender. EXTREMITIES: No edema. SKIN: Warm, dry and clear. NEUROLOGIC: Somnolent but arousable. LABORATORY DATA: The patient's labs were done. White blood cell count 17.4, hemoglobin 10.3, hemato crit 32.3, platelet count of 201,000 with a chem panel showing a sodium of 149, chloride of 116, BUN of 31, creatinine of 0.7, calcium 7.6. B-natriuretic peptide 32,900. Procalcitonin 0.6. The patient's ABG pO2 of 155, pH of 7.3, pCO2 of 25. PTT of 68.8 on heparin. The patient had a chest x-ray done showing small recurrent right-sided pneumothorax, increasing left upper lobe infiltrate. ASSESSMENT: For this patient is that of necrotizing pneumonia, respiratory failure, now extubated, o n BiPAP, pulmonary embolism, right ventricular failure, pneumothorax with chest tube on the right, pu lmonary hypertension, Escherichia coli in sputum, electrolyte abnormalities, rheumatoid arthritis his tory, methotrexate use, anxiety. PLAN: After conversation with Dr. Viramontes, we will continue the present medical regimen, follow the patient clinically and with labs, with heparin to continue in the interim. Prognosis for this patien t is guarded. Chacorta Lea MD cc: [phone] TT: 07/27/2016 23:11:30 Confirmation # [id number] Dictation # [id number] mn
--- NOTE | 2016-07-27 23:17 | PN ---
DATE: 07/27/2016 SUBJECTIVE: The patient remains in intensive care unit. The patient was extubated today. She is currently on BiPAP. Tachypneic, lethargic, but arousable. The patient underwent bronchoscopy this morning. Material was sent for cultures. PHYSICAL EXAMINATION: VITAL SIGNS: The patient is afebrile. Temperature 97.2, blood pressure 123/74 , respiratory rate ranges between 25-30, her pulse is 70, regular, oxygen saturation is 95%. GENERAL: She is lethargic, but arousable and tachypneic. HEENT: Head is normocephalic, atraumatic. NECK: Supple. LUNGS: With decreased breath sounds and coarse crackles bilaterally in lower lungs. There is a chest tube in the right lung. HEART: With regular rhythm, rate of 70 per minute. ABDOMEN: Soft, nontender, nondistended. EXTREMITIES: With no edema. DIAGNOSTIC TESTS: Tests are significant for leukocytosis with WBC 17,000 , hemoglobin 10.3, hematocrit 32.3. Her chemistry improved with persistent hypernatremia 149 this morning, potassium is 4.9 and renal function remains stable with BUN 32 and creatinine 0.8. She has very high BNP at 32,000. Procalcitonin keeps trending down at 0.65. Repeated chest x-ray shows increase of left upper lobe infiltration and small recurrent right-sided pneumothorax without shift. Bronchoscopy report was reviewed. Noticed large amount of mucopurulent secretions in the right bronchus. ASSESSMENT: 1. Respiratory failure with bilateral pneumonia, pulmonary embolism, and tension pneumothorax. History of tension pneumothorax, status post chest tube placement. Clinically with mild improvement. 2. Sepsis with Escherichia coli positive sputum and pseudomonas in urine culture. 3. Chronic interstitial lung changes with suspicious necrotizing lesions in the right lung, status post bronchoscopy. 4. Pulmonary embolism. 5. Clostridium difficile colitis, clinically improved with decreased diarrhea. 6. Anemia of chronic disease with worsening of leukocytosis, possibly reactive. No signs of worsening of infection. PLAN OF TREATMENT: Close monitoring of respiratory status. Continue BiPAP and monitoring oxygen saturation. The patient will be maintained on present IV antibiotics. Will follow sputum cultures obtained during bronchoscopy. Continue monitoring electrolytes and replace and continue IV fluid for now. Mini Davis MD cc: [id number] TT: 07/27/2016 23:16:25 Confirmation # [id number] Dictation # [id number] mn MTDD
[2016-07-28] MEDS: Dexmedetomidine HCl 4mcg/ml 400 MCG/100 ML BOTTLE IV PRN (02:13)
[2016-07-28] MEDS: Morphine 2 mg/ml ISec IVP PRN ×4 (02:18→22:56)
[2016-07-28] MEDS: Albuterol-Ipratrop 3 mg / 0.5 (3 ml) UD IH SCH ×5 (04:45→20:42)
[2016-07-28] MEDS: MethylPREDNISolone 40 mg Vial IVP SCH ×3 (05:16→22:32)
[2016-07-28] MEDS: MEROPENEM IVPB SCH ×3 (05:17→22:31)
[2016-07-28] MEDS: PIGGYBACK IVPB SCH ×3 (05:17→22:31)
[2016-07-28] MEDS: Saliva Substitute 44.3 ML PO SCH ×3 (05:30→21:20)
--- NOTE | 2016-07-28 08:27 | CP.PCM.PN ---
Subjective - Date & Time of Evaluation Date of Evaluation: 07/28/16 Time of Evaluation: 08:23 - Subjective Subjective: General surgery progress note for Johny Gamez PGY1 Patient seen and examined at bedside this morning. No acute overnight events or new complaints. Patient was extubated successfully yesterday. Chest tube examined, 225cc output with air leak. Chest tube to remain in place at this time. Objective - Vital Signs/Intake and Output Vital Signs (last 24 hours): Temp Pulse Resp BP Pulse Ox 97 F L 82 28 H 109/86 80 L 07/28/16 04:00 07/28/16 07:01 07/28/16 07:01 07/28/16 07:00 07/28/16 06:40 Intake and Output: 07/28/16 07/28/16 06:59 18:59 Intake Total 1320 Output Total 400 Balance 920 - Medications Medications: Current Medications Acetaminophen (Tylenol 650mg/20.3ml Solution Ud) 650 mg PO Q6H PRN PRN Reason: fever Last Admin: 07/25/16 18:08 Dose: 650 mg Albuterol/Ipratropium (Duoneb 3 Mg/0.5 Mg (3 Ml) Ud) 3 ml IH [id number] [facility] Last Admin: 07/28/16 07:34 Dose: 3 ml Alprazolam (Xanax) 0.5 mg PO BID NISHANT PRN Reason: Protocol Last Admin: 07/27/16 10:07 Dose: 0.5 mg Aspirin (Ecotrin) 81 mg PO DAILY [facility] Last Admin: 07/27/16 10:07 Dose: 81 mg Haloperidol Lactate (Haldol) 2 mg IVP Q6H PRN; Protocol PRN Reason: Agitation Doxycycline Hyclate 100 mg/ (Sodium Chloride) 100 mls @ 100 mls/hr IVPB Q12 NISHANT PRN Reason: Protocol Last Admin: 07/27/16 22:04 Dose: 100 mls/hr Heparin Sodium/Sodium Chloride (Heparin 91467 Units/250ml 1/2 Normal Saline) 25 ,000 units in 250 mls @ 8.655 mls/hr IV .Q24H PRN; Protocol; 18 UNITS/KG/HR PRN Reason: ADJUST RATE PER PROTOCOL Last Admin: 07/27/16 17:43 Dose: 14 units/kg/hr, 6.731 mls/hr Meropenem 1g/NS 100mL IVPB (Meropenem 1g/Ns 100ml Ivpb) 1 g in 100 mls @ 100 mls/hr IVPB Q8 NISHANT PRN Reason: Protocol Stop: 07/30/16 09:16 Last Admin: 07/28/16 05:17 Dose: 100 mls/hr Fentanyl Citrate (Fentanyl Citrate/Sodium Chloride 1 Mg/100 Ml) 1,000 mcg in 100 mls @ 2 mls/hr IV .Q24H PRN; Protocol; 20 MCG/HR PRN Reason: TITRATE PER MD ORDER Last Titration: 07/27/16 10:00 Dose: 0 mcg/hr, 0 mls/hr Dexmedetomidine HCl (Precedex 4 Mcg/Ml (100 Ml)) 400 mcg in 100 mls @ 2.597 mls /hr IV .Q24H PRN; Protocol; 0.2 MCG/KG/HR PRN Reason: Agitation Last Admin: 07/28/16 02:13 Dose: 0.75 mcg/kg/hr, 9.738 mls/hr Vancomycin HCl (Vancomycin 1gm) 1 gm in 250 mls @ 167 mls/hr IVPB Q12H NISHANT PRN Reason: Protocol Last Admin: 07/27/16 21:35 Dose: 167 mls/hr Dobutamine HCl/Dextrose (Dobutamine/Dextrose 5% 500mg/250ml) 500 mg in 250 mls @ 4.123 mls/hr IV .Q24H PRN; Protocol; 2.5 MCG/KG/MIN PRN Reason: TITRATE PER PROTOCOL Last Admin: 07/27/16 15:01 Dose: 4.123 mls/hr Magnesium Oxide (Mag-Ox) 400 mg PO BID [facility] Last Admin: 07/27/16 10:08 Dose: 400 mg Methylprednisolone (Solu-Medrol) 40 mg IVP Q8 [facility] Last Admin: 07/28/16 05:16 Dose: 40 mg Midazolam HCl (Versed Inj) 2 mg IVP Q2H PRN PRN Reason: Agitation Last Admin: 07/23/16 13:01 Dose: 2 mg Morphine Sulfate (Morphine) 2 mg IVP Q4H PRN PRN Reason: Pain, moderate (4-7) Last Admin: 07/28/16 02:18 Dose: 2 mg Nystatin (Nystatin Oral Susp) 5 ml PO QID [facility] Last Admin: 07/27/16 15:09 Dose: Not Given Oxycodone/Acetaminophen (Percocet 10/325 Mg Tab) 1 tab PO Q4H PRN PRN Reason: Pain, severe (8-10) Last Admin: 07/27/16 21:53 Dose: 1 tab Pantoprazole Sodium (Protonix Inj) 40 mg IVP DAILY [facility] Last Admin: 07/27/16 09:03 Dose: 40 mg Saliva Substitute (Saliva Substitute) 0 ml PO Q8H [facility] Last Admin: 07/27/16 18:54 Dose: Not Given Vancomycin HCl (Vancocin (Oral/Rectal Use)) 500 mg AL QID NISHANT PRN Reason: Protocol Last Admin: 07/27/16 22:00 Dose: Not Given - Labs Labs: 07/27/16 06:50 07/27/16 06:50 PT 12.8 Seconds (9.9-11.8) H 07/25/16 06:00 INR 1.19 (0.93-1.08) H 07/25/16 06:00 APTT 79.4 Seconds (23.7-30.8) H* 07/27/16 23:55 - Head Exam Head Exam: ATRAUMATIC, NORMOCEPHALIC - Eye Exam Eye Exam: EOMI, PERRL - Respiratory Exam Respiratory Exam: Decreased Breath Sounds. absent: Rales, Rhonchi Additional comments: right-sided chest tube in place with air leak - Cardiovascular Exam Cardiovascular Exam: RRR, +S1, +S2. absent: Gallop, Rubs - GI/Abdominal Exam GI & Abdominal Exam: Soft. absent: Distended, Firm, Guarding, Rigid, Tenderness - Extremities Exam Additional comments: no clubbing, cyanosis or edema - Skin Skin Exam: Dry, Intact, Warm Assessment and Plan - Assessment and Plan (Free Text) Plan: 61yo female with history of rheumatoid arthritis, osteoporosis right admitted with bilateral pulmonary embolism and necrotizing pneumonia. Surgery consulted due to tension pneumothorax s/p emergent bedside RCT placement -Patient is s/p right-sided chest tube placement -Chest tube put out 225cc with air-leak. CT to remain in place at this time on suction -Will continue monitor output and make recommendations as necessary -Continue medical management as per ICU team Case discussed with attending, Dr. Manpreet Randolph DO PGY1
--- NOTE | 2016-07-28 10:23 | PN ---
DATE: 07/28/2016 REASON FOR CONSULTATION: Acute pulmonary embolism, positive troponin secondary to PE, tension pneumo thorax, status post chest tube, status post extubated. BRIEF CLINICAL HISTORY: A 61-year-old female with past medical history significant for rheumatoid ar thritis, osteoarthritis, on methotrexate therapy, admitted with a syncopal episode at home while in t bathroom, found to be acute PE, pneumonia, extubated yesterday after being intubated after the fir st intubation, status post tension pneumothorax, status post chest tube, on nonrebreather mask, lying comfortably, denies any chest pain, shortness of breath, any palpitation. PHYSICAL EXAMINATION: VITAL SIGNS: Temperature afebrile, heart rate 77, blood pressure 128/83. HEENT: PERRLA. Extraocular muscles intact. NECK: Supple. No carotid bruits. No thyromegaly. CHEST: Clear to auscultation. HEART: S1, S2 regular. ABDOMEN: Soft. EXTREMITIES: Clubbing and cyanosis negative. LABORATORY DATA: Blood workup as follows: WBC 7.4, hemoglobin , hematocrit 32.3, platelet coun t 201. Chemistry shows sodium 149, potassium 4.5, chloride 116, carbon dioxide 26, anion gap of 12, BUN 31, creatinine 0.7. BNP 32,900. IMPRESSION: Acute pulmonary embolism, pneumonia, respiratory failure, tension pneumothorax, status p ost successfully extubated. The patient had echo done on 07/21/2016, severely dilated right ventricle , trace mitral regurgitation, moderate tricuspid regurgitation, right ventricular systolic pressure 5 1, left ventricular function preserved, ejection fraction 55%, elevated BNP, protein-calorie malnutri tion, moderate to severe, which was present on admission, was moderate. RECOMMENDATION: Increase nutritional support, give Lasix 1 dose, keep on the dry side. Continue ant ibiotic. We will follow with you. Thank you, Dr. Davis, for providing us the opportunity in taking care of the patient. Cont inue anticoagulation. If remains extubated, will start oral anticoagulation. Supplement electrolyte s as needed. We will follow with you. Robert Jackson MD cc: [id number] TT: 07/28/2016 10:22:30 Confirmation # [id number] Dictation # [id number]
[2016-07-28] MEDS: Vancomycin 1gm in NS 250ml 1 GM/250 ML BAG IVPB SCH ×2 (10:27→22:28)
[2016-07-28] MEDS: Vancomycin 500 mg (Oral/Rectal USE) PR SCH (10:37)
--- NOTE | 2016-07-28 10:55 | RAD ---
HISTORY: R chest tube COMPARISON: 07/27/2016 FINDINGS: LUNGS: Left upper lobe infiltrate unchanged PLEURA: The small right-sided pneumothorax has resolved. There is a small amount of subcutaneous emphysema CARDIOVASCULAR: Normal. OSSEOUS STRUCTURES: No significant abnormalities. VISUALIZED UPPER ABDOMEN: Normal. OTHER FINDINGS: None. IMPRESSION: Resolved right-sided pneumothorax
[2016-07-28 11:04] LABS: ARTERIAL BLOOD GAS HCO3 23.7 mmol/L (21-28); ARTERIAL BLOOD GAS PH 7.37 (7.35-7.45)
[2016-07-28 11:51] LABS: ALKALINE PHOSPHATASE 83 U/L (38-133); ALT/SGPT 93 U/L (7-56); AST/SGOT 132 U/L (15-39); BILIRUBIN,TOTAL 0.6 mg/dL (0.2-1.3); BLOOD UREA NITROGEN 30 mg/dL (7-21); CALCIUM 7.8 mg/dL (8.4-10.5); CARBON DIOXIDE 26 mmol/L (21-33); CHLORIDE 118 mmol/L (98-107); GFR AFRICAN-AMERICAN > 60; GLUCOSE,RANDOM 183 mg/dL (70-110); POTASSIUM 3.6 mmol/L (3.6-5.0); SODIUM 149 mmol/L (132-148); TOTAL PROTEIN 5.1 g/dL (5.8-8.3)
[2016-07-28 12:00] LABS: INR 1.19 (0.93-1.08)
[2016-07-28] MEDS ORDERED: Potassium Chloride 20 mEq 40 MEQ/200 ML BAG IVPB ONE (13:52)
--- NOTE | 2016-07-28 15:11 | CP.CCUPN ---
<Faith Murillo - Last Filed: 07/28/16 16:16> CCU Subjective - Physician Review Events Since Last Encounter (Free Text): 07/28/16 15:34 Patient seen and examined this AM. Patient underwent diagnostic bronchoscopy and was extubated yesterday. Patient was respiratorily stable overnight/this AM on BiPAP of 18/6, 50%FiO2, with 25 RR. Patient is verbal, able to answer questions with short phrases and obey commands, has purposeful movements. Patient states that she hurts everywhere but denies any CP, and states that her SOB is present but improved. Denies fevers, chills, N/V, abdominal pain, or any other symptoms. Patient is very eager to resume PO intake. CCU Objective - Vital Signs / Intake & Output Vital Signs (Last 4 hours): Vital Signs Pulse Resp BP Pulse Ox 07/28/16 14:45 79 07/28/16 14:44 82 33 H 07/28/16 14:43 81 23 07/28/16 14:42 78 26 H 07/28/16 14:41 89 24 07/28/16 14:40 82 35 H 07/28/16 14:39 80 28 H 07/28/16 14:38 77 27 H 07/28/16 14:37 80 25 H 07/28/16 14:36 80 31 H 07/28/16 14:35 80 27 H 07/28/16 14:34 87 07/28/16 14:33 85 27 H 07/28/16 14:32 83 27 H 07/28/16 14:31 77 26 H 07/28/16 14:30 80 24 07/28/16 14:29 84 21 07/28/16 14:28 81 26 H 07/28/16 14:27 81 22 07/28/16 14:26 74 22 07/28/16 14:25 77 26 H 07/28/16 14:24 85 24 07/28/16 14:23 85 30 H 07/28/16 14:22 78 26 H 07/28/16 14:21 79 28 H 07/28/16 14:20 75 26 H 07/28/16 14:19 80 28 H 07/28/16 14:18 80 27 H 07/28/16 14:14 92 H 32 H 07/28/16 14:13 88 32 H 07/28/16 14:12 86 39 H 07/28/16 14:11 80 26 H 07/28/16 14:10 87 30 H 07/28/16 14:09 88 24 07/28/16 14:08 80 26 H 07/28/16 14:07 79 24 07/28/16 14:06 83 28 H 07/28/16 14:05 82 25 H 07/28/16 14:04 84 25 H 07/28/16 14:03 89 30 H 07/28/16 14:02 93 H 27 H 07/28/16 14:01 93 H 30 H 07/28/16 14:00 135/91 H 07/28/16 13:59 103 H 18 07/28/16 13:58 78 24 07/28/16 13:57 79 26 H 07/28/16 13:56 81 29 H 07/28/16 13:55 87 26 H 07/28/16 13:54 82 36 H 07/28/16 13:53 81 26 H 07/28/16 13:52 86 23 07/28/16 13:51 81 25 H 07/28/16 13:50 75 23 07/28/16 13:49 76 25 H 07/28/16 13:48 88 27 H 07/28/16 13:47 81 21 07/28/16 13:46 73 24 07/28/16 13:40 89 38 H 97 07/28/16 13:30 74 26 H 97 07/28/16 13:20 70 18 99 07/28/16 13:10 76 20 99 07/28/16 13:00 79 31 H 132/91 H 95 07/28/16 12:50 77 29 H 99 07/28/16 12:40 82 27 H 97 07/28/16 12:30 83 33 H 95 07/28/16 12:20 89 31 H 82 L 07/28/16 12:10 70 23 99 07/28/16 12:00 72 26 H 127/84 95 07/28/16 11:50 79 36 H 79 L 07/28/16 11:40 78 24 77 L 07/28/16 11:30 79 27 H 07/28/16 11:20 78 26 H 83 L Intake and Output (Last 8hrs): Intake & Output 07/28/16 07/28/16 07/28/16 06:59 14:59 22:59 Intake Total 1320 84 100 Output Total 400 1600 Balance 920 84 -1500 Intake: IV 1020 84 Left Upper arm 650 Right Wrist 270 Oral 300 100 Output: Urine 400 1600 Urethral ([place]) 400 1600 Other: Voiding Method Indwelling Catheter # Bowel Movements 0 - Physical Exam Head: Positive for: Atraumatic, Normocephalic Pupils: Positive for: PERRL Extroacular Muscles: Positive for: EOMI Conjunctiva: Positive for: Normal. Negative for: Injected, Icteric Ears: Positive for: Normal Mouth: Positive for: Dry Pharnyx: Positive for: Normal. Negative for: ERYTHEMA Nose (External): Positive for: Atraumatic Neck: Positive for: JVD (notable), Trachea Midline. Negative for: Lymphadenopathy Respiratory/Chest: Positive for: Wheezes (Diffuse mild expiratory wheezes), Rales, Rhonchi (bibasilar), Other (Chest tube insertion site covered in dressing c/d/i, no sign of active bleed. Chest tube with leak). Negative for: Respiratory Distress, Accessory Muscle Use Cardiovascular: Positive for: Regular Rate and Rhythm, Murmurs (2/6 LSB). Negative for: Rub, Gallop Abdomen: Positive for: Normal Bowel Sounds. Negative for: Tenderness, Distention, Peritoneal Signs Genitourinary/Pelvic Exam: Positive for: Other (dumont in place with clear yellow urine) Back: Negative for: Midline Tenderness, Paraspinal Tenderness Upper Extremity: Positive for: Normal Inspection, Capillary Refill < 2s, Other ( Diffuse bruising from blood draws). Negative for: Cyanosis, Edema Lower Extremity: Positive for: Normal Inspection, Capillary Refill < 2 s. Negative for: Edema, CALF TENDERNESS Neurological: Positive for: Speech Normal, Motor Func Grossly Intact. Negative for: GCS=15 (11T) Skin: Positive for: Warm, Dry Psychiatric: Positive for: Alert, Oriented x 3, Anxious - Medications Active Medications: Active Medications Generic Name Dose Route Start Last Admin Trade Name Freq PRN Reason Stop Dose Admin Acetaminophen 650 mg 07/25/16 16:23 07/25/16 18:08 Tylenol 650mg/20.3ml Solution Ud PO 650 mg Q6H PRN Administration fever Albuterol/Ipratropium 3 ml 05/23/17 07:30 07/28/16 11:00 Duoneb 3 Mg/0.5 Mg (3 Ml) Ud IH 3 ml [id number] NISHANT Administration Alprazolam 0.5 mg 07/23/16 18:00 07/27/16 10:07 Xanax PO 0.5 mg BID NISHANT Administration Protocol Aspirin 81 mg 07/22/16 10:00 07/27/16 10:07 Ecotrin PO 81 mg DAILY NISHANT Administration Furosemide 40 mg 07/29/16 10:00 Lasix IV DAILY NISHANT Haloperidol Lactate 2 mg 07/27/16 15:46 07/28/16 14:13 Haldol IVP 2 mg Q6H PRN Administration Agitation Protocol Doxycycline Hyclate 100 mg/ 100 mls @ 100 mls/hr 07/22/16 12:15 07/28/16 09: 06 Sodium Chloride IVPB 100 mls/hr Q12 NISHANT Administration Protocol Heparin Sodium/Sodium Chloride 25,000 units in 250 mls @ 8.655 mls/hr 12:31 07/27/16 17:43 Heparin 14395 Units/250ml 1/2 Normal Saline IV 14 units/kg/hr .Q24H PRN 6.731 mls/hr ADJUST RATE PER PROTOCOL Administration Protocol 18 UNITS/KG/HR Meropenem 1g/NS 100mL IVPB 1 g in 100 mls @ 100 mls/hr 07/23/16 09:15 14:54 Meropenem 1g/Ns 100ml Ivpb IVPB 07/30/16 09:16 100 mls/hr Q8 NISHANT Administration Protocol Fentanyl Citrate 1,000 mcg in 100 mls @ 2 mls/hr 07/24/16 15:07 07/27/16 10: 00 Fentanyl Citrate/Sodium Chloride 1 Mg/100 Ml IV 0 mcg/hr .Q24H PRN 0 mls/hr TITRATE PER MD ORDER Titration Protocol 20 MCG/HR Dexmedetomidine HCl 400 mcg in 100 mls @ 2.597 mls/hr 07/25/16 14:29 10:33 Precedex 4 Mcg/Ml (100 Ml) IV 0.75 mcg/kg/hr .Q24H PRN 9.738 mls/hr Agitation Titration Protocol 0.2 MCG/KG/HR Vancomycin HCl 1 gm in 250 mls @ 167 mls/hr 07/26/16 09:45 07/28/16 10:27 Vancomycin 1gm IVPB 167 mls/hr Q12H NISHANT Administration Protocol Dobutamine HCl/Dextrose 500 mg in 250 mls @ 4.123 mls/hr 07/27/16 14:15 07/27 15:01 Dobutamine/Dextrose 5% 500mg/250ml IV 4.123 mls/hr .Q24H PRN Administration TITRATE PER PROTOCOL Protocol 2.5 MCG/KG/MIN Potassium Chloride 20 meq in 100 mls @ 50 mls/hr 07/28/16 14:00 07/28/16 14: 00 Potassium Chloride 20 Meq/100 Ml IVPB 07/28/16 17:59 50 mls/hr Q2H NISHANT Administration Potassium Chloride 20 meq in 100 mls @ 50 mls/hr 07/28/16 14:15 Potassium Chloride 20 Meq/100 Ml IVPB 07/28/16 18:14 Q2H NISHANT Magnesium Oxide 400 mg 07/23/16 10:00 07/27/16 10:08 Mag-Ox PO 400 mg BID NISHANT Administration Methylprednisolone 40 mg 07/21/16 06:00 07/28/16 14:55 Solu-Medrol IVP 40 mg Q8 NISHANT Administration Midazolam HCl 2 mg 07/21/16 20:43 07/23/16 13:01 Versed Inj IVP 2 mg Q2H PRN Administration Agitation Morphine Sulfate 2 mg 07/22/16 20:52 07/28/16 12:25 Morphine IVP 2 mg Q4H PRN Administration Pain, moderate (4-7) Nystatin 5 ml 07/23/16 14:00 07/27/16 15:09 Nystatin Oral Susp PO Not Given QID [facility] [place] Oxycodone/Acetaminophen 1 tab 07/23/16 11:04 07/27/16 21:53 Percocet 10/325 Mg Tab PO 1 tab Q4H PRN Administration Pain, severe (8-10) Pantoprazole Sodium 40 mg 07/21/16 10:00 07/28/16 10:36 Protonix Inj IVP 40 mg DAILY NISHANT Administration Saliva Substitute 0 ml 07/27/16 13:15 07/28/16 15:10 Saliva Substitute PO Not Given Q8H [facility] [place] Vancomycin HCl 500 mg 07/27/16 18:00 07/28/16 10:37 Vancocin (Oral/Rectal Use) MI 500 mg QID NISHANT Administration Protocol - Patient Studies Lab Studies: Microbiology Studies 07/26/16 10:36 Gram Stain - Final Pleural Fluid Body Fluid Culture - Preliminary NO GROWTH AFTER 2 DAYS Fungal Culture - Preliminary 07/27/16 11:40 Fungal Culture - Preliminary Bronchial Washings 07/26/16 06:30 Blood Culture - Preliminary Blood NO GROWTH AFTER 48 HOURS 07/26/16 06:30 Blood Culture - Preliminary Blood NO GROWTH AFTER 48 HOURS 07/26/16 10:36 Mycobacterial Culture - Preliminary Other: Please Indicate 07/25/16 16:30 Gram Stain - Final Sputum Sputum Culture - Final Yeast Species Lab Studies 07/28/16 07/28/16 07/28/16 Range/Units 11:00 11:00 10:55 PT 12.8 H (9.9-11.8) Seconds INR 1.19 H (0.93-1.08) APTT 79.0 H* (23.7-30.8) Seconds pCO2 41 (35-45) mm/Hg pO2 93.0 (80-100) mm/Hg HCO3 23.7 (21-28) mmol/L ABG pH 7.37 (7.35-7.45) ABG Total CO2 25.0 (22-28) mmol.L ABG O2 Saturation 99.0 H (95-98) % ABG O2 Content (15-23) ML/dl ABG Base Excess -1.5 (-2.0-3.0) mmol/L ABG Hemoglobin (11.7-17.4) g/dL ABG Carboxyhemoglobin (0.5-1.5) % POC ABG HHb (Measured) (0-5) % ABG Methemoglobin (0.0-3.0) % ABG O2 Capacity (16-24) mL/dl ABG Potassium 3.4 L (3.6-5.2) mmol/L Hgb O2 Saturation (95.0-98.0) % Sodium 149 H 149.0 H (132-148) mmol/L Chloride 118 H 124.0 H (98-107) mmol/L Glucose 208 H (65-105) mg/dl Lactate 0.8 (0.7-2.1) mmol/L FiO2 50.0 % Inspiratory BiPAP 18 Potassium 3.6 (3.6-5.0) mmol/L Carbon Dioxide 26 (21-33) mmol/L Anion Gap 9 L (10-20) BUN 30 H (7-21) mg/dL Creatinine 0.6 (0.5-1.4) mg/dL Est GFR ( Amer) > 60 Est GFR (Non-Af Amer) > 60 Random Glucose 183 H (70-110) mg/dL Calcium 7.8 L (8.4-10.5) mg/dL Total Bilirubin 0.6 (0.2-1.3) mg/dL AST 132 H (15-39) U/L ALT 93 H (7-56) U/L Alkaline Phosphatase 83 (38-133) U/L Total Protein 5.1 L (5.8-8.3) g/dL Albumin 2.5 L (3.0-4.8) g/dL Globulin 2.5 gm/dL Albumin/Globulin Ratio 1.0 L (1.1-1.8) Reverse T3 (8-25) ng/dL Arterial Blood Potassium 3.4 L (3.6-5.2) mmol/L Rheumatoid Factor (<14) IU/mL Thyroperoxidase Ab (<9) IU/mL 07/27/16 07/27/16 07/27/16 Range/Units 23:55 16:25 16:00 PT (9.9-11.8) Seconds INR (0.93-1.08) APTT 79.4 H* 68.8 H (23.7-30.8) Seconds pCO2 25 L (35-45) mm/Hg pO2 155.0 H (80-100) mm/Hg HCO3 14.5 L (21-28) mmol/L ABG pH 7.37 (7.35-7.45) ABG Total CO2 15.3 L (22-28) mmol.L ABG O2 Saturation 100.4 H (95-98) % ABG O2 Content 9.6 L (15-23) ML/dl ABG Base Excess -9.8 L (-2.0-3.0) mmol/L ABG Hemoglobin 6.6 L (11.7-17.4) g/dL ABG Carboxyhemoglobin 1.4 (0.5-1.5) % POC ABG HHb (Measured) -0.4 L (0-5) % ABG Methemoglobin 0.0 (0.0-3.0) % ABG O2 Capacity 9.6 L (16-24) mL/dl ABG Potassium (3.6-5.2) mmol/L Hgb O2 Saturation 98.9 H (95.0-98.0) % Sodium (132-148) mmol/L Chloride (98-107) mmol/L Glucose (65-105) mg/dl Lactate (0.7-2.1) mmol/L FiO2 60.0 % Inspiratory BiPAP Potassium (3.6-5.0) mmol/L Carbon Dioxide (21-33) mmol/L Anion Gap (10-20) BUN (7-21) mg/dL Creatinine (0.5-1.4) mg/dL Est GFR ( Amer) Est GFR (Non-Af Amer) Random Glucose (70-110) mg/dL Calcium (8.4-10.5) mg/dL Total Bilirubin (0.2-1.3) mg/dL AST (15-39) U/L ALT (7-56) U/L Alkaline Phosphatase (38-133) U/L Total Protein (5.8-8.3) g/dL Albumin (3.0-4.8) g/dL Globulin gm/dL Albumin/Globulin Ratio (1.1-1.8) Reverse T3 (8-25) ng/dL Arterial Blood Potassium (3.6-5.2) mmol/L Rheumatoid Factor (<14) IU/mL Thyroperoxidase Ab (<9) IU/mL 07/27/16 07/26/16 07/25/16 Range/Units 06:50 05:45 09:50 PT (9.9-11.8) Seconds INR (0.93-1.08) APTT (23.7-30.8) Seconds pCO2 (35-45) mm/Hg pO2 (80-100) mm/Hg HCO3 (21-28) mmol/L ABG pH (7.35-7.45) ABG Total CO2 (22-28) mmol.L ABG O2 Saturation (95-98) % ABG O2 Content (15-23) ML/dl ABG Base Excess (-2.0-3.0) mmol/L ABG Hemoglobin (11.7-17.4) g/dL ABG Carboxyhemoglobin (0.5-1.5) % POC ABG HHb (Measured) (0-5) % ABG Methemoglobin (0.0-3.0) % ABG O2 Capacity (16-24) mL/dl ABG Potassium (3.6-5.2) mmol/L Hgb O2 Saturation (95.0-98.0) % Sodium (132-148) mmol/L Chloride (98-107) mmol/L Glucose (65-105) mg/dl Lactate (0.7-2.1) mmol/L FiO2 % Inspiratory BiPAP Potassium (3.6-5.0) mmol/L Carbon Dioxide (21-33) mmol/L Anion Gap (10-20) BUN (7-21) mg/dL Creatinine (0.5-1.4) mg/dL Est GFR ( Amer) Est GFR (Non-Af Amer) Random Glucose (70-110) mg/dL Calcium (8.4-10.5) mg/dL Total Bilirubin (0.2-1.3) mg/dL AST (15-39) U/L ALT (7-56) U/L Alkaline Phosphatase (38-133) U/L Total Protein (5.8-8.3) g/dL Albumin (3.0-4.8) g/dL Globulin gm/dL Albumin/Globulin Ratio (1.1-1.8) Reverse T3 76 H (8-25) ng/dL Arterial Blood Potassium (3.6-5.2) mmol/L Rheumatoid Factor 116 H (<14) IU/mL Thyroperoxidase Ab <1 (<9) IU/mL Laboratory Results - last 24 hr 07/25/16 07/26/16 07/27/16 09:50 05:45 06:50 PT INR APTT pCO2 pO2 HCO3 ABG pH ABG Total CO2 ABG O2 Saturation ABG O2 Content ABG Base Excess ABG Hemoglobin ABG Carboxyhemoglobin POC ABG HHb (Measured) ABG Methemoglobin ABG O2 Capacity ABG Potassium Hgb O2 Saturation Sodium Chloride Glucose Lactate FiO2 Inspiratory BiPAP Potassium Carbon Dioxide Anion Gap BUN Creatinine Est GFR ( Amer) Est GFR (Non-Af Amer) Random Glucose Calcium Total Bilirubin AST ALT Alkaline Phosphatase Total Protein Albumin Globulin Albumin/Globulin Ratio Reverse T3 76 H Arterial Blood Potassium Rheumatoid Factor 116 H Thyroperoxidase Ab <1 07/27/16 07/27/16 07/27/16 16:00 16:25 23:55 PT INR APTT 68.8 H 79.4 H* pCO2 25 L pO2 155.0 H HCO3 14.5 L ABG pH 7.37 ABG Total CO2 15.3 L ABG O2 Saturation 100.4 H ABG O2 Content 9.6 L ABG Base Excess -9.8 L ABG Hemoglobin 6.6 L ABG Carboxyhemoglobin 1.4 POC ABG HHb (Measured) -0.4 L ABG Methemoglobin 0.0 ABG O2 Capacity 9.6 L ABG Potassium Hgb O2 Saturation 98.9 H Sodium Chloride Glucose Lactate FiO2 60.0 Inspiratory BiPAP Potassium Carbon Dioxide Anion Gap BUN Creatinine Est GFR ( Amer) Est GFR (Non-Af Amer) Random Glucose Calcium Total Bilirubin AST ALT Alkaline Phosphatase Total Protein Albumin Globulin Albumin/Globulin Ratio Reverse T3 Arterial Blood Potassium Rheumatoid Factor Thyroperoxidase Ab 07/28/16 07/28/16 07/28/16 10:55 11:00 11:00 PT 12.8 H INR 1.19 H APTT 79.0 H* pCO2 41 pO2 93.0 HCO3 23.7 ABG pH 7.37 ABG Total CO2 25.0 ABG O2 Saturation 99.0 H ABG O2 Content ABG Base Excess -1.5 ABG Hemoglobin ABG Carboxyhemoglobin POC ABG HHb (Measured) ABG Methemoglobin ABG O2 Capacity ABG Potassium 3.4 L Hgb O2 Saturation Sodium 149.0 H 149 H Chloride 124.0 H 118 H Glucose 208 H Lactate 0.8 FiO2 50.0 Inspiratory BiPAP 18 Potassium 3.6 Carbon Dioxide 26 Anion Gap 9 L BUN 30 H Creatinine 0.6 Est GFR ( Amer) > 60 Est GFR (Non-Af Amer) > 60 Random Glucose 183 H Calcium 7.8 L Total Bilirubin 0.6 AST 132 H ALT 93 H Alkaline Phosphatase 83 Total Protein 5.1 L Albumin 2.5 L Globulin 2.5 Albumin/Globulin Ratio 1.0 L Reverse T3 Arterial Blood Potassium 3.4 L Rheumatoid Factor Thyroperoxidase Ab Review of Systems - Review of Systems All systems: reviewed and no additional remarkable complaints except (as per HPI ) - EENT Eyes: UNREMARKABLE Nose/Mouth/Throat: As Per HPI, Sore Throat - Cardiovascular Cardiovascular: As Per HPI - Respiratory Respiratory: As Per HPI, Cough (non-productive) - Gastrointestinal Gastrointestinal: As Per HPI - Genitourinary Genitourinary: absent: Dysuria, Hematuria - Musculoskeletal Musculoskeletal: UNREMARKABLE - Integumentary Integumentary: UNREMARKABLE - Neurological Neurological: absent: Numbness, Headaches, Tingling - Psychiatric Psychiatric: Anxiety Assessment/Plan - Assessment and Plan (Free Text) Assessment: 61F with respiratory failure 2/2 necrotic PNA, PE, R ventricular cardiac failure who was extubated and underwent a diagnostic bronchoscopy currently on BiPAP with respiratory and hemodynamic stability on dobutamine for cardiac support, heparin drip for anticoagulation, precedex and morphine for agitation. Neuro: AA&Ox3, able to follow commands and verbalize, purposeful movements Continue to monitor Cardio: normocardic, normotensive, RRR, no murmurs Continue to monitor Continue heparin drip for PE's, ASA Cardiology following Pulm: Mild dyspnea with speaking on BiPAP, SaO2 97-100% on 50% fiO2, 18/6 Cxr: persistent small pneumothorax in the right lung, persistent left upper lobe infiltrate Chest tube in place on water seal with small air leak draining sero-sanguinous fluid Continue to monitor Pulmonary following Haldol for agitation/tachypnea Will trial on higflow this afternoon Continue duonebs, furosemide 40IV daily, solumedrol 40 IVP Q8 Continue heparin drip titrated to PTT for PE Continue antibiotics per ID for PNA, Follow up sputum cultures from bronchoscopy yesterday Follow up pulmonology recs GI: No complaints, exam benign NPO pending ability to maintain respiratory stability off the BiPAP C. diff antigen positive on PO vanc and IV flagyl Last BM yesterday Continue to monitor re-evaluate swallow study after off BiPAP Endo: Glucose 183 Target eugylcemia per NICE study Nephro Monitor UOP--goal of a fluid deficit today K 3.6, supplemented with 40mEq KCl IV Continue lasix 40mg IV daily Continue to monitor and supplement PRN ID: WBC pending AFB of pleural fluid negative Most recent blood cultures [id number] No diarrhea today Continue antibiotics per ID's recommendations PPx: heparin drip, SCD's, protonix Dispo: continue ICU admission for respiratory monitoring and treatment and heparin drip. Consult for PICC line with Dr. Blu Vanegas due to poor IV access Discussed and examined with Dr. Meila Murillo, PGY1 <Dale Cárdenas - Last Filed: 07/28/16 17:21> CCU Objective - Vital Signs / Intake & Output Vital Signs (Last 4 hours): Vital Signs Pulse Resp BP Pulse Ox 07/28/16 16:41 79 07/28/16 14:45 79 07/28/16 14:44 82 33 H 07/28/16 14:43 81 23 07/28/16 14:42 78 26 H 07/28/16 14:41 89 24 07/28/16 14:40 82 35 H 07/28/16 14:39 80 28 H 07/28/16 14:38 77 27 H 07/28/16 14:37 80 25 H 07/28/16 14:36 80 31 H 07/28/16 14:35 80 27 H 07/28/16 14:34 87 07/28/16 14:33 85 27 H 07/28/16 14:32 83 27 H 07/28/16 14:31 77 26 H 07/28/16 14:30 80 24 07/28/16 14:29 84 21 07/28/16 14:28 81 26 H 07/28/16 14:27 81 22 07/28/16 14:26 74 22 07/28/16 14:25 77 26 H 07/28/16 14:24 85 24 07/28/16 14:23 85 30 H 07/28/16 14:22 78 26 H 07/28/16 14:21 79 28 H 07/28/16 14:20 75 26 H 07/28/16 14:19 80 28 H 07/28/16 14:18 80 27 H 07/28/16 14:14 92 H 32 H 07/28/16 14:13 88 32 H 07/28/16 14:12 86 39 H 07/28/16 14:11 80 26 H 07/28/16 14:10 87 30 H 07/28/16 14:09 88 24 07/28/16 14:08 80 26 H 07/28/16 14:07 79 24 07/28/16 14:06 83 28 H 07/28/16 14:05 82 25 H 07/28/16 14:04 84 25 H 07/28/16 14:03 89 30 H 07/28/16 14:02 93 H 27 H 07/28/16 14:01 93 H 30 H 07/28/16 14:00 135/91 H 07/28/16 13:59 103 H 18 07/28/16 13:58 78 24 07/28/16 13:57 79 26 H 07/28/16 13:56 81 29 H 07/28/16 13:55 87 26 H 07/28/16 13:54 82 36 H 07/28/16 13:53 81 26 H 07/28/16 13:52 86 23 07/28/16 13:51 81 25 H 07/28/16 13:50 75 23 07/28/16 13:49 76 25 H 07/28/16 13:48 88 27 H 07/28/16 13:47 81 21 07/28/16 13:46 73 24 07/28/16 13:40 89 38 H 97 07/28/16 13:30 74 26 H 97 07/28/16 13:20 70 18 99 Intake and Output (Last 8hrs): Intake & Output 07/28/16 07/28/16 07/28/16 06:59 14:59 22:59 Intake Total 1320 84 100 Output Total 400 1600 Balance 920 84 -1500 Intake: IV 1020 84 Left Upper arm 650 Right Wrist 270 Oral 300 100 Output: Urine 400 1600 Urethral ([place]) 400 1600 Other: Voiding Method Indwelling Catheter # Bowel Movements 0 - Medications Active Medications: Active Medications Generic Name Dose Route Start Last Admin Trade Name Freq PRN Reason Stop Dose Admin Acetaminophen 650 mg 07/25/16 16:23 07/25/16 18:08 Tylenol 650mg/20.3ml Solution Ud PO 650 mg Q6H PRN Administration fever Albuterol/Ipratropium 3 ml 07/26/16 07:30 07/28/16 16:38 Duoneb 3 Mg/0.5 Mg (3 Ml) Ud IH 3 ml [id number] NISHANT Administration Alprazolam 0.5 mg 07/23/16 18:00 07/27/16 10:07 Xanax PO 0.5 mg BID NISHANT Administration Protocol Aspirin 81 mg 07/22/16 10:00 07/27/16 10:07 Ecotrin PO 81 mg DAILY NISHANT Administration Furosemide 40 mg 07/29/16 10:00 Lasix IV DAILY NISHANT Haloperidol Lactate 2 mg 07/27/16 15:46 07/28/16 14:13 Haldol IVP 2 mg Q6H PRN Administration Agitation Protocol Doxycycline Hyclate 100 mg/ 100 mls @ 100 mls/hr 07/22/16 12:15 07/28/16 09: 06 Sodium Chloride IVPB 100 mls/hr Q12 NISHANT Administration Protocol Heparin Sodium/Sodium Chloride 25,000 units in 250 mls @ 8.655 mls/hr 12:31 07/27/16 17:43 Heparin 50101 Units/250ml 1/2 Normal Saline IV 14 units/kg/hr .Q24H PRN 6.731 mls/hr ADJUST RATE PER PROTOCOL Administration Protocol 18 UNITS/KG/HR Meropenem 1g/NS 100mL IVPB 1 g in 100 mls @ 100 mls/hr 07/23/16 09:15 14:54 Meropenem 1g/Ns 100ml Ivpb IVPB 07/30/16 09:16 100 mls/hr Q8 NISHANT Administration Protocol Fentanyl Citrate 1,000 mcg in 100 mls @ 2 mls/hr 07/24/16 15:07 07/27/16 10: 00 Fentanyl Citrate/Sodium Chloride 1 Mg/100 Ml IV 0 mcg/hr .Q24H PRN 0 mls/hr TITRATE PER MD ORDER Titration Protocol 20 MCG/HR Dexmedetomidine HCl 400 mcg in 100 mls @ 2.597 mls/hr 07/25/16 14:29 10:33 Precedex 4 Mcg/Ml (100 Ml) IV 0.75 mcg/kg/hr .Q24H PRN 9.738 mls/hr Agitation Titration Protocol 0.2 MCG/KG/HR Vancomycin HCl 1 gm in 250 mls @ 167 mls/hr 07/26/16 09:45 07/28/16 10:27 Vancomycin 1gm IVPB 167 mls/hr Q12H NISHANT Administration Protocol Dobutamine HCl/Dextrose 500 mg in 250 mls @ 4.123 mls/hr 07/27/16 14:15 07/27 15:01 Dobutamine/Dextrose 5% 500mg/250ml IV 4.123 mls/hr .Q24H PRN Administration TITRATE PER PROTOCOL Protocol 2.5 MCG/KG/MIN Potassium Chloride 20 meq in 100 mls @ 50 mls/hr 07/28/16 14:00 07/28/16 14: 00 Potassium Chloride 20 Meq/100 Ml IVPB 07/28/16 17:59 50 mls/hr Q2H NISHANT Administration Potassium Chloride 20 meq in 100 mls @ 50 mls/hr 07/28/16 14:15 Potassium Chloride 20 Meq/100 Ml IVPB 07/28/16 18:14 Q2H NISHANT Magnesium Oxide 400 mg 07/23/16 10:00 07/27/16 10:08 Mag-Ox PO 400 mg BID NISHANT Administration Methylprednisolone 40 mg 07/21/16 06:00 07/28/16 14:55 Solu-Medrol IVP 40 mg Q8 NISHANT Administration Midazolam HCl 2 mg 07/21/16 20:43 07/23/16 13:01 Versed Inj IVP 2 mg Q2H PRN Administration Agitation Morphine Sulfate 2 mg 07/22/16 20:52 07/28/16 12:25 Morphine IVP 2 mg Q4H PRN Administration Pain, moderate (4-7) Nystatin 5 ml 07/23/16 14:00 07/27/16 15:09 Nystatin Oral Susp PO Not Given QID [facility] [place] Oxycodone/Acetaminophen 1 tab 07/23/16 11:04 07/27/16 21:53 Percocet 10/325 Mg Tab PO 1 tab Q4H PRN Administration Pain, severe (8-10) Pantoprazole Sodium 40 mg 07/21/16 10:00 07/28/16 10:36 Protonix Inj IVP 40 mg DAILY NISHANT Administration Saliva Substitute 0 ml 07/27/16 13:15 07/28/16 15:10 Saliva Substitute PO Not Given Q8H [facility] [place] Vancomycin HCl 500 mg 07/27/16 18:00 07/28/16 10:37 Vancocin (Oral/Rectal Use) MI 500 mg QID NISHANT Administration Protocol - Patient Studies Lab Studies: Microbiology Studies 07/27/16 11:40 Mycobacterial Culture - Preliminary Other: Please Indicate 07/26/16 10:36 Gram Stain - Final Pleural Fluid Body Fluid Culture - Preliminary NO GROWTH AFTER 2 DAYS Fungal Culture - Preliminary 07/27/16 11:40 Fungal Culture - Preliminary Bronchial Washings 07/26/16 06:30 Blood Culture - Preliminary Blood NO GROWTH AFTER 48 HOURS 07/26/16 06:30 Blood Culture - Preliminary Blood NO GROWTH AFTER 48 HOURS 07/26/16 10:36 Mycobacterial Culture - Preliminary Other: Please Indicate Lab Studies 07/28/16 07/28/16 07/28/16 Range/Units 15:35 11:00 11:00 WBC 20.1 H (4.5-11.0) 10^3/ul RBC 3.45 L (3.5-6.1) 10^6/uL Hgb 10.0 L (12.0-16.0) gm/dL Hct 31.2 L (36.0-48.0) % MCV 90.4 (80.0-105.0) fL MCH 29.0 (25.0-35.0) pg MCHC 32.1 (31.0-37.0) g/dl RDW 16.2 H (11.5-14.5) % Plt Count 203 (120.0-450.0) 10^3/uL MPV 11.3 H (7.0-11.0) fl Gran % 97.1 H (50.0-68.0) % Lymph % (Auto) 1.4 L (22.0-35.0) % [place] % (Auto) 1.2 (1.0-6.0) % Eos % (Auto) 0.0 L (1.5-5.0) % Baso % (Auto) 0.3 (0.0-3.0) % Gran # 19.55 H (1.4-6.5) Lymph # 0.3 L (1.2-3.4) [place] # 0.2 (0.1-0.6) Eos # 0.0 (0.0-0.7) Baso # 0.06 (0.0-2.0) K/mm3 PT (9.9-11.8) Seconds INR (0.93-1.08) APTT (23.7-30.8) Seconds pCO2 (35-45) mm/Hg pO2 (80-100) mm/Hg HCO3 (21-28) mmol/L ABG pH (7.35-7.45) ABG Total CO2 (22-28) mmol.L ABG O2 Saturation (95-98) % ABG Base Excess (-2.0-3.0) mmol/L ABG Potassium (3.6-5.2) mmol/L Sodium 149 H (132-148) mmol/L Chloride 118 H (98-107) mmol/L Glucose (65-105) mg/dl Lactate (0.7-2.1) mmol/L FiO2 % Inspiratory BiPAP Potassium 3.6 (3.6-5.0) mmol/L Carbon Dioxide 26 (21-33) mmol/L Anion Gap 9 L (10-20) BUN 30 H (7-21) mg/dL Creatinine 0.6 (0.5-1.4) mg/dL Est GFR ( Amer) > 60 Est GFR (Non-Af Amer) > 60 Random Glucose 183 H (70-110) mg/dL Calcium 7.8 L (8.4-10.5) mg/dL Phosphorus 3.2 (2.5-4.5) mg/dL Magnesium 2.0 (1.7-2.2) mg/dL Total Bilirubin 0.6 (0.2-1.3) mg/dL AST 132 H (15-39) U/L ALT 93 H (7-56) U/L Alkaline Phosphatase 83 (38-133) U/L Total Protein 5.1 L (5.8-8.3) g/dL Albumin 2.5 L (3.0-4.8) g/dL Globulin 2.5 gm/dL Albumin/Globulin Ratio 1.0 L (1.1-1.8) Reverse T3 (8-25) ng/dL Thyroid Stim Immunoglob (<140) % baseline Arterial Blood Potassium (3.6-5.2) mmol/L Rheumatoid Factor (<14) IU/mL 07/28/16 07/28/16 07/27/16 Range/Units 11:00 10:55 23:55 WBC (4.5-11.0) 10^3/ul RBC (3.5-6.1) 10^6/uL Hgb (12.0-16.0) gm/dL Hct (36.0-48.0) % MCV (80.0-105.0) fL MCH (25.0-35.0) pg MCHC (31.0-37.0) g/dl RDW (11.5-14.5) % Plt Count (120.0-450.0) 10^3/uL MPV (7.0-11.0) fl Gran % (50.0-68.0) % Lymph % (Auto) (22.0-35.0) % [place] % (Auto) (1.0-6.0) % Eos % (Auto) (1.5-5.0) % Baso % (Auto) (0.0-3.0) % Gran # (1.4-6.5) Lymph # (1.2-3.4) [place] # (0.1-0.6) Eos # (0.0-0.7) Baso # (0.0-2.0) K/mm3 PT 12.8 H (9.9-11.8) Seconds INR 1.19 H (0.93-1.08) APTT 79.0 H* 79.4 H* (23.7-30.8) Seconds pCO2 41 (35-45) mm/Hg pO2 93.0 (80-100) mm/Hg HCO3 23.7 (21-28) mmol/L ABG pH 7.37 (7.35-7.45) ABG Total CO2 25.0 (22-28) mmol.L ABG O2 Saturation 99.0 H (95-98) % ABG Base Excess -1.5 (-2.0-3.0) mmol/L ABG Potassium 3.4 L (3.6-5.2) mmol/L Sodium 149.0 H (132-148) mmol/L Chloride 124.0 H (98-107) mmol/L Glucose 208 H (65-105) mg/dl Lactate 0.8 (0.7-2.1) mmol/L FiO2 50.0 % Inspiratory BiPAP 18 Potassium (3.6-5.0) mmol/L Carbon Dioxide (21-33) mmol/L Anion Gap (10-20) BUN (7-21) mg/dL Creatinine (0.5-1.4) mg/dL Est GFR ( Amer) Est GFR (Non-Af Amer) Random Glucose (70-110) mg/dL Calcium (8.4-10.5) mg/dL Phosphorus (2.5-4.5) mg/dL Magnesium (1.7-2.2) mg/dL Total Bilirubin (0.2-1.3) mg/dL AST (15-39) U/L ALT (7-56) U/L Alkaline Phosphatase (38-133) U/L Total Protein (5.8-8.3) g/dL Albumin (3.0-4.8) g/dL Globulin gm/dL Albumin/Globulin Ratio (1.1-1.8) Reverse T3 (8-25) ng/dL Thyroid Stim Immunoglob (<140) % baseline Arterial Blood Potassium 3.4 L (3.6-5.2) mmol/L Rheumatoid Factor (<14) IU/mL 07/27/16 07/26/16 07/25/16 Range/Units 06:50 05:45 09:50 WBC (4.5-11.0) 10^3/ul RBC (3.5-6.1) 10^6/uL Hgb (12.0-16.0) gm/dL Hct (36.0-48.0) % MCV (80.0-105.0) fL MCH (25.0-35.0) pg MCHC (31.0-37.0) g/dl RDW (11.5-14.5) % Plt Count (120.0-450.0) 10^3/uL MPV (7.0-11.0) fl Gran % (50.0-68.0) % Lymph % (Auto) (22.0-35.0) % [place] % (Auto) (1.0-6.0) % Eos % (Auto) (1.5-5.0) % Baso % (Auto) (0.0-3.0) % Gran # (1.4-6.5) Lymph # (1.2-3.4) [place] # (0.1-0.6) Eos # (0.0-0.7) Baso # (0.0-2.0) K/mm3 PT (9.9-11.8) Seconds INR (0.93-1.08) APTT (23.7-30.8) Seconds pCO2 (35-45) mm/Hg pO2 (80-100) mm/Hg HCO3 (21-28) mmol/L ABG pH (7.35-7.45) ABG Total CO2 (22-28) mmol.L ABG O2 Saturation (95-98) % ABG Base Excess (-2.0-3.0) mmol/L ABG Potassium (3.6-5.2) mmol/L Sodium (132-148) mmol/L Chloride (98-107) mmol/L Glucose (65-105) mg/dl Lactate (0.7-2.1) mmol/L FiO2 % Inspiratory BiPAP Potassium (3.6-5.0) mmol/L Carbon Dioxide (21-33) mmol/L Anion Gap (10-20) BUN (7-21) mg/dL Creatinine (0.5-1.4) mg/dL Est GFR ( Amer) Est GFR (Non-Af Amer) Random Glucose (70-110) mg/dL Calcium (8.4-10.5) mg/dL Phosphorus (2.5-4.5) mg/dL Magnesium (1.7-2.2) mg/dL Total Bilirubin (0.2-1.3) mg/dL AST (15-39) U/L ALT (7-56) U/L Alkaline Phosphatase (38-133) U/L Total Protein (5.8-8.3) g/dL Albumin (3.0-4.8) g/dL Globulin gm/dL Albumin/Globulin Ratio (1.1-1.8) Reverse T3 76 H (8-25) ng/dL Thyroid Stim Immunoglob <89 (<140) % baseline Arterial Blood Potassium (3.6-5.2) mmol/L Rheumatoid Factor 116 H (<14) IU/mL Laboratory Results - last 24 hr 07/25/16 07/26/16 07/27/16 09:50 05:45 06:50 WBC RBC Hgb Hct MCV MCH MCHC RDW Plt Count MPV Gran % Lymph % (Auto) [place] % (Auto) Eos % (Auto) Baso % (Auto) Gran # Lymph # [place] # Eos # Baso # PT INR APTT pCO2 pO2 HCO3 ABG pH ABG Total CO2 ABG O2 Saturation ABG Base Excess ABG Potassium Sodium Chloride Glucose Lactate FiO2 Inspiratory BiPAP Potassium Carbon Dioxide Anion Gap BUN Creatinine Est GFR ( Amer) Est GFR (Non-Af Amer) Random Glucose Calcium Phosphorus Magnesium Total Bilirubin AST ALT Alkaline Phosphatase Total Protein Albumin Globulin Albumin/Globulin Ratio Reverse T3 76 H Thyroid Stim Immunoglob <89 Arterial Blood Potassium Rheumatoid Factor 116 H 07/27/16 07/28/16 07/28/16 23:55 10:55 11:00 WBC RBC Hgb Hct MCV MCH MCHC RDW Plt Count MPV Gran % Lymph % (Auto) [place] % (Auto) Eos % (Auto) Baso % (Auto) Gran # Lymph # [place] # Eos # Baso # PT 12.8 H INR 1.19 H APTT 79.4 H* 79.0 H* pCO2 41 pO2 93.0 HCO3 23.7 ABG pH 7.37 ABG Total CO2 25.0 ABG O2 Saturation 99.0 H ABG Base Excess -1.5 ABG Potassium 3.4 L Sodium 149.0 H Chloride 124.0 H Glucose 208 H Lactate 0.8 FiO2 50.0 Inspiratory BiPAP 18 Potassium Carbon Dioxide Anion Gap BUN Creatinine Est GFR ( Amer) Est GFR (Non-Af Amer) Random Glucose Calcium Phosphorus Magnesium Total Bilirubin AST ALT Alkaline Phosphatase Total Protein Albumin Globulin Albumin/Globulin Ratio Reverse T3 Thyroid Stim Immunoglob Arterial Blood Potassium 3.4 L Rheumatoid Factor 07/28/16 07/28/16 07/28/16 11:00 11:00 15:35 WBC 20.1 H RBC 3.45 L Hgb 10.0 L Hct 31.2 L MCV 90.4 MCH 29.0 MCHC 32.1 RDW 16.2 H Plt Count 203 MPV 11.3 H Gran % 97.1 H Lymph % (Auto) 1.4 L [place] % (Auto) 1.2 Eos % (Auto) 0.0 L Baso % (Auto) 0.3 Gran # 19.55 H Lymph # 0.3 L [place] # 0.2 Eos # 0.0 Baso # 0.06 PT INR APTT pCO2 pO2 HCO3 ABG pH ABG Total CO2 ABG O2 Saturation ABG Base Excess ABG Potassium Sodium 149 H Chloride 118 H Glucose Lactate FiO2 Inspiratory BiPAP Potassium 3.6 Carbon Dioxide 26 Anion Gap 9 L BUN 30 H Creatinine 0.6 Est GFR ( Amer) > 60 Est GFR (Non-Af Amer) > 60 Random Glucose 183 H Calcium 7.8 L Phosphorus 3.2 Magnesium 2.0 Total Bilirubin 0.6 AST 132 H ALT 93 H Alkaline Phosphatase 83 Total Protein 5.1 L Albumin 2.5 L Globulin 2.5 Albumin/Globulin Ratio 1.0 L Reverse T3 Thyroid Stim Immunoglob Arterial Blood Potassium Rheumatoid Factor Critical Care Progress Note - Nutrition Nutrition: Nutrition Category Date Time Status NPO Diet [DIET] Diets 07/28/16 Dinner Ordered Addendum Addendum: 07/28/16 17:16 patient was seen, examined and discussed with Dr. Murillo. Her note reflects my exam, assessment and plan, except as below. Meds/Labs/ONE reviewed 61 yo with PE/RV failure, GNR pneumonia, extubated to BPAP yesterday, did well overnight. Will taper off NIPPV, utilizing high flow02. If successfull will proceed with speech and swallow eval and oral nutrition, otherwise will consider NGT and enteral nutrition. Still airleak present. Tube on suction. abx , conservative fluid management, TAC (will get hem to switch to RALF if passed speech and swallow eval), steroids. ccm time 40 min
[2016-07-28 15:49] LABS: ADD MANUAL DIFF? NO
[2016-07-28 15:56] LABS: BASO # 0.06 K/mm3 (0.0-2.0); BASO % 0.3 % (0.0-3.0); GRAN # 19.55 (1.4-6.5); GRAN % 97.1 % (50.0-68.0); HEMATOCRIT 31.2 % (36.0-48.0); LYMPH # 0.3 (1.2-3.4); LYMPH % 1.4 % (22.0-35.0); MEAN CELL VOLUME 90.4 fL (80.0-105.0); MEAN CORPUSCULAR HGB CONC 32.1 g/dl (31.0-37.0); MEAN PLATELET VOLUME 11.3 fl (7.0-11.0); MONO # 0.2 (0.1-0.6); MONO % 1.2 % (1.0-6.0); PLATELET COUNT 203 10^3/uL (120.0-450.0); RED CELL DISTRIBUTION WIDTH 16.2 % (11.5-14.5); WHITE BLOOD COUNT 20.1 10^3/ul (4.5-11.0)
[2016-07-28 16:12] LABS: PHOSPHOROUS 3.2 mg/dL (2.5-4.5)
[2016-07-28] MEDS ORDERED: Bisacodyl 5mg EC Tab PO ONE (16:26)
--- NOTE | 2016-07-28 16:31 | RAD ---
HISTORY: Subcutaneous crepetus COMPARISON: 07/28/2016 earlier FINDINGS: LUNGS: There is no change in the position of the chest tube at the right lung base. There is no change in the amount of subcutaneous air along the right chest wall in the right supraclavicular fossa. No pneumothorax PLEURA: No significant pleural effusion identified, no pneumothorax apparent. CARDIOVASCULAR: Normal. OSSEOUS STRUCTURES: No significant abnormalities. VISUALIZED UPPER ABDOMEN: Normal. OTHER FINDINGS: None. IMPRESSION: There is no change in the position of the chest tube at the right lung base. There is no change in the amount of subcutaneous air along the right chest wall in the right supraclavicular fossa. No pneumothorax
[2016-07-28 16:51] LABS: TSI <89 % baseline (<140)
--- NOTE | 2016-07-28 17:07 | PN ---
DATE: 07/28/2016 LOCATION: In CCU 129 room 4. HISTORY OF PRESENT ILLNESS: This is a 61-year-old female with acute exacerbation of COPD and superve tricia congestive heart failure, and is now being followed closely for metabolic management. She also has intercurrent IV steroid therapy as noted. LABORATORY DATA: She remains clinically euthyroid and the latest chemistries showed a BUN of 30, sod ium 149, potassium 3.6, chloride 118, CO2 26, glucose 183, and creatinine 0.6. Her latest thyroid st udy showed a T4 of 2.4 mcg/dL with a TSH of 0.33 and a free T4 of 0.69. ASSESSMENT AND PLAN: So, at this time, we will continue the present medical therapy and hold off on any kind of thyroid pharmacotherapy. We are dealing with a so-called acute sick euthyroid syndrome w ith superimposed TSH suppression from the intercurrent IV steroid therapy as given, and also, with un derlying hypoalbuminemia, would expect low normal thyroxine values with a low TBG, or thyroxine elgin ng globulin. Will obtain serial thyroid studies and observe her clinical and biochemical response th ereof. Will follow. Briana Cazares MD cc: [phone] TT: 07/28/2016 17:06:17 Confirmation # [id number] Dictation # [id number] dn
[2016-07-28 18:40] LABS: LDH PLEURAL FLUID 28 U/L
--- NOTE | 2016-07-28 21:03 | PN ---
DATE: 07/28/2016 The patient remains in intensive care unit. She is extubated on BiPAP with 50% oxygen with O2 saturation at 95%. The patient is showing small improvement of her medical condition. She is very lethargic and slightly sedated due to anxiety. She is NPO, swallow evaluation showed high risk for aspiration. She has NGT feeding. PHYSICAL EXAMINATION: VITAL SIGNS: Temperature 97.4. Her pulse is 81 per minute. Her blood pressure is 118/82. Respiratory rate 33. GENERAL: She is lethargic, but arousable, pale, malnourished looking. HEENT: Oral mucosa is dry. NECK: Supple. LUNGS: With decreased breath sounds bilaterally, small crackles in the base, the right side chest tube is intact. HEART: Regular rhythm and rate. ABDOMEN: Soft, nontender, nondistended. EXTREMITIES: With no edema. DIAGNOSTIC STUDIES: Significant for leukocytosis with WBC this morning 20,000. Her hemoglobin is stable at 10, hematocrit 31.2, platelet count 203. Chemistry with hypernatremia, sodium at 149, her potassium is 3.6. Her renal function is stable with BUN 30 and creatinine 0.6. Her cultures from bronchoscopy preliminary are negative. Her followup chest x-rays are consistent with persistent left upper lobe infiltration, negative for pneumothorax. ASSESSMENT: 1. Respiratory failure with pneumonia, pulmonary embolism, and pneumothorax with the patient extubated with mild improvement of respiratory status. 2. History of sepsis with Escherichia coli in sputum and pseudomonas in urine. 3. Persistent leukocytosis. 4. Chronic interstitial lung changes, possibility of necrotizing lesion with so far negative bronchoscopy cultures. 5. Pulmonary embolism. 6. Clostridium difficile colitis with improved bowel movements and subsiding diarrhea. 7. Anemia of chronic disease. PLAN OF TREATMENT: Continue respiratory treatment with oxygen and BiPAP, monitoring closely oxygen saturation. The patient will be maintained on present IV antibiotic coverage, followup of all cultures. Will keep n.p.o. for now due to risk of aspiration as per speech therapist recommendation. Mini Davis MD cc: [phone] TT: 07/28/2016 21:03:02 Confirmation # [id number] Dictation # [id number] LR
--- NOTE | 2016-07-28 21:16 | PN ---
DATE: 07/28/2016 REFERRING PHYSICIAN: Dr. Davis. SUBJECTIVE: She is on high flow oxygen, sitting up in bed, very anxious. Needs sedatives. Not much p.o. intake. Has some cough. Still has right-sided chest tube with air leak, subcutaneous right em physema. No abdominal pain. No nausea. No leg pain or leg swelling. OBJECTIVE: GENERAL: No acute distress. VITAL SIGNS: Temperature is 98, heart rate is 80, respiratory rate is 25, blood pressure 115/76. HEENT: Moist mucous membranes. Crowded airway. NECK: Supple, no JVD. LUNGS: Scattered rhonchi. Has right-sided chest tube, subcutaneous emphysema. HEART: S1 and S2. ABDOMEN: Soft, nontender. No organomegaly. EXTREMITIES: Not much edema. NEUROLOGIC: Awake, alert, follows simple commands. MEDICATIONS: She is on dobutamine, doxycycline 100 mg twice a day, DuoNeb q. 6 hours, Ecotrin 81 mg daily, Haldol 2 mg IV q. 6 hours p.r.n., IV heparin weight based protocol, Lasix 40 mg IV daily, magn esium oxide 400 mg twice a day, meropenem 1 g IV q. 8 hours, morphine 2 mg q. 4 hours p.r.n., oxycodo ne 10/325 one tab q. 4 hours p.r.n., Precedex was discontinued, Protonix 40 mg daily, saliva substitu te to mouth, Solu-Medrol 40 mg q. 8 hours, Tylenol on a p.r.n. basis, vancomycin 500 mg q. 8 hours, a lso vancomycin IV 1 gram q. 12 hours, Xanax 0.5 mg twice a day. LABORATORY DATA: Shows hemoglobin 10.0, hematocrit 31.2, WBC 20, platelet 203. PTT 62. Blood gases today shows pH 7.37, pCO2 of 41, pO2 93. This is on supplemental high flow oxygen. Sodium 149, pot assium 3.6, chloride 118, bicarbonate 26, BUN 30, creatinine 0.6, glucose 183, calcium is 7.8, phosph orus 3.2, magnesium 2.0. AST 132, ALT 93, alkaline phos is 83, albumin 2.5. Chest x-ray done today shows chest tube is at the right lung, still has subcutaneous air. No pneumothorax now. IMPRESSION AND PLAN: Respiratory failure, has bilateral pulmonary embolisms, pneumothorax, wearing c hest tube, bilateral pulmonary infiltrates, some of it is cavitating, pulmonary hypertension, Escheri sandy coli in the sputum, rheumatoid arthritis, has been on immunosuppressive, she was on methotrexate , anxiety disorder, pulmonary hypertension. Case discussed with nursing staff, also spoke to intensi vist, Dr. Cárdenas, in detail. Recommended to place a Dobbhoff for feeding tube through nose. May p lace her on continuous feeding. My recommendation at this point about chest tube will be to disconti nue it. If she develops pneumothorax, will place a new chest tube. This tube causing more leak in t he subcutaneous level . Continue antibiotics, anticoagulation, gastric prophylaxis. Follow up ABG, chest x-ray, CBC, CMP in the morning. Critical care time more than 35 minutes. Will follow with you. Robert Hankins MD cc: [phone] TT: 07/28/2016 21:15:07 Confirmation # [id number] Dictation # [id number] seda
--- NOTE | 2016-07-28 21:58 | PN ---
DATE: 07/28/[address] Viramontes. SUBJECTIVE: The patient is a 61-year-old female seen lying awake with son at the bedside with oxygen on and NG tube in situ with the patient now post-extubation after intubation for respiratory failure secondary to necrotizing pneumonia with chest tube still on the right for pneumothorax with history of bilateral pulmonary emboli affecting the right lower lobe, right middle lobe and left upper lobe a rteries, multifocal infiltrates from a CT angiogram done on 07/22/2016 on heparin and now speaking in short sentences with son at the bedside requesting liquids which will be begun once Dr. Cárdenas and consultants believe she is able to swallow without aspiration. She is otherwise in no acute distress , denying any pain. OBJECTIVE: VITAL SIGNS: Temperature is 97.7, pulse 80, respirations 23, blood pressure is 107/67 with a pulse o x of 94%. The patient had a chest x-ray done earlier today, is not read yet; however, earlier chest x-ray done today was read as no change in the position of the chest tube on the right lung base. No change in t he amount of subcutaneous air along the right chest wall in the right supraclavicular fossa. No pneu mothorax. PHYSICAL EXAMINATION: HEENT: Unremarkable with NG tube in situ. NECK: Supple. HEART: Tachy rate, regular rhythm. LUNGS: Decreased breath sounds on the right. Occasional rhonchi in the left. ABDOMEN: Soft. EXTREMITIES: No edema. SKIN: Warm, dry. NEUROLOGIC: Awake and alert. The patient's labs showed white blood cell count of 20.1, hemoglobin 10.0, hematocrit 31.2, platelet count of 203,000. A chem metabolic panel showing sodium 149, chloride of 118 with a BUN of 30, creat inine of 0.6. AST 132, ALT of 93. ASSESSMENT: Necrotizing pneumonia, respiratory failure, now extubated, pulmonary embolism bilateral, right ventricular failure, pneumothorax, right chest tube, pulmonary hypertension, Escherichia coli in sputum, rheumatoid arthritis history, anxiety. PLAN: The patient is to continue heparin with transition to Coumadin when she is stable, also for p. o. nutrition when she is able to pass a swallowing eval as per consultants' recommendations. We will monitor clinically and with labs. Chacorta Venu SHEPHERD cc: [phone] TT: 07/28/2016 21:57:48 Confirmation # [id number] Dictation # [id number] jn
--- NOTE | 2016-07-28 22:03 | CP.PCM.PN ---
Subjective - Date & Time of Evaluation Date of Evaluation: 07/28/16 Time of Evaluation: 08:50 - Subjective Subjective: Comfortable in bed, not in distress, now extubated but still on BiPAP machine. No fevers overnight. Objective - Vital Signs/Intake and Output Vital Signs (last 24 hours): Temp Pulse Resp BP Pulse Ox 97.7 F 80 23 107/67 94 L 07/28/16 16:00 07/28/16 19:40 07/28/16 19:40 07/28/16 19:00 07/28/16 19:40 Intake and Output: 07/28/16 07/29/16 18:59 06:59 Intake Total 184 Output Total 2000 Balance -1816 - Medications Medications: Current Medications Acetaminophen (Tylenol 650mg/20.3ml Solution Ud) 650 mg PO Q6H PRN PRN Reason: fever Last Admin: 07/25/16 18:08 Dose: 650 mg Albuterol/Ipratropium (Duoneb 3 Mg/0.5 Mg (3 Ml) Ud) 3 ml IH [id number] NISHANT Last Admin: 07/28/16 20:42 Dose: 3 ml Alprazolam (Xanax) 0.5 mg PO BID NISHANT PRN Reason: Protocol Last Admin: 07/27/16 10:07 Dose: 0.5 mg Aspirin (Ecotrin) 81 mg PO DAILY NISHANT Last Admin: 07/27/16 10:07 Dose: 81 mg Furosemide (Lasix) 40 mg IV DAILY NISHANT Haloperidol Lactate (Haldol) 2 mg IVP Q6H PRN; Protocol PRN Reason: Agitation Last Admin: 07/28/16 14:13 Dose: 2 mg Doxycycline Hyclate 100 mg/ (Sodium Chloride) 100 mls @ 100 mls/hr IVPB Q12 NISHANT PRN Reason: Protocol Last Admin: 07/28/16 09:06 Dose: 100 mls/hr Heparin Sodium/Sodium Chloride (Heparin 79509 Units/250ml 1/2 Normal Saline) 25 ,000 units in 250 mls @ 8.655 mls/hr IV .Q24H PRN; Protocol; 18 UNITS/KG/HR PRN Reason: ADJUST RATE PER PROTOCOL Last Admin: 07/27/16 17:43 Dose: 14 units/kg/hr, 6.731 mls/hr Meropenem 1g/NS 100mL IVPB (Meropenem 1g/Ns 100ml Ivpb) 1 g in 100 mls @ 100 mls/hr IVPB Q8 [facility] PRN Reason: Protocol Stop: 07/30/16 09:16 Last Admin: 07/28/16 14:54 Dose: 100 mls/hr Dexmedetomidine HCl (Precedex 4 Mcg/Ml (100 Ml)) 400 mcg in 100 mls @ 2.597 mls /hr IV .Q24H PRN; Protocol; 0.2 MCG/KG/HR PRN Reason: Agitation Last Titration: 07/28/16 10:33 Dose: 0.75 mcg/kg/hr, 9.738 mls/hr Vancomycin HCl (Vancomycin 1gm) 1 gm in 250 mls @ 167 mls/hr IVPB Q12H [facility] PRN Reason: Protocol Last Admin: 07/28/16 10:27 Dose: 167 mls/hr Dobutamine HCl/Dextrose (Dobutamine/Dextrose 5% 500mg/250ml) 500 mg in 250 mls @ 4.123 mls/hr IV .Q24H PRN; Protocol; 2.5 MCG/KG/MIN PRN Reason: TITRATE PER PROTOCOL Last Admin: 07/27/16 15:01 Dose: 4.123 mls/hr Magnesium Oxide (Mag-Ox) 400 mg PO BID [facility] Last Admin: 07/27/16 10:08 Dose: 400 mg Methylprednisolone (Solu-Medrol) 40 mg IVP Q8 [facility] Last Admin: 07/28/16 14:55 Dose: 40 mg Morphine Sulfate (Morphine) 2 mg IVP Q4H PRN PRN Reason: Pain, moderate (4-7) Last Admin: 07/28/16 18:26 Dose: 2 mg Nystatin (Nystatin Oral Susp) 5 ml PO QID [facility] Last Admin: 07/27/16 15:09 Dose: Not Given Oxycodone/Acetaminophen (Percocet 10/325 Mg Tab) 1 tab PO Q4H PRN PRN Reason: Pain, severe (8-10) Last Admin: 07/27/16 21:53 Dose: 1 tab Pantoprazole Sodium (Protonix Inj) 40 mg IVP DAILY [facility] Last Admin: 07/28/16 10:36 Dose: 40 mg Saliva Substitute (Saliva Substitute) 0 ml PO Q8H [facility] Last Admin: 07/28/16 15:10 Dose: Not Given Vancomycin HCl (Vancocin 25 Mg/Ml (Oral Use)) 500 mg PO QID NISHANT PRN Reason: Protocol - Labs Labs: 07/28/16 15:35 07/28/16 11:00 PT 12.8 Seconds (9.9-11.8) H 07/28/16 11:00 INR 1.19 (0.93-1.08) H 07/28/16 11:00 APTT 62.5 Seconds (23.7-30.8) H 07/28/16 17:07 - Constitutional Appears: Non-toxic, No Acute Distress - Head Exam Head Exam: NORMAL INSPECTION - Neck Exam Neck Exam: absent: Lymphadenopathy, Meningismus - Respiratory Exam Respiratory Exam: Decreased Breath Sounds - Cardiovascular Exam Cardiovascular Exam: +S1, +S2 - GI/Abdominal Exam GI & Abdominal Exam: Soft. absent: Tenderness Assessment and Plan - Assessment and Plan (Free Text) Plan: Assessment Severe sepsis S/P ventilator-dependent respiratory failure due to multifocal healthcare-associated pneumonia with E. coli S/P bronchoscopy Pseudomonas in urine cx Acute pulmonary embolism probable new C. diff. infection history of bilateral upper lobe severe pneumonia with associated systemic viral illness with Influenza, with associated persistent Methicillin-sensitive Staph aureus bacteremia history of C diff associated diarrhea rheumatoid arthritis osteoarthritis history of depression and anxiety history of pneumonia Plan will continue Merrem (day 8) and Doxycycline; as discussed with Dr. Cárdenas, follow up results of bronchoscopy for work up for fungi, mycobacteria continue PO Vancomycin day 5 will continue to monitor clinically
[2016-07-28] MEDS: Vancomycin 25 MG/ML PO SCH (22:30)
[2016-07-29] MEDS: Albuterol-Ipratrop 3 mg / 0.5 (3 ml) UD IH SCH ×8 (00:40→23:26)
[2016-07-29] MEDS: Saliva Substitute 44.3 ML PO SCH ×2 (05:15→15:40)
[2016-07-29] MEDS: MEROPENEM IVPB SCH ×3 (05:22→22:13)
[2016-07-29] MEDS: MethylPREDNISolone 40 mg Vial IVP SCH ×3 (05:22→22:12)
[2016-07-29] MEDS: PIGGYBACK IVPB SCH ×3 (05:22→22:13)
[2016-07-29 05:35] LABS: ARTERIAL BLOOD GAS HCO3 25.2 mmol/L (21-28); ARTERIAL BLOOD GAS PH 7.43 (7.35-7.45)
[2016-07-29 05:39] LABS: ADD MANUAL DIFF? NO
[2016-07-29 05:43] LABS: BASO # 0.03 K/mm3 (0.0-2.0); BASO % 0.2 % (0.0-3.0); GRAN # 16.55 (1.4-6.5); GRAN % 96.7 % (50.0-68.0); HEMATOCRIT 29.9 % (36.0-48.0); LYMPH # 0.3 (1.2-3.4); LYMPH % 1.6 % (22.0-35.0); MEAN CELL VOLUME 87.9 fL (80.0-105.0); MEAN CORPUSCULAR HEMOGLOBIN 28.5 pg (25.0-35.0); MEAN CORPUSCULAR HGB CONC 32.4 g/dl (31.0-37.0); MEAN PLATELET VOLUME 11.2 fl (7.0-11.0); MONO # 0.3 (0.1-0.6); MONO % 1.5 % (1.0-6.0); PLATELET COUNT 201 10^3/uL (120.0-450.0); RED CELL DISTRIBUTION WIDTH 15.7 % (11.5-14.5); WHITE BLOOD COUNT 17.1 10^3/ul (4.5-11.0)
[2016-07-29 06:02] LABS: ALKALINE PHOSPHATASE 79 U/L (38-133); ALT/SGPT 77 U/L (7-56); AST/SGOT 88 U/L (15-39); BILIRUBIN,TOTAL 0.5 mg/dL (0.2-1.3); BLOOD UREA NITROGEN 29 mg/dL (7-21); CALCIUM 7.9 mg/dL (8.4-10.5); CARBON DIOXIDE 27 mmol/L (21-33); CHLORIDE 114 mmol/L (98-107); GFR AFRICAN-AMERICAN > 60; GLUCOSE,RANDOM 244 mg/dL (70-110); POTASSIUM 3.5 mmol/L (3.6-5.0); SODIUM 146 mmol/L (132-148)
[2016-07-29 07:04] LABS: INR 1.15 (0.93-1.08)
[2016-07-29] MEDS: Heparin25000 units/250ml 1/2NS 25,000 UNITS/250 ML BAG IV PRN ×2 (07:30→10:35)
--- NOTE | 2016-07-29 08:51 | CP.CCUPN ---
<Shania Kennedy - Last Filed: 07/29/16 10:27> CCU Subjective - Physician Review Events Since Last Encounter (Free Text): 07/29/16 08:49 Pt pulled heparin drip IV overnight, was bleeding from site, pressure dressing placed, heparin drip held for 1 hr to ensure bleeding stopped. Restarted heparin drip this AM. IV site without bleeding. Subjective (Free Text): 07/29/16 08:49 Critical care progress note for Dr. Eneida Kennedy, PGY-1 Pt S & E at bedside. Pt asking for ice chips/water- is currently on Bipap, pt was on O2 via NC overnight until approximately 5am when she was transitioned to Bipap. Pt reports whole body pain, no specific CP, continues with SOB. Asking for percocet,Xanax and to talk to her primary. Denies N/V/F/C, ab pain, other complaints. Pt currently with Dobhoff on tube feeds. CCU Objective - Vital Signs / Intake & Output Vital Signs (Last 4 hours): Vital Signs Pulse Resp BP Pulse Ox 07/29/16 06:22 96 H 23 07/29/16 06:21 99 H 26 H 07/29/16 06:20 100 H 29 H 07/29/16 06:19 102 H 25 H 07/29/16 06:18 99 H 21 07/29/16 06:17 99 H 32 H 07/29/16 06:16 99 H 25 H 07/29/16 06:15 99 H 55 H 07/29/16 06:14 101 H 30 H 07/29/16 06:13 99 H 21 07/29/16 06:12 99 H 24 07/29/16 06:11 100 H 29 H 07/29/16 06:00 94 H 35 H 98/52 L 89 L 07/29/16 05:57 95 H 07/29/16 05:51 101 H 51 H 07/29/16 05:29 103 H 07/29/16 05:20 107 H 37 H 07/29/16 05:19 103 H 53 H 07/29/16 05:01 111 H 37 H 111/74 90 L 07/29/16 05:00 112 H 51 H 82 L Intake and Output (Last 8hrs): Intake & Output 05/07/29/16 07/29/16 22:59 06:59 14:59 Intake Total 100 918 Output Total 1999 550 Balance -1900 368 Intake: IV 0 918 Left Wrist 668 Oral 100 Output: Chest Tube Drainage 150 Right Mid-Axillary Chest 150 Urine 1999 400 Urethral (Dumont) 1999 400 Other: # Bowel Movements 0 - Physical Exam Head: Positive for: Atraumatic, Normocephalic Pupils: Positive for: PERRL Extroacular Muscles: Positive for: EOMI Conjunctiva: Positive for: Normal. Negative for: Injected, Icteric Ears: Positive for: Normal Mouth: Positive for: Dry Pharnyx: Positive for: Normal. Negative for: ERYTHEMA Nose (External): Positive for: Atraumatic, Other (Dobhoff in place) Neck: Positive for: JVD (notable), Trachea Midline. Negative for: Lymphadenopathy Respiratory/Chest: Positive for: Rales, Other (Chest tube insertion site covered in dressing c/d/i, no sign of active bleed. Chest tube with leak). Negative for: Clear to Auscultation (coarse expiratory breath sounds), Respiratory Distress, Accessory Muscle Use Cardiovascular: Positive for: Murmurs (2/6 LSB), Tachycardic. Negative for: Rub , Gallop Abdomen: Positive for: Normal Bowel Sounds. Negative for: Tenderness, Distention, Peritoneal Signs Genitourinary/Pelvic Exam: Positive for: Other (dumont in place with clear yellow urine) Back: Negative for: Midline Tenderness, Paraspinal Tenderness Upper Extremity: Positive for: Normal Inspection, Capillary Refill < 2s, Other ( Diffuse bruising from blood draws). Negative for: Cyanosis, Edema Lower Extremity: Positive for: Normal Inspection, Neurovascularly Intact, Capillary Refill < 2 s. Negative for: Edema, CALF TENDERNESS Neurological: Positive for: GCS=15, CN II-XII Intact, Speech Normal, Motor Func Grossly Intact Skin: Positive for: Warm, Dry, Pale Psychiatric: Positive for: Alert, Oriented x 3, Anxious - Medications Active Medications: Active Medications Generic Name Dose Route Start Last Admin Trade Name Freq PRN Reason Stop Dose Admin Acetaminophen 650 mg 07/25/16 16:23 07/25/16 18:08 Tylenol 650mg/20.3ml Solution Ud PO 650 mg Q6H PRN Administration fever Albuterol/Ipratropium 3 ml 07/26/16 07:30 07/29/16 07:26 Duoneb 3 Mg/0.5 Mg (3 Ml) Ud IH 3 ml [id number] NISHANT Administration Alprazolam 0.5 mg 07/23/16 18:00 07/27/16 10:07 Xanax PO 0.5 mg BID NISHANT Administration Protocol Aspirin 81 mg 07/22/16 10:00 07/27/16 10:07 Ecotrin PO 81 mg DAILY NISHANT Administration Furosemide 40 mg 07/29/16 10:00 Lasix IV DAILY NISHANT Haloperidol Lactate 2 mg 07/27/16 15:46 07/28/16 23:16 Haldol IVP 2 mg Q6H PRN Administration Agitation Protocol Doxycycline Hyclate 100 mg/ 100 mls @ 100 mls/hr 07/22/16 12:15 07/28/16 22: 29 Sodium Chloride IVPB 100 mls/hr Q12 NISHANT Administration Protocol Heparin Sodium/Sodium Chloride 25,000 units in 250 mls @ 8.655 mls/hr 12:31 07/29/16 07:30 Heparin 92217 Units/250ml 1/2 Normal Saline IV 16 units/kg/hr .Q24H PRN 7.693 mls/hr ADJUST RATE PER PROTOCOL Administration Protocol 18 UNITS/KG/HR Meropenem 1g/NS 100mL IVPB 1 g in 100 mls @ 100 mls/hr 07/23/16 09:15 05:22 Meropenem 1g/Ns 100ml Ivpb IVPB 07/30/16 09:16 100 mls/hr Q8 NISHANT Administration Protocol Dexmedetomidine HCl 400 mcg in 100 mls @ 2.597 mls/hr 07/25/16 14:29 06:29 Precedex 4 Mcg/Ml (100 Ml) IV 1 mcg/kg/hr .Q24H PRN 12.984 mls/hr Agitation Titration Protocol 0.2 MCG/KG/HR Vancomycin HCl 1 gm in 250 mls @ 167 mls/hr 07/26/16 09:45 07/28/16 22:28 Vancomycin 1gm IVPB 167 mls/hr Q12H NISHANT Administration Protocol Dobutamine HCl/Dextrose 500 mg in 250 mls @ 4.123 mls/hr 07/27/16 14:15 07/27 15:01 Dobutamine/Dextrose 5% 500mg/250ml IV 4.123 mls/hr .Q24H PRN Administration TITRATE PER PROTOCOL Protocol 2.5 MCG/KG/MIN Potassium Chloride 10 meq in 100 mls @ 100 mls/hr 07/29/16 07:15 07/29/16 08: 40 Potassium Chloride 10 Meq/100 Ml IVPB 07/29/16 10:14 100 mls/hr Q2H NISHANT Administration Magnesium Oxide 400 mg 07/23/16 10:00 07/27/16 10:08 Mag-Ox PO 400 mg BID NISHANT Administration Methylprednisolone 40 mg 07/21/16 06:00 07/29/16 05:22 Solu-Medrol IVP 40 mg Q8 NISHANT Administration Morphine Sulfate 2 mg 07/22/16 20:52 07/28/16 22:56 Morphine IVP 2 mg Q4H PRN Administration Pain, moderate (4-7) Nystatin 5 ml 07/23/16 14:00 07/27/16 15:09 Nystatin Oral Susp PO Not Given QID [facility] Oxycodone/Acetaminophen 1 tab 07/23/16 11:04 07/27/16 21:53 Percocet 10/325 Mg Tab PO 1 tab Q4H PRN Administration Pain, severe (8-10) Pantoprazole Sodium 40 mg 07/21/16 10:00 07/28/16 10:36 Protonix Inj IVP 40 mg DAILY NISHANT Administration Saliva Substitute 0 ml 07/27/16 13:15 07/29/16 05:15 Saliva Substitute PO Not Given Q8H [facility] Vancomycin HCl 500 mg 07/28/16 22:00 07/28/16 22:30 Vancocin 25 Mg/Ml (Oral Use) PO 500 mg QID NISHANT Administration Protocol - Patient Studies Lab Studies: Microbiology Studies 07/26/16 10:36 Gram Stain - Final Pleural Fluid Body Fluid Culture - Preliminary NO GROWTH AFTER 3 DAYS Fungal Culture - Preliminary 07/26/16 06:30 Blood Culture - Preliminary Blood NO GROWTH AFTER 3 DAYS 07/26/16 06:30 Blood Culture - Preliminary Blood NO GROWTH AFTER 3 DAYS 07/27/16 11:40 Mycobacterial Culture - Preliminary Other: Please Indicate 07/27/16 11:40 Fungal Culture - Preliminary Bronchial Washings Lab Studies 07/29/16 07/29/1607/29/17 Range/Units 05:20 05:15 05:15 WBC (4.5-11.0) 10^3/ul RBC (3.5-6.1) 10^6/uL Hgb (12.0-16.0) gm/dL Hct (36.0-48.0) % MCV (80.0-105.0) fL MCH (25.0-35.0) pg MCHC (31.0-37.0) g/dl RDW (11.5-14.5) % Plt Count (120.0-450.0) 10^3/uL MPV (7.0-11.0) fl Gran % (50.0-68.0) % Lymph % (Auto) (22.0-35.0) % [place] % (Auto) (1.0-6.0) % Eos % (Auto) (1.5-5.0) % Baso % (Auto) (0.0-3.0) % Gran # (1.4-6.5) Lymph # (1.2-3.4) [place] # (0.1-0.6) Eos # (0.0-0.7) Baso # (0.0-2.0) K/mm3 PT (9.9-11.8) Seconds INR (0.93-1.08) APTT 44.1 H (23.7-30.8) Seconds pCO2 38 (35-45) mm/Hg pO2 92.0 (80-100) mm/Hg HCO3 25.2 (21-28) mmol/L ABG pH 7.43 (7.35-7.45) ABG Total CO2 26.4 (22-28) mmol.L ABG O2 Saturation 98.9 H (95-98) % ABG Base Excess 0.9 (-2.0-3.0) mmol/L ABG Potassium 3.2 L (3.6-5.2) mmol/L Sodium 147.0 146 (132-148) mmol/L Chloride 121.0 H 114 H (98-107) mmol/L Glucose 243 H (65-105) mg/dl Lactate 1.1 (0.7-2.1) mmol/L FiO2 50.0 % Inspiratory BiPAP 18 Potassium 3.5 L (3.6-5.0) mmol/L Carbon Dioxide 27 (21-33) mmol/L Anion Gap 9 L (10-20) BUN 29 H (7-21) mg/dL Creatinine 0.7 (0.5-1.4) mg/dL Est GFR ( Amer) > 60 Est GFR (Non-Af Amer) > 60 Random Glucose 244 H (70-110) mg/dL Calcium 7.9 L (8.4-10.5) mg/dL Phosphorus (2.5-4.5) mg/dL Magnesium (1.7-2.2) mg/dL Total Bilirubin 0.5 (0.2-1.3) mg/dL AST 88 H (15-39) U/L ALT 77 H (7-56) U/L Alkaline Phosphatase 79 (38-133) U/L Total Protein 5.0 L (5.8-8.3) g/dL Albumin 2.5 L (3.0-4.8) g/dL Globulin 2.5 gm/dL Albumin/Globulin Ratio 1.0 L (1.1-1.8) Reverse T3 (8-25) ng/dL Thyroid Stim Immunoglob (<140) % baseline Arterial Blood Potassium 3.2 L (3.6-5.2) mmol/L Pleural Total Protein g/dL Pleural LDH U/L Pleural Lipase (<10) U/L Pleural Triglycerides TB Test (QFT) Nil IU/mL TB Test Mitogen - Nil IU/mL TB Test TB - Nil IU/mL TB Test (QFT) (Negative) Crossmatch 07/29/16 07/29/16 07/28/16 Range/Units 05:15 05:11 17:07 WBC 17.1 H (4.5-11.0) 10^3/ul RBC 3.40 L (3.5-6.1) 10^6/uL Hgb 9.7 L (12.0-16.0) gm/dL Hct 29.9 L (36.0-48.0) % MCV 87.9 (80.0-105.0) fL MCH 28.5 (25.0-35.0) pg MCHC 32.4 (31.0-37.0) g/dl RDW 15.7 H (11.5-14.5) % Plt Count 201 (120.0-450.0) 10^3/uL MPV 11.2 H (7.0-11.0) fl Gran % 96.7 H (50.0-68.0) % Lymph % (Auto) 1.6 L (22.0-35.0) % [place] % (Auto) 1.5 (1.0-6.0) % Eos % (Auto) 0.0 L (1.5-5.0) % Baso % (Auto) 0.2 (0.0-3.0) % Gran # 16.55 H (1.4-6.5) Lymph # 0.3 L (1.2-3.4) [place] # 0.3 (0.1-0.6) Eos # 0.0 (0.0-0.7) Baso # 0.03 (0.0-2.0) K/mm3 PT 12.4 H (9.9-11.8) Seconds INR 1.15 H (0.93-1.08) APTT 62.5 H (23.7-30.8) Seconds pCO2 (35-45) mm/Hg pO2 (80-100) mm/Hg HCO3 (21-28) mmol/L ABG pH (7.35-7.45) ABG Total CO2 (22-28) mmol.L ABG O2 Saturation (95-98) % ABG Base Excess (-2.0-3.0) mmol/L ABG Potassium (3.6-5.2) mmol/L Sodium (132-148) mmol/L Chloride (98-107) mmol/L Glucose (65-105) mg/dl Lactate (0.7-2.1) mmol/L FiO2 % Inspiratory BiPAP Potassium (3.6-5.0) mmol/L Carbon Dioxide (21-33) mmol/L Anion Gap (10-20) BUN (7-21) mg/dL Creatinine (0.5-1.4) mg/dL Est GFR ( Amer) Est GFR (Non-Af Amer) Random Glucose (70-110) mg/dL Calcium (8.4-10.5) mg/dL Phosphorus (2.5-4.5) mg/dL Magnesium (1.7-2.2) mg/dL Total Bilirubin (0.2-1.3) mg/dL AST (15-39) U/L ALT (7-56) U/L Alkaline Phosphatase (38-133) U/L Total Protein (5.8-8.3) g/dL Albumin (3.0-4.8) g/dL Globulin gm/dL Albumin/Globulin Ratio (1.1-1.8) Reverse T3 (8-25) ng/dL Thyroid Stim Immunoglob (<140) % baseline Arterial Blood Potassium (3.6-5.2) mmol/L Pleural Total Protein g/dL Pleural LDH U/L Pleural Lipase (<10) U/L Pleural Triglycerides TB Test (QFT) Nil IU/mL TB Test Mitogen - Nil IU/mL TB Test TB - Nil IU/mL TB Test (QFT) (Negative) Crossmatch 07/28/16 07/28/16 07/28/16 Range/Units 15:35 11:00 11:00 WBC 20.1 H (4.5-11.0) 10^3/ul RBC 3.45 L (3.5-6.1) 10^6/uL Hgb 10.0 L (12.0-16.0) gm/dL Hct 31.2 L (36.0-48.0) % MCV 90.4 (80.0-105.0) fL MCH 29.0 (25.0-35.0) pg MCHC 32.1 (31.0-37.0) g/dl RDW 16.2 H (11.5-14.5) % Plt Count 203 (120.0-450.0) 10^3/uL MPV 11.3 H (7.0-11.0) fl Gran % 97.1 H (50.0-68.0) % Lymph % (Auto) 1.4 L (22.0-35.0) % [place] % (Auto) 1.2 (1.0-6.0) % Eos % (Auto) 0.0 L (1.5-5.0) % Baso % (Auto) 0.3 (0.0-3.0) % Gran # 19.55 H (1.4-6.5) Lymph # 0.3 L (1.2-3.4) [place] # 0.2 (0.1-0.6) Eos # 0.0 (0.0-0.7) Baso # 0.06 (0.0-2.0) K/mm3 PT (9.9-11.8) Seconds INR (0.93-1.08) APTT (23.7-30.8) Seconds pCO2 (35-45) mm/Hg pO2 (80-100) mm/Hg HCO3 (21-28) mmol/L ABG pH (7.35-7.45) ABG Total CO2 (22-28) mmol.L ABG O2 Saturation (95-98) % ABG Base Excess (-2.0-3.0) mmol/L ABG Potassium (3.6-5.2) mmol/L Sodium 149 H (132-148) mmol/L Chloride 118 H (98-107) mmol/L Glucose (65-105) mg/dl Lactate (0.7-2.1) mmol/L FiO2 % Inspiratory BiPAP Potassium 3.6 (3.6-5.0) mmol/L Carbon Dioxide 26 (21-33) mmol/L Anion Gap 9 L (10-20) BUN 30 H (7-21) mg/dL Creatinine 0.6 (0.5-1.4) mg/dL Est GFR ( Amer) > 60 Est GFR (Non-Af Amer) > 60 Random Glucose 183 H (70-110) mg/dL Calcium 7.8 L (8.4-10.5) mg/dL Phosphorus 3.2 (2.5-4.5) mg/dL Magnesium 2.0 (1.7-2.2) mg/dL Total Bilirubin 0.6 (0.2-1.3) mg/dL AST 132 H (15-39) U/L ALT 93 H (7-56) U/L Alkaline Phosphatase 83 (38-133) U/L Total Protein 5.1 L (5.8-8.3) g/dL Albumin 2.5 L (3.0-4.8) g/dL Globulin 2.5 gm/dL Albumin/Globulin Ratio 1.0 L (1.1-1.8) Reverse T3 (8-25) ng/dL Thyroid Stim Immunoglob (<140) % baseline Arterial Blood Potassium (3.6-5.2) mmol/L Pleural Total Protein g/dL Pleural LDH U/L Pleural Lipase (<10) U/L Pleural Triglycerides TB Test (QFT) Nil IU/mL TB Test Mitogen - Nil IU/mL TB Test TB - Nil IU/mL TB Test (QFT) (Negative) Crossmatch 07/28/16 07/28/16 07/27/16 Range/Units 11:00 10:55 07:20 WBC (4.5-11.0) 10^3/ul RBC (3.5-6.1) 10^6/uL Hgb (12.0-16.0) gm/dL Hct (36.0-48.0) % MCV (80.0-105.0) fL MCH (25.0-35.0) pg MCHC (31.0-37.0) g/dl RDW (11.5-14.5) % Plt Count (120.0-450.0) 10^3/uL MPV (7.0-11.0) fl Gran % (50.0-68.0) % Lymph % (Auto) (22.0-35.0) % [place] % (Auto) (1.0-6.0) % Eos % (Auto) (1.5-5.0) % Baso % (Auto) (0.0-3.0) % Gran # (1.4-6.5) Lymph # (1.2-3.4) [place] # (0.1-0.6) Eos # (0.0-0.7) Baso # (0.0-2.0) K/mm3 PT 12.8 H (9.9-11.8) Seconds INR 1.19 H (0.93-1.08) APTT 79.0 H* (23.7-30.8) Seconds pCO2 41 (35-45) mm/Hg pO2 93.0 (80-100) mm/Hg HCO3 23.7 (21-28) mmol/L ABG pH 7.37 (7.35-7.45) ABG Total CO2 25.0 (22-28) mmol.L ABG O2 Saturation 99.0 H (95-98) % ABG Base Excess -1.5 (-2.0-3.0) mmol/L ABG Potassium 3.4 L (3.6-5.2) mmol/L Sodium 149.0 H (132-148) mmol/L Chloride 124.0 H (98-107) mmol/L Glucose 208 H (65-105) mg/dl Lactate 0.8 (0.7-2.1) mmol/L FiO2 50.0 % Inspiratory BiPAP 18 Potassium (3.6-5.0) mmol/L Carbon Dioxide (21-33) mmol/L Anion Gap (10-20) BUN (7-21) mg/dL Creatinine (0.5-1.4) mg/dL Est GFR ( Amer) Est GFR (Non-Af Amer) Random Glucose (70-110) mg/dL Calcium (8.4-10.5) mg/dL Phosphorus (2.5-4.5) mg/dL Magnesium (1.7-2.2) mg/dL Total Bilirubin (0.2-1.3) mg/dL AST (15-39) U/L ALT (7-56) U/L Alkaline Phosphatase (38-133) U/L Total Protein (5.8-8.3) g/dL Albumin (3.0-4.8) g/dL Globulin gm/dL Albumin/Globulin Ratio (1.1-1.8) Reverse T3 (8-25) ng/dL Thyroid Stim Immunoglob (<140) % baseline Arterial Blood Potassium 3.4 L (3.6-5.2) mmol/L Pleural Total Protein g/dL Pleural LDH U/L Pleural Lipase (<10) U/L Pleural Triglycerides TB Test (QFT) Nil 0.05 IU/mL TB Test Mitogen - Nil <0.00 IU/mL TB Test TB - Nil <0.00 IU/mL TB Test (QFT) Indeterminate H (Negative) Crossmatch 07/26/16 07/26/16 07/26/16 Range/Units 10:35 10:35 05:45 WBC (4.5-11.0) 10^3/ul RBC (3.5-6.1) 10^6/uL Hgb (12.0-16.0) gm/dL Hct (36.0-48.0) % MCV (80.0-105.0) fL MCH (25.0-35.0) pg MCHC (31.0-37.0) g/dl RDW (11.5-14.5) % Plt Count (120.0-450.0) 10^3/uL MPV (7.0-11.0) fl Gran % (50.0-68.0) % Lymph % (Auto) (22.0-35.0) % [place] % (Auto) (1.0-6.0) % Eos % (Auto) (1.5-5.0) % Baso % (Auto) (0.0-3.0) % Gran # (1.4-6.5) Lymph # (1.2-3.4) [place] # (0.1-0.6) Eos # (0.0-0.7) Baso # (0.0-2.0) K/mm3 PT (9.9-11.8) Seconds INR (0.93-1.08) APTT (23.7-30.8) Seconds pCO2 (35-45) mm/Hg pO2 (80-100) mm/Hg HCO3 (21-28) mmol/L ABG pH (7.35-7.45) ABG Total CO2 (22-28) mmol.L ABG O2 Saturation (95-98) % ABG Base Excess (-2.0-3.0) mmol/L ABG Potassium (3.6-5.2) mmol/L Sodium (132-148) mmol/L Chloride (98-107) mmol/L Glucose (65-105) mg/dl Lactate (0.7-2.1) mmol/L FiO2 % Inspiratory BiPAP Potassium (3.6-5.0) mmol/L Carbon Dioxide (21-33) mmol/L Anion Gap (10-20) BUN (7-21) mg/dL Creatinine (0.5-1.4) mg/dL Est GFR ( Amer) Est GFR (Non-Af Amer) Random Glucose (70-110) mg/dL Calcium (8.4-10.5) mg/dL Phosphorus (2.5-4.5) mg/dL Magnesium (1.7-2.2) mg/dL Total Bilirubin (0.2-1.3) mg/dL AST (15-39) U/L ALT (7-56) U/L Alkaline Phosphatase (38-133) U/L Total Protein (5.8-8.3) g/dL Albumin (3.0-4.8) g/dL Globulin gm/dL Albumin/Globulin Ratio (1.1-1.8) Reverse T3 (8-25) ng/dL Thyroid Stim Immunoglob <89 (<140) % baseline Arterial Blood Potassium (3.6-5.2) mmol/L Pleural Total Protein <3.0 g/dL Pleural LDH 28 U/L Pleural Lipase 28.0 H (<10) U/L Pleural Triglycerides see note TB Test (QFT) Nil IU/mL TB Test Mitogen - Nil IU/mL TB Test TB - Nil IU/mL TB Test (QFT) (Negative) Crossmatch 07/25/16 07/24/16 Range/Units 09:50 11:05 WBC (4.5-11.0) 10^3/ul RBC (3.5-6.1) 10^6/uL Hgb (12.0-16.0) gm/dL Hct (36.0-48.0) % MCV (80.0-105.0) fL MCH (25.0-35.0) pg MCHC (31.0-37.0) g/dl RDW (11.5-14.5) % Plt Count (120.0-450.0) 10^3/uL MPV (7.0-11.0) fl Gran % (50.0-68.0) % Lymph % (Auto) (22.0-35.0) % [place] % (Auto) (1.0-6.0) % Eos % (Auto) (1.5-5.0) % Baso % (Auto) (0.0-3.0) % Gran # (1.4-6.5) Lymph # (1.2-3.4) [place] # (0.1-0.6) Eos # (0.0-0.7) Baso # (0.0-2.0) K/mm3 PT (9.9-11.8) Seconds INR (0.93-1.08) APTT (23.7-30.8) Seconds pCO2 (35-45) mm/Hg pO2 (80-100) mm/Hg HCO3 (21-28) mmol/L ABG pH (7.35-7.45) ABG Total CO2 (22-28) mmol.L ABG O2 Saturation (95-98) % ABG Base Excess (-2.0-3.0) mmol/L ABG Potassium (3.6-5.2) mmol/L Sodium (132-148) mmol/L Chloride (98-107) mmol/L Glucose (65-105) mg/dl Lactate (0.7-2.1) mmol/L FiO2 % Inspiratory BiPAP Potassium (3.6-5.0) mmol/L Carbon Dioxide (21-33) mmol/L Anion Gap (10-20) BUN (7-21) mg/dL Creatinine (0.5-1.4) mg/dL Est GFR ( Amer) Est GFR (Non-Af Amer) Random Glucose (70-110) mg/dL Calcium (8.4-10.5) mg/dL Phosphorus (2.5-4.5) mg/dL Magnesium (1.7-2.2) mg/dL Total Bilirubin (0.2-1.3) mg/dL AST (15-39) U/L ALT (7-56) U/L Alkaline Phosphatase (38-133) U/L Total Protein (5.8-8.3) g/dL Albumin (3.0-4.8) g/dL Globulin gm/dL Albumin/Globulin Ratio (1.1-1.8) Reverse T3 76 H (8-25) ng/dL Thyroid Stim Immunoglob (<140) % baseline Arterial Blood Potassium (3.6-5.2) mmol/L Pleural Total Protein g/dL Pleural LDH U/L Pleural Lipase (<10) U/L Pleural Triglycerides TB Test (QFT) Nil IU/mL TB Test Mitogen - Nil IU/mL TB Test TB - Nil IU/mL TB Test (QFT) (Negative) Crossmatch See Detail Laboratory Results - last 24 hr 07/24/16 07/25/16 07/26/16 11:05 09:50 05:45 WBC RBC Hgb Hct MCV MCH MCHC RDW Plt Count MPV Gran % Lymph % (Auto) [place] % (Auto) Eos % (Auto) Baso % (Auto) Gran # Lymph # [place] # Eos # Baso # PT INR APTT pCO2 pO2 HCO3 ABG pH ABG Total CO2 ABG O2 Saturation ABG Base Excess ABG Potassium Sodium Chloride Glucose Lactate FiO2 Inspiratory BiPAP Potassium Carbon Dioxide Anion Gap BUN Creatinine Est GFR ( Amer) Est GFR (Non-Af Amer) Random Glucose Calcium Phosphorus Magnesium Total Bilirubin AST ALT Alkaline Phosphatase Total Protein Albumin Globulin Albumin/Globulin Ratio Reverse T3 76 H Thyroid Stim Immunoglob <89 Arterial Blood Potassium Pleural Total Protein Pleural LDH Pleural Lipase Pleural Triglycerides TB Test (QFT) Nil TB Test Mitogen - Nil TB Test TB - Nil TB Test (QFT) Crossmatch See Detail 07/26/16 07/26/16 07/27/16 10:35 10:35 07:20 WBC RBC Hgb Hct MCV MCH MCHC RDW Plt Count MPV Gran % Lymph % (Auto) [place] % (Auto) Eos % (Auto) Baso % (Auto) Gran # Lymph # [place] # Eos # Baso # PT INR APTT pCO2 pO2 HCO3 ABG pH ABG Total CO2 ABG O2 Saturation ABG Base Excess ABG Potassium Sodium Chloride Glucose Lactate FiO2 Inspiratory BiPAP Potassium Carbon Dioxide Anion Gap BUN Creatinine Est GFR ( Amer) Est GFR (Non-Af Amer) Random Glucose Calcium Phosphorus Magnesium Total Bilirubin AST ALT Alkaline Phosphatase Total Protein Albumin Globulin Albumin/Globulin Ratio Reverse T3 Thyroid Stim Immunoglob Arterial Blood Potassium Pleural Total Protein <3.0 Pleural LDH 28 Pleural Lipase 28.0 H Pleural Triglycerides see note TB Test (QFT) Nil 0.05 TB Test Mitogen - Nil <0.00 TB Test TB - Nil <0.00 TB Test (QFT) Indeterminate H Crossmatch 07/28/16 07/28/16 07/28/16 10:55 11:00 11:00 WBC RBC Hgb Hct MCV MCH MCHC RDW Plt Count MPV Gran % Lymph % (Auto) [place] % (Auto) Eos % (Auto) Baso % (Auto) Gran # Lymph # [place] # Eos # Baso # PT 12.8 H INR 1.19 H APTT 79.0 H* pCO2 41 pO2 93.0 HCO3 23.7 ABG pH 7.37 ABG Total CO2 25.0 ABG O2 Saturation 99.0 H ABG Base Excess -1.5 ABG Potassium 3.4 L Sodium 149.0 H 149 H Chloride 124.0 H 118 H Glucose 208 H Lactate 0.8 FiO2 50.0 Inspiratory BiPAP 18 Potassium 3.6 Carbon Dioxide 26 Anion Gap 9 L BUN 30 H Creatinine 0.6 Est GFR ( Amer) > 60 Est GFR (Non-Af Amer) > 60 Random Glucose 183 H Calcium 7.8 L Phosphorus Magnesium Total Bilirubin 0.6 AST 132 H ALT 93 H Alkaline Phosphatase 83 Total Protein 5.1 L Albumin 2.5 L Globulin 2.5 Albumin/Globulin Ratio 1.0 L Reverse T3 Thyroid Stim Immunoglob Arterial Blood Potassium 3.4 L Pleural Total Protein Pleural LDH Pleural Lipase Pleural Triglycerides TB Test (QFT) Nil TB Test Mitogen - Nil TB Test TB - Nil TB Test (QFT) Crossmatch 07/28/16 07/28/16 07/28/16 11:00 15:35 17:07 WBC 20.1 H RBC 3.45 L Hgb 10.0 L Hct 31.2 L MCV 90.4 MCH 29.0 MCHC 32.1 RDW 16.2 H Plt Count 203 MPV 11.3 H Gran % 97.1 H Lymph % (Auto) 1.4 L [place] % (Auto) 1.2 Eos % (Auto) 0.0 L Baso % (Auto) 0.3 Gran # 19.55 H Lymph # 0.3 L [place] # 0.2 Eos # 0.0 Baso # 0.06 PT INR APTT 62.5 H pCO2 pO2 HCO3 ABG pH ABG Total CO2 ABG O2 Saturation ABG Base Excess ABG Potassium Sodium Chloride Glucose Lactate FiO2 Inspiratory BiPAP Potassium Carbon Dioxide Anion Gap BUN Creatinine Est GFR ( Amer) Est GFR (Non-Af Amer) Random Glucose Calcium Phosphorus 3.2 Magnesium 2.0 Total Bilirubin AST ALT Alkaline Phosphatase Total Protein Albumin Globulin Albumin/Globulin Ratio Reverse T3 Thyroid Stim Immunoglob Arterial Blood Potassium Pleural Total Protein Pleural LDH Pleural Lipase Pleural Triglycerides TB Test (QFT) Nil TB Test Mitogen - Nil TB Test TB - Nil TB Test (QFT) Crossmatch 07/29/16 07/29/16 07/29/16 05:11 05:15 05:15 WBC 17.1 H RBC 3.40 L Hgb 9.7 L Hct 29.9 L MCV 87.9 MCH 28.5 MCHC 32.4 RDW 15.7 H Plt Count 201 MPV 11.2 H Gran % 96.7 H Lymph % (Auto) 1.6 L [place] % (Auto) 1.5 Eos % (Auto) 0.0 L Baso % (Auto) 0.2 Gran # 16.55 H Lymph # 0.3 L [place] # 0.3 Eos # 0.0 Baso # 0.03 PT 12.4 H INR 1.15 H APTT pCO2 pO2 HCO3 ABG pH ABG Total CO2 ABG O2 Saturation ABG Base Excess ABG Potassium Sodium 146 Chloride 114 H Glucose Lactate FiO2 Inspiratory BiPAP Potassium 3.5 L Carbon Dioxide 27 Anion Gap 9 L BUN 29 H Creatinine 0.7 Est GFR ( Amer) > 60 Est GFR (Non-Af Amer) > 60 Random Glucose 244 H Calcium 7.9 L Phosphorus Magnesium Total Bilirubin 0.5 AST 88 H ALT 77 H Alkaline Phosphatase 79 Total Protein 5.0 L Albumin 2.5 L Globulin 2.5 Albumin/Globulin Ratio 1.0 L Reverse T3 Thyroid Stim Immunoglob Arterial Blood Potassium Pleural Total Protein Pleural LDH Pleural Lipase Pleural Triglycerides TB Test (QFT) Nil TB Test Mitogen - Nil TB Test TB - Nil TB Test (QFT) Crossmatch 07/29/16 07/29/16 05:15 05:20 WBC RBC Hgb Hct MCV MCH MCHC RDW Plt Count MPV Gran % Lymph % (Auto) [place] % (Auto) Eos % (Auto) Baso % (Auto) Gran # Lymph # [place] # Eos # Baso # PT INR APTT 44.1 H pCO2 38 pO2 92.0 HCO3 25.2 ABG pH 7.43 ABG Total CO2 26.4 ABG O2 Saturation 98.9 H ABG Base Excess 0.9 ABG Potassium 3.2 L Sodium 147.0 Chloride 121.0 H Glucose 243 H Lactate 1.1 FiO2 50.0 Inspiratory BiPAP 18 Potassium Carbon Dioxide Anion Gap BUN Creatinine Est GFR ( Amer) Est GFR (Non-Af Amer) Random Glucose Calcium Phosphorus Magnesium Total Bilirubin AST ALT Alkaline Phosphatase Total Protein Albumin Globulin Albumin/Globulin Ratio Reverse T3 Thyroid Stim Immunoglob Arterial Blood Potassium 3.2 L Pleural Total Protein Pleural LDH Pleural Lipase Pleural Triglycerides TB Test (QFT) Nil TB Test Mitogen - Nil TB Test TB - Nil TB Test (QFT) Crossmatch Review of Systems - Review of Systems All systems: reviewed and no additional remarkable complaints except - Constitutional Constitutional: absent: Fever, Chills - Cardiovascular Cardiovascular: UNREMARKABLE. absent: Chest Pain - Respiratory Respiratory: Dyspnea. absent: UNREMARKABLE - Gastrointestinal Gastrointestinal: UNREMARKABLE. absent: Abdominal Pain, Nausea, Vomiting - Musculoskeletal Musculoskeletal: Muscle Weakness - Integumentary Integumentary: Unusual Bruising (Diffuse- upper extremitity) - Neurological Neurological: UNREMARKABLE - Psychiatric Psychiatric: Anxiety Critical Care Progress Note - Ventilator Checklist Head of Bed 30 Degrees: Yes PUD Prophalyxis: Yes DVT Prophylaxis: Yes - Extremities/Vascular Does the Patient have a Central Venous Catheter?: No Does the Patient need a Central Venous Catheter?: No Does the Patient have a [place] Catheter?: Yes Does the Patient need a [place] Catheter?: Yes Catheter Insertion Criteria: Need for accurate measurement of output in critically ill patient - Prophylaxis GI Prophylaxis GI: PPI - Prophylaxis DVT Prophylaxis DVT: Heparin SQ (on drip) - Nutrition Nutrition: Nutrition Category Date Time Status NPO Diet [DIET] Diets 07/28/16 Dinner Ordered Assessment/Plan - Assessment and Plan (Free Text) Assessment: 61F w/acute respiratory failure due to PNA, PE, R ventricular cardiac failure s/ p extubation on 07/27 with dx bronch, currently on hiflow O2 w/respiratory and hemodynamic stability off dobutamine, heparin drip for anti-coagulation, precedex for agitation, tube feeds via Dobhoff for nutrition. Ok for pt to have ice chips. Morphine for pain/anxiety. Continues to require ICU care. Plan: Neuro: A&Ox3 Following simple commands Verbal Purposeful movements Asking for water Haldol PRN agitation Precedex drip Will re-start Morphine for anxiety/pain Swallow eval recs for ice chips, no PO intake for now. Will re-assess tomorrow Monitor Cardio: Tachycardic BP 98/52- overnight BP in low 100's/60-70's Dobutamine drip d/c'd Lasix 40mg IV QD Heparin drip for PE's ASA held until pt not NPO Cardiology following Pulm: PEs On heparin drip for PE ABG: pH 7.43 pCO2 38 pO2 92 HCO3 25.2 Was on high flow overnight until 0530AM- pt placed on Bipap, will trial Hiflow again today CXR report pending Chest tube in place on water seal with small air leak draining sero-sanguinous fluid CT output 150cc/12H Cont duonebs Cont Solu-medrol 40 IVP Q8H Cont Lasix 40mg IV QD Cont Doxycycline 100mg Q12H Cont Merrem 1gm Q8H (day 9) Continue heparin drip titrated to PTT for PE Sputum cxr from bronch on 07/27 neg for AFB and fungus Pulm following Surg following for Chest tube- to suction Daily CXRs as per surgery Monitor GI: C diff ag pos NPO except ice chips Swallow eval recs as above Cont vanco 500mg PO QID BM on 07/28 Dobhoff On tube feeds Monitor Endo: Glucose 244 Target eugylcemia per NICE sugar trials Nephro Hypokalemia K 3.5 Replaced KCl 10mEq IVPB x 2 Cont Lasix 40mg IV QD UOP 2400cc/24H - 100cc/HR Target euvolemia Monitor ID: PNA Afebrile over 24H Leukocytosis of 17.1 from 20.1 Bronch sputum neg for AFB and fungus Blood cxr neg x 3D Cont Doxycycline 100mg Q12H Cont Merrem 1gm Q8H (day 9) ID following GI/DVT ppx Heparin drip SCDs Protonix Dispo: cont ICU Care Notified PMD regarding pt's request to see them today Pallative care consulted DW attending - Date & Time Date: 07/29/16 Time: 08:49 <Adina SHEPHERD,Juan H - Last Filed: 07/29/16 11:32> CCU Objective - Vital Signs / Intake & Output Vital Signs (Last 4 hours): Vital Signs Temp Pulse Resp BP Pulse Ox 07/29/16 11:00 103 H 31 H 110/84 82 L 07/29/16 10:00 104 H 61 H 106/78 89 L 07/29/16 09:11 97 H 40 H 07/29/16 09:10 95 H 26 H 07/29/16 09:09 94 H 34 H 07/29/16 09:08 99 H 20 07/29/16 09:07 94 H 26 H 07/29/16 09:06 97 H 31 H 07/29/16 09:05 106 H 32 H 07/29/16 09:04 109/75 07/29/16 09:00 97 H 28 H 109/75 83 L 07/29/16 08:33 119 H 40 H 07/29/16 08:32 114 H 40 H 07/29/16 08:00 97.7 F 90 25 H 120/68 97 07/29/16 07:49 91 H 19 Intake and Output (Last 8hrs): Intake & Output 07/28/16 07/29/16 07/29/16 22:59 06:59 14:59 Intake Total 100 918 250 Output Total 1999 550 Balance -1900 368 250 Intake: IV 0 918 250 Left Wrist 668 Oral 100 Output: Chest Tube Drainage 150 Right Mid-Axillary Chest 150 Urine 1999 400 Urethral ([place]) 2000 400 Other: Voiding Method Indwelling Catheter # Bowel Movements 0 - Medications Active Medications: Active Medications Generic Name Dose Route Start Last Admin Trade Name Freq PRN Reason Stop Dose Admin Acetaminophen 650 mg 07/25/16 16:23 07/25/16 18:08 Tylenol 650mg/20.3ml Solution Ud PO 650 mg Q6H PRN Administration fever Albuterol/Ipratropium 3 ml 07/26/16 07:30 07/29/16 11:07 Duoneb 3 Mg/0.5 Mg (3 Ml) Ud IH 3 ml [id number] NISHANT Administration Alprazolam 0.5 mg 07/23/16 18:00 07/27/16 10:07 Xanax PO 0.5 mg BID NISHANT Administration Protocol Aspirin 81 mg 07/22/16 10:00 07/27/16 10:07 Ecotrin PO 81 mg DAILY NISHANT Administration Furosemide 40 mg 07/29/16 10:00 07/29/16 09:04 Lasix IV 40 mg DAILY NISHANT Administration Haloperidol Lactate 2 mg 07/27/16 15:46 07/28/16 23:16 Haldol IVP 2 mg Q6H PRN Administration Agitation Protocol Doxycycline Hyclate 100 mg/ 100 mls @ 100 mls/hr 07/22/16 12:15 07/29/16 09: 16 Sodium Chloride IVPB 100 mls/hr Q12 NISHANT Administration Protocol Heparin Sodium/Sodium Chloride 25,000 units in 250 mls @ 8.655 mls/hr 12:31 07/29/16 10:35 Heparin 48607 Units/250ml 1/2 Normal Saline IV 16 units/kg/hr .Q24H PRN 7.693 mls/hr ADJUST RATE PER PROTOCOL Administration Protocol 18 UNITS/KG/HR Meropenem 1g/NS 100mL IVPB 1 g in 100 mls @ 100 mls/hr 07/23/16 09:15 05:22 Meropenem 1g/Ns 100ml Ivpb IVPB 07/30/16 09:16 100 mls/hr Q8 NISHANT Administration Protocol Dexmedetomidine HCl 400 mcg in 100 mls @ 2.597 mls/hr 07/25/16 14:29 06:29 Precedex 4 Mcg/Ml (100 Ml) IV 1 mcg/kg/hr .Q24H PRN 12.984 mls/hr Agitation Titration Protocol 0.2 MCG/KG/HR Magnesium Oxide 400 mg 07/23/16 10:00 07/27/16 10:08 Mag-Ox PO 400 mg BID NISHANT Administration Methylprednisolone 40 mg 07/21/16 06:00 07/29/16 05:22 Solu-Medrol IVP 40 mg Q8 NISHANT Administration Morphine Sulfate 2 mg 07/29/16 10:18 07/29/16 10:36 Morphine IVP 2 mg Q3H PRN Administration Pain, moderate (4-7) Nystatin 5 ml 07/23/16 14:00 07/27/16 15:09 Nystatin Oral Susp PO Not Given QID [facility] Oxycodone/Acetaminophen 1 tab 07/23/16 11:04 07/27/16 21:53 Percocet 10/325 Mg Tab PO 1 tab Q4H PRN Administration Pain, severe (8-10) Pantoprazole Sodium 40 mg 07/21/16 10:00 07/29/16 09:05 Protonix Inj IVP 40 mg DAILY NISHANT Administration Saliva Substitute 0 ml 07/27/16 13:15 07/29/16 05:15 Saliva Substitute PO Not Given Q8H [facility] Vancomycin HCl 500 mg 07/28/16 22:00 07/29/16 09:05 Vancocin 25 Mg/Ml (Oral Use) PO 500 mg QID NISHANT Administration Protocol - Patient Studies Lab Studies: Microbiology Studies 07/27/16 11:40 Bronchial Culture - Final Bronchial Washings NORMAL SAPROPHYTIC GERALD 07/26/16 10:36 Gram Stain - Final Pleural Fluid Body Fluid Culture - Preliminary NO GROWTH AFTER 3 DAYS Fungal Culture - Preliminary 07/26/16 06:30 Blood Culture - Preliminary Blood NO GROWTH AFTER 3 DAYS 07/26/16 06:30 Blood Culture - Preliminary Blood NO GROWTH AFTER 3 DAYS 05/24/17 11:40 Mycobacterial Culture - Preliminary Other: Please Indicate 07/27/16 11:40 Fungal Culture - Preliminary Bronchial Washings Lab Studies 07/29/16 07/29/16 07/29/16 Range/Units 05:20 05:15 05:15 WBC (4.5-11.0) 10^3/ul RBC (3.5-6.1) 10^6/uL Hgb (12.0-16.0) gm/dL Hct (36.0-48.0) % MCV (80.0-105.0) fL MCH (25.0-35.0) pg MCHC (31.0-37.0) g/dl RDW (11.5-14.5) % Plt Count (120.0-450.0) 10^3/uL MPV (7.0-11.0) fl Gran % (50.0-68.0) % Lymph % (Auto) (22.0-35.0) % [place] % (Auto) (1.0-6.0) % Eos % (Auto) (1.5-5.0) % Baso % (Auto) (0.0-3.0) % Gran # (1.4-6.5) Lymph # (1.2-3.4) [place] # (0.1-0.6) Eos # (0.0-0.7) Baso # (0.0-2.0) K/mm3 PT (9.9-11.8) Seconds INR (0.93-1.08) APTT 44.1 H (23.7-30.8) Seconds pCO2 38 (35-45) mm/Hg pO2 92.0 (80-100) mm/Hg HCO3 25.2 (21-28) mmol/L ABG pH 7.43 (7.35-7.45) ABG Total CO2 26.4 (22-28) mmol.L ABG O2 Saturation 98.9 H (95-98) % ABG Base Excess 0.9 (-2.0-3.0) mmol/L ABG Potassium 3.2 L (3.6-5.2) mmol/L Sodium 147.0 146 (132-148) mmol/L Chloride 121.0 H 114 H (98-107) mmol/L Glucose 243 H (65-105) mg/dl Lactate 1.1 (0.7-2.1) mmol/L FiO2 50.0 % Inspiratory BiPAP 18 Potassium 3.5 L (3.6-5.0) mmol/L Carbon Dioxide 27 (21-33) mmol/L Anion Gap 9 L (10-20) BUN 29 H (7-21) mg/dL Creatinine 0.7 (0.5-1.4) mg/dL Est GFR ( Amer) > 60 Est GFR (Non-Af Amer) > 60 Random Glucose 244 H (70-110) mg/dL Calcium 7.9 L (8.4-10.5) mg/dL Phosphorus (2.5-4.5) mg/dL Magnesium (1.7-2.2) mg/dL Total Bilirubin 0.5 (0.2-1.3) mg/dL AST 88 H (15-39) U/L ALT 77 H (7-56) U/L Alkaline Phosphatase 79 (38-133) U/L Total Protein 5.0 L (5.8-8.3) g/dL Albumin 2.5 L (3.0-4.8) g/dL Globulin 2.5 gm/dL Albumin/Globulin Ratio 1.0 L (1.1-1.8) Thyroid Stim Immunoglob (<140) % baseline Arterial Blood Potassium 3.2 L (3.6-5.2) mmol/L Pleural Total Protein g/dL Pleural LDH U/L Pleural Lipase (<10) U/L Pleural Triglycerides TB Test (QFT) Nil IU/mL TB Test Mitogen - Nil IU/mL TB Test TB - Nil IU/mL TB Test (QFT) (Negative) Crossmatch 07/29/16 07/29/16 07/28/16 Range/Units 05:15 05:11 17:07 WBC 17.1 H (4.5-11.0) 10^3/ul RBC 3.40 L (3.5-6.1) 10^6/uL Hgb 9.7 L (12.0-16.0) gm/dL Hct 29.9 L (36.0-48.0) % MCV 87.9 (80.0-105.0) fL MCH 28.5 (25.0-35.0) pg MCHC 32.4 (31.0-37.0) g/dl RDW 15.7 H (11.5-14.5) % Plt Count 201 (120.0-450.0) 10^3/uL MPV 11.2 H (7.0-11.0) fl Gran % 96.7 H (50.0-68.0) % Lymph % (Auto) 1.6 L (22.0-35.0) % [place] % (Auto) 1.5 (1.0-6.0) % Eos % (Auto) 0.0 L (1.5-5.0) % Baso % (Auto) 0.2 (0.0-3.0) % Gran # 16.55 H (1.4-6.5) Lymph # 0.3 L (1.2-3.4) [place] # 0.3 (0.1-0.6) Eos # 0.0 (0.0-0.7) Baso # 0.03 (0.0-2.0) K/mm3 PT 12.4 H (9.9-11.8) Seconds INR 1.15 H (0.93-1.08) APTT 62.5 H (23.7-30.8) Seconds pCO2 (35-45) mm/Hg pO2 (80-100) mm/Hg HCO3 (21-28) mmol/L ABG pH (7.35-7.45) ABG Total CO2 (22-28) mmol.L ABG O2 Saturation (95-98) % ABG Base Excess (-2.0-3.0) mmol/L ABG Potassium (3.6-5.2) mmol/L Sodium (132-148) mmol/L Chloride (98-107) mmol/L Glucose (65-105) mg/dl Lactate (0.7-2.1) mmol/L FiO2 % Inspiratory BiPAP Potassium (3.6-5.0) mmol/L Carbon Dioxide (21-33) mmol/L Anion Gap (10-20) BUN (7-21) mg/dL Creatinine (0.5-1.4) mg/dL Est GFR ( Amer) Est GFR (Non-Af Amer) Random Glucose (70-110) mg/dL Calcium (8.4-10.5) mg/dL Phosphorus (2.5-4.5) mg/dL Magnesium (1.7-2.2) mg/dL Total Bilirubin (0.2-1.3) mg/dL AST (15-39) U/L ALT (7-56) U/L Alkaline Phosphatase (38-133) U/L Total Protein (5.8-8.3) g/dL Albumin (3.0-4.8) g/dL Globulin gm/dL Albumin/Globulin Ratio (1.1-1.8) Thyroid Stim Immunoglob (<140) % baseline Arterial Blood Potassium (3.6-5.2) mmol/L Pleural Total Protein g/dL Pleural LDH U/L Pleural Lipase (<10) U/L Pleural Triglycerides TB Test (QFT) Nil IU/mL TB Test Mitogen - Nil IU/mL TB Test TB - Nil IU/mL TB Test (QFT) (Negative) Crossmatch 07/28/16 07/28/16 07/28/16 Range/Units 15:35 11:00 11:00 WBC 20.1 H (4.5-11.0) 10^3/ul RBC 3.45 L (3.5-6.1) 10^6/uL Hgb 10.0 L (12.0-16.0) gm/dL Hct 31.2 L (36.0-48.0) % MCV 90.4 (80.0-105.0) fL MCH 29.0 (25.0-35.0) pg MCHC 32.1 (31.0-37.0) g/dl RDW 16.2 H (11.5-14.5) % Plt Count 203 (120.0-450.0) 10^3/uL MPV 11.3 H (7.0-11.0) fl Gran % 97.1 H (50.0-68.0) % Lymph % (Auto) 1.4 L (22.0-35.0) % [place] % (Auto) 1.2 (1.0-6.0) % Eos % (Auto) 0.0 L (1.5-5.0) % Baso % (Auto) 0.3 (0.0-3.0) % Gran # 19.55 H (1.4-6.5) Lymph # 0.3 L (1.2-3.4) [place] # 0.2 (0.1-0.6) Eos # 0.0 (0.0-0.7) Baso # 0.06 (0.0-2.0) K/mm3 PT (9.9-11.8) Seconds INR (0.93-1.08) APTT (23.7-30.8) Seconds pCO2 (35-45) mm/Hg pO2 (80-100) mm/Hg HCO3 (21-28) mmol/L ABG pH (7.35-7.45) ABG Total CO2 (22-28) mmol.L ABG O2 Saturation (95-98) % ABG Base Excess (-2.0-3.0) mmol/L ABG Potassium (3.6-5.2) mmol/L Sodium 149 H (132-148) mmol/L Chloride 118 H (98-107) mmol/L Glucose (65-105) mg/dl Lactate (0.7-2.1) mmol/L FiO2 % Inspiratory BiPAP Potassium 3.6 (3.6-5.0) mmol/L Carbon Dioxide 26 (21-33) mmol/L Anion Gap 9 L (10-20) BUN 30 H (7-21) mg/dL Creatinine 0.6 (0.5-1.4) mg/dL Est GFR ( Amer) > 60 Est GFR (Non-Af Amer) > 60 Random Glucose 183 H (70-110) mg/dL Calcium 7.8 L (8.4-10.5) mg/dL Phosphorus 3.2 (2.5-4.5) mg/dL Magnesium 2.0 (1.7-2.2) mg/dL Total Bilirubin 0.6 (0.2-1.3) mg/dL AST 132 H (15-39) U/L ALT 93 H (7-56) U/L Alkaline Phosphatase 83 (38-133) U/L Total Protein 5.1 L (5.8-8.3) g/dL Albumin 2.5 L (3.0-4.8) g/dL Globulin 2.5 gm/dL Albumin/Globulin Ratio 1.0 L (1.1-1.8) Thyroid Stim Immunoglob (<140) % baseline Arterial Blood Potassium (3.6-5.2) mmol/L Pleural Total Protein g/dL Pleural LDH U/L Pleural Lipase (<10) U/L Pleural Triglycerides TB Test (QFT) Nil IU/mL TB Test Mitogen - Nil IU/mL TB Test TB - Nil IU/mL TB Test (QFT) (Negative) Crossmatch 07/28/16 07/28/16 07/27/16 Range/Units 11:00 10:55 07:20 WBC (4.5-11.0) 10^3/ul RBC (3.5-6.1) 10^6/uL Hgb (12.0-16.0) gm/dL Hct (36.0-48.0) % MCV (80.0-105.0) fL MCH (25.0-35.0) pg MCHC (31.0-37.0) g/dl RDW (11.5-14.5) % Plt Count (120.0-450.0) 10^3/uL MPV (7.0-11.0) fl Gran % (50.0-68.0) % Lymph % (Auto) (22.0-35.0) % [place] % (Auto) (1.0-6.0) % Eos % (Auto) (1.5-5.0) % Baso % (Auto) (0.0-3.0) % Gran # (1.4-6.5) Lymph # (1.2-3.4) [place] # (0.1-0.6) Eos # (0.0-0.7) Baso # (0.0-2.0) K/mm3 PT 12.8 H (9.9-11.8) Seconds INR 1.19 H (0.93-1.08) APTT 79.0 H* (23.7-30.8) Seconds pCO2 41 (35-45) mm/Hg pO2 93.0 (80-100) mm/Hg HCO3 23.7 (21-28) mmol/L ABG pH 7.37 (7.35-7.45) ABG Total CO2 25.0 (22-28) mmol.L ABG O2 Saturation 99.0 H (95-98) % ABG Base Excess -1.5 (-2.0-3.0) mmol/L ABG Potassium 3.4 L (3.6-5.2) mmol/L Sodium 149.0 H (132-148) mmol/L Chloride 124.0 H (98-107) mmol/L Glucose 208 H (65-105) mg/dl Lactate 0.8 (0.7-2.1) mmol/L FiO2 50.0 % Inspiratory BiPAP 18 Potassium (3.6-5.0) mmol/L Carbon Dioxide (21-33) mmol/L Anion Gap (10-20) BUN (7-21) mg/dL Creatinine (0.5-1.4) mg/dL Est GFR ( Amer) Est GFR (Non-Af Amer) Random Glucose (70-110) mg/dL Calcium (8.4-10.5) mg/dL Phosphorus (2.5-4.5) mg/dL Magnesium (1.7-2.2) mg/dL Total Bilirubin (0.2-1.3) mg/dL AST (15-39) U/L ALT (7-56) U/L Alkaline Phosphatase (38-133) U/L Total Protein (5.8-8.3) g/dL Albumin (3.0-4.8) g/dL Globulin gm/dL Albumin/Globulin Ratio (1.1-1.8) Thyroid Stim Immunoglob (<140) % baseline Arterial Blood Potassium 3.4 L (3.6-5.2) mmol/L Pleural Total Protein g/dL Pleural LDH U/L Pleural Lipase (<10) U/L Pleural Triglycerides TB Test (QFT) Nil 0.05 IU/mL TB Test Mitogen - Nil <0.00 IU/mL TB Test TB - Nil <0.00 IU/mL TB Test (QFT) Indeterminate H (Negative) Crossmatch 07/26/16 07/26/16 07/26/16 Range/Units 10:35 10:35 05:45 WBC (4.5-11.0) 10^3/ul RBC (3.5-6.1) 10^6/uL Hgb (12.0-16.0) gm/dL Hct (36.0-48.0) % MCV (80.0-105.0) fL MCH (25.0-35.0) pg MCHC (31.0-37.0) g/dl RDW (11.5-14.5) % Plt Count (120.0-450.0) 10^3/uL MPV (7.0-11.0) fl Gran % (50.0-68.0) % Lymph % (Auto) (22.0-35.0) % [place] % (Auto) (1.0-6.0) % Eos % (Auto) (1.5-5.0) % Baso % (Auto) (0.0-3.0) % Gran # (1.4-6.5) Lymph # (1.2-3.4) [place] # (0.1-0.6) Eos # (0.0-0.7) Baso # (0.0-2.0) K/mm3 PT (9.9-11.8) Seconds INR (0.93-1.08) APTT (23.7-30.8) Seconds pCO2 (35-45) mm/Hg pO2 (80-100) mm/Hg HCO3 (21-28) mmol/L ABG pH (7.35-7.45) ABG Total CO2 (22-28) mmol.L ABG O2 Saturation (95-98) % ABG Base Excess (-2.0-3.0) mmol/L ABG Potassium (3.6-5.2) mmol/L Sodium (132-148) mmol/L Chloride (98-107) mmol/L Glucose (65-105) mg/dl Lactate (0.7-2.1) mmol/L FiO2 % Inspiratory BiPAP Potassium (3.6-5.0) mmol/L Carbon Dioxide (21-33) mmol/L Anion Gap (10-20) BUN (7-21) mg/dL Creatinine (0.5-1.4) mg/dL Est GFR ( Amer) Est GFR (Non-Af Amer) Random Glucose (70-110) mg/dL Calcium (8.4-10.5) mg/dL Phosphorus (2.5-4.5) mg/dL Magnesium (1.7-2.2) mg/dL Total Bilirubin (0.2-1.3) mg/dL AST (15-39) U/L ALT (7-56) U/L Alkaline Phosphatase (38-133) U/L Total Protein (5.8-8.3) g/dL Albumin (3.0-4.8) g/dL Globulin gm/dL Albumin/Globulin Ratio (1.1-1.8) Thyroid Stim Immunoglob <89 (<140) % baseline Arterial Blood Potassium (3.6-5.2) mmol/L Pleural Total Protein <3.0 g/dL Pleural LDH 28 U/L Pleural Lipase 28.0 H (<10) U/L Pleural Triglycerides see note TB Test (QFT) Nil IU/mL TB Test Mitogen - Nil IU/mL TB Test TB - Nil IU/mL TB Test (QFT) (Negative) Crossmatch 07/24/16 Range/Units 11:05 WBC (4.5-11.0) 10^3/ul RBC (3.5-6.1) 10^6/uL Hgb (12.0-16.0) gm/dL Hct (36.0-48.0) % MCV (80.0-105.0) fL MCH (25.0-35.0) pg MCHC (31.0-37.0) g/dl RDW (11.5-14.5) % Plt Count (120.0-450.0) 10^3/uL MPV (7.0-11.0) fl Gran % (50.0-68.0) % Lymph % (Auto) (22.0-35.0) % [place] % (Auto) (1.0-6.0) % Eos % (Auto) (1.5-5.0) % Baso % (Auto) (0.0-3.0) % Gran # (1.4-6.5) Lymph # (1.2-3.4) [place] # (0.1-0.6) Eos # (0.0-0.7) Baso # (0.0-2.0) K/mm3 PT (9.9-11.8) Seconds INR (0.93-1.08) APTT (23.7-30.8) Seconds pCO2 (35-45) mm/Hg pO2 (80-100) mm/Hg HCO3 (21-28) mmol/L ABG pH (7.35-7.45) ABG Total CO2 (22-28) mmol.L ABG O2 Saturation (95-98) % ABG Base Excess (-2.0-3.0) mmol/L ABG Potassium (3.6-5.2) mmol/L Sodium (132-148) mmol/L Chloride (98-107) mmol/L Glucose (65-105) mg/dl Lactate (0.7-2.1) mmol/L FiO2 % Inspiratory BiPAP Potassium (3.6-5.0) mmol/L Carbon Dioxide (21-33) mmol/L Anion Gap (10-20) BUN (7-21) mg/dL Creatinine (0.5-1.4) mg/dL Est GFR ( Amer) Est GFR (Non-Af Amer) Random Glucose (70-110) mg/dL Calcium (8.4-10.5) mg/dL Phosphorus (2.5-4.5) mg/dL Magnesium (1.7-2.2) mg/dL Total Bilirubin (0.2-1.3) mg/dL AST (15-39) U/L ALT (7-56) U/L Alkaline Phosphatase (38-133) U/L Total Protein (5.8-8.3) g/dL Albumin (3.0-4.8) g/dL Globulin gm/dL Albumin/Globulin Ratio (1.1-1.8) Thyroid Stim Immunoglob (<140) % baseline Arterial Blood Potassium (3.6-5.2) mmol/L Pleural Total Protein g/dL Pleural LDH U/L Pleural Lipase (<10) U/L Pleural Triglycerides TB Test (QFT) Nil IU/mL TB Test Mitogen - Nil IU/mL TB Test TB - Nil IU/mL TB Test (QFT) (Negative) Crossmatch See Detail Laboratory Results - last 24 hr 07/24/16 07/26/16 07/26/16 11:05 05:45 10:35 WBC RBC Hgb Hct MCV MCH MCHC RDW Plt Count MPV Gran % Lymph % (Auto) [place] % (Auto) Eos % (Auto) Baso % (Auto) Gran # Lymph # [place] # Eos # Baso # PT INR APTT pCO2 pO2 HCO3 ABG pH ABG Total CO2 ABG O2 Saturation ABG Base Excess ABG Potassium Sodium Chloride Glucose Lactate FiO2 Inspiratory BiPAP Potassium Carbon Dioxide Anion Gap BUN Creatinine Est GFR ( Amer) Est GFR (Non-Af Amer) Random Glucose Calcium Phosphorus Magnesium Total Bilirubin AST ALT Alkaline Phosphatase Total Protein Albumin Globulin Albumin/Globulin Ratio Thyroid Stim Immunoglob <89 Arterial Blood Potassium Pleural Total Protein <3.0 Pleural LDH 28 Pleural Lipase Pleural Triglycerides see note TB Test (QFT) Nil TB Test Mitogen - Nil TB Test TB - Nil TB Test (QFT) Crossmatch See Detail 07/26/16 07/27/16 07/28/16 10:35 07:20 10:55 WBC RBC Hgb Hct MCV MCH MCHC RDW Plt Count MPV Gran % Lymph % (Auto) [place] % (Auto) Eos % (Auto) Baso % (Auto) Gran # Lymph # [place] # Eos # Baso # PT INR APTT pCO2 41 pO2 93.0 HCO3 23.7 ABG pH 7.37 ABG Total CO2 25.0 ABG O2 Saturation 99.0 H ABG Base Excess -1.5 ABG Potassium 3.4 L Sodium 149.0 H Chloride 124.0 H Glucose 208 H Lactate 0.8 FiO2 50.0 Inspiratory BiPAP 18 Potassium Carbon Dioxide Anion Gap BUN Creatinine Est GFR ( Amer) Est GFR (Non-Af Amer) Random Glucose Calcium Phosphorus Magnesium Total Bilirubin AST ALT Alkaline Phosphatase Total Protein Albumin Globulin Albumin/Globulin Ratio Thyroid Stim Immunoglob Arterial Blood Potassium 3.4 L Pleural Total Protein Pleural LDH Pleural Lipase 28.0 H Pleural Triglycerides TB Test (QFT) Nil 0.05 TB Test Mitogen - Nil <0.00 TB Test TB - Nil <0.00 TB Test (QFT) Indeterminate H Crossmatch 07/28/16 07/28/16 07/28/16 11:00 11:00 11:00 WBC RBC Hgb Hct MCV MCH MCHC RDW Plt Count MPV Gran % Lymph % (Auto) [place] % (Auto) Eos % (Auto) Baso % (Auto) Gran # Lymph # [place] # Eos # Baso # PT 12.8 H INR 1.19 H APTT 79.0 H* pCO2 pO2 HCO3 ABG pH ABG Total CO2 ABG O2 Saturation ABG Base Excess ABG Potassium Sodium 149 H Chloride 118 H Glucose Lactate FiO2 Inspiratory BiPAP Potassium 3.6 Carbon Dioxide 26 Anion Gap 9 L BUN 30 H Creatinine 0.6 Est GFR ( Amer) > 60 Est GFR (Non-Af Amer) > 60 Random Glucose 183 H Calcium 7.8 L Phosphorus 3.2 Magnesium 2.0 Total Bilirubin 0.6 AST 132 H ALT 93 H Alkaline Phosphatase 83 Total Protein 5.1 L Albumin 2.5 L Globulin 2.5 Albumin/Globulin Ratio 1.0 L Thyroid Stim Immunoglob Arterial Blood Potassium Pleural Total Protein Pleural LDH Pleural Lipase Pleural Triglycerides TB Test (QFT) Nil TB Test Mitogen - Nil TB Test TB - Nil TB Test (QFT) Crossmatch 07/28/16 07/28/16 07/29/16 15:35 17:07 05:11 WBC 20.1 H RBC 3.45 L Hgb 10.0 L Hct 31.2 L MCV 90.4 MCH 29.0 MCHC 32.1 RDW 16.2 H Plt Count 203 MPV 11.3 H Gran % 97.1 H Lymph % (Auto) 1.4 L [place] % (Auto) 1.2 Eos % (Auto) 0.0 L Baso % (Auto) 0.3 Gran # 19.55 H Lymph # 0.3 L [place] # 0.2 Eos # 0.0 Baso # 0.06 PT 12.4 H INR 1.15 H APTT 62.5 H pCO2 pO2 HCO3 ABG pH ABG Total CO2 ABG O2 Saturation ABG Base Excess ABG Potassium Sodium Chloride Glucose Lactate FiO2 Inspiratory BiPAP Potassium Carbon Dioxide Anion Gap BUN Creatinine Est GFR ( Amer) Est GFR (Non-Af Amer) Random Glucose Calcium Phosphorus Magnesium Total Bilirubin AST ALT Alkaline Phosphatase Total Protein Albumin Globulin Albumin/Globulin Ratio Thyroid Stim Immunoglob Arterial Blood Potassium Pleural Total Protein Pleural LDH Pleural Lipase Pleural Triglycerides TB Test (QFT) Nil TB Test Mitogen - Nil TB Test TB - Nil TB Test (QFT) Crossmatch 07/29/16 07/29/16 07/29/16 05:15 05:15 05:15 WBC 17.1 H RBC 3.40 L Hgb 9.7 L Hct 29.9 L MCV 87.9 MCH 28.5 MCHC 32.4 RDW 15.7 H Plt Count 201 MPV 11.2 H Gran % 96.7 H Lymph % (Auto) 1.6 L [place] % (Auto) 1.5 Eos % (Auto) 0.0 L Baso % (Auto) 0.2 Gran # 16.55 H Lymph # 0.3 L [place] # 0.3 Eos # 0.0 Baso # 0.03 PT INR APTT 44.1 H pCO2 pO2 HCO3 ABG pH ABG Total CO2 ABG O2 Saturation ABG Base Excess ABG Potassium Sodium 146 Chloride 114 H Glucose Lactate FiO2 Inspiratory BiPAP Potassium 3.5 L Carbon Dioxide 27 Anion Gap 9 L BUN 29 H Creatinine 0.7 Est GFR ( Amer) > 60 Est GFR (Non-Af Amer) > 60 Random Glucose 244 H Calcium 7.9 L Phosphorus Magnesium Total Bilirubin 0.5 AST 88 H ALT 77 H Alkaline Phosphatase 79 Total Protein 5.0 L Albumin 2.5 L Globulin 2.5 Albumin/Globulin Ratio 1.0 L Thyroid Stim Immunoglob Arterial Blood Potassium Pleural Total Protein Pleural LDH Pleural Lipase Pleural Triglycerides TB Test (QFT) Nil TB Test Mitogen - Nil TB Test TB - Nil TB Test (QFT) Crossmatch 07/29/16 05:20 WBC RBC Hgb Hct MCV MCH MCHC RDW Plt Count MPV Gran % Lymph % (Auto) [place] % (Auto) Eos % (Auto) Baso % (Auto) Gran # Lymph # [place] # Eos # Baso # PT INR APTT pCO2 38 pO2 92.0 HCO3 25.2 ABG pH 7.43 ABG Total CO2 26.4 ABG O2 Saturation 98.9 H ABG Base Excess 0.9 ABG Potassium 3.2 L Sodium 147.0 Chloride 121.0 H Glucose 243 H Lactate 1.1 FiO2 50.0 Inspiratory BiPAP 18 Potassium Carbon Dioxide Anion Gap BUN Creatinine Est GFR ( Amer) Est GFR (Non-Af Amer) Random Glucose Calcium Phosphorus Magnesium Total Bilirubin AST ALT Alkaline Phosphatase Total Protein Albumin Globulin Albumin/Globulin Ratio Thyroid Stim Immunoglob Arterial Blood Potassium 3.2 L Pleural Total Protein Pleural LDH Pleural Lipase Pleural Triglycerides TB Test (QFT) Nil TB Test Mitogen - Nil TB Test TB - Nil TB Test (QFT) Crossmatch Critical Care Progress Note - Nutrition Nutrition: Nutrition Category Date Time Status NPO Diet [DIET] Diets 07/28/16 Dinner Ordered Attending/Attestation - Attestation I have personally seen and examined this patient.: Yes I have fully participated in the care of the patient.: Yes I have reviewed all pertinent clinical information: Yes Notes (Text): 07/29/16 11:29 61 y/o F w/ Respiratory failure Long course in the ICU secondary to acute resp failure from multifactorial causes. ILD/ Methotrexate Lung w/ Rheumatoid factor. Possible Multifocal pna w/o source yet, 1 sputum w/ Gram -. Bronchoscopy done awaiting results. On empiric abx and Solumedrol. Respiratory status poor on HFNC w/ rr 25-35 w/ anxiety as well Restrictive lung disease w/ blebs s/o PTX RLL w/ CT placement w/ air leak present. On suction . B/L sug seg P.E on Heparin drip w/ PTT in treatment range. No further bleeding noted. RA Off methotrexate, w/ steroids and pain control w/ Morphine prn Diet cannot be resumed due to poor resp status . Tube feeds continued. poo rprognosis. Needs Paliative care cc time 65 min
[2016-07-29] MEDS: Vancomycin 25 MG/ML PO SCH ×4 (09:05→22:26)
[2016-07-29] MEDS: Vancomycin 1gm in NS 250ml 1 GM/250 ML BAG IVPB SCH (09:06)
--- NOTE | 2016-07-29 10:03 | CP.PCM.PN ---
Objective - Vital Signs/Intake and Output Vital Signs (last 24 hours): Temp Pulse Resp BP Pulse Ox 97.7 F 119 H 43 H 109/75 95 07/29/16 08:00 07/29/16 08:33 07/29/16 08:33 07/29/16 09:04 07/29/16 08:00 Intake and Output: 07/29/16 07/29/16 06:59 18:59 Intake Total 918 Output Total 550 Balance 368 - Medications Medications: Current Medications Acetaminophen (Tylenol 650mg/20.3ml Solution Ud) 650 mg PO Q6H PRN PRN Reason: fever Last Admin: 07/25/16 18:08 Dose: 650 mg Albuterol/Ipratropium (Duoneb 3 Mg/0.5 Mg (3 Ml) Ud) 3 ml IH [id number] [facility] Last Admin: 07/29/16 07:26 Dose: 3 ml Alprazolam (Xanax) 0.5 mg PO BID [facility] PRN Reason: Protocol Last Admin: 07/27/16 10:07 Dose: 0.5 mg Aspirin (Ecotrin) 81 mg PO DAILY [facility] Last Admin: 07/27/16 10:07 Dose: 81 mg Furosemide (Lasix) 40 mg IV DAILY [facility] Last Admin: 07/29/16 09:04 Dose: 40 mg Haloperidol Lactate (Haldol) 2 mg IVP Q6H PRN; Protocol PRN Reason: Agitation Last Admin: 07/28/16 23:16 Dose: 2 mg Doxycycline Hyclate 100 mg/ (Sodium Chloride) 100 mls @ 100 mls/hr IVPB Q12 [facility] PRN Reason: Protocol Last Admin: 07/29/16 09:16 Dose: 100 mls/hr Heparin Sodium/Sodium Chloride (Heparin 62675 Units/250ml 1/2 Normal Saline) 25 ,000 units in 250 mls @ 8.655 mls/hr IV .Q24H PRN; Protocol; 18 UNITS/KG/HR PRN Reason: ADJUST RATE PER PROTOCOL Last Admin: 07/29/16 07:30 Dose: 16 units/kg/hr, 7.693 mls/hr Meropenem 1g/NS 100mL IVPB (Meropenem 1g/Ns 100ml Ivpb) 1 g in 100 mls @ 100 mls/hr IVPB Q8 [facility] PRN Reason: Protocol Stop: 07/30/16 09:16 Last Admin: 07/29/16 05:22 Dose: 100 mls/hr Dexmedetomidine HCl (Precedex 4 Mcg/Ml (100 Ml)) 400 mcg in 100 mls @ 2.597 mls /hr IV .Q24H PRN; Protocol; 0.2 MCG/KG/HR PRN Reason: Agitation Last Titration: 07/29/16 06:29 Dose: 1 mcg/kg/hr, 12.984 mls/hr Dobutamine HCl/Dextrose (Dobutamine/Dextrose 5% 500mg/250ml) 500 mg in 250 mls @ 4.123 mls/hr IV .Q24H PRN; Protocol; 2.5 MCG/KG/MIN PRN Reason: TITRATE PER PROTOCOL Last Admin: 07/27/16 15:01 Dose: 4.123 mls/hr Potassium Chloride (Potassium Chloride 10 Meq/100 Ml) 10 meq in 100 mls @ 100 mls/hr IVPB Q2H [facility] Stop: 07/29/16 10:14 Last Admin: 07/29/16 08:40 Dose: 100 mls/hr Magnesium Oxide (Mag-Ox) 400 mg PO BID [facility] Last Admin: 07/27/16 10:08 Dose: 400 mg Methylprednisolone (Solu-Medrol) 40 mg IVP Q8 [facility] Last Admin: 07/29/16 05:22 Dose: 40 mg Morphine Sulfate (Morphine) 2 mg IVP Q4H PRN PRN Reason: Pain, moderate (4-7) Last Admin: 07/28/16 22:56 Dose: 2 mg Nystatin (Nystatin Oral Susp) 5 ml PO QID [facility] Last Admin: 07/27/16 15:09 Dose: Not Given Oxycodone/Acetaminophen (Percocet 10/325 Mg Tab) 1 tab PO Q4H PRN PRN Reason: Pain, severe (8-10) Last Admin: 07/27/16 21:53 Dose: 1 tab Pantoprazole Sodium (Protonix Inj) 40 mg IVP DAILY [facility] Last Admin: 07/29/16 09:05 Dose: 40 mg Saliva Substitute (Saliva Substitute) 0 ml PO Q8H [facility] Last Admin: 07/29/16 05:15 Dose: Not Given Vancomycin HCl (Vancocin 25 Mg/Ml (Oral Use)) 500 mg PO QID [facility] PRN Reason: Protocol Last Admin: 07/29/16 09:05 Dose: 500 mg - Labs Labs: 07/29/16 05:15 07/29/16 05:15 PT 12.4 Seconds (9.9-11.8) H 07/29/16 05:11 INR 1.15 (0.93-1.08) H 07/29/16 05:11 APTT 44.1 Seconds (23.7-30.8) H 07/29/16 05:15
[2016-07-29] MEDS: Morphine 2 mg/ml ISec IVP PRN ×3 (10:36→18:04)
--- NOTE | 2016-07-29 11:13 | RAD ---
HISTORY: R chest tube COMPARISON: 07/28/2016 FINDINGS: LUNGS: Right-sided chest tube at the lung bases. Small amount of subcutaneous emphysema unchanged. Upper lobe infiltrates unchanged. Feeding tube in satisfactory position PLEURA: No significant pleural effusion identified, no pneumothorax apparent. CARDIOVASCULAR: Normal. OSSEOUS STRUCTURES: No significant abnormalities. VISUALIZED UPPER ABDOMEN: Normal. OTHER FINDINGS: None. IMPRESSION: Right-sided chest tube at the lung bases. Small amount of subcutaneous emphysema unchanged. Upper lobe infiltrates unchanged. Feeding tube in satisfactory position
--- NOTE | 2016-07-29 11:21 | RAD ---
HISTORY: DobbHoff tube (NGT) placxement COMPARISON: No prior. FINDINGS: LUNGS: Patchy infiltrates in the upper lobes. Chest tube at right lung base. No pneumothorax PLEURA: No significant pleural effusion identified, no pneumothorax apparent. CARDIOVASCULAR: Normal. OSSEOUS STRUCTURES: No significant abnormalities. VISUALIZED UPPER ABDOMEN: feeding tube is seen in satisfactory position in the body of the stomach OTHER FINDINGS: None. IMPRESSION: Feeding tube in satisfactory position
--- NOTE | 2016-07-29 12:43 | PN ---
DATE: 07/29/2016 CCU 129, room 4. This is a 61-year-old female with recent admission for acute pneumonia with supervening congestive he art failure, currently on IV steroid therapy and is now being followed closely for metabolic manageme nt. Her glycemic levels are fluctuating as expected with increased insulin resistance from the IV st eroids as given, but this is transient and should improve accordingly as the steroids are tapered deidre n as noted. Her latest chemistries showed a BUN of 29, sodium 146, potassium 3.5, chloride 114, CO2 27, glucose 244 and creatinine 0.7. Her latest thyroid study showed a T4 of 2.4 mcg/dL with a free T 4 of 0.69 and a TSH of 0.33. She remains clinically euthyroid and biochemically has a combination of the so-called acute sick euthyroid syndrome with superimposed TSH suppression from the intercurrent IV steroid therapy and also has low normal thyroxine level from the intercurrent hypoalbuminemia with reduced thyroxine binding globulin levels as expected. There is no indication at this time for any kind of thyroid pharmacotherapy. We will obtain serial chemistries and supplement accordingly as nee ded and also obtain serial thyroid studies and expect improvement of her thyroid indices as her clini yunior condition improves accordingly. We will follow. Briana Cazares MD cc: [id number] TT: 07/29/2016 12:43:04 Confirmation # [id number] Dictation # [id number]
--- NOTE | 2016-07-29 14:58 | PN ---
DATE: 07/29/2016 This is patient's hospital visit in the intensive care unit. For Dr. Viramontes. SUBJECTIVE: The patient is a 61-year-old female, seen lying awake in bed, now extubated after treatm ent for respiratory failure secondary to necrotizing pneumonia with pneumothorax. Chest tube continu es on the right side with history of bilateral PE with the patient now status post swallowing evaluat ion with swallowing on hold at present. With this, she appears to be in no acute distress with ice c hips being used for her thirst at present for dryness of her oral mucosa. PHYSICAL EXAMINATION: VITAL SIGNS: Temperature is 98, pulse 93, respirations 28, blood pressure 112/72 with a pulse ox of 98%. HEENT: Oxygen is on. Oropharynx is dry with an NG tube in her nostril. NECK: Supple. HEART: Regular rate. LUNGS: Chest tube on the right, rhonchi on the left, decreased breath sounds on the right. ABDOMEN: Soft. EXTREMITIES: Arthritic changes of the hands are appreciated with ecchymotic changes of the right upp er extremity. NEUROLOGIC: She is awake and alert. SKIN: Warm, dry except as above with ecchymotic change in right arm, status post phlebotomies? LABORATORY DATA: The patient's labs were done. White blood cell count 17.1, hemoglobin 9.7, hematoc rit 29.9, platelet count 201,000 with a PTT of 44. Chem metabolic panel showing a potassium of 3.5, chloride of 114, BUN of 29, creatinine of 0.7, AST of 88, ALT of 77. The patient had a chest x-ray done today. It was read as right-sided chest with the lung base small amount of subcutaneous emphysema unchanged, upper lobe infiltrates unchanged, feeding tube in satisfa ctory position. ASSESSMENT: Necrotizing pneumonia, respiratory failure, now extubated, pulmonary embolism, bilateral , right chest tube for pneumothorax, pulmonary hypertension, rheumatoid arthritis, anxiety, nutrition , hypokalemia. PLAN: The patient is to continue present medical regimen, transition to Coumadin when appropriate. The patient will be monitored clinically and with labs. Prognosis for this patient is guarded. Chacorta Lea MD cc: [phone] TT: 07/29/2016 14:56:58 Confirmation # [id number] Dictation # [id number] rn
--- NOTE | 2016-07-29 17:18 | CP.PCM.PN ---
Subjective - Date & Time of Evaluation Date of Evaluation: 07/29/16 Time of Evaluation: 08:40 - Subjective Subjective: Still on high flow oxygen, only speaking in phrases. Afebrile overnight. Objective - Vital Signs/Intake and Output Vital Signs (last 24 hours): Temp Pulse Resp BP Pulse Ox 97.7 F 89 33 H 117/81 96 07/29/16 08:00 07/29/16 16:00 07/29/16 16:00 07/29/16 16:00 07/29/16 16:00 Intake and Output: 07/29/16 07/29/16 06:59 18:59 Intake Total 918 2470 Output Total 550 1710 Balance 368 760 - Medications Medications: Current Medications Acetaminophen (Tylenol 650mg/20.3ml Solution Ud) 650 mg PO Q6H PRN PRN Reason: fever Last Admin: 07/25/16 18:08 Dose: 650 mg Albuterol/Ipratropium (Duoneb 3 Mg/0.5 Mg (3 Ml) Ud) 3 ml [facility] [id number] Last Admin: 07/29/16 16:00 Dose: 3 ml Alprazolam (Xanax) 0.5 mg PO BID [facility] PRN Reason: Protocol Last Admin: 07/27/16 10:07 Dose: 0.5 mg Aspirin (Ecotrin) 81 mg PO DAILY [facility] Last Admin: 07/27/16 10:07 Dose: 81 mg Furosemide (Lasix) 40 mg IV DAILY [facility] Last Admin: 07/29/16 09:04 Dose: 40 mg Haloperidol Lactate (Haldol) 2 mg IVP Q6H PRN; Protocol PRN Reason: Agitation Last Admin: 07/28/16 23:16 Dose: 2 mg Doxycycline Hyclate 100 mg/ (Sodium Chloride) 100 mls @ 100 mls/hr IVPB Q12 [facility] PRN Reason: Protocol Last Admin: 07/29/16 09:16 Dose: 100 mls/hr Heparin Sodium/Sodium Chloride (Heparin 62303 Units/250ml 1/2 Normal Saline) 25 ,000 units in 250 mls @ 8.655 mls/hr IV .Q24H PRN; Protocol; 18 UNITS/KG/HR PRN Reason: ADJUST RATE PER PROTOCOL Last Titration: 07/29/16 15:30 Dose: 13 units/kg/hr, 6.251 mls/hr Meropenem 1g/NS 100mL IVPB (Meropenem 1g/Ns 100ml Ivpb) 1 g in 100 mls @ 100 mls/hr IVPB Q8 [facility] PRN Reason: Protocol Stop: 07/30/16 09:16 Last Admin: 07/29/16 13:14 Dose: 100 mls/hr Dexmedetomidine HCl (Precedex 4 Mcg/Ml (100 Ml)) 400 mcg in 100 mls @ 2.597 mls /hr IV .Q24H PRN; Protocol; 0.2 MCG/KG/HR PRN Reason: Agitation Last Titration: 07/29/16 06:29 Dose: 1 mcg/kg/hr, 12.984 mls/hr Magnesium Oxide (Mag-Ox) 400 mg PO BID [facility] Last Admin: 07/27/16 10:08 Dose: 400 mg Methylprednisolone (Solu-Medrol) 40 mg IVP Q8 [facility] Last Admin: 07/29/16 13:14 Dose: 40 mg Morphine Sulfate (Morphine) 2 mg IVP Q3H PRN PRN Reason: Pain, moderate (4-7) Last Admin: 07/29/16 13:24 Dose: 2 mg Nystatin (Nystatin Oral Susp) 5 ml PO QID [facility] Last Admin: 07/27/16 15:09 Dose: Not Given Pantoprazole Sodium (Protonix Inj) 40 mg IVP DAILY [facility] Last Admin: 07/29/16 09:05 Dose: 40 mg Saliva Substitute (Saliva Substitute) 0 ml PO Q8H [facility] Last Admin: 07/29/16 15:40 Dose: Not Given Vancomycin HCl (Vancocin 25 Mg/Ml (Oral Use)) 500 mg PO QID [facility] PRN Reason: Protocol Last Admin: 07/29/16 13:15 Dose: 500 mg - Labs Labs: 07/29/16 05:15 07/29/16 05:15 PT 12.4 Seconds (9.9-11.8) H 07/29/16 05:11 INR 1.15 (0.93-1.08) H 07/29/16 05:11 APTT 98.9 Seconds (23.7-30.8) H* 07/29/16 13:15 - Constitutional Appears: Non-toxic, In Acute Distress (mild acute distress) - Head Exam Head Exam: NORMAL INSPECTION - ENT Exam ENT Exam: Mucous Membranes Moist - Neck Exam Neck Exam: absent: Lymphadenopathy, Meningismus - Respiratory Exam Respiratory Exam: Decreased Breath Sounds - Cardiovascular Exam Cardiovascular Exam: +S1, +S2 - GI/Abdominal Exam GI & Abdominal Exam: Soft. absent: Tenderness Assessment and Plan - Assessment and Plan (Free Text) Plan: Assessment Severe sepsis S/P ventilator-dependent respiratory failure due to multifocal healthcare-associated pneumonia with E. coli S/P bronchoscopy in a patient with lung disease probably from rheumatoid arthritis Pseudomonas in urine cx Acute pulmonary embolism probable new C. diff. infection history of bilateral upper lobe severe pneumonia with associated systemic viral illness with Influenza, with associated persistent Methicillin-sensitive Staph aureus bacteremia history of C diff associated diarrhea rheumatoid arthritis osteoarthritis history of depression and anxiety history of pneumonia Plan will continue Merrem (day 9 of 10) and Doxycycline; bronchoscopy work up negative fungi, mycobacteria continue PO Vancomycin day 6 of 10 will continue to monitor clinically
--- NOTE | 2016-07-29 20:04 | PN ---
DATE: 07/29/2016 REFERRING PHYSICIAN: Dr. Chacorta Lea. SUBJECTIVE: She is sitting up in bed, on high flow nasal cannula oxygen. Has a nasogastric tube, fe eding is ongoing. Still has some cough and shortness of breath. Right-sided chest tube with large s ubcutaneous emphysema. No abdominal pain. No hematuria, no diarrhea, no leg swelling reported. OBJECTIVE: GENERAL: Moderate distress. VITAL SIGNS: Temp is 98, heart rate is 83, respiratory rate is 30, blood pressure 118/78, pulse ox 9 7% on high flow nasal cannula oxygen. HEENT: Moist mucous membrane. Crowded airway. Has feeding tube. LUNGS: Have scattered rhonchi and crackles, right chest has subcutaneous emphysema, right-sided ches t tube still has air leak. HEART: S1 and S2. ABDOMEN: Soft, nontender. No organomegaly. EXTREMITIES: There is no edema. NEUROLOGIC: Awake, alert, follows simple commands. MEDICATIONS: She is on doxycycline 100 mg twice a day, DuoNeb q. 4 hours, Ecotrin 81 mg daily, Haldo l 2 mg q. 6 hours p.r.n., heparin is a weight-based protocol, Lasix 40 mg daily, magnesium oxide 400 mg twice a day which is on hold, meropenem 1 g IV q. 8 hours, morphine 2 mg IV q. 3 hours, Protonix 4 0 mg daily, saliva substitute to mouth q. 8 hours, Solu-Medrol 40 mg q. 8 hours, Tylenol on a p.r.n. basis, vancomycin 500 mg q.i.d., Xanax 0.5 mg twice a day. LABORATORY DATA: Shows hemoglobin 9.7, hematocrit 29.9, WBC 17.1, platelet count is 201. PTT is 99. INR 1.15. Blood gases shows pH 7.43, pCO2 of 38, pO2 is 92, this is on high flow nasal cannula oxy gen. Sodium 143, potassium 3.5, chloride 114, bicarbonate 27, BUN 29, creatinine 0.7, glucose is 244 , calcium is 7.9, AST 88, ALT 77, alk phos is 79, albumin is 2.5. Chest x-ray from today shows right -sided chest tube at the lung base, mild amount of subcutaneous emphysema is unchanged, upper lobe in filtrate unchanged, feeding tube is in satisfactory position. IMPRESSION AND PLAN: Respiratory failure, on high flow nasal cannula, feeding difficulty requiring n asogastric tube, has a pneumothorax requiring chest tube, also subcutaneous emphysema, bilateral pulm onary embolism, some of the infarcted area converting to cavitation, pneumonia versus infarct, pulmon gema hypertension, has Escherichia coli in the sputum, rheumatoid arthritis, immunocompromised, been o n methotrexate, anxiety disorder, pulmonary hypertension. Pulmonary point of view, she is doing okay . Continue high flow oxygen. Keep head elevated at 45 degrees. Continue nasogastric tube feeding. Surgical followup for chest tube. IV and inhaled bronchodilator, antibiotics as per infectious disea ses. Gastric prophylaxis. Continue IV steroids. Critical care time more than 35 minutes. Follow up ABG, chest x-ray, CBC, CMP, and chest x-ray in th e morning. We will follow with you. Robert Hankins MD cc: [phone] TT: 07/29/2016 20:04:04 Confirmation # [id number] Dictation # [id number] seda
--- NOTE | 2016-07-29 20:48 | PN ---
DATE: 07/29/2016 SUBJECTIVE: The patient remains in intensive care unit. She is extubated. On BiPAP for respiratory support with oxygen saturation in the upper 90s. The patient has episodes of severe anxiety with some desaturation. She is presently on Haldol and Precedex. The patient is n.p.o. She failed swallowing studies. She is on NG tube feeding. PHYSICAL EXAMINATION: VITAL SIGNS: The patient is afebrile. Temperature 97.7, her blood pressure stabilized and this morning was 110/84, pulse 86 regular, respiratory rate 33 per minute, oxygen saturation 97% on 50%. GENERAL: The patient is alert, able to talk. HEENT: Head is normocephalic, atraumatic. NECK: Supple. LUNGS: With decreased breath sounds. The right side chest tube is intact. HEART: With regular rhythm. ABDOMEN: Soft, nontender, nondistended. EXTREMITIES: With ecchymosis and mild edema of hands and feet. DIAGNOSTIC TESTS: CBC with trending down WBC 17.1 this morning, hemoglobin stable at 9.7, hematocrit 29.9. Chemistry stable with slightly lower potassium 3.5. Her renal function is stable. Liver enzymes are also trending down. Cultures: Bronchoscopy cultures are negative. Mycobacterial cultures are still pending. ASSESSMENT: 1. Respiratory failure with pneumonia, pulmonary embolism, and right chest pneumothorax. The patient extubated and tolerating BiPAP machine with oxygen saturation in the upper 90s. 2. History of sepsis with Escherichia coli in sputum with pseudomonas. 3. Chronic interstitial lung changes status post bronchoscopy awaiting mycobacteria cultures. 4. Pulmonary embolism. 5. Clostridium difficile colitis, improved with no evidence of significant diarrhea. 6. Anemia of chronic disease. 7. Generalized deconditioning and malnutrition. PLAN OF TREATMENT: Continue present respiratory support with BiPAP and close monitoring of her respiratory status. Continue IV antibiotics as well as p.o. vancomycin. Continue NG tube feeding. We will need to repeat swallow study before starting any oral feedings. The patient is severely deconditioned and malnourished with multiple chronic problems. I strongly believe the patient is not able to return to home and I recommend 24-hour care in [facility]. Mini Davis MD cc: [phone] TT: 07/29/2016 20:48:32 Confirmation # [id number] Dictation # [id number] jn MTDD
[2016-07-29] MEDS: Dexmedetomidine HCl 4mcg/ml 400 MCG/100 ML BOTTLE IV PRN (22:48)
[2016-07-30 02:41] LABS: (1-3)-B-D GLUCAN 120 pg/mL
[2016-07-30] MEDS: Albuterol-Ipratrop 3 mg / 0.5 (3 ml) UD IH SCH ×6 (04:00→23:55)
[2016-07-30] MEDS: MethylPREDNISolone 40 mg Vial IVP SCH ×3 (05:30→22:00)
[2016-07-30] MEDS: PIGGYBACK IVPB SCH (05:30)
[2016-07-30] MEDS: MEROPENEM IVPB SCH (05:30)
[2016-07-30 05:31] LABS: HEMATOCRIT 29.6 % (36.0-48.0); MEAN CELL VOLUME 88.1 fL (80.0-105.0); MEAN CORPUSCULAR HGB CONC 31.8 g/dl (31.0-37.0); MEAN PLATELET VOLUME 12.3 fl (7.0-11.0); PLATELET COUNT 173 10^3/uL (120.0-450.0); RED CELL DISTRIBUTION WIDTH 15.7 % (11.5-14.5); WHITE BLOOD COUNT 15.5 10^3/ul (4.5-11.0)
[2016-07-30 05:36] LABS: ADD MANUAL DIFF? YES
[2016-07-30 05:39] LABS: ALKALINE PHOSPHATASE 71 U/L (38-133); ALT/SGPT 61 U/L (7-56); AST/SGOT 48 U/L (15-39); BILIRUBIN,TOTAL 0.5 mg/dL (0.2-1.3); BLOOD UREA NITROGEN 34 mg/dL (7-21); CALCIUM 7.7 mg/dL (8.4-10.5); CARBON DIOXIDE 28 mmol/L (21-33); CHLORIDE 109 mmol/L (98-107); GFR AFRICAN-AMERICAN > 60; MAGNESIUM 1.7 mg/dL (1.7-2.2); PHOSPHOROUS 2.6 mg/dL (2.5-4.5); SODIUM 141 mmol/L (132-148); TOTAL PROTEIN 4.7 g/dL (5.8-8.3)
[2016-07-30 06:04] LABS: POTASSIUM 2.8 mmol/L (3.6-5.0)
[2016-07-30 06:05] LABS: GLUCOSE,RANDOM 348 mg/dL (70-110)
[2016-07-30] MEDS ORDERED: Magnesium Sulfate 2 GM in Sodium Chloride 0.9% 100 ML IVPB ONE (06:14)
[2016-07-30] MEDS: Potassium Chloride 40 mEq/30 ml LIQ UD PO SCH ×3 (08:46→13:15)
--- NOTE | 2016-07-30 09:05 | PN ---
DATE: 07/30/2016 The patient seen in the ICU 129, bed 4. She appears chronically ill and weak. Overall, in poor cond ition. PHYSICAL EXAMINATION: VITAL SIGNS: Temperature is 98, blood pressure is 118/70, respiratory rate of 20, heart rate of 81. The patient has high flow oxygen delivery. NECK: Supple. LUNGS: Have decreased breath sounds. HEART: Normal S1, S2. ABDOMEN: Soft, nontender. LABORATORY EXAMINATION: Reveals a white count of 15,500, hemoglobin of 9, platelets of 173 and BUN o f 34, creatinine of 0.6. Urinalysis is noted. Fluid findings are noted, pleural fluid. The beta 13 d glucan was positive ____. The TB is indeterminate. This morning's chest x-ray is not available. Dr. Parker's note from yesterday is reviewed. ASSESSMENT AND PLAN: A 61-year-old female with severe sepsis, status post ventilator-dependent respi ratory failure due to multifocal, healthcare-associated pneumonia with Escherichia coli, status post bronchoscopy in a patient with lung disease from rheumatoid arthritis and a history of pseudomonas in the urine, acute pulmonary emboli and currently on day #10 of meropenem and doxycycline. We will fo llow with you. Chest x-ray from yesterday ____. Triston Kilpatrick MD cc: [phone] TT: 07/30/2016 09:04:39 Confirmation # [id number] Dictation # [id number] tn
--- NOTE | 2016-07-30 09:42 | CP.PCM.PN ---
Subjective - Date & Time of Evaluation Date of Evaluation: 07/30/16 Time of Evaluation: 09:38 - Subjective Subjective: Surgery: Dr. Case Pt seen and examined. No acute overnight events. Pt has been extubated and is currently off the BiPAP on high flow O2. CT remains in place with persistent water leak. No F/C overnight. Objective - Vital Signs/Intake and Output Vital Signs (last 24 hours): Temp Pulse Resp BP Pulse Ox 98.7 F 82 20 118/70 96 07/30/16 08:00 07/30/16 08:00 07/30/16 08:00 07/30/16 08:00 07/30/16 08:00 Intake and Output: 07/30/16 07/30/16 06:59 18:59 Intake Total 475 Output Total 720 Balance -245 - Medications Medications: Current Medications Acetaminophen (Tylenol 650mg/20.3ml Solution Ud) 650 mg PO Q6H PRN PRN Reason: fever Last Admin: 07/25/16 18:08 Dose: 650 mg Albuterol/Ipratropium (Duoneb 3 Mg/0.5 Mg (3 Ml) Ud) 3 ml IH [id number] [facility] Last Admin: 07/30/16 07:07 Dose: 3 ml Alprazolam (Xanax) 0.5 mg PO BID [facility] PRN Reason: Protocol Last Admin: 07/27/16 10:07 Dose: 0.5 mg Aspirin (Ecotrin) 81 mg PO DAILY [facility] Last Admin: 07/27/16 10:07 Dose: 81 mg Furosemide (Lasix) 40 mg IV DAILY [facility] Last Admin: 07/29/16 09:04 Dose: 40 mg Haloperidol Lactate (Haldol) 2 mg IVP Q6H PRN; Protocol PRN Reason: Agitation Last Admin: 07/28/16 23:16 Dose: 2 mg Doxycycline Hyclate 100 mg/ (Sodium Chloride) 100 mls @ 100 mls/hr IVPB Q12 [facility] PRN Reason: Protocol Last Admin: 07/29/16 22:27 Dose: 100 mls/hr Heparin Sodium/Sodium Chloride (Heparin 86621 Units/250ml 1/2 Normal Saline) 25 ,000 units in 250 mls @ 8.655 mls/hr IV .Q24H PRN; Protocol; 18 UNITS/KG/HR PRN Reason: ADJUST RATE PER PROTOCOL Last Titration: 07/29/16 15:30 Dose: 13 units/kg/hr, 6.251 mls/hr Dexmedetomidine HCl (Precedex 4 Mcg/Ml (100 Ml)) 400 mcg in 100 mls @ 2.597 mls /hr IV .Q24H PRN; Protocol; 0.2 MCG/KG/HR PRN Reason: Agitation Last Admin: 07/29/16 22:48 Dose: 1 mcg/kg/hr, 12.984 mls/hr Magnesium Oxide (Mag-Ox) 400 mg PO BID [facility] Last Admin: 07/27/16 10:08 Dose: 400 mg Methylprednisolone (Solu-Medrol) 40 mg IVP Q8 [facility] Last Admin: 07/30/16 05:30 Dose: 40 mg Morphine Sulfate (Morphine) 2 mg IVP Q3H PRN PRN Reason: Pain, moderate (4-7) Last Admin: 07/29/16 18:04 Dose: 2 mg Nystatin (Nystatin Oral Susp) 5 ml PO QID [facility] Last Admin: 07/27/16 15:09 Dose: Not Given Pantoprazole Sodium (Protonix Inj) 40 mg IVP DAILY [facility] Last Admin: 07/29/16 09:05 Dose: 40 mg Potassium Chloride (Potassium Chloride Oral Soln) 40 meq PO Q4H [facility] Stop: 07/30/16 14:16 Last Admin: 07/30/16 08:46 Dose: 40 meq Saliva Substitute (Saliva Substitute) 0 ml PO Q8H [facility] Last Admin: 07/29/16 15:40 Dose: Not Given Vancomycin HCl (Vancocin 25 Mg/Ml (Oral Use)) 500 mg PO QID [facility] PRN Reason: Protocol Last Admin: 07/29/16 22:26 Dose: 500 mg - Labs Labs: 07/30/16 05:00 07/30/16 05:00 PT 12.4 Seconds (9.9-11.8) H 07/29/16 05:11 INR 1.15 (0.93-1.08) H 07/29/16 05:11 APTT 75.2 Seconds (23.7-30.8) H* 07/30/16 05:00 - Constitutional Appears: No Acute Distress - ENT Exam ENT Exam: Mucous Membranes Moist - Respiratory Exam Respiratory Exam: NORMAL BREATHING PATTERN Additional comments: CT in place with 100cc/24hrs output, dressing C/D/I - Cardiovascular Exam Cardiovascular Exam: RRR - GI/Abdominal Exam GI & Abdominal Exam: Soft. absent: Tenderness - Extremities Exam Extremities Exam: absent: Tenderness - Neurological Exam Neurological Exam: Alert, Awake - Skin Skin Exam: Dry, Warm Assessment and Plan - Assessment and Plan (Free Text) Assessment: 61F with pneumothorax s/p CT placement; POD#4 Plan: - continues to have an air leak; will take CT off suction and see how pt tolerates water seal - now that pt is off BiPap; will consider taking out CT in the next few days - continue dressing changes PRN - d/w Dr. Manpreet Devine, PGY-2
[2016-07-30 10:14] LABS: HYPOCHROMIA 1+; NEUTROPHIL 95 % (50.0-70.0); PLATELET ESTIMATE NORMAL (NORMAL); POLYCHROMASIA SLIGHT
[2016-07-30 10:15] LABS: ANISOCYTOSIS 2+; BURR CELLS SLIGHT; LARGE PLATELETS PRESENT; OVALOCYTES SLIGHT; TEAR DROP CELLS SLIGHT
[2016-07-30] MEDS: Insulin Detemir 100 units/ml Vial (Levemir) SC SCH ×2 (10:15→22:00)
[2016-07-30 10:16] LABS: POIKILOCYTOSIS 1+
[2016-07-30] MEDS: Vancomycin 25 MG/ML PO SCH ×4 (10:16→22:00)
--- NOTE | 2016-07-30 10:19 | RAD ---
HISTORY: R chest tube COMPARISON: 07/29/2016 FINDINGS: LUNGS: Chest tube remains in place at the right lung base. There is a small amount of subcutaneous emphysema. No pneumothorax. PLEURA: No significant pleural effusion identified, no pneumothorax apparent. CARDIOVASCULAR: Normal. OSSEOUS STRUCTURES: No significant abnormalities. VISUALIZED UPPER ABDOMEN: The feeding tube has been retracted and is seen near the GE junction. The tube should be advanced. OTHER FINDINGS: None. IMPRESSION: Suboptimal position of feeding tube.
--- NOTE | 2016-07-30 10:21 | PN ---
DATE: 07/30/2016 I was cut off, so will repeat my dictation. LOCATION: [facility]U 129, room 4. This is a 61-year-old female with recent acute respiratory failure and supervening congestive heart f ailure and underlying COPD, now being managed for acute multilobar pneumonia as noted thereof. She i s being followed closely also now for metabolic management because of recent abnormal thyroid functio n studies consistent with the so-called acute sick euthyroid syndrome with superimposed TSH suppressi on from the intercurrent IV steroid therapy as given. At this time, she has hyperglycemic accelerati ons as expected from the transient usage of IV steroids and the underlying increased insulin resistan ce thereof. Her glucose levels today have ranged from 392-419 mg/dL. Her latest chemistries include a BUN of 34, sodium 141, potassium 2.8, chloride 109, CO2 28, glucose 348 and creatinine 0.6. So, a t this time, we will add basal insulin with Levemir to be given as 20 units subQ at 10:00 a.m. and 10 :00 p.m. daily as given to start today. We will also do intensive glucose monitoring every 6 hours w ith regular insulin coverage as ordered. We will follow and advise accordingly. Briana Cazares MD cc: [id number] TT: 07/30/2016 10:21:02 Confirmation # [id number] Dictation # [id number] seda
[2016-07-30] MEDS: Morphine 2 mg/ml ISec IVP PRN ×2 (10:56→17:03)
[2016-07-30] MEDS: Atovaquone 750 mg/5 ml Susp UD PO SCH ×2 (11:18→17:02)
[2016-07-30] MEDS: Insulin Reg-LOW-Coverage SC SCH ×2 (11:18→17:02)
[2016-07-30] MEDS: Saliva Substitute 44.3 ML PO SCH ×2 (13:08→22:00)
--- NOTE | 2016-07-30 15:22 | PN ---
DATE: 07/30/2016 This is the patient's hospital visit in the intensive care unit. For Dr. Viramontes. SUBJECTIVE: The patient is a 61-year-old female seen lying awake in the intensive care unit with a c hest tube on the right side, admitted for respiratory failure, status post extubation, now known to h ave necrotizing pneumonia with a pneumothorax. She is now continuing to complain of thirst with aj ent only given ice chips at this point due to swallowing evaluation in progress as per attending and consultants. She is otherwise without complaint, denying any pain. PHYSICAL EXAMINATION: VITAL SIGNS: Temperature 98.9, pulse 90, respirations 22, blood pressure 102/68, pulse ox 96%. HEENT: The patient has oxygen on. The tongue is moist, status post ice chips. NECK: Supple. LUNGS: Decreased breath sounds bilaterally. Chest tube on the right. ABDOMEN: Soft, nontender. EXTREMITIES: Arthritic changes of the digits of the hand. No edema. SKIN: Warm and dry. NEUROLOGIC: Awake and alert. LABORATORY DATA: The patient's labs were done. White blood cell count of 15.5, hemoglobin of 9.4, h ematocrit 29.6, platelet count 173,000. A chem metabolic panel showing a potassium of 2.8, BUN of 34 , creatinine of 0.6, nonfasting glucose of 419, AST of 48, ALT of 61, total protein 4.7. ASSESSMENT: Sepsis with respiratory failure with extubation, necrotizing pneumonia, pulmonary emboli, deep vein thrombosis, severe rheumatoid arthritis, malnutrition, pulmonary hyperten leda, anxiety, hypokalemia. PLAN: To replenish her electrolytes with consideration for fluid balance with the patient's nutritio nal needs to be addressed as she is n.p.o. except for ice chips with tube feeding, possibly not enoug h nutrition. With this, the patient will continue on her present medical regimen including heparin w ith consideration for transfer to Coumadin when she is able. We will monitor clinically and with lab s. Chacorta Lea MD cc: [id number] TT: 07/30/2016 15:21:37 Confirmation # [id number] Dictation # [id number] seda
--- NOTE | 2016-07-30 16:14 | CP.CCUPN ---
<Shania Kennedy - Last Filed: 07/30/16 17:23> CCU Subjective - Physician Review Events Since Last Encounter (Free Text): 07/30/16 16:11 Stable on high flow O2 overnight, slept per nursing. Was very anxious and tachypneic late afternoon yesterday, required morphine PRN for comfort. Subjective (Free Text): 07/29/16 08:49 Critical care progress note for Dr. Eneida Kennedy, PGY-1 Pt S & E at bedside. Pt asking for ice chips/water- is currently on Bipap, pt was on O2 via NC overnight until approximately 5am when she was transitioned to Bipap. Pt reports whole body pain, no specific CP, continues with SOB. Asking for percocet,Xanax and to talk to her primary. Denies N/V/F/C, ab pain, other complaints. Pt currently with Dobhoff on tube feeds. 07/30/16 16:11 Critical care progress note for Dr. Eneida Kennedy, PGY-1 Pt S & E at bedside this AM. Pt continuing to ask for ice chips- was told that she can have them and has been having them since yesterday. Pt continues to ask for food, re-stated that she cannot have foods until it is safe for her to swallow foods as per swallow eval recs. Continues to c/o whole body pain, no specific locatin. Denies N/V/F /C, ab pain, other complaints. Pt currently with Dobhoff on tube feeds. CCU Objective - Vital Signs / Intake & Output Vital Signs (Last 4 hours): Vital Signs Temp Pulse Resp BP Pulse Ox 07/30/16 16:00 98.8 F 94 H 32 H 114/65 94 L 07/30/16 15:00 88 23 92/65 L 95 07/30/16 14:00 91 H 23 99/67 L 96 07/30/16 13:00 94 H 25 H 97/68 L 96 Intake and Output (Last 8hrs): Intake & Output 07/30/16 07/30/16 07/30/16 06:59 14:59 22:59 Intake Total 475 Output Total 720 1979 Balance -245 -1979 Intake: IV 475 Heparin drip 475 Output: Drainage 20 Right Chest 20 Urine 700 1980 Urethral (Dumont) 700 1979 Other: Voiding Method Indwelling Catheter # Bowel Movements 2 - Physical Exam Head: Positive for: Atraumatic, Normocephalic Pupils: Positive for: PERRL Extroacular Muscles: Positive for: EOMI Conjunctiva: Positive for: Normal. Negative for: Injected, Icteric Ears: Positive for: Normal Mouth: Positive for: Moist Mucous Membranes Pharnyx: Positive for: Normal. Negative for: ERYTHEMA Nose (External): Positive for: Atraumatic, Other (Dobhoff in place) Neck: Positive for: JVD (notable), Trachea Midline. Negative for: Lymphadenopathy Respiratory/Chest: Positive for: Rales, Other (Chest tube insertion site covered in dressing c/d/i, no sign of active bleed. Chest tube with leak). Negative for: Clear to Auscultation (coarse expiratory breath sounds), Respiratory Distress, Accessory Muscle Use Cardiovascular: Positive for: Murmurs (2/6 LSB), Tachycardic. Negative for: Rub , Gallop Abdomen: Positive for: Normal Bowel Sounds. Negative for: Tenderness, Distention, Peritoneal Signs Genitourinary/Pelvic Exam: Positive for: Other (dumont in place with clear yellow urine) Back: Negative for: Midline Tenderness, Paraspinal Tenderness Upper Extremity: Positive for: Normal Inspection, Capillary Refill < 2s, Other ( Diffuse bruising from blood draws). Negative for: Cyanosis, Edema Lower Extremity: Positive for: Normal Inspection, Neurovascularly Intact, Capillary Refill < 2 s. Negative for: Edema, CALF TENDERNESS Neurological: Positive for: GCS=15, CN II-XII Intact, Speech Normal, Motor Func Grossly Intact Skin: Positive for: Warm, Dry, Pale, Other (crepitus under skin of chest and lower aspect of neck B/L) Psychiatric: Positive for: Alert, Oriented x 3, Anxious - Medications Active Medications: Active Medications Generic Name Dose Route Start Last Admin Trade Name Freq PRN Reason Stop Dose Admin Acetaminophen 650 mg 07/25/16 16:23 07/25/16 18:08 Tylenol 650mg/20.3ml Solution Ud PO 650 mg Q6H PRN Administration fever Albuterol/Ipratropium 3 ml 07/26/16 07:30 07/30/16 15:08 Duoneb 3 Mg/0.5 Mg (3 Ml) Ud IH 3 ml [id number] NISHANT Administration Alprazolam 0.5 mg 07/23/16 18:00 07/27/16 10:07 Xanax PO 0.5 mg BID NISHANT Administration Protocol Aspirin 81 mg 07/22/16 10:00 07/27/16 10:07 Ecotrin PO 81 mg DAILY NISHANT Administration Atovaquone 750 mg 07/30/16 11:04 07/30/16 11:18 Mepron PO 08/20/16 11:05 750 mg BID NISHANT Administration Furosemide 40 mg 07/29/16 10:00 07/30/16 10:15 Lasix IV 40 mg DAILY NISHANT Administration Haloperidol Lactate 2 mg 07/27/16 15:46 07/28/16 23:16 Haldol IVP 2 mg Q6H PRN Administration Agitation Protocol Doxycycline Hyclate 100 mg/ 100 mls @ 100 mls/hr 07/22/16 12:15 07/30/16 10: 17 Sodium Chloride IVPB 100 mls/hr Q12 NISHANT Administration Protocol Heparin Sodium/Sodium Chloride 25,000 units in 250 mls @ 8.655 mls/hr 12:31 07/29/16 15:30 Heparin 08492 Units/250ml 1/2 Normal Saline IV 13 units/kg/hr .Q24H PRN 6.251 mls/hr ADJUST RATE PER PROTOCOL Titration Protocol 18 UNITS/KG/HR Dexmedetomidine HCl 400 mcg in 100 mls @ 2.597 mls/hr 07/25/16 14:29 22:48 Precedex 4 Mcg/Ml (100 Ml) IV 1 mcg/kg/hr .Q24H PRN 12.984 mls/hr Agitation Administration Protocol 0.2 MCG/KG/HR Voriconazole 200 mg/ Sodium 100 mls @ 50 mls/hr 07/30/16 11:05 07/30/16 11:18 Chloride IVPB 08/13/16 11:06 50 mls/hr Q12 NISHANT Administration Protocol Insulin Detemir 20 unit 07/30/16 10:00 07/30/16 10:15 Levemir SC 20 unit Q12 NISHANT Administration Insulin Human Regular 0 units 07/30/16 12:00 07/30/16 11:18 Humulin R Low SC 7 units Q6 NISHANT Administration Protocol Magnesium Oxide 400 mg 07/23/16 10:00 07/27/16 10:08 Mag-Ox PO 400 mg BID NISHANT Administration Methylprednisolone 40 mg 07/21/16 06:00 07/30/16 13:08 Solu-Medrol IVP 40 mg Q8 NISHANT Administration Morphine Sulfate 2 mg 07/29/16 10:18 07/30/16 10:56 Morphine IVP 2 mg Q3H PRN Administration Pain, moderate (4-7) Nystatin 5 ml 07/23/16 14:00 07/27/16 15:09 Nystatin Oral Susp PO Not Given QID NISHANT Pantoprazole Sodium 40 mg 07/21/16 10:00 07/30/16 10:16 Protonix Inj IVP 40 mg DAILY NISHANT Administration Saliva Substitute 0 ml 07/27/16 13:15 07/30/16 13:08 Saliva Substitute PO Not Given Q8H NISHANT Vancomycin HCl 500 mg 07/28/16 22:00 07/30/16 13:09 Vancocin 25 Mg/Ml (Oral Use) PO 500 mg QID NISHANT Administration Protocol - Patient Studies Lab Studies: Microbiology Studies 07/26/16 10:36 Gram Stain - Final Pleural Fluid Body Fluid Culture - Preliminary Fungal Culture - Preliminary 07/26/16 06:30 Blood Culture - Preliminary Blood NO GROWTH AFTER 4 DAYS 07/26/16 06:30 Blood Culture - Preliminary Blood NO GROWTH AFTER 4 DAYS Lab Studies 07/30/16 07/30/16 07/30/16 Range/Units 15:53 11:10 07:31 WBC (4.5-11.0) 10^3/ul RBC (3.5-6.1) 10^6/uL Hgb (12.0-16.0) gm/dL Hct (36.0-48.0) % MCV (80.0-105.0) fL MCH (25.0-35.0) pg MCHC (31.0-37.0) g/dl RDW (11.5-14.5) % Plt Count (120.0-450.0) 10^3/uL MPV (7.0-11.0) fl Neutrophils % (Manual) (50.0-70.0) % Lymphocytes % (Manual) (22.0-35.0) % Monocytes % (Manual) (1.0-6.0) % Platelet Evaluation (NORMAL) Large Platelets Polychromasia Hypochromasia Poikilocytosis (manual Anisocytosis (manual) Tear Drop Cells Ovalocytes [place] Cells APTT (23.7-30.8) Seconds Sodium (132-148) mmol/L Potassium (3.6-5.0) mmol/L Chloride (98-107) mmol/L Carbon Dioxide (21-33) mmol/L Anion Gap (10-20) BUN (7-21) mg/dL Creatinine (0.5-1.4) mg/dL Est GFR ( Amer) Est GFR (Non-Af Amer) POC Glucose (mg/dL) 315 H 423 H* 392 H (65-110) mg/dL Random Glucose (70-110) mg/dL Calcium (8.4-10.5) mg/dL Phosphorus (2.5-4.5) mg/dL Magnesium (1.7-2.2) mg/dL Total Bilirubin (0.2-1.3) mg/dL AST (15-39) U/L ALT (7-56) U/L Alkaline Phosphatase (38-133) U/L Total Protein (5.8-8.3) g/dL Albumin (3.0-4.8) g/dL Globulin gm/dL Albumin/Globulin Ratio (1.1-1.8) Aspergillus Antigen (Not Detected) Aspergillus Index Value (<0.50) Beta-(1,3)-D-Glucan pg/mL B-(1,3)-D-Glucan Intrp 07/30/16 07/30/16 07/30/16 Range/Units 06:12 05:00 05:00 WBC (4.5-11.0) 10^3/ul RBC (3.5-6.1) 10^6/uL Hgb (12.0-16.0) gm/dL Hct (36.0-48.0) % MCV (80.0-105.0) fL MCH (25.0-35.0) pg MCHC (31.0-37.0) g/dl RDW (11.5-14.5) % Plt Count (120.0-450.0) 10^3/uL MPV (7.0-11.0) fl Neutrophils % (Manual) (50.0-70.0) % Lymphocytes % (Manual) (22.0-35.0) % Monocytes % (Manual) (1.0-6.0) % Platelet Evaluation (NORMAL) Large Platelets Polychromasia Hypochromasia Poikilocytosis (manual Anisocytosis (manual) Tear Drop Cells Ovalocytes [place] Cells APTT 75.2 H* (23.7-30.8) Seconds Sodium 141 (132-148) mmol/L Potassium 2.8 L* (3.6-5.0) mmol/L Chloride 109 H (98-107) mmol/L Carbon Dioxide 28 (21-33) mmol/L Anion Gap 7 L (10-20) BUN 34 H (7-21) mg/dL Creatinine 0.6 (0.5-1.4) mg/dL Est GFR ( Amer) > 60 Est GFR (Non-Af Amer) > 60 POC Glucose (mg/dL) 419 H* (65-110) mg/dL Random Glucose 348 H* D (70-110) mg/dL Calcium 7.7 L (8.4-10.5) mg/dL Phosphorus 2.6 (2.5-4.5) mg/dL Magnesium 1.7 (1.7-2.2) mg/dL Total Bilirubin 0.5 (0.2-1.3) mg/dL AST 48 H (15-39) U/L ALT 61 H (7-56) U/L Alkaline Phosphatase 71 (38-133) U/L Total Protein 4.7 L (5.8-8.3) g/dL Albumin 2.3 L (3.0-4.8) g/dL Globulin 2.4 gm/dL Albumin/Globulin Ratio 1.0 L (1.1-1.8) Aspergillus Antigen (Not Detected) Aspergillus Index Value (<0.50) Beta-(1,3)-D-Glucan pg/mL B-(1,3)-D-Glucan Intrp 07/30/16 07/29/16 07/27/16 Range/Units 05:00 21:35 06:50 WBC 15.5 H (4.5-11.0) 10^3/ul RBC 3.36 L (3.5-6.1) 10^6/uL Hgb 9.4 L (12.0-16.0) gm/dL Hct 29.6 L (36.0-48.0) % MCV 88.1 (80.0-105.0) fL MCH 28.0 (25.0-35.0) pg MCHC 31.8 (31.0-37.0) g/dl RDW 15.7 H (11.5-14.5) % Plt Count 173 (120.0-450.0) 10^3/uL MPV 12.3 H (7.0-11.0) fl Neutrophils % (Manual) 95 H (50.0-70.0) % Lymphocytes % (Manual) 3 L (22.0-35.0) % Monocytes % (Manual) 2 (1.0-6.0) % Platelet Evaluation Normal (NORMAL) Large Platelets Present Polychromasia Slight Hypochromasia 1+ Poikilocytosis (manual 1+ Anisocytosis (manual) 2+ Tear Drop Cells Slight Ovalocytes Slight [place] Cells Slight APTT 70.6 H* (23.7-30.8) Seconds Sodium (132-148) mmol/L Potassium (3.6-5.0) mmol/L Chloride (98-107) mmol/L Carbon Dioxide (21-33) mmol/L Anion Gap (10-20) BUN (7-21) mg/dL Creatinine (0.5-1.4) mg/dL Est GFR ( Amer) Est GFR (Non-Af Amer) POC Glucose (mg/dL) (65-110) mg/dL Random Glucose (70-110) mg/dL Calcium (8.4-10.5) mg/dL Phosphorus (2.5-4.5) mg/dL Magnesium (1.7-2.2) mg/dL Total Bilirubin (0.2-1.3) mg/dL AST (15-39) U/L ALT (7-56) U/L Alkaline Phosphatase (38-133) U/L Total Protein (5.8-8.3) g/dL Albumin (3.0-4.8) g/dL Globulin gm/dL Albumin/Globulin Ratio (1.1-1.8) Aspergillus Antigen Not detected (Not Detected) Aspergillus Index Value 0.09 (<0.50) Beta-(1,3)-D-Glucan pg/mL B-(1,3)-D-Glucan Intrp 07/27/16 Range/Units 06:50 WBC (4.5-11.0) 10^3/ul RBC (3.5-6.1) 10^6/uL Hgb (12.0-16.0) gm/dL Hct (36.0-48.0) % MCV (80.0-105.0) fL MCH (25.0-35.0) pg MCHC (31.0-37.0) g/dl RDW (11.5-14.5) % Plt Count (120.0-450.0) 10^3/uL MPV (7.0-11.0) fl Neutrophils % (Manual) (50.0-70.0) % Lymphocytes % (Manual) (22.0-35.0) % Monocytes % (Manual) (1.0-6.0) % Platelet Evaluation (NORMAL) Large Platelets Polychromasia Hypochromasia Poikilocytosis (manual Anisocytosis (manual) Tear Drop Cells Ovalocytes Arnal[place] Cells APTT (23.7-30.8) Seconds Sodium (132-148) mmol/L Potassium (3.6-5.0) mmol/L Chloride (98-107) mmol/L Carbon Dioxide (21-33) mmol/L Anion Gap (10-20) BUN (7-21) mg/dL Creatinine (0.5-1.4) mg/dL Est GFR ( Amer) Est GFR (Non-Af Amer) POC Glucose (mg/dL) (65-110) mg/dL Random Glucose (70-110) mg/dL Calcium (8.4-10.5) mg/dL Phosphorus (2.5-4.5) mg/dL Magnesium (1.7-2.2) mg/dL Total Bilirubin (0.2-1.3) mg/dL AST (15-39) U/L ALT (7-56) U/L Alkaline Phosphatase (38-133) U/L Total Protein (5.8-8.3) g/dL Albumin (3.0-4.8) g/dL Globulin gm/dL Albumin/Globulin Ratio (1.1-1.8) Aspergillus Antigen (Not Detected) Aspergillus Index Value (<0.50) Beta-(1,3)-D-Glucan 120 H pg/mL B-(1,3)-D-Glucan Intrp Positive H Laboratory Results - last 24 hr 07/27/16 07/27/16 07/29/16 06:50 06:50 21:35 WBC RBC Hgb Hct MCV MCH MCHC RDW Plt Count MPV Neutrophils % (Manual) Lymphocytes % (Manual) Monocytes % (Manual) Platelet Evaluation Large Platelets Polychromasia Hypochromasia Poikilocytosis (manual Anisocytosis (manual) Tear Drop Cells Ovalocytes [place] Cells APTT 70.6 H* Sodium Potassium Chloride Carbon Dioxide Anion Gap BUN Creatinine Est GFR ( Amer) Est GFR (Non-Af Amer) POC Glucose (mg/dL) Random Glucose Calcium Phosphorus Magnesium Total Bilirubin AST ALT Alkaline Phosphatase Total Protein Albumin Globulin Albumin/Globulin Ratio Aspergillus Antigen Not detected Aspergillus Index Value 0.09 Beta-(1,3)-D-Glucan 120 H B-(1,3)-D-Glucan Intrp Positive H 07/30/16 07/30/16 07/30/16 05:00 05:00 05:00 WBC 15.5 H RBC 3.36 L Hgb 9.4 L Hct 29.6 L MCV 88.1 MCH 28.0 MCHC 31.8 RDW 15.7 H Plt Count 173 MPV 12.3 H Neutrophils % (Manual) 95 H Lymphocytes % (Manual) 3 L Monocytes % (Manual) 2 Platelet Evaluation Normal Large Platelets Present Polychromasia Slight Hypochromasia 1+ Poikilocytosis (manual 1+ Anisocytosis (manual) 2+ Tear Drop Cells Slight Ovalocytes Slight Arnal[place] Cells Slight APTT 75.2 H* Sodium 141 Potassium 2.8 L* Chloride 109 H Carbon Dioxide 28 Anion Gap 7 L BUN 34 H Creatinine 0.6 Est GFR ( Amer) > 60 Est GFR (Non-Af Amer) > 60 POC Glucose (mg/dL) Random Glucose 348 H* D Calcium 7.7 L Phosphorus 2.6 Magnesium 1.7 Total Bilirubin 0.5 AST 48 H ALT 61 H Alkaline Phosphatase 71 Total Protein 4.7 L Albumin 2.3 L Globulin 2.4 Albumin/Globulin Ratio 1.0 L Aspergillus Antigen Aspergillus Index Value Beta-(1,3)-D-Glucan B-(1,3)-D-Glucan Intrp 07/30/16 07/30/16 07/30/16 06:12 07:31 11:10 WBC RBC Hgb Hct MCV MCH MCHC RDW Plt Count MPV Neutrophils % (Manual) Lymphocytes % (Manual) Monocytes % (Manual) Platelet Evaluation Large Platelets Polychromasia Hypochromasia Poikilocytosis (manual Anisocytosis (manual) Tear Drop Cells Ovalocytes [place] Cells APTT Sodium Potassium Chloride Carbon Dioxide Anion Gap BUN Creatinine Est GFR ( Amer) Est GFR (Non-Af Amer) POC Glucose (mg/dL) 419 H* 392 H 423 H* Random Glucose Calcium Phosphorus Magnesium Total Bilirubin AST ALT Alkaline Phosphatase Total Protein Albumin Globulin Albumin/Globulin Ratio Aspergillus Antigen Aspergillus Index Value Beta-(1,3)-D-Glucan B-(1,3)-D-Glucan Intrp 07/30/16 15:53 WBC RBC Hgb Hct MCV MCH MCHC RDW Plt Count MPV Neutrophils % (Manual) Lymphocytes % (Manual) Monocytes % (Manual) Platelet Evaluation Large Platelets Polychromasia Hypochromasia Poikilocytosis (manual Anisocytosis (manual) Tear Drop Cells Ovalocytes [place] Cells APTT Sodium Potassium Chloride Carbon Dioxide Anion Gap BUN Creatinine Est GFR ( Amer) Est GFR (Non-Af Amer) POC Glucose (mg/dL) 315 H Random Glucose Calcium Phosphorus Magnesium Total Bilirubin AST ALT Alkaline Phosphatase Total Protein Albumin Globulin Albumin/Globulin Ratio Aspergillus Antigen Aspergillus Index Value Beta-(1,3)-D-Glucan B-(1,3)-D-Glucan Intrp Fingerstick Blood Sugar Results: 423 Review of Systems - Review of Systems All systems: reviewed and no additional remarkable complaints except - Constitutional Constitutional: absent: Fever, Chills - Cardiovascular Cardiovascular: UNREMARKABLE. absent: Chest Pain - Respiratory Respiratory: UNREMARKABLE - Gastrointestinal Gastrointestinal: UNREMARKABLE. absent: Abdominal Pain - Integumentary Integumentary: UNREMARKABLE - Neurological Neurological: UNREMARKABLE Critical Care Progress Note - Extremities/Vascular Does the Patient have a Central Venous Catheter?: No Does the Patient need a Central Venous Catheter?: No Does the Patient have a Dumont Catheter?: Yes Does the Patient need a Dumont Catheter?: Yes Catheter Insertion Criteria: Need for accurate measurement of output in critically ill patient - Prophylaxis GI Prophylaxis GI: PPI - Prophylaxis DVT Prophylaxis DVT: Heparin SQ - Nutrition Nutrition: Nutrition Category Date Time Status NPO Diet [DIET] Diets 05/25/17 Dinner Ordered Assessment/Plan - Assessment and Plan (Free Text) Assessment: 61F w/acute respiratory failure due to PNA, PE, R ventricular cardiac failure s/ p extubation on 07/27 with dx bronch, currently on hiflow O2 w/respiratory and hemodynamic stability, heparin drip for anti-coagulation, precedex for agitation , tube feeds via Dobhoff for nutrition. Ok for pt to have ice chips. Morphine for pain/anxiety. Continues to require ICU care. Plan: Neuro: A&Ox3 Following simple commands Verbal Purposeful movements Haldol PRN agitation Precedex drip Cont Morphine 2mg Q3H PRN anxiety/pain Swallow eval recs for ice chips, no PO intake for now. Will re-assess Monitor Cardio: HR in 90's BP 99/67- few episodes of hypotension Lasix 40mg IV QD Heparin drip for PE's ASA held until pt not NPO Cardiology following Pulm: Multiple PE's On heparin drip Cont high flow Bipap PRN CXR- Suboptimal position of feeding tube. Will advance Dobhoff Chest tube to water seal today per surgery CT output 10cc/12H Cont duonebs Cont Solu-medrol 40 IVP Q8H Cont Lasix 40mg IV QD Cont Doxycycline 100mg Q12H Merrem 1gm Q8H (day 10)- reached stop date Cont heparin drip titrated to PTT for PE Sputum cxr from bronch on 07/27 neg for AFB and fungus Pulm following Surg following for Chest tube- to water seal Daily CXRs as per surgery Monitor GI: C diff ag pos NPO except ice chips Swallow eval recs as above Cont vanco 500mg PO QID Multiple soft BMs today Started Flexiseal Dobhoff- will advance per CXR recs as above On tube feeds Monitor Endo: RF 116 AMANDA neg TPO ab neg Glucose in 300-400's Target eugylcemia per NICE sugar trials ISS-Low [place] 20 units SC Q12H Accuchecks Endo consulted Nephro Hypokalemia K 2.8 Replaced KCl 20mEq IVPB x 1 Replaced KCL 40mEq Q4H x 4 doses Cont Lasix 40mg IV QD UOP 1980cc/24H Target euvolemia Monitor Nephro consulted ID: PNA, C diff Afebrile over 24H Leukocytosis of 15.5 from 17.1- down trending Bronch sputum neg for AFB and fungus Aspergillus ag not detected Aspergillus index value 0.09 (neg) Beta - (1,3) - D-Glucan 120 -high B-(1,3)-D-glucan Intrp - pos high Blood cxr neg x 4D Started on Mepron 750mg PO BID Started on Voriconazole 200mg Q12H Cont Doxycycline 100mg Q12H Cont Vancomycin 500mg PO QID Merrem 1gm Q8H (day 10)- reached stop date ID following MSK: Protective skin measures Optimizing nutritional status Cont tube feeds Monitor for skin break down GI/DVT ppx Cont Heparin drip SCDs Protonix Dispo: cont ICU Care Pallative care consult DW attending - Date & Time Date: 07/30/16 Time: 08:30 <Juan Holden MD H - Last Filed: 07/30/16 17:40> CCU Objective - Vital Signs / Intake & Output Vital Signs (Last 4 hours): Vital Signs Temp Pulse Resp BP Pulse Ox 07/30/16 16:00 98.8 F 94 H 32 H 114/65 94 L 07/30/16 15:00 88 23 92/65 L 95 07/30/16 14:00 91 H 23 99/67 L 96 Intake and Output (Last 8hrs): Intake & Output 07/30/16 07/30/16 07/30/16 06:59 14:59 22:59 Intake Total 475 0 2648 Output Total 720 1980 30 Balance -245 -1979 2618 Intake: IV 475 0 628 Antibiotic 200 Heparin drip 475 84 K-rider 100 Mag rider 100 Precedex 144 Oral 260 Tube Feeding 1520 Other 240 Output: Chest Tube Drainage 30 Right Lateral Chest 30 Drainage 20 Right Chest 20 Urine 700 1980 Urethral (Dumont) 700 1980 Other: Voiding Method Indwelling Catheter # Bowel Movements 2 - Medications Active Medications: Active Medications Generic Name Dose Route Start Last Admin Trade Name Freq PRN Reason Stop Dose Admin Acetaminophen 650 mg 07/25/16 16:23 07/25/16 18:08 Tylenol 650mg/20.3ml Solution Ud PO 650 mg Q6H PRN Administration fever Albuterol/Ipratropium 3 ml 07/26/16 07:30 07/30/16 15:08 Duoneb 3 Mg/0.5 Mg (3 Ml) Ud IH 3 ml [id number] NISHANT Administration Alprazolam 0.5 mg 07/23/16 18:00 07/27/16 10:07 Xanax PO 0.5 mg BID NISHANT Administration Protocol Aspirin 81 mg 07/22/16 10:00 07/27/16 10:07 Ecotrin PO 81 mg DAILY NISHANT Administration Atovaquone 750 mg 07/30/16 11:04 07/30/16 17:02 Mepron PO 08/20/16 11:05 750 mg BID NISHANT Administration Furosemide 40 mg 07/29/16 10:00 07/30/16 10:15 Lasix IV 40 mg DAILY NISHANT Administration Haloperidol Lactate 2 mg 07/27/16 15:46 07/28/16 23:16 Haldol IVP 2 mg Q6H PRN Administration Agitation Protocol Doxycycline Hyclate 100 mg/ 100 mls @ 100 mls/hr 07/22/16 12:15 07/30/16 10: 17 Sodium Chloride IVPB 100 mls/hr Q12 NISHANT Administration Protocol Heparin Sodium/Sodium Chloride 25,000 units in 250 mls @ 8.655 mls/hr 12:31 07/29/16 15:30 Heparin 40503 Units/250ml 1/2 Normal Saline IV 13 units/kg/hr .Q24H PRN 6.251 mls/hr ADJUST RATE PER PROTOCOL Titration Protocol 18 UNITS/KG/HR Dexmedetomidine HCl 400 mcg in 100 mls @ 2.597 mls/hr 07/25/16 14:29 07:00 Precedex 4 Mcg/Ml (100 Ml) IV 1 mcg/kg/hr .Q24H PRN 12.984 mls/hr Agitation Titration Protocol 0.2 MCG/KG/HR Voriconazole 200 mg/ Sodium 100 mls @ 50 mls/hr 07/30/16 11:05 07/30/16 11:18 Chloride IVPB 08/13/16 11:06 50 mls/hr Q12 NISHANT Administration Protocol Insulin Detemir 20 unit 07/30/16 10:00 07/30/16 10:15 Levemir SC 20 unit Q12 NISHANT Administration Insulin Human Regular 0 units 07/30/16 12:00 07/30/16 17:02 Humulin R Low SC 4 units Q6 NISHANT Administration Protocol Magnesium Oxide 400 mg 07/23/16 10:00 07/27/16 10:08 Mag-Ox PO 400 mg BID NISHANT Administration Methylprednisolone 40 mg 07/21/16 06:00 07/30/16 13:08 Solu-Medrol IVP 40 mg Q8 NISHANT Administration Morphine Sulfate 2 mg 07/29/16 10:18 07/30/16 17:03 Morphine IVP 2 mg Q3H PRN Administration Pain, moderate (4-7) Nystatin 5 ml 07/23/16 14:00 07/27/16 15:09 Nystatin Oral Susp PO Not Given QID NISHANT Pantoprazole Sodium 40 mg 07/21/16 10:00 07/30/16 10:16 Protonix Inj IVP 40 mg DAILY NISHANT Administration Saliva Substitute 0 ml 07/27/16 13:15 07/30/16 13:08 Saliva Substitute PO Not Given Q8H NISHANT Vancomycin HCl 500 mg 07/28/16 22:00 07/30/16 17:04 Vancocin 25 Mg/Ml (Oral Use) PO 500 mg QID NISHANT Administration Protocol - Patient Studies Lab Studies: Microbiology Studies 07/26/16 10:36 Gram Stain - Final Pleural Fluid Body Fluid Culture - Preliminary Fungal Culture - Preliminary 07/26/16 06:30 Blood Culture - Preliminary Blood NO GROWTH AFTER 4 DAYS 07/26/16 06:30 Blood Culture - Preliminary Blood NO GROWTH AFTER 4 DAYS Lab Studies 07/30/16 07/30/16 07/30/16 Range/Units 16:00 15:53 11:10 WBC (4.5-11.0) 10^3/ul RBC (3.5-6.1) 10^6/uL Hgb (12.0-16.0) gm/dL Hct (36.0-48.0) % MCV (80.0-105.0) fL MCH (25.0-35.0) pg MCHC (31.0-37.0) g/dl RDW (11.5-14.5) % Plt Count (120.0-450.0) 10^3/uL MPV (7.0-11.0) fl Neutrophils % (Manual) (50.0-70.0) % Lymphocytes % (Manual) (22.0-35.0) % Monocytes % (Manual) (1.0-6.0) % Platelet Evaluation (NORMAL) Large Platelets Polychromasia Hypochromasia Poikilocytosis (manual Anisocytosis (manual) Tear Drop Cells Ovalocytes Arnaldo Cells APTT (23.7-30.8) Seconds Sodium 142 (132-148) mmol/L Potassium 3.5 L (3.6-5.0) mmol/L Chloride 109 H (98-107) mmol/L Carbon Dioxide 27 (21-33) mmol/L Anion Gap 10 (10-20) BUN 31 H (7-21) mg/dL Creatinine 0.7 (0.5-1.4) mg/dL Est GFR ( Amer) > 60 Est GFR (Non-Af Amer) > 60 POC Glucose (mg/dL) 315 H 423 H* (65-110) mg/dL Random Glucose 276 H (70-110) mg/dL Calcium 7.9 L (8.4-10.5) mg/dL Phosphorus (2.5-4.5) mg/dL Magnesium 2.1 (1.7-2.2) mg/dL Total Bilirubin (0.2-1.3) mg/dL AST (15-39) U/L ALT (7-56) U/L Alkaline Phosphatase (38-133) U/L Total Protein (5.8-8.3) g/dL Albumin (3.0-4.8) g/dL Globulin gm/dL Albumin/Globulin Ratio (1.1-1.8) Aspergillus Antigen (Not Detected) Aspergillus Index Value (<0.50) Beta-(1,3)-D-Glucan pg/mL B-(1,3)-D-Glucan Intrp 07/30/16 07/30/16 07/30/16 Range/Units 07:31 06:12 05:00 WBC (4.5-11.0) 10^3/ul RBC (3.5-6.1) 10^6/uL Hgb (12.0-16.0) gm/dL Hct (36.0-48.0) % MCV (80.0-105.0) fL MCH (25.0-35.0) pg MCHC (31.0-37.0) g/dl RDW (11.5-14.5) % Plt Count (120.0-450.0) 10^3/uL MPV (7.0-11.0) fl Neutrophils % (Manual) (50.0-70.0) % Lymphocytes % (Manual) (22.0-35.0) % Monocytes % (Manual) (1.0-6.0) % Platelet Evaluation (NORMAL) Large Platelets Polychromasia Hypochromasia Poikilocytosis (manual Anisocytosis (manual) Tear Drop Cells Ovalocytes Arnaldo Cells APTT 75.2 H* (23.7-30.8) Seconds Sodium (132-148) mmol/L Potassium (3.6-5.0) mmol/L Chloride (98-107) mmol/L Carbon Dioxide (21-33) mmol/L Anion Gap (10-20) BUN (7-21) mg/dL Creatinine (0.5-1.4) mg/dL Est GFR ( Amer) Est GFR (Non-Af Amer) POC Glucose (mg/dL) 392 H 419 H* (65-110) mg/dL Random Glucose (70-110) mg/dL Calcium (8.4-10.5) mg/dL Phosphorus (2.5-4.5) mg/dL Magnesium (1.7-2.2) mg/dL Total Bilirubin (0.2-1.3) mg/dL AST (15-39) U/L ALT (7-56) U/L Alkaline Phosphatase (38-133) U/L Total Protein (5.8-8.3) g/dL Albumin (3.0-4.8) g/dL Globulin gm/dL Albumin/Globulin Ratio (1.1-1.8) Aspergillus Antigen (Not Detected) Aspergillus Index Value (<0.50) Beta-(1,3)-D-Glucan pg/mL B-(1,3)-D-Glucan Intrp 07/30/16 07/30/16 07/29/16 Range/Units 05:00 05:00 21:35 WBC 15.5 H (4.5-11.0) 10^3/ul RBC 3.36 L (3.5-6.1) 10^6/uL Hgb 9.4 L (12.0-16.0) gm/dL Hct 29.6 L (36.0-48.0) % MCV 88.1 (80.0-105.0) fL MCH 28.0 (25.0-35.0) pg MCHC 31.8 (31.0-37.0) g/dl RDW 15.7 H (11.5-14.5) % Plt Count 173 (120.0-450.0) 10^3/uL MPV 12.3 H (7.0-11.0) fl Neutrophils % (Manual) 95 H (50.0-70.0) % Lymphocytes % (Manual) 3 L (22.0-35.0) % Monocytes % (Manual) 2 (1.0-6.0) % Platelet Evaluation Normal (NORMAL) Large Platelets Present Polychromasia Slight Hypochromasia 1+ Poikilocytosis (manual 1+ Anisocytosis (manual) 2+ Tear Drop Cells Slight Ovalocytes Slight Arnaldo Cells Slight APTT 70.6 H* (23.7-30.8) Seconds Sodium 141 (132-148) mmol/L Potassium 2.8 L* (3.6-5.0) mmol/L Chloride 109 H (98-107) mmol/L Carbon Dioxide 28 (21-33) mmol/L Anion Gap 7 L (10-20) BUN 34 H (7-21) mg/dL Creatinine 0.6 (0.5-1.4) mg/dL Est GFR ( Amer) > 60 Est GFR (Non-Af Amer) > 60 POC Glucose (mg/dL) (65-110) mg/dL Random Glucose 348 H* D (70-110) mg/dL Calcium 7.7 L (8.4-10.5) mg/dL Phosphorus 2.6 (2.5-4.5) mg/dL Magnesium 1.7 (1.7-2.2) mg/dL Total Bilirubin 0.5 (0.2-1.3) mg/dL AST 48 H (15-39) U/L ALT 61 H (7-56) U/L Alkaline Phosphatase 71 (38-133) U/L Total Protein 4.7 L (5.8-8.3) g/dL Albumin 2.3 L (3.0-4.8) g/dL Globulin 2.4 gm/dL Albumin/Globulin Ratio 1.0 L (1.1-1.8) Aspergillus Antigen (Not Detected) Aspergillus Index Value (<0.50) Beta-(1,3)-D-Glucan pg/mL B-(1,3)-D-Glucan Intrp 07/27/16 07/27/16 Range/Units 06:50 06:50 WBC (4.5-11.0) 10^3/ul RBC (3.5-6.1) 10^6/uL Hgb (12.0-16.0) gm/dL Hct (36.0-48.0) % MCV (80.0-105.0) fL MCH (25.0-35.0) pg MCHC (31.0-37.0) g/dl RDW (11.5-14.5) % Plt Count (120.0-450.0) 10^3/uL MPV (7.0-11.0) fl Neutrophils % (Manual) (50.0-70.0) % Lymphocytes % (Manual) (22.0-35.0) % Monocytes % (Manual) (1.0-6.0) % Platelet Evaluation (NORMAL) Large Platelets Polychromasia Hypochromasia Poikilocytosis (manual Anisocytosis (manual) Tear Drop Cells Ovalocytes [place] Cells APTT (23.7-30.8) Seconds Sodium (132-148) mmol/L Potassium (3.6-5.0) mmol/L Chloride (98-107) mmol/L Carbon Dioxide (21-33) mmol/L Anion Gap (10-20) BUN (7-21) mg/dL Creatinine (0.5-1.4) mg/dL Est GFR ( Amer) Est GFR (Non-Af Amer) POC Glucose (mg/dL) (65-110) mg/dL Random Glucose (70-110) mg/dL Calcium (8.4-10.5) mg/dL Phosphorus (2.5-4.5) mg/dL Magnesium (1.7-2.2) mg/dL Total Bilirubin (0.2-1.3) mg/dL AST (15-39) U/L ALT (7-56) U/L Alkaline Phosphatase (38-133) U/L Total Protein (5.8-8.3) g/dL Albumin (3.0-4.8) g/dL Globulin gm/dL Albumin/Globulin Ratio (1.1-1.8) Aspergillus Antigen Not detected (Not Detected) Aspergillus Index Value 0.09 (<0.50) Beta-(1,3)-D-Glucan 120 H pg/mL B-(1,3)-D-Glucan Intrp Positive H Laboratory Results - last 24 hr 07/27/16 07/27/16 07/29/16 06:50 06:50 21:35 WBC RBC Hgb Hct MCV MCH MCHC RDW Plt Count MPV Neutrophils % (Manual) Lymphocytes % (Manual) Monocytes % (Manual) Platelet Evaluation Large Platelets Polychromasia Hypochromasia Poikilocytosis (manual Anisocytosis (manual) Tear Drop Cells Ovalocytes [place] Cells APTT 70.6 H* Sodium Potassium Chloride Carbon Dioxide Anion Gap BUN Creatinine Est GFR ( Amer) Est GFR (Non-Af Amer) POC Glucose (mg/dL) Random Glucose Calcium Phosphorus Magnesium Total Bilirubin AST ALT Alkaline Phosphatase Total Protein Albumin Globulin Albumin/Globulin Ratio Aspergillus Antigen Not detected Aspergillus Index Value 0.09 Beta-(1,3)-D-Glucan 120 H B-(1,3)-D-Glucan Intrp Positive H 07/30/16 07/30/16 07/30/16 05:00 05:00 05:00 WBC 15.5 H RBC 3.36 L Hgb 9.4 L Hct 29.6 L MCV 88.1 MCH 28.0 MCHC 31.8 RDW 15.7 H Plt Count 173 MPV 12.3 H Neutrophils % (Manual) 95 H Lymphocytes % (Manual) 3 L Monocytes % (Manual) 2 Platelet Evaluation Normal Large Platelets Present Polychromasia Slight Hypochromasia 1+ Poikilocytosis (manual 1+ Anisocytosis (manual) 2+ Tear Drop Cells Slight Ovalocytes Slight Arnaldo Cells Slight APTT 75.2 H* Sodium 141 Potassium 2.8 L* Chloride 109 H Carbon Dioxide 28 Anion Gap 7 L BUN 34 H Creatinine 0.6 Est GFR ( Amer) > 60 Est GFR (Non-Af Amer) > 60 POC Glucose (mg/dL) Random Glucose 348 H* D Calcium 7.7 L Phosphorus 2.6 Magnesium 1.7 Total Bilirubin 0.5 AST 48 H ALT 61 H Alkaline Phosphatase 71 Total Protein 4.7 L Albumin 2.3 L Globulin 2.4 Albumin/Globulin Ratio 1.0 L Aspergillus Antigen Aspergillus Index Value Beta-(1,3)-D-Glucan B-(1,3)-D-Glucan Intrp 07/30/16 07/30/16 07/30/16 06:12 07:31 11:10 WBC RBC Hgb Hct MCV MCH MCHC RDW Plt Count MPV Neutrophils % (Manual) Lymphocytes % (Manual) Monocytes % (Manual) Platelet Evaluation Large Platelets Polychromasia Hypochromasia Poikilocytosis (manual Anisocytosis (manual) Tear Drop Cells Ovalocytes Arnaldo Cells APTT Sodium Potassium Chloride Carbon Dioxide Anion Gap BUN Creatinine Est GFR ( Amer) Est GFR (Non-Af Amer) POC Glucose (mg/dL) 419 H* 392 H 423 H* Random Glucose Calcium Phosphorus Magnesium Total Bilirubin AST ALT Alkaline Phosphatase Total Protein Albumin Globulin Albumin/Globulin Ratio Aspergillus Antigen Aspergillus Index Value Beta-(1,3)-D-Glucan B-(1,3)-D-Glucan Intrp 07/30/16 07/30/16 15:53 16:00 WBC RBC Hgb Hct MCV MCH MCHC RDW Plt Count MPV Neutrophils % (Manual) Lymphocytes % (Manual) Monocytes % (Manual) Platelet Evaluation Large Platelets Polychromasia Hypochromasia Poikilocytosis (manual Anisocytosis (manual) Tear Drop Cells Ovalocytes [place] Cells APTT Sodium 142 Potassium 3.5 L Chloride 109 H Carbon Dioxide 27 Anion Gap 10 BUN 31 H Creatinine 0.7 Est GFR ( Amer) > 60 Est GFR (Non-Af Amer) > 60 POC Glucose (mg/dL) 315 H Random Glucose 276 H Calcium 7.9 L Phosphorus Magnesium 2.1 Total Bilirubin AST ALT Alkaline Phosphatase Total Protein Albumin Globulin Albumin/Globulin Ratio Aspergillus Antigen Aspergillus Index Value Beta-(1,3)-D-Glucan B-(1,3)-D-Glucan [facility] Progress Note - Nutrition Nutrition: Nutrition Category Date Time Status NPO Diet [DIET] Diets 07/28/16 Dinner Ordered Attending/Attestation - Attestation I have personally seen and examined this patient.: Yes I have fully participated in the care of the patient.: Yes I have reviewed all pertinent clinical information: Yes Notes (Text): 07/30/16 17:38 61 y/o F w/ Likely methotrexate lung/ ILD w/ respiratory failure. On HFNC 40% 50L 92% o2 sat. Continued on broad spectrum abx w/ cx pending from Bronch and blood. Indeterminate findings from 1,3 bd glucan - suggestive of possible fungal / aspergillus . Started on Bactrim and Voriconazole B/l PE on heparin drip , to transition to p.o anticoagulants soon. R PTX, w/ Air leak resolving. Placed on water seal. Repeat cxr to be done. Possible removal tomorrow. Poor prognosis from multiple co-morbid conditions. cc time 65 min
[2016-07-30 16:22] LABS: BLOOD UREA NITROGEN 31 mg/dL (7-21); CALCIUM 7.9 mg/dL (8.4-10.5); CARBON DIOXIDE 27 mmol/L (21-33); CHLORIDE 109 mmol/L (98-107); GFR AFRICAN-AMERICAN > 60; GLUCOSE,RANDOM 276 mg/dL (70-110); MAGNESIUM 2.1 mg/dL (1.7-2.2); POTASSIUM 3.5 mmol/L (3.6-5.0); SODIUM 142 mmol/L (132-148)
--- NOTE | 2016-07-30 19:17 | PN ---
DATE: 07/30/2016 REFERRING PHYSICIAN: Dr. Chacorta Lea. SUBJECTIVE: She is sitting up in a bed, receiving high flow nasal cannula oxygen 40%. Also, a nasog astric tube, getting feeding. Still has right-sided chest tube with persistent air leak and subcutan eous emphysema. Still has cough and shortness of breath. No hemoptysis, no emesis, no hematuria, no diarrhea reported. OBJECTIVE: GENERAL: Mild to moderate distress. VITAL SIGNS: Temp is 98, heart rate is 89, respiratory rate is 22, blood pressure 114/65, pulse ox 9 4% on high flow nasal cannula with 40% oxygen. HEENT: Moist mucous membranes. Small oral cavity. NECK: Supple. No JVD. LUNGS: Has crackles at the bases, right-sided chest tube with right-sided subcutaneous emphysema. HEART: S1 and S2. ABDOMEN: Soft, nontender. No organomegaly. EXTREMITIES: There is no edema. NEUROLOGIC: Awake, alert, follows simple commands. MEDICATIONS: She is on doxycycline 100 mg twice a day, DuoNeb q. 4 hours, Ecotrin 81 mg daily, Haldo l 2 mg q. 6 hours p.r.n., heparin weight based protocol, Lasix 40 mg daily, Levemir 20 units subQ q. 12 hours, mag oxide 400 mg twice a day, mepron 750 mg twice a day, morphine 2 mg q. 3 hours p.r.n., n ystatin 5 mL q.i.d., still on Precedex IV, Protonix 40 mg daily, saliva substitute, Solu-Medrol 40 m g q. 8 hours, Tylenol on a p.r.n. basis, vancomycin 500 mg p.o. q.i.d., voriconazole 200 mg q. 12 beti rs, Xanax 0.5 mg twice a day. LABORATORY DATA: Shows hemoglobin 9.4, hematocrit 29.6, WBC 15.5, platelet is 173. PTT 75. Sodium 142, potassium 3.5, chloride 109, bicarbonate 27, BUN 31, creatinine 0.7, glucose is 276, calcium is 7.9, magnesium 2.1, AST 48, ALT 61, alkaline phosphatase is 71, albumin 2.3. So far, from the bronch ial washing is reported. Fungal culture is unremarkable. Blood cultures have been negative. Rheumatoid factor is 116. AMANDA screen is negative. Thyroperoxidase antibody is less than 1. TB gold test is indeterminate. Beta 1-3D glucan is 120 and beta 1-3D glucan is positive high. IMPRESSION AND PLAN: Respiratory failure, on high flow nasal cannula, feeding difficulty requiring n asogastric tube, has recurrent pneumothorax requiring chest tube, also has subcutaneous emphysema, bi lateral necrotic pulmonary infiltrates, multiple pulmonary embolism, history of rheumatoid arthritis, methotrexate dependent, also pulmonary hypertension, Escherichia coli in the sputum and pseudomonas in the urine, history of pulmonary hypertension. Case discussed with political scientist, Dr. Holden, and also spoke to infectious diseases, Dr. Kilpatrick. Dr. Kilpatrick's feeling is it could be Aspergillus o r PCP, already covered with antifungal and mepron. Pulmonary point of view, continue antibiotics. C ontinue steroids. Gastric prophylaxis, deep venous thrombosis prophylaxis. Dr. Kilpatrick wishes if we can do pulmonary biopsy and see one of these necrotic nodes, what it is. Will speak to Dr. Vanegas Monday or Monday. I believe right lower lobe necrotic mass could be biopsied safely. The patient already has a right-sided chest tube. Follow up ABG, chest x-ray, CBC, CMP in the morning. Critical care time more than 35 minutes. Thank you and will follow with you. Robert Hankins MD cc: [phone] TT: 07/30/2016 19:17:05 Confirmation # [id number] Dictation # [id number] seda
[2016-07-30] MEDS: Heparin25000 units/250ml 1/2NS 25,000 UNITS/250 ML BAG IV PRN (22:45)
--- NOTE | 2016-07-31 00:32 | PN ---
DATE: 07/30/2016 I am covering for Dr. Parker this weekend, so the patient's chart reviewed. Diagnosis, consultants and plan of care visited. HISTORY OF PRESENT ILLNESS: This is a 61-year-old female who unfortunately has multiple underlying c onditions who came in respiratory failure with pneumonia, pulmonary embolism, and right chest pneumot horax. She is off her BiPAP at our visit and extubated and asking if she can eat this morning. She is responding appropriately and is known to us from prior admissions with history of rheumatoid arthr itis and chronic pain syndrome whose admission was precipitated after her son noted her to be progres sing poorly and he was directed to bring the patient to the Emergency Room where she was noted to hav e pneumonia and was subsequently intubated in respiratory failure. She is comfortable with nasal can nula this morning as we visited. She has a nasogastric tube in place and once again is asking to hav e something to eat. We redirected her that she is not yet able as she had failed the swallow evaluat ion and we will be again asking for repeat evaluation today or tomorrow. PHYSICAL EXAMINATION: GENERAL: She is breathing on her own appropriately, oxygenating this morning despite having a chest tube in place and again as noted with pneumonia. She is in very critical state. VITAL SIGNS: On our rounds, temperature fluctuating between 97.4 this morning and 98.8 yesterday, a pulse rate of 75, blood pressure 106/72, respiratory rate of 21, and an O2 sat of 57 on high flow O2 mask. She has a right lateral chest tube in place with some leaks as noted that surgical staff under Dr. Case are assessing daily for appropriate removal. She is tolerating her respiratory treatmen ts. HEENT: Pupils are equally round and reactive to light and accommodation. Extraocular movement is in tact. Conjunctivae are pink. NECK: Supple, no bruit, no lymphadenopathy, but any kind of movement is very painful as she does hav e advanced rheumatoid arthritis and is maintained on DMARD for the past few years. Because of the re spiratory failure, she been placed on Solu-Medrol IV under Dr. Kilpatrick's review. She is on vancom ycin, vibramycin and meropenem for her sepsis and also atovaquone because of the pulmonary embolus, s he remains on a heparin drip. She is on morphine to help with her pain. SKIN: Turgor is adequate. She is being hydrated via the NG tube. LUNGS: Have very diminished breath sounds. No wheeze. HEART: Regular in rhythm. No S3 appreciated. ABDOMEN: Scaphoid. No masses. EXTREMITIES: Have full range of motion. ASSESSMENT: Again, the underlying assessment is status post respiratory failure, now on high flow na ginette cannula, swallowing dysfunction so she is requiring NG tube feedings, recurrent pneumothorax with chest tube in place, and some subcutaneous emphysema. The chest x-ray was consistent with necrotic pulmonary infiltrates that will perhaps be tapped after the holiday if Dr. Blu Vanegas is able to add ress. She is on this admission multiple pulmonary embolism. Her rheumatoid arthritis has been under methotrexate and as a DMARD has perhaps rendered her more candidate for sepsis. She has subsequent also Escherichia coli in the sputum and pseudomonas in the urine. At present, also with pulmonary hy pertension. The differential diagnosis for the pneumonic infiltrates by Dr. Kilpatrick is that PCP f or versus Aspergillus, both on current broad spectrum coverage. So antibiotics will remain a mainsta y for now. Steroids are necessary to help with her pulmonary status and she is being very closely fo llowed with the solution architect, Dr. Holden, and her status will be closely watched as she remains in criti yunior condition. Marcellus Padron MD cc: [phone] TT: 07/31/2016 00:32:04 Confirmation # [id number] Dictation # [id number] vida
[2016-07-31] MEDS: Dexmedetomidine HCl 4mcg/ml 400 MCG/100 ML BOTTLE IV PRN ×2 (03:05→13:14)
[2016-07-31] MEDS: Albuterol-Ipratrop 3 mg / 0.5 (3 ml) UD IH SCH ×6 (04:20→23:45)
[2016-07-31 06:13] LABS: HEMATOCRIT 34.8 % (36.0-48.0); MEAN CELL VOLUME 88.3 fL (80.0-105.0); MEAN CORPUSCULAR HEMOGLOBIN 28.9 pg (25.0-35.0); MEAN CORPUSCULAR HGB CONC 32.8 g/dl (31.0-37.0); MEAN PLATELET VOLUME 12.3 fl (7.0-11.0); PLATELET COUNT 135 10^3/uL (120.0-450.0); RED CELL DISTRIBUTION WIDTH 15.7 % (11.5-14.5)
[2016-07-31] MEDS: Saliva Substitute 44.3 ML PO SCH ×3 (06:14→21:23)
[2016-07-31] MEDS: MethylPREDNISolone 40 mg Vial IVP SCH ×3 (06:15→21:23)
[2016-07-31 06:25] LABS: ALB/GLOB RATIO 1.1 (1.1-1.8); ALKALINE PHOSPHATASE 92 U/L (38-133); ALT/SGPT 53 U/L (7-56); AST/SGOT 45 U/L (15-39); BILIRUBIN,TOTAL 0.5 mg/dL (0.2-1.3); BLOOD UREA NITROGEN 33 mg/dL (7-21); CARBON DIOXIDE 25 mmol/L (21-33); CHLORIDE 109 mmol/L (98-107); GFR AFRICAN-AMERICAN > 60; GLUCOSE,RANDOM 108 mg/dL (70-110); PHOSPHOROUS 2.5 mg/dL (2.5-4.5); POTASSIUM 3.5 mmol/L (3.6-5.0); SODIUM 140 mmol/L (132-148); TOTAL PROTEIN 5.2 g/dL (5.8-8.3)
[2016-07-31] MEDS: Insulin Reg-LOW-Coverage SC SCH ×4 (06:30→17:49)
[2016-07-31 06:36] LABS: ADD MANUAL DIFF? YES; WHITE BLOOD COUNT 26.9 10^3/ul (4.5-11.0)
[2016-07-31] MEDS ORDERED: Potassium Chloride 20 mEq/15 ml LIQ UD PO STA (06:44)
[2016-07-31 07:16] LABS: AMYLASE PLEURAL FLUID 118 U/L
[2016-07-31 07:23] LABS: NEUTROPHIL 91 % (50.0-70.0)
[2016-07-31 07:24] LABS: PLATELET ESTIMATE NORMAL (NORMAL)
[2016-07-31 07:25] LABS: HYPOCHROMIA 2+; TOXIC GRANULATION 2+
[2016-07-31 07:36] LABS: ARTERIAL BLOOD GAS HCO3 25.2 mmol/L (21-28); ARTERIAL BLOOD GAS O2 CAPACITY 15.2 mL/dl (16-24); ARTERIAL BLOOD GAS O2 CONTENT 14.4 ML/dl (15-23); ARTERIAL BLOOD GAS PH 7.43 (7.35-7.45); ARTERIAL BLOOD HGB O2 SAT 91.5 % (95.0-98.0); HHB 5.2 % (0-5); METHEMOGLOBIN 1.2 % (0.0-3.0)
[2016-07-31] MEDS: Morphine 2 mg/ml ISec IVP PRN ×2 (08:42→16:18)
--- NOTE | 2016-07-31 09:33 | RAD ---
PROCEDURE: Portable chest HISTORY: chest tube, dobhoff position eval COMPARISON: Earlier same day TECHNIQUE: FINDINGS: The feeding tube is now in satisfactory position in the gastric fundus. Chest tube is unchanged in position. There is increasing subcutaneous emphysema IMPRESSION: As above
--- NOTE | 2016-07-31 09:44 | RAD ---
HISTORY: res. fail COMPARISON: 07/30/2016 FINDINGS: LUNGS: Increasing subcutaneous edema. Chest tube unchanged in position. PLEURA: No significant pleural effusion identified, no pneumothorax apparent. CARDIOVASCULAR: Normal. OSSEOUS STRUCTURES: No significant abnormalities. VISUALIZED UPPER ABDOMEN: Normal. OTHER FINDINGS: Feeding tube in satisfactory position IMPRESSION: No significant change from prior study
--- NOTE | 2016-07-31 09:53 | PN ---
DATE: 07/31/2016 SUBJECTIVE: The patient is in bed, and she has mild shortness of breath. She is weak. She is awake . PHYSICAL EXAMINATION: VITAL SIGNS: Temperature is 98. Blood pressure is 117/78, respiratory rate of 25, heart rate of 85. HEENT: Unremarkable. NECK: Supple. LUNGS: Have decreased breath sounds. HEART: Normal S1, S2. ABDOMEN: Soft. The patient does have a chest tube in. LABORATORY EXAMINATION: Reveals a white count of 26,900, and the patient has 91% neutrophils. Coagu lation is noted. Chemistries: BUN of 33, creatinine of 0.6, and LFTs are normal. Urinalysis is not ed, 0-2 WBCs. The beta 1, 3D glucan is elevated at 120. Positive indeterminate QuantiFERON test. A spergillus antigen is not detected. Microbiology is pending. The patient had a chest x-ray this morning. The results are not available. Yesterday's chest x-ray has not been read. Earlier on from yesterday at 5:00, chest x-ray has been r ead by Dr. Sanju Nava. There is a small amount of subcutaneous emphysema, no pneumothorax, and bateman boptimal position of the feeding tube. Dr. Padron's note is reviewed. ASSESSMENT AND PLAN: A 61-year-old female with severe sepsis, status post ventilator-dependent respi ratory failure, multifocal healthcare-associated pneumonia with Escherichia coli, status post broncho scopy in a patient who has rheumatoid arthritis and immunosuppressive with an elevated 1, 3D beta glu can, pneumocystis carinii pneumonia, and Aspergillus in the differential diagnosis. Today is day #11 of doxycycline and meropenem, and day #2 of Voriconazole and mepron, and the patient is also on Solu -Medrol, now with a new elevated leukocytosis. Repeat gallagher cultures and check the stool for Clostridi um difficile. She did have diarrhea. Triston Kilpatrick MD cc: [phone] TT: 07/31/2016 09:53:15 Confirmation # [id number] Dictation # [id number] karly
[2016-07-31] MEDS: Insulin Detemir 100 units/ml Vial (Levemir) SC SCH ×2 (10:14→21:40)
[2016-07-31] MEDS: Atovaquone 750 mg/5 ml Susp UD PO SCH ×2 (10:15→17:49)
[2016-07-31] MEDS: Vancomycin 25 MG/ML PO SCH ×4 (10:16→21:39)
--- NOTE | 2016-07-31 11:17 | PN ---
DATE: 07/31/2016 ENDO FOLLOWUP NOTE In CCU 129, room 4, and is now being followed closely for metabolic management. She presented with a cute respiratory failure and concomitant pneumonia with pulmonary embolism and supervening right ches t pneumothorax. She has been extubated at this time and has tolerated her BiPAP mask as noted. She has been started on IV steroid therapy with supervening hyperglycemic accelerations as expected t hereof, but has improved accordingly over the last few days as noted. Her latest chemistries today showed a BUN of 33, sodium 140, potassium 3.5, chloride 109, CO2 of 25, glucose 108, and creatinine 0.6. Her glucose levels have ranged from 123-136 mg/dL. She has ongoing enteral tube feedings as tolerated and noted. So at this time, we will continue the same basal insulin given as Levemir at 20 units subQ every 12 h ours at 10:00 a.m. and 10:00 p.m. daily as given. We will titrate incrementally as indicated to opti bushra metabolic control. We will also continue the low-dose correction scale using regular insulin ev jesus 6 hours as ordered. We will follow and advise accordingly. Briana Cazares MD cc: [phone] TT: 07/31/2016 11:16:29 Confirmation # [id number] Dictation # [id number] jn
--- NOTE | 2016-07-31 13:33 | PN ---
DATE: 07/31/2016 REASON FOR CONSULTATION AND FOLLOWUP: Acute pulmonary embolism, positive troponin secondary to PE, t ension pneumothorax, subcutaneous emphysema, status post chest tube, status post extubated. BRIEF CLINICAL HISTORY: A 61-year-old female with a past medical history significant for rheumatoid arthritis, osteoarthritis on methotrexate therapy. Admitted with syncopal episode at home on the [facility] hroo, found to be a large PE, multilobar PE, pneumonia, status post intubated, now extubated. The p atient also developed a tension pneumothorax, status post chest tube. Now, patient developed subcuta neous emphysema on IV heparin. PHYSICAL EXAMINATION: VITAL SIGNS: Temperature afebrile, heart rate 82, blood pressure 115/71. HEENT: PERRLA. Extraocular muscles intact. NECK: Supple. No carotid bruits. No thyromegaly. CHEST: Clear to auscultation. HEART: S1, S2 regular. ABDOMEN: Soft. EXTREMITIES: Clubbing, cyanosis negative. BLOOD WORKUP: WBC 26.9, hemoglobin 11. , hematocrit 34.8, platelet count 135. Chemistry shows s odium 140, potassium 3.5, chloride 109, carbon dioxide 25, anion gap of 10, BUN 33, creatinine 0.5. IMPRESSION: Hypokalemia, protein-calorie malnutrition, albumin 2.7, moderate, which was present on a dmission, anemia, tension pneumothorax, leukocytosis, tension pneumothorax, subcutaneous emphysema, r espiratory failure, intubated, now successfully extubated, pulmonary embolism, positive troponin seco ndary to pulmonary embolism. RECOMMENDATION: Continue heparin. Once the chest is out, then we are going to start Eliquis 5 mg b. i.d. Discussed with reclamation supervisor, discussed with nursing taking care. Overall, patient's condition i s critical. Long-term prognosis is guarded. We will supplement potassium also. Thank you, Dr. Parker, for providing us the opportunity in taking care of the patient. We will con tinue IV Lasix to keep the negative fluid balance. Robert Jackson MD cc: [phone] TT: 07/31/2016 13:32:26 Confirmation # [id number] Dictation # [id number] en
--- NOTE | 2016-07-31 13:45 | CP.PCM.PN ---
Subjective - Date & Time of Evaluation Date of Evaluation: 07/31/16 Time of Evaluation: 13:42 - Subjective Subjective: SUrgery for Dr. Disla PT s&e. Pt has subq emphysema around the neck. Chest tube back on suction. Pt AAOx3. ABle to follow verbal commands. Has NG tube feed. R Chest tube. Rectal tube and Rondon. Objective - Vital Signs/Intake and Output Vital Signs (last 24 hours): Temp Pulse Resp BP Pulse Ox 98.1 F 81 20 95/64 L 95 07/31/16 12:00 07/31/16 12:00 07/31/16 13:07 07/31/16 11:00 07/31/16 12:00 Intake and Output: 07/31/16 07/31/16 06:59 18:59 Intake Total 1164 100 Output Total 540 1200 Balance 624 -1100 - Medications Medications: Current Medications Acetaminophen (Tylenol 650mg/20.3ml Solution Ud) 650 mg PO Q6H PRN PRN Reason: fever Last Admin: 07/25/16 18:08 Dose: 650 mg Albuterol/Ipratropium (Duoneb 3 Mg/0.5 Mg (3 Ml) Ud) 3 ml IH [id number] [facility] Last Admin: 07/31/16 11:09 Dose: 3 ml Alprazolam (Xanax) 0.5 mg PO BID NISHANT PRN Reason: Protocol Last Admin: 07/27/16 10:07 Dose: 0.5 mg Aspirin (Ecotrin) 81 mg PO DAILY NISHANT Last Admin: 07/27/16 10:07 Dose: 81 mg Atovaquone (Mepron) 750 mg PO BID NISHANT Stop: 08/20/16 11:05 Last Admin: 07/31/16 10:15 Dose: 750 mg Furosemide (Lasix) 40 mg IV DAILY NISHANT Last Admin: 07/31/16 10:13 Dose: 40 mg Haloperidol Lactate (Haldol) 2 mg IVP Q6H PRN; Protocol PRN Reason: Agitation Last Admin: 07/28/16 23:16 Dose: 2 mg Doxycycline Hyclate 100 mg/ (Sodium Chloride) 100 mls @ 100 mls/hr IVPB Q12 NISHANT PRN Reason: Protocol Last Admin: 07/31/16 10:15 Dose: 100 mls/hr Heparin Sodium/Sodium Chloride (Heparin 86409 Units/250ml 1/2 Normal Saline) 25 ,000 units in 250 mls @ 8.655 mls/hr IV .Q24H PRN; Protocol; 18 UNITS/KG/HR PRN Reason: ADJUST RATE PER PROTOCOL Last Admin: 07/30/16 22:45 Dose: 14.97 units/kg/hr, 7.2 mls/hr Dexmedetomidine HCl (Precedex 4 Mcg/Ml (100 Ml)) 400 mcg in 100 mls @ 2.597 mls /hr IV .Q24H PRN; Protocol; 0.2 MCG/KG/HR PRN Reason: Agitation Last Admin: 07/31/16 13:14 Dose: 0.7 mcg/kg/hr, 9.089 mls/hr Voriconazole 200 mg/ Sodium (Chloride) 100 mls @ 50 mls/hr IVPB Q12 NISHANT PRN Reason: Protocol Stop: 08/13/16 11:06 Last Admin: 07/31/16 10:16 Dose: 50 mls/hr Insulin Detemir (Levemir) 20 unit SC Q12 [facility] Last Admin: 07/31/16 10:14 Dose: Not Given Insulin Human Regular (Humulin R Low) 0 units SC Q6 NISHANT PRN Reason: Protocol Last Admin: 07/31/16 11:37 Dose: Not Given Magnesium Oxide (Mag-Ox) 400 mg PO BID [facility] Last Admin: 07/27/16 10:08 Dose: 400 mg Methylprednisolone (Solu-Medrol) 40 mg IVP Q8 [facility] Last Admin: 07/31/16 13:14 Dose: 40 mg Morphine Sulfate (Morphine) 2 mg IVP Q3H PRN PRN Reason: Pain, moderate (4-7) Last Admin: 07/31/16 08:42 Dose: 2 mg Nystatin (Nystatin Oral Susp) 5 ml PO QID [facility] Last Admin: 07/27/16 15:09 Dose: Not Given Pantoprazole Sodium (Protonix Inj) 40 mg IVP DAILY [facility] Last Admin: 07/31/16 10:11 Dose: 40 mg Saliva Substitute (Saliva Substitute) 0 ml PO Q8H [facility] Last Admin: 07/31/16 13:15 Dose: Not Given Vancomycin HCl (Vancocin 25 Mg/Ml (Oral Use)) 500 mg PO QID NSIHANT PRN Reason: Protocol Last Admin: 07/31/16 13:15 Dose: 500 mg - Labs Labs: 07/31/16 05:30 07/31/16 05:30 PT 12.4 Seconds (9.9-11.8) H 07/29/16 05:11 INR 1.15 (0.93-1.08) H 07/29/16 05:11 APTT 53.5 Seconds (23.7-30.8) H 07/31/16 10:50 - Constitutional Appears: Chronically Ill - Head Exam Head Exam: ATRAUMATIC, NORMAL INSPECTION, NORMOCEPHALIC - Eye Exam Eye Exam: EOMI, Normal appearance, PERRL Pupil Exam: NORMAL ACCOMODATION, PERRL - ENT Exam ENT Exam: Mucous Membranes Moist - Neck Exam Neck Exam: Full ROM. absent: Lymphadenopathy, Meningismus, Normal Inspection, Thyromegaly Additional comments: Subqutaneaous emphysema b/l. Mild TTP. NG tube feed. - Respiratory Exam Respiratory Exam: absent: NORMAL BREATHING PATTERN - Cardiovascular Exam Cardiovascular Exam: REGULAR RHYTHM - GI/Abdominal Exam GI & Abdominal Exam: Soft, Normal Bowel Sounds. absent: Distended, Tenderness - Rectal Exam Additional comments: REctal tube - Exam Additional comments: Rondon - Back Exam Back Exam: NORMAL INSPECTION - Neurological Exam Neurological Exam: Alert, Awake, CN II-XII Intact, Oriented x3 - Psychiatric Exam Psychiatric exam: Normal Affect, Normal Mood - Skin Skin Exam: Dry, Intact, Normal Color, Warm Assessment and Plan - Assessment and Plan (Free Text) Assessment: 61F with R pneumothorax s/p CT placement; POD#4 Plan: - Subcutaneaous emphysema on neck and R chest: COntinue chst tube on suction - CXR to monitor pneumothorax and subq emphysema - continue dressing changes PRN - d/w Dr. Disla
[2016-07-31 14:35] LABS: PH,URINE 6.5 (4.7-8.0); URINE BILIRUBIN NEGATIVE (NEGATIVE); URINE BLOOD LARGE (NEGATIVE); URINE GLUCOSE (UA) NEGATIVE (NEGATIVE); URINE KETONE NEGATIVE (NEGATIVE); URINE LEUKOCYTE ESTERASE NEGATIVE Leu/uL (NEGATIVE); URINE PROTEIN NEGATIVE mg/dL (<30 mg/dL); URINE UROBILINOGEN 0.2 E.U./dL (<1 E.U./dL)
--- NOTE | 2016-07-31 14:35 | CP.CCUPN ---
<Shania Kennedy - Last Filed: 07/31/16 14:32> CCU Subjective - Physician Review Events Since Last Encounter (Free Text): 07/31/16 14:32 Stable overnight on high flow. Subjective (Free Text): 07/29/16 08:49 Critical care progress note for Dr. Eneida Kennedy, PGY-1 Pt S & E at bedside. Pt asking for ice chips/water- is currently on Bipap, pt was on O2 via NC overnight until approximately 5am when she was transitioned to Bipap. Pt reports whole body pain, no specific CP, continues with SOB. Asking for percocet,Xanax and to talk to her primary. Denies N/V/F/C, ab pain, other complaints. Pt currently with Dobhoff on tube feeds. 07/30/16 16:11 Critical care progress note for Dr. Eneida Kennedy, PGY-1 Pt S & E at bedside this AM. Pt continuing to ask for ice chips- was told that she can have them and has been having them since yesterday. Pt continues to ask for food, re-stated that she cannot have foods until it is safe for her to swallow foods as per swallow eval recs. Continues to c/o whole body pain, no specific locatin. Denies N/V/F /C, ab pain, other complaints. Pt currently with Dobhoff on tube feeds. 07/31/16 14:32 Critical care progress note for Dr. Eneida Kennedy, PGY-1 Pt S & E at bedside. Pt continues to c/o whole body pain, non specific, states she is hungry, SOB. Denies N/V/F/C, ab pain, other complaints. Pt currently with Dobhoff on tube feeds. To be re-eval for swallowing. CCU Objective - Vital Signs / Intake & Output Vital Signs (Last 4 hours): Vital Signs Temp Pulse Resp BP Pulse Ox 07/31/16 14:00 75 07/31/16 13:10 78 15 102/64 96 07/31/16 13:07 20 07/31/16 13:00 84 14 83/53 L 96 07/31/16 12:21 81 23 85/53 L 95 07/31/16 12:19 76 16 89/51 L 94 L 07/31/16 12:00 98.1 F 85 19 80/39 L 95 07/31/16 11:00 71 17 95/64 L 95 Intake and Output (Last 8hrs): Intake & Output 07/30/16 07/31/16 07/31/16 22:59 06:59 14:59 Intake Total 2828 984 100 Output Total 368 876 7906 Balance 2498 444 -1100 Weight 57.153 kg Intake: IV 808 504 100 Antibiotic 200 200 Heparin drip 84 84 K-rider 100 Mag rider 100 100 Precedex 144 120 Oral 260 0 Tube Feeding 1520 480 Other 240 Output: Chest Tube Drainage 30 Right Lateral Chest 30 Drainage 40 Right Chest 40 Urine [phone] Urethral (Dumont) [phone] Other: Voiding Method Indwelling Catheter Indwelling Catheter # Bowel Movements 100 - Physical Exam Head: Positive for: Atraumatic, Normocephalic Pupils: Positive for: PERRL Extroacular Muscles: Positive for: EOMI Conjunctiva: Positive for: Normal. Negative for: Injected, Icteric Ears: Positive for: Normal Mouth: Positive for: Moist Mucous Membranes Pharnyx: Positive for: Normal. Negative for: ERYTHEMA Nose (External): Positive for: Atraumatic, Other (Dobhoff in place) Neck: Positive for: Normal Range of Motion, JVD (notable), Trachea Midline. Negative for: Lymphadenopathy Respiratory/Chest: Positive for: Tachypneic, Other (Chest tube insertion site covered in dressing c/d/i, no sign of active bleed. Chest tube with leak. Notable creptius under skin from right lateral chest, anterior aspect of chest, up to neck/mandible). Negative for: Clear to Auscultation (coarse expiratory breath sounds), Respiratory Distress, Accessory Muscle Use, Tender to Palpation Cardiovascular: Positive for: Regular Rate and Rhythm, Murmurs (2/6 LSB). Negative for: Rub, Gallop Abdomen: Positive for: Normal Bowel Sounds. Negative for: Tenderness, Distention, Peritoneal Signs Genitourinary/Pelvic Exam: Positive for: Other (dumont in place with clear yellow urine) Back: Negative for: Midline Tenderness, Paraspinal Tenderness Upper Extremity: Positive for: Normal Inspection, Capillary Refill < 2s, Other ( Diffuse bruising from blood draws). Negative for: Cyanosis, Edema Lower Extremity: Positive for: Normal Inspection, Neurovascularly Intact, Capillary Refill < 2 s. Negative for: Edema, CALF TENDERNESS Neurological: Positive for: GCS=15, CN II-XII Intact, Speech Normal, Motor Func Grossly Intact Skin: Positive for: Warm, Dry, Pale, Other (crepitus under skin of chest ( anterior and right lateral aspect) and whole neck up to mandible B/L) Psychiatric: Positive for: Alert, Oriented x 3, Anxious - Medications Active Medications: Active Medications Generic Name Dose Route Start Last Admin Trade Name Freq PRN Reason Stop Dose Admin Acetaminophen 650 mg 07/25/16 16:23 07/25/16 18:08 Tylenol 650mg/20.3ml Solution Ud PO 650 mg Q6H PRN Administration fever Albuterol/Ipratropium 3 ml 07/26/16 07:30 07/31/16 11:09 Duoneb 3 Mg/0.5 Mg (3 Ml) Ud IH 3 ml [id number] NISHANT Administration Alprazolam 0.5 mg 07/23/16 18:00 07/27/16 10:07 Xanax PO 0.5 mg BID NISHANT Administration Protocol Aspirin 81 mg 07/22/16 10:00 07/27/16 10:07 Ecotrin PO 81 mg DAILY NISHANT Administration Atovaquone 750 mg 07/30/16 11:04 07/31/16 10:15 Mepron PO 08/20/16 11:05 750 mg BID NISHANT Administration Furosemide 40 mg 07/29/16 10:00 07/31/16 10:13 Lasix IV 40 mg DAILY NISHANT Administration Haloperidol Lactate 2 mg 07/27/16 15:46 07/28/16 23:16 Haldol IVP 2 mg Q6H PRN Administration Agitation Protocol Doxycycline Hyclate 100 mg/ 100 mls @ 100 mls/hr 07/22/16 12:15 07/31/16 10: 15 Sodium Chloride IVPB 100 mls/hr Q12 NISHANT Administration Protocol Heparin Sodium/Sodium Chloride 25,000 units in 250 mls @ 8.655 mls/hr 12:31 07/30/16 22:45 Heparin 96482 Units/250ml 1/2 Normal Saline IV 14.97 units/kg/hr .Q24H PRN 7.2 mls/hr ADJUST RATE PER PROTOCOL Administration Protocol 18 UNITS/KG/HR Dexmedetomidine HCl 400 mcg in 100 mls @ 2.597 mls/hr 07/25/16 14:29 13:14 Precedex 4 Mcg/Ml (100 Ml) IV 0.7 mcg/kg/hr .Q24H PRN 9.089 mls/hr Agitation Administration Protocol 0.2 MCG/KG/HR Voriconazole 200 mg/ Sodium 100 mls @ 50 mls/hr 07/30/16 11:05 07/31/16 10:16 Chloride IVPB 08/13/16 11:06 50 mls/hr Q12 NISHANT Administration Protocol Insulin Detemir 20 unit 07/30/16 10:00 07/31/16 10:14 Levemir SC Not Given Q12 NISHANT Insulin Human Regular 0 units 07/30/16 12:00 07/31/16 11:37 Humulin R Low SC Not Given Q6 [facility] Protocol Magnesium Oxide 400 mg 07/23/16 10:00 07/27/16 10:08 Mag-Ox PO 400 mg BID NISHANT Administration Methylprednisolone 40 mg 07/21/16 06:00 07/31/16 13:14 Solu-Medrol IVP 40 mg Q8 NISHANT Administration Morphine Sulfate 2 mg 07/29/16 10:18 07/31/16 08:42 Morphine IVP 2 mg Q3H PRN Administration Pain, moderate (4-7) Nystatin 5 ml 07/23/16 14:00 07/27/16 15:09 Nystatin Oral Susp PO Not Given QID NISHANT Pantoprazole Sodium 40 mg 07/21/16 10:00 07/31/16 10:11 Protonix Inj IVP 40 mg DAILY NISHANT Administration Saliva Substitute 0 ml 07/27/16 13:15 07/31/16 13:15 Saliva Substitute PO Not Given Q8H NISHANT Vancomycin HCl 500 mg 07/28/16 22:00 07/31/16 13:15 Vancocin 25 Mg/Ml (Oral Use) PO 500 mg QID NISHANT Administration Protocol - Patient Studies Lab Studies: Microbiology Studies 07/26/16 10:36 Gram Stain - Final Pleural Fluid Body Fluid Culture - Preliminary Coagulase Neg Staphylococcus Yeast Species Fungal Culture - Preliminary 07/26/16 06:30 Blood Culture - Final Blood NO GROWTH AFTER 5 DAYS Gram Stain - Final 07/26/16 06:30 Blood Culture - Final Blood NO GROWTH AFTER 5 DAYS Gram Stain - Final TEST NOT PERFORMED Lab Studies 07/31/16 07/31/16 07/31/16 Range/Units 10:50 06:21 06:15 WBC (4.5-11.0) 10^3/ul RBC (3.5-6.1) 10^6/uL Hgb (12.0-16.0) gm/dL Hct (36.0-48.0) % MCV (80.0-105.0) fL MCH (25.0-35.0) pg MCHC (31.0-37.0) g/dl RDW (11.5-14.5) % Plt Count (120.0-450.0) 10^3/uL MPV (7.0-11.0) fl Neutrophils % (Manual) (50.0-70.0) % Lymphocytes % (Manual) (22.0-35.0) % Monocytes % (Manual) (1.0-6.0) % Toxic Granulation Platelet Evaluation (NORMAL) Hypochromasia Rouleaux APTT 53.5 H (23.7-30.8) Seconds pCO2 38 (35-45) mm/Hg pO2 57.0 L (80-100) mm/Hg HCO3 25.2 (21-28) mmol/L ABG pH 7.43 (7.35-7.45) ABG Total CO2 26.4 (22-28) mmol.L ABG O2 Saturation 94.6 L (95-98) % ABG O2 Content 14.4 L (15-23) ML/dl ABG Base Excess 0.9 (-2.0-3.0) mmol/L ABG Hemoglobin 11.2 L (11.7-17.4) g/dL ABG Carboxyhemoglobin 2.0 H (0.5-1.5) % POC ABG HHb (Measured) 5.2 H (0-5) % ABG Methemoglobin 1.2 (0.0-3.0) % ABG O2 Capacity 15.2 L (16-24) mL/dl Hgb O2 Saturation 91.5 L (95.0-98.0) % FiO2 40.0 % Sodium (132-148) mmol/L Potassium (3.6-5.0) mmol/L Chloride (98-107) mmol/L Carbon Dioxide (21-33) mmol/L Anion Gap (10-20) BUN (7-21) mg/dL Creatinine (0.5-1.4) mg/dL Est GFR ( Amer) Est GFR (Non-Af Amer) POC Glucose (mg/dL) 123 H (65-110) mg/dL Random Glucose (70-110) mg/dL Calcium (8.4-10.5) mg/dL Phosphorus (2.5-4.5) mg/dL Magnesium (1.7-2.2) mg/dL Total Bilirubin (0.2-1.3) mg/dL AST (15-39) U/L ALT (7-56) U/L Alkaline Phosphatase (38-133) U/L Total Protein (5.8-8.3) g/dL Albumin (3.0-4.8) g/dL Globulin gm/dL Albumin/Globulin Ratio (1.1-1.8) Pleural Amylase U/L 07/31/16 07/31/16 07/30/16 Range/Units 05:30 05:30 22:06 WBC 26.9 H* D (4.5-11.0) 10^3/ul RBC 3.94 (3.5-6.1) 10^6/uL Hgb 11.4 L (12.0-16.0) gm/dL Hct 34.8 L (36.0-48.0) % MCV 88.3 (80.0-105.0) fL MCH 28.9 (25.0-35.0) pg MCHC 32.8 (31.0-37.0) g/dl RDW 15.7 H (11.5-14.5) % Plt Count 135 (120.0-450.0) 10^3/uL MPV 12.3 H (7.0-11.0) fl Neutrophils % (Manual) 91 H (50.0-70.0) % Lymphocytes % (Manual) 4 L (22.0-35.0) % Monocytes % (Manual) 5 (1.0-6.0) % Toxic Granulation 2+ Platelet Evaluation Normal (NORMAL) Hypochromasia 2+ Rouleaux 2+ APTT (23.7-30.8) Seconds pCO2 (35-45) mm/Hg pO2 (80-100) mm/Hg HCO3 (21-28) mmol/L ABG pH (7.35-7.45) ABG Total CO2 (22-28) mmol.L ABG O2 Saturation (95-98) % ABG O2 Content (15-23) ML/dl ABG Base Excess (-2.0-3.0) mmol/L ABG Hemoglobin (11.7-17.4) g/dL ABG Carboxyhemoglobin (0.5-1.5) % POC ABG HHb (Measured) (0-5) % ABG Methemoglobin (0.0-3.0) % ABG O2 Capacity (16-24) mL/dl Hgb O2 Saturation (95.0-98.0) % FiO2 % Sodium 140 (132-148) mmol/L Potassium 3.5 L (3.6-5.0) mmol/L Chloride 109 H (98-107) mmol/L Carbon Dioxide 25 (21-33) mmol/L Anion Gap 10 (10-20) BUN 33 H (7-21) mg/dL Creatinine 0.6 (0.5-1.4) mg/dL Est GFR ( Amer) > 60 Est GFR (Non-Af Amer) > 60 POC Glucose (mg/dL) 136 H (65-110) mg/dL Random Glucose 108 (70-110) mg/dL Calcium 8.0 L (8.4-10.5) mg/dL Phosphorus 2.5 (2.5-4.5) mg/dL Magnesium 2.0 (1.7-2.2) mg/dL Total Bilirubin 0.5 (0.2-1.3) mg/dL AST 45 H (15-39) U/L ALT 53 (7-56) U/L Alkaline Phosphatase 92 (38-133) U/L Total Protein 5.2 L (5.8-8.3) g/dL Albumin 2.7 L (3.0-4.8) g/dL Globulin 2.5 gm/dL Albumin/Globulin Ratio 1.1 (1.1-1.8) Pleural Amylase U/L 07/30/16 07/30/16 07/30/16 Range/Units 16:00 15:53 11:10 WBC (4.5-11.0) 10^3/ul RBC (3.5-6.1) 10^6/uL Hgb (12.0-16.0) gm/dL Hct (36.0-48.0) % MCV (80.0-105.0) fL MCH (25.0-35.0) pg MCHC (31.0-37.0) g/dl RDW (11.5-14.5) % Plt Count (120.0-450.0) 10^3/uL MPV (7.0-11.0) fl Neutrophils % (Manual) (50.0-70.0) % Lymphocytes % (Manual) (22.0-35.0) % Monocytes % (Manual) (1.0-6.0) % Toxic Granulation Platelet Evaluation (NORMAL) Hypochromasia Rouleaux APTT (23.7-30.8) Seconds pCO2 (35-45) mm/Hg pO2 (80-100) mm/Hg HCO3 (21-28) mmol/L ABG pH (7.35-7.45) ABG Total CO2 (22-28) mmol.L ABG O2 Saturation (95-98) % ABG O2 Content (15-23) ML/dl ABG Base Excess (-2.0-3.0) mmol/L ABG Hemoglobin (11.7-17.4) g/dL ABG Carboxyhemoglobin (0.5-1.5) % POC ABG HHb (Measured) (0-5) % ABG Methemoglobin (0.0-3.0) % ABG O2 Capacity (16-24) mL/dl Hgb O2 Saturation (95.0-98.0) % FiO2 % Sodium 142 (132-148) mmol/L Potassium 3.5 L (3.6-5.0) mmol/L Chloride 109 H (98-107) mmol/L Carbon Dioxide 27 (21-33) mmol/L Anion Gap 10 (10-20) BUN 31 H (7-21) mg/dL Creatinine 0.7 (0.5-1.4) mg/dL Est GFR ( Amer) > 60 Est GFR (Non-Af Amer) > 60 POC Glucose (mg/dL) 315 H 423 H* (65-110) mg/dL Random Glucose 276 H (70-110) mg/dL Calcium 7.9 L (8.4-10.5) mg/dL Phosphorus (2.5-4.5) mg/dL Magnesium 2.1 (1.7-2.2) mg/dL Total Bilirubin (0.2-1.3) mg/dL AST (15-39) U/L ALT (7-56) U/L Alkaline Phosphatase (38-133) U/L Total Protein (5.8-8.3) g/dL Albumin (3.0-4.8) g/dL Globulin gm/dL Albumin/Globulin Ratio (1.1-1.8) Pleural Amylase U/L 07/26/ Range/Units 10:35 WBC (4.5-11.0) 10^3/ul RBC (3.5-6.1) 10^6/uL Hgb (12.0-16.0) gm/dL Hct (36.0-48.0) % MCV (80.0-105.0) fL MCH (25.0-35.0) pg MCHC (31.0-37.0) g/dl RDW (11.5-14.5) % Plt Count (120.0-450.0) 10^3/uL MPV (7.0-11.0) fl Neutrophils % (Manual) (50.0-70.0) % Lymphocytes % (Manual) (22.0-35.0) % Monocytes % (Manual) (1.0-6.0) % Toxic Granulation Platelet Evaluation (NORMAL) Hypochromasia Rouleaux APTT (23.7-30.8) Seconds pCO2 (35-45) mm/Hg pO2 (80-100) mm/Hg HCO3 (21-28) mmol/L ABG pH (7.35-7.45) ABG Total CO2 (22-28) mmol.L ABG O2 Saturation (95-98) % ABG O2 Content (15-23) ML/dl ABG Base Excess (-2.0-3.0) mmol/L ABG Hemoglobin (11.7-17.4) g/dL ABG Carboxyhemoglobin (0.5-1.5) % POC ABG HHb (Measured) (0-5) % ABG Methemoglobin (0.0-3.0) % ABG O2 Capacity (16-24) mL/dl Hgb O2 Saturation (95.0-98.0) % FiO2 % Sodium (132-148) mmol/L Potassium (3.6-5.0) mmol/L Chloride (98-107) mmol/L Carbon Dioxide (21-33) mmol/L Anion Gap (10-20) BUN (7-21) mg/dL Creatinine (0.5-1.4) mg/dL Est GFR ( Amer) Est GFR (Non-Af Amer) POC Glucose (mg/dL) (65-110) mg/dL Random Glucose (70-110) mg/dL Calcium (8.4-10.5) mg/dL Phosphorus (2.5-4.5) mg/dL Magnesium (1.7-2.2) mg/dL Total Bilirubin (0.2-1.3) mg/dL AST (15-39) U/L ALT (7-56) U/L Alkaline Phosphatase (38-133) U/L Total Protein (5.8-8.3) g/dL Albumin (3.0-4.8) g/dL Globulin gm/dL Albumin/Globulin Ratio (1.1-1.8) Pleural Amylase 118 U/L Laboratory Results - last 24 hr 07/26/16 07/30/16 07/30/16 10:35 11:10 15:53 WBC RBC Hgb Hct MCV MCH MCHC RDW Plt Count MPV Neutrophils % (Manual) Lymphocytes % (Manual) Monocytes % (Manual) Toxic Granulation Platelet Evaluation Hypochromasia Rouleaux APTT pCO2 pO2 HCO3 ABG pH ABG Total CO2 ABG O2 Saturation ABG O2 Content ABG Base Excess ABG Hemoglobin ABG Carboxyhemoglobin POC ABG HHb (Measured) ABG Methemoglobin ABG O2 Capacity Hgb O2 Saturation FiO2 Sodium Potassium Chloride Carbon Dioxide Anion Gap BUN Creatinine Est GFR ( Amer) Est GFR (Non-Af Amer) POC Glucose (mg/dL) 423 H* 315 H Random Glucose Calcium Phosphorus Magnesium Total Bilirubin AST ALT Alkaline Phosphatase Total Protein Albumin Globulin Albumin/Globulin Ratio Pleural Amylase 118 07/30/16 07/30/16 07/31/16 16:00 22:06 05:30 WBC 26.9 H* D RBC 3.94 Hgb 11.4 L Hct 34.8 L MCV 88.3 MCH 28.9 MCHC 32.8 RDW 15.7 H Plt Count 135 MPV 12.3 H Neutrophils % (Manual) 91 H Lymphocytes % (Manual) 4 L Monocytes % (Manual) 5 Toxic Granulation 2+ Platelet Evaluation Normal Hypochromasia 2+ Rouleaux 2+ APTT pCO2 pO2 HCO3 ABG pH ABG Total CO2 ABG O2 Saturation ABG O2 Content ABG Base Excess ABG Hemoglobin ABG Carboxyhemoglobin POC ABG HHb (Measured) ABG Methemoglobin ABG O2 Capacity Hgb O2 Saturation FiO2 Sodium 142 Potassium 3.5 L Chloride 109 H Carbon Dioxide 27 Anion Gap 10 BUN 31 H Creatinine 0.7 Est GFR ( Amer) > 60 Est GFR (Non-Af Amer) > 60 POC Glucose (mg/dL) 136 H Random Glucose 276 H Calcium 7.9 L Phosphorus Magnesium 2.1 Total Bilirubin AST ALT Alkaline Phosphatase Total Protein Albumin Globulin Albumin/Globulin Ratio Pleural Amylase 07/31/16 07/31/16 07/31/16 05:30 06:15 06:21 WBC RBC Hgb Hct MCV MCH MCHC RDW Plt Count MPV Neutrophils % (Manual) Lymphocytes % (Manual) Monocytes % (Manual) Toxic Granulation Platelet Evaluation Hypochromasia Rouleaux APTT pCO2 38 pO2 57.0 L HCO3 25.2 ABG pH 7.43 ABG Total CO2 26.4 ABG O2 Saturation 94.6 L ABG O2 Content 14.4 L ABG Base Excess 0.9 ABG Hemoglobin 11.2 L ABG Carboxyhemoglobin 2.0 H POC ABG HHb (Measured) 5.2 H ABG Methemoglobin 1.2 ABG O2 Capacity 15.2 L Hgb O2 Saturation 91.5 L FiO2 40.0 Sodium 140 Potassium 3.5 L Chloride 109 H Carbon Dioxide 25 Anion Gap 10 BUN 33 H Creatinine 0.6 Est GFR ( Amer) > 60 Est GFR (Non-Af Amer) > 60 POC Glucose (mg/dL) 123 H Random Glucose 108 Calcium 8.0 L Phosphorus 2.5 Magnesium 2.0 Total Bilirubin 0.5 AST 45 H ALT 53 Alkaline Phosphatase 92 Total Protein 5.2 L Albumin 2.7 L Globulin 2.5 Albumin/Globulin Ratio 1.1 Pleural Amylase 07/31/16 10:50 WBC RBC Hgb Hct MCV MCH MCHC RDW Plt Count MPV Neutrophils % (Manual) Lymphocytes % (Manual) Monocytes % (Manual) Toxic Granulation Platelet Evaluation Hypochromasia Rouleaux APTT 53.5 H pCO2 pO2 HCO3 ABG pH ABG Total CO2 ABG O2 Saturation ABG O2 Content ABG Base Excess ABG Hemoglobin ABG Carboxyhemoglobin POC ABG HHb (Measured) ABG Methemoglobin ABG O2 Capacity Hgb O2 Saturation FiO2 Sodium Potassium Chloride Carbon Dioxide Anion Gap BUN Creatinine Est GFR ( Amer) Est GFR (Non-Af Amer) POC Glucose (mg/dL) Random Glucose Calcium Phosphorus Magnesium Total Bilirubin AST ALT Alkaline Phosphatase Total Protein Albumin Globulin Albumin/Globulin Ratio Pleural Amylase Fingerstick Blood Sugar Results: 124 Review of Systems - Review of Systems All systems: reviewed and no additional remarkable complaints except - Constitutional Constitutional: absent: Fever, Chills - EENT Eyes: UNREMARKABLE - Cardiovascular Cardiovascular: UNREMARKABLE. absent: Chest Pain - Respiratory Respiratory: Cough, Dyspnea - Gastrointestinal Gastrointestinal: UNREMARKABLE. absent: Abdominal Pain, Nausea, Vomiting - Musculoskeletal Musculoskeletal: Myalgias - Neurological Neurological: UNREMARKABLE - Psychiatric Psychiatric: Anxiety Critical Care Progress Note - Ventilator Checklist Head of Bed 30 Degrees: Yes - Extremities/Vascular Does the Patient have a Central Venous Catheter?: No Does the Patient need a Central Venous Catheter?: No Does the Patient have a Dumont Catheter?: Yes Does the Patient need a Dumont Catheter?: Yes Catheter Insertion Criteria: Need for accurate measurement of output in critically ill patient - Prophylaxis GI Prophylaxis GI: PPI - Prophylaxis DVT Prophylaxis DVT: Heparin SQ - Nutrition Nutrition: Nutrition Category Date Time Status NPO Diet [DIET] Diets 07/28/16 Dinner Ordered Assessment/Plan - Assessment and Plan (Free Text) Assessment: 61F w/acute respiratory failure due to PNA, PE, R ventricular cardiac failure s/ p extubation on 07/27 with dx bronch, currently on hiflow O2 w/respiratory and hemodynamic stability, heparin drip for anti-coagulation, precedex for agitation , morphine for pain/anxiety, tube feeds via Dobhoff for nutrition. Ok for pt to have ice chips. Continues to require ICU care. Stable, no changes. Plan: Neuro: A&Ox3 Following simple commands Verbal Purposeful movements Haldol PRN agitation Precedex drip Cont Morphine 2mg Q3H PRN anxiety/pain Monitor Cardio: Normocardic Episodes of hypotension Lasix 40mg IV QD Heparin drip for PE's ASA held until pt not NPO Cardiology following Pulm: Multiple PE's, subcutaneous emphysema On heparin drip Cont high flow Bipap PRN Chest tube to suction today per surgery CT output 30cc/12H Cont duonebs Cont Solu-medrol 40 IVP Q8H Cont Lasix 40mg IV QD Cont Doxycycline 100mg Q12H Merrem 1gm Q8H (day 10)- reached stop date Cont heparin drip titrated to PTT for PE Sputum cxr from bronch on 07/27 neg for AFB and fungus Pulm following Surg following for Chest tube- to suction Daily CXRs as per surgery Monitor GI: C diff ag pos NPO except ice chips Swallow recs as below- however pt at high risk of aspiration, will maintain her on NPO w/ice chips at this time Cont vanco 500mg PO QID Maintain Dobhoff Cont tube feeds Speech therapy recs- trial puree diet w/honey thickened liquids- spooned w/slow PO presentation time. Strict aspiration precautions, no straws. Do not offer ice chips during meals. Maintain Dobhoff. Monitor Endo: RF 116 AMANDA neg TPO ab neg Glucose in 300-400's Target eugylcemia per NICE sugar trials ISS-Low Levemir 20 units SC Q12H Accuchecks Endo following Nephro Hypokalemia K 3.5 Replaced KCl 20mEq PO x 1 Replaced KCL 10mEq IVPB x 1 Cont Lasix 40mg IV QD UOP 47324on/24H Target euvolemia Monitor Nephro consulted ID: PNA, C diff Afebrile over 24H Leukocytosis of 26.9 from 15.5 Bronch sputum neg for AFB and fungus Aspergillus ag not detected Aspergillus index value 0.09 (neg) Beta - (1,3) - D-Glucan 120 -high B-(1,3)-D-glucan Intrp - pos high Blood cxr neg x 4D Cont Mepron 750mg PO BID Cont Voriconazole 200mg Q12H Cont Doxycycline 100mg Q12H Cont Vancomycin 500mg PO QID ID following MSK: Protective skin measures Optimizing nutritional status Cont tube feeds Monitor for skin break down GI/DVT ppx Cont Heparin drip SCDs Protonix Dispo: cont ICU Care Pallative care consulted DW attending - Date & Time Date: 07/31/16 Time: 08:30 <Adina SHEPHERD,Juan H - Last Filed: 07/31/16 16:06> CCU Objective - Vital Signs / Intake & Output Vital Signs (Last 4 hours): Vital Signs Pulse Resp BP Pulse Ox 07/31/16 14:00 75 07/31/16 13:10 78 15 102/64 96 07/31/16 13:07 20 07/31/16 13:00 84 14 83/53 L 96 07/31/16 12:21 81 23 85/53 L 95 07/31/16 12:19 76 16 89/51 L 94 L Intake and Output (Last 8hrs): Intake & Output 07/31/16 07/31/16 07/31/16 06:59 14:59 22:59 Intake Total 984 100 Output Total 540 1200 Balance 444 -1100 Weight 126 lb Intake: IV 504 100 Antibiotic 200 Heparin drip 84 Mag rider 100 Precedex 120 Oral 0 Tube Feeding 480 Output: Drainage 40 Right Chest 40 Urine 500 1200 Urethral (Dumont) 500 1200 Other: Voiding Method Indwelling Catheter # Bowel Movements 100 - Medications Active Medications: Active Medications Generic Name Dose Route Start Last Admin Trade Name Freq PRN Reason Stop Dose Admin Acetaminophen 650 mg 07/25/16 16:23 07/25/16 18:08 Tylenol 650mg/20.3ml Solution Ud PO 650 mg Q6H PRN Administration fever Albuterol/Ipratropium 3 ml 07/26/16 07:30 07/31/16 15:17 Duoneb 3 Mg/0.5 Mg (3 Ml) Ud IH 3 ml [id number] NISHANT Administration Alprazolam 0.5 mg 07/23/16 18:00 07/27/16 10:07 Xanax PO 0.5 mg BID NISHANT Administration Protocol Aspirin 81 mg 07/22/16 10:00 07/27/16 10:07 Ecotrin PO 81 mg DAILY NISHANT Administration Atovaquone 750 mg 07/30/16 11:04 07/31/16 10:15 Mepron PO 08/20/16 11:05 750 mg BID NISHANT Administration Furosemide 40 mg 07/29/16 10:00 07/31/16 10:13 Lasix IV 40 mg DAILY NISHANT Administration Haloperidol Lactate 2 mg 07/27/16 15:46 07/28/16 23:16 Haldol IVP 2 mg Q6H PRN Administration Agitation Protocol Doxycycline Hyclate 100 mg/ 100 mls @ 100 mls/hr 07/22/16 12:15 07/31/16 10: 15 Sodium Chloride IVPB 100 mls/hr Q12 NISHANT Administration Protocol Heparin Sodium/Sodium Chloride 25,000 units in 250 mls @ 8.655 mls/hr 12:31 07/30/16 22:45 Heparin 09701 Units/250ml 1/2 Normal Saline IV 14.97 units/kg/hr .Q24H PRN 7.2 mls/hr ADJUST RATE PER PROTOCOL Administration Protocol 18 UNITS/KG/HR Dexmedetomidine HCl 400 mcg in 100 mls @ 2.597 mls/hr 07/25/16 14:29 13:14 Precedex 4 Mcg/Ml (100 Ml) IV 0.7 mcg/kg/hr .Q24H PRN 9.089 mls/hr Agitation Administration Protocol 0.2 MCG/KG/HR Voriconazole 200 mg/ Sodium 100 mls @ 50 mls/hr 07/30/16 11:05 07/31/16 10:16 Chloride IVPB 08/13/16 11:06 50 mls/hr Q12 NISHANT Administration Protocol Insulin Detemir 20 unit 07/30/16 10:00 07/31/16 10:14 Levemir SC Not Given Q12 [facility] Insulin Human Regular 0 units 07/30/16 12:00 07/31/16 11:37 Humulin R Low SC Not Given Q6 NISHANT Protocol Magnesium Oxide 400 mg 07/23/16 10:00 07/27/16 10:08 Mag-Ox PO 400 mg BID NISHANT Administration Methylprednisolone 40 mg 07/21/16 06:00 07/31/16 13:14 Solu-Medrol IVP 40 mg Q8 NISHANT Administration Morphine Sulfate 2 mg 07/29/16 10:18 07/31/16 08:42 Morphine IVP 2 mg Q3H PRN Administration Pain, moderate (4-7) Nystatin 5 ml 07/23/16 14:00 07/27/16 15:09 Nystatin Oral Susp PO Not Given QID NISHANT Pantoprazole Sodium 40 mg 07/21/16 10:00 07/31/16 10:11 Protonix Inj IVP 40 mg DAILY NISHANT Administration Saliva Substitute 0 ml 07/27/16 13:15 07/31/16 13:15 Saliva Substitute PO Not Given Q8H NISHANT Vancomycin HCl 500 mg 07/28/16 22:00 07/31/16 13:15 Vancocin 25 Mg/Ml (Oral Use) PO 500 mg QID NISHANT Administration Protocol - Patient Studies Lab Studies: Microbiology Studies 07/30/16 12:37 C. difficile Antigen & Toxin A,B (M - Final Stool 07/26/16 10:36 Gram Stain - Final Pleural Fluid Body Fluid Culture - Preliminary Coagulase Neg Staphylococcus Yeast Species Fungal Culture - Preliminary 07/26/16 06:30 Blood Culture - Final Blood NO GROWTH AFTER 5 DAYS Gram Stain - Final 07/26/16 06:30 Blood Culture - Final Blood NO GROWTH AFTER 5 DAYS Gram Stain - Final TEST NOT PERFORMED Lab Studies 07/31/16 07/31/16 07/31/16 Range/Units 14:30 10:50 06:21 WBC (4.5-11.0) 10^3/ul RBC (3.5-6.1) 10^6/uL Hgb (12.0-16.0) gm/dL Hct (36.0-48.0) % MCV (80.0-105.0) fL MCH (25.0-35.0) pg MCHC (31.0-37.0) g/dl RDW (11.5-14.5) % Plt Count (120.0-450.0) 10^3/uL MPV (7.0-11.0) fl Neutrophils % (Manual) (50.0-70.0) % Lymphocytes % (Manual) (22.0-35.0) % Monocytes % (Manual) (1.0-6.0) % Toxic Granulation Platelet Evaluation (NORMAL) Hypochromasia Rouleaux APTT 53.5 H (23.7-30.8) Seconds pCO2 (35-45) mm/Hg pO2 (80-100) mm/Hg HCO3 (21-28) mmol/L ABG pH (7.35-7.45) ABG Total CO2 (22-28) mmol.L ABG O2 Saturation (95-98) % ABG O2 Content (15-23) ML/dl ABG Base Excess (-2.0-3.0) mmol/L ABG Hemoglobin (11.7-17.4) g/dL ABG Carboxyhemoglobin (0.5-1.5) % POC ABG HHb (Measured) (0-5) % ABG Methemoglobin (0.0-3.0) % ABG O2 Capacity (16-24) mL/dl Hgb O2 Saturation (95.0-98.0) % FiO2 % Sodium (132-148) mmol/L Potassium (3.6-5.0) mmol/L Chloride (98-107) mmol/L Carbon Dioxide (21-33) mmol/L Anion Gap (10-20) BUN (7-21) mg/dL Creatinine (0.5-1.4) mg/dL Est GFR ( Amer) Est GFR (Non-Af Amer) POC Glucose (mg/dL) 123 H (65-110) mg/dL Random Glucose (70-110) mg/dL Calcium (8.4-10.5) mg/dL Phosphorus (2.5-4.5) mg/dL Magnesium (1.7-2.2) mg/dL Total Bilirubin (0.2-1.3) mg/dL AST (15-39) U/L ALT (7-56) U/L Alkaline Phosphatase (38-133) U/L Total Protein (5.8-8.3) g/dL Albumin (3.0-4.8) g/dL Globulin gm/dL Albumin/Globulin Ratio (1.1-1.8) Urine Color Yellow (YELLOW) Urine Appearance Clear (CLEAR) Urine pH 6.5 (4.7-8.0) Ur Specific [place] 1.010 (1.005-1.035) Urine Protein Negative (<30 mg/dL) mg/dL Urine Glucose (UA) Negative (NEGATIVE) mg/dL Urine Ketones Negative (NEGATIVE) mg/dL Urine Blood Large H (NEGATIVE) Urine Nitrate Negative (NEGATIVE) Urine Bilirubin Negative (NEGATIVE) Urine Urobilinogen 0.2 (<1 E.U./dL) E.U./dL Ur Leukocyte Esterase Negative (NEGATIVE) Remy/uL Urine RBC 25 - 30 (0-2) /hpf Urine WBC 2 - 5 (0-6) /hpf Ur Epithelial Cells 4 - 5 (0-5) /hpf Pleural Amylase U/L 05/28/17 05/28/17 05/28/17 Range/Units 06:15 05:30 05:30 WBC 26.9 H* D (4.5-11.0) 10^3/ul RBC 3.94 (3.5-6.1) 10^6/uL Hgb 11.4 L (12.0-16.0) gm/dL Hct 34.8 L (36.0-48.0) % MCV 88.3 (80.0-105.0) fL MCH 28.9 (25.0-35.0) pg MCHC 32.8 (31.0-37.0) g/dl RDW 15.7 H (11.5-14.5) % Plt Count 135 (120.0-450.0) 10^3/uL MPV 12.3 H (7.0-11.0) fl Neutrophils % (Manual) 91 H (50.0-70.0) % Lymphocytes % (Manual) 4 L (22.0-35.0) % Monocytes % (Manual) 5 (1.0-6.0) % Toxic Granulation 2+ Platelet Evaluation Normal (NORMAL) Hypochromasia 2+ Rouleaux 2+ APTT (23.7-30.8) Seconds pCO2 38 (35-45) mm/Hg pO2 57.0 L (80-100) mm/Hg HCO3 25.2 (21-28) mmol/L ABG pH 7.43 (7.35-7.45) ABG Total CO2 26.4 (22-28) mmol.L ABG O2 Saturation 94.6 L (95-98) % ABG O2 Content 14.4 L (15-23) ML/dl ABG Base Excess 0.9 (-2.0-3.0) mmol/L ABG Hemoglobin 11.2 L (11.7-17.4) g/dL ABG Carboxyhemoglobin 2.0 H (0.5-1.5) % POC ABG HHb (Measured) 5.2 H (0-5) % ABG Methemoglobin 1.2 (0.0-3.0) % ABG O2 Capacity 15.2 L (16-24) mL/dl Hgb O2 Saturation 91.5 L (95.0-98.0) % FiO2 40.0 % Sodium 140 (132-148) mmol/L Potassium 3.5 L (3.6-5.0) mmol/L Chloride 109 H (98-107) mmol/L Carbon Dioxide 25 (21-33) mmol/L Anion Gap 10 (10-20) BUN 33 H (7-21) mg/dL Creatinine 0.6 (0.5-1.4) mg/dL Est GFR ( Amer) > 60 Est GFR (Non-Af Amer) > 60 POC Glucose (mg/dL) (65-110) mg/dL Random Glucose 108 (70-110) mg/dL Calcium 8.0 L (8.4-10.5) mg/dL Phosphorus 2.5 (2.5-4.5) mg/dL Magnesium 2.0 (1.7-2.2) mg/dL Total Bilirubin 0.5 (0.2-1.3) mg/dL AST 45 H (15-39) U/L ALT 53 (7-56) U/L Alkaline Phosphatase 92 (38-133) U/L Total Protein 5.2 L (5.8-8.3) g/dL Albumin 2.7 L (3.0-4.8) g/dL Globulin 2.5 gm/dL Albumin/Globulin Ratio 1.1 (1.1-1.8) Urine Color (YELLOW) Urine Appearance (CLEAR) Urine pH (4.7-8.0) Ur Specific [place] (1.005-1.035) Urine Protein (<30 mg/dL) mg/dL Urine Glucose (UA) (NEGATIVE) mg/dL Urine Ketones (NEGATIVE) mg/dL Urine Blood (NEGATIVE) Urine Nitrate (NEGATIVE) Urine Bilirubin (NEGATIVE) Urine Urobilinogen (<1 E.U./dL) E.U./dL Ur Leukocyte Esterase (NEGATIVE) Remy/uL Urine RBC (0-2) /hpf Urine WBC (0-6) /hpf Ur Epithelial Cells (0-5) /hpf Pleural Amylase U/L 07/30/16 07/30/16 07/26/16 Range/Units 22:06 16:00 10:35 WBC (4.5-11.0) 10^3/ul RBC (3.5-6.1) 10^6/uL Hgb (12.0-16.0) gm/dL Hct (36.0-48.0) % MCV (80.0-105.0) fL MCH (25.0-35.0) pg MCHC (31.0-37.0) g/dl RDW (11.5-14.5) % Plt Count (120.0-450.0) 10^3/uL MPV (7.0-11.0) fl Neutrophils % (Manual) (50.0-70.0) % Lymphocytes % (Manual) (22.0-35.0) % Monocytes % (Manual) (1.0-6.0) % Toxic Granulation Platelet Evaluation (NORMAL) Hypochromasia Rouleaux APTT (23.7-30.8) Seconds pCO2 (35-45) mm/Hg pO2 (80-100) mm/Hg HCO3 (21-28) mmol/L ABG pH (7.35-7.45) ABG Total CO2 (22-28) mmol.L ABG O2 Saturation (95-98) % ABG O2 Content (15-23) ML/dl ABG Base Excess (-2.0-3.0) mmol/L ABG Hemoglobin (11.7-17.4) g/dL ABG Carboxyhemoglobin (0.5-1.5) % POC ABG HHb (Measured) (0-5) % ABG Methemoglobin (0.0-3.0) % ABG O2 Capacity (16-24) mL/dl Hgb O2 Saturation (95.0-98.0) % FiO2 % Sodium 142 (132-148) mmol/L Potassium 3.5 L (3.6-5.0) mmol/L Chloride 109 H (98-107) mmol/L Carbon Dioxide 27 (21-33) mmol/L Anion Gap 10 (10-20) BUN 31 H (7-21) mg/dL Creatinine 0.7 (0.5-1.4) mg/dL Est GFR ( Amer) > 60 Est GFR (Non-Af Amer) > 60 POC Glucose (mg/dL) 136 H (65-110) mg/dL Random Glucose 276 H (70-110) mg/dL Calcium 7.9 L (8.4-10.5) mg/dL Phosphorus (2.5-4.5) mg/dL Magnesium 2.1 (1.7-2.2) mg/dL Total Bilirubin (0.2-1.3) mg/dL AST (15-39) U/L ALT (7-56) U/L Alkaline Phosphatase (38-133) U/L Total Protein (5.8-8.3) g/dL Albumin (3.0-4.8) g/dL Globulin gm/dL Albumin/Globulin Ratio (1.1-1.8) Urine Color (YELLOW) Urine Appearance (CLEAR) Urine pH (4.7-8.0) Ur Specific [place] (1.005-1.035) Urine Protein (<30 mg/dL) mg/dL Urine Glucose (UA) (NEGATIVE) mg/dL Urine Ketones (NEGATIVE) mg/dL Urine Blood (NEGATIVE) Urine Nitrate (NEGATIVE) Urine Bilirubin (NEGATIVE) Urine Urobilinogen (<1 E.U./dL) E.U./dL Ur Leukocyte Esterase (NEGATIVE) Remy/uL Urine RBC (0-2) /hpf Urine WBC (0-6) /hpf Ur Epithelial Cells (0-5) /hpf Pleural Amylase 118 U/L Laboratory Results - last 24 hr 07/26/16 07/30/16 07/30/16 10:35 16:00 22:06 WBC RBC Hgb Hct MCV MCH MCHC RDW Plt Count MPV Neutrophils % (Manual) Lymphocytes % (Manual) Monocytes % (Manual) Toxic Granulation Platelet Evaluation Hypochromasia Rouleaux APTT pCO2 pO2 HCO3 ABG pH ABG Total CO2 ABG O2 Saturation ABG O2 Content ABG Base Excess ABG Hemoglobin ABG Carboxyhemoglobin POC ABG HHb (Measured) ABG Methemoglobin ABG O2 Capacity Hgb O2 Saturation FiO2 Sodium 142 Potassium 3.5 L Chloride 109 H Carbon Dioxide 27 Anion Gap 10 BUN 31 H Creatinine 0.7 Est GFR ( Amer) > 60 Est GFR (Non-Af Amer) > 60 POC Glucose (mg/dL) 136 H Random Glucose 276 H Calcium 7.9 L Phosphorus Magnesium 2.1 Total Bilirubin AST ALT Alkaline Phosphatase Total Protein Albumin Globulin Albumin/Globulin Ratio Urine Color Urine Appearance Urine pH Ur Specific [place] Urine Protein Urine Glucose (UA) Urine Ketones Urine Blood Urine Nitrate Urine Bilirubin Urine Urobilinogen Ur Leukocyte Esterase Urine RBC Urine WBC Ur Epithelial Cells Pleural Amylase 118 07/31/16 07/31/16 07/31/16 05:30 05:30 06:15 WBC 26.9 H* D RBC 3.94 Hgb 11.4 L Hct 34.8 L MCV 88.3 MCH 28.9 MCHC 32.8 RDW 15.7 H Plt Count 135 MPV 12.3 H Neutrophils % (Manual) 91 H Lymphocytes % (Manual) 4 L Monocytes % (Manual) 5 Toxic Granulation 2+ Platelet Evaluation Normal Hypochromasia 2+ Rouleaux 2+ APTT pCO2 38 pO2 57.0 L HCO3 25.2 ABG pH 7.43 ABG Total CO2 26.4 ABG O2 Saturation 94.6 L ABG O2 Content 14.4 L ABG Base Excess 0.9 ABG Hemoglobin 11.2 L ABG Carboxyhemoglobin 2.0 H POC ABG HHb (Measured) 5.2 H ABG Methemoglobin 1.2 ABG O2 Capacity 15.2 L Hgb O2 Saturation 91.5 L FiO2 40.0 Sodium 140 Potassium 3.5 L Chloride 109 H Carbon Dioxide 25 Anion Gap 10 BUN 33 H Creatinine 0.6 Est GFR ( Amer) > 60 Est GFR (Non-Af Amer) > 60 POC Glucose (mg/dL) Random Glucose 108 Calcium 8.0 L Phosphorus 2.5 Magnesium 2.0 Total Bilirubin 0.5 AST 45 H ALT 53 Alkaline Phosphatase 92 Total Protein 5.2 L Albumin 2.7 L Globulin 2.5 Albumin/Globulin Ratio 1.1 Urine Color Urine Appearance Urine pH Ur Specific [place] Urine Protein Urine Glucose (UA) Urine Ketones Urine Blood Urine Nitrate Urine Bilirubin Urine Urobilinogen Ur Leukocyte Esterase Urine RBC Urine WBC Ur Epithelial Cells Pleural Amylase 07/31/16 07/31/16 07/31/16 06:21 10:50 14:30 WBC RBC Hgb Hct MCV MCH MCHC RDW Plt Count MPV Neutrophils % (Manual) Lymphocytes % (Manual) Monocytes % (Manual) Toxic Granulation Platelet Evaluation Hypochromasia Rouleaux APTT 53.5 H pCO2 pO2 HCO3 ABG pH ABG Total CO2 ABG O2 Saturation ABG O2 Content ABG Base Excess ABG Hemoglobin ABG Carboxyhemoglobin POC ABG HHb (Measured) ABG Methemoglobin ABG O2 Capacity Hgb O2 Saturation FiO2 Sodium Potassium Chloride Carbon Dioxide Anion Gap BUN Creatinine Est GFR ( Amer) Est GFR (Non-Af Amer) POC Glucose (mg/dL) 123 H Random Glucose Calcium Phosphorus Magnesium Total Bilirubin AST ALT Alkaline Phosphatase Total Protein Albumin Globulin Albumin/Globulin Ratio Urine Color Yellow Urine Appearance Clear Urine pH 6.5 Ur Specific [place] 1.010 Urine Protein Negative Urine Glucose (UA) Negative Urine Ketones Negative Urine Blood Large H Urine Nitrate Negative Urine Bilirubin Negative Urine Urobilinogen 0.2 Ur Leukocyte Esterase Negative Urine RBC 25 - 30 Urine WBC 2 - 5 Ur Epithelial Cells 4 - 5 Pleural Amylase Critical Care Progress Note - Nutrition Nutrition: Nutrition Category Date Time Status NPO Diet [DIET] Diets 07/28/16 Dinner Ordered Attending/Attestation - Attestation I have personally seen and examined this patient.: Yes I have fully participated in the care of the patient.: Yes I have reviewed all pertinent clinical information: Yes Notes (Text): 07/31/16 16:03 61 y/o F w/ respiratory failure w/ R PTX. Respiratory failure on HFNC 40% 50L. On empiric abx for presumed bacterial / fungal infection. Mepron and voriconazole added. WBC increased overnight w/o fevers. B/L P.E subsegmental . on Heparin drip PTT wnl R PTX- placed back on suction due to air leak presence . CXR doen daily to monitor . Surgery team aware. SQ emphysema present w/o further worsening. tube feeds continued. Methotrexate lung/ ILD with poor lung function at baseline. poor prognosis palliative care consulted cc time 65 min
[2016-07-31 14:52] LABS: URINE APPEARANCE CLEAR (CLEAR); URINE COLOR YELLOW (YELLOW)
[2016-07-31 14:53] LABS: URINE RBC 25 - 30 /hpf (0-2)
--- NOTE | 2016-07-31 16:45 | CON ---
DATE: 07/31/2016 The patient admitted for Dr. Parker. REFERRING PHYSICIAN: Dr. Lea. REASON FOR CONSULTATION: To help manage fluids in the setting of a rising BUN. HISTORY OF PRESENT ILLNESS: The patient is an unfortunate 61-year-old white female with a history of osteoporosis, history of rheumatoid arthritis on methotrexate therapy. The patient apparently was admitted to the hospital with pneumonia and increasing shortness of breath. She is felt to have a multilobar necrotizing pneumonia. Presently, she has a right chest tube in place. She developed pulmonary embolism and DVT. She was intubated and now she is extubated. She is being followed closely by pulmonary and she has been in the CCU for her entire hospital stay. The patient presently has pseudomembranous colitis, C. diff, and is being treated for that. There is some consideration about the patient going to a tertiary center for evaluation by a thoracic surgeon. I am asked to evaluate the patient for help in monitoring her fluids. The patient is mildly prerenal with a BUN of 33 and with a creatinine of 0.6. She remains on Dobhoff tube feedings. She remains on sedation. She remains on antibiotic therapy. Steroids and antifungals. PAST MEDICAL HISTORY: Is significant for osteoporosis, rheumatoid arthritis on methotrexate therapy. MEDICATIONS: Presently in hospital include that of doxycycline, albuterol, aspirin, Haldol, heparin, insulin sliding scale, IV Lasix, mag oxide, on hold; mepron, morphine p.r.n., Precedex, Protonix, Solu-Medrol, p.r.n. Tylenol, vancomycin, Voriconazole and Xanax, which is presently on hold. ALLERGIES: No known allergies to medication. SOCIAL HISTORY: Cigarettes in the past. No alcohol use. FAMILY HISTORY: Noncontributory. REVIEW OF SYSTEMS: Is unobtainable from patient in her present state. PHYSICAL EXAMINATION: GENERAL: The patient is currently seen in CCU bed 4. She has high flow oxygen on. She has a Dobhoff tube in. She is being sedated. VITAL SIGNS: Blood pressure 117/77, temperature 98.2, respiratory rate is 20 with an oxygen saturation of 95, pulse of 72, oxygen saturation 95% with a respiratory rate of 20. HEENT: Eyes are open. Conjunctivae are pink. Dobhoff tube in place. High flow oxygen in place. NECK: Supple, no neck vein distention. CHEST: Scattered rhonchi and rales bilaterally. Chest tube right side with diminished breath sounds on the right base area. CARDIOVASCULAR: Shows a regular rate and rhythm without rubs or gallops. Positive tricuspid regurgitation. ABDOMEN: Soft. Bowel sounds normal. No rebound, no guarding, no masses. EXTREMITIES: Show 1+ thigh edema. No pedal edema as her legs are elevated. No cyanosis, no clubbing. Distal lower extremity pulses are 1-2+ bilaterally. NEUROLOGIC: Shows her to be able to understand verbal communication by opening her eyes. The remainder of the exam is unobtainable. LABORATORY DATA AND IMAGING: Her last chest x-ray shows a right chest tube with subcutaneous emphysema. Last blood gas: pH 7.43, pO2 of 57, pCO2 of 38. CBC: White blood cell count 26.9, hemoglobin 11.4, platelet count is 135,000. Chemistries: Sodium 140 and potassium 3.5, it was supplemented. Chloride 109 with a CO2 of 25. BUN 33 with a creatinine of 0.6. Glucose 123. Calcium 8.0 with an albumin of 2.7; it corrects to normal. Phosphorus 2.5 and magnesium 2.0. Liver enzymes are essentially normal. Urines from admission were essentially normal. Microbiology: Pleural fluid is positive for coag negative staph and yeast species. Initial sputum was positive for E. coli. Stool for C. diff from 07/23/2016 was positive. ASSESSMENT: 1. Mild prerenal azotemia in the setting of IV steroid therapy, IV diuretic therapy for mild hypervolemia. I will decrease her oral water intake through her Dobhoff feedings from 300 every 4 hours to 200 every 6 hours. The patient will continue tube feedings for nutrition. Her only other fluid administration is through the IV piggybacks. Again, a BUN in the 30s with a creatinine of 0.6 is certainly within an acceptable range. 2. History of pneumonia. Multilobar necrotizing pulmonary infiltrates, subcutaneous emphysema, right chest pneumothorax with chest tube placement and pulmonary embolism. The patient is being followed closely by pulmonary and there is some consideration of her being transferred to a tertiary facility where she can be seen by a chest surgeon. 3. Borderline mild hypokalemia. Agree with following labs on a daily basis and replacing potassium accordingly. Of note, her magnesium level is normal at 2.0. 4. Anemia secondary to ongoing bone marrow suppression secondary to infection. 5. Pseudomembranous colitis. The patient will complete a course of oral vancomycin therapy. PLAN: 1. As discussed with ICU/CCU team. Discussed with Dr. Padron. I will decrease her oral fluid intake coming through the Dobbhoff tube. Will continue diuretic therapy in light of her mild hypervolemia and thigh edema. The patient will continue on steroid therapy. 2. Continue antifungal agents and antibacterial agents for her necrotizing pneumonia. 3. Strongly consider transfer to a tertiary facility for evaluation by a chest surgeon. 4. Continue tube feedings via the Dobhoff tube. 5. Continue to monitor labs on a daily basis. Will follow along with you and make recommendations accordingly. Thank you for letting me partake and share in the care of your patient. Brock Leos MD cc: [id number] TT: 07/31/2016 16:44:26 Confirmation # [id number] Dictation # [id number] dn MTDD
--- NOTE | 2016-07-31 19:42 | PN ---
DATE: 07/31/2016 REFERRING PHYSICIAN: Dr. Chacorta Parker. SUBJECTIVE: She is sitting up in a bed, has high flow oxygen, nasogastric tube and receiving feeding , right-sided chest tube. Still has shortness of breath. No hemoptysis, no hematemesis, no hematuri a. No diarrhea reported. OBJECTIVE: GENERAL: In [id number] distress. VITAL SIGNS: Temp is 98, heart rate 70, respiratory rate is 20, blood pressure 97/62, pulse ox 97% o n high flow nasal cannula. HEENT: Moist mucous membrane. No ulcer or oral thrush noted. NECK: Supple, no JVD. Has a nasogastric tube, feeding is ongoing. LUNGS: Have crackles at the bases, scattered rhonchi. HEART: S1 and S2. ABDOMEN: Soft, nontender, nondistended. EXTREMITIES: Not much edema. NEUROLOGIC: Awake, alert, follows simple commands. MEDICATIONS: She is on doxycycline 100 mg twice a day, DuoNeb q.4 hours, Ecotrin 81 mg daily, Haldol 2 mg q.6 hours p.r.n., heparin weight-based protocol, Lasix 40 mg daily, Levemir 20 units subQ q.12 hours, Mag-Oxide 400 mg, which is on hold; Mepron 750 mg twice a day, morphine 2 mg q.3 hours p.r.n., nystatin oral suspension q.i.d. Also, receiving Precedex IV, Protonix 40 mg daily, saliva substitut e q.8 hours p.r.n., Solu-Medrol 40 mg q.8 hours, Tylenol p.r.n., vancomycin 500 mg q.i.d., Voriconazo le 200 mg q.12 hours, Xanax 0.5 mg twice a day around the clock. LABORATORY DATA: Shows hemoglobin 11.4, hematocrit 34.8, WBC 27,000, platelet count is 135. PTT is 54. Sodium 143, potassium 3.8, chloride 57, this is on high flow oxygen with 40% oxygen. Sodium 140 , potassium 3.5, chloride 109, bicarbonate 25, BUN 33, creatinine 0.6, glucose 108, calcium 8.0, phos phorus 2.5, magnesium 2.0, AST 45, ALT 53. Alk phos is 92. Albumin is 2.7. IMPRESSION AND PLAN: Respiratory failure, on high flow nasal cannula oxygen, feeding difficulty, has a nasogastric tube, recurring pneumothorax requiring chest tube, still has an air leak though; subcu taneous emphysema, bilateral necrotic pulmonary infiltrate, multiple pulmonary embolism, rheumatoid a rthritis, history of methotrexate use, pulmonary hypertension, escherichia coli in the sputum, pseudo monas in the urine, pulmonary hypertension, questionable pneumocystis carinii pneumonia or fungal inf ection. The case was discussed with the intensive care unit. Discussed with product marketing analyst too. Spoke to the nursing staff. Also spoke to oncology services. I think the patient should have a CT-guided right lower lobe mass biopsy to assure that is it Aspergillus or pneumocystis carinii pneumonia or n one of them, so we can stop some of the medication. risk of pneumothorax today as she already had a chest tube in on that side. Concerning chest tube, I will suggest taking off present chest tub e and at the same time putting in another new chest tube probably by interventional radiology. For n ow, continue antibiotics. Keep head elevated at 45 degrees. Continue steroids. Gastric prophylaxis . Anticoagulation. Follow up ABG, chest x-ray, CBC in the morning. Critical care time was more than 35 minutes. Thank you and will follow with you. Robert Hankins MD cc: [id number] TT: 07/31/2016 19:41:16 Confirmation # [id number] Dictation # [id number] dn
--- NOTE | 2016-07-31 21:50 | PN ---
DATE: 07/31/2016 A 61-year-old female in mild to moderate comfort this morning as we arrived in the bedside; however, her subcutaneous emphysema has been rising slightly up close to her neck, so it gives a fullness of neck appearance. Has some shortness of breath, but is able to try to get words out and conveyed some of her symptoms. There has been no diarrhea reported and she is receiving nasogastric tube Dobhoff feedings due to her swallowing instability. The right- sided chest tube has an air leak as the cause of the subcutaneous emphysema and we are in close communication with the surgical orderly to discuss with Dr. Case regarding the followup there. We have just communicated with Dr. Hankins as he is the pulmonary expert helping guide through the case. Today we also were able to read and follow the recommendations from Dr. Kilpatrick, Dr. Cazares, Dr. Leos, Dr. Jackson, and Dr. Mei for Dr. Case. The patient has multiorgan involvement in her present status and in very precarious critical condition, as we discussed with the son, but she seemed to have been holding her own for me over the past 2 days. Again, I am only following her for 2 days. She remains weak, but she is alert and is able to converse with the son as he told us. There was almost a 40 minute discussion with the son as he is quite worried about his mother as he has seen the deterioration and the need for the intubation and the recurrent pneumonia that has happened now with the use of the DMARDs. During our conversation today, he noted that methotrexate was not being given as weekly as it was reported to have been ordered; however, this comes to light today for me. The severe sepsis that she is at makes her stay in ICU necessary. She was on a respiratory support ventilator for a while and has been extubated, but subsequently has multifocal pneumonia with Escherichia coli, status post bronchoscopy and differential diagnosis of pneumocystic carinii pneumonia versus Aspergillus is being considered by Dr. Kilpatrick. She is on almost 2 weeks of doxycycline and meropenem and has been placed on voriconazole and Mepron for overall pathogen coverage. Because of the respiratory failure, she remains on 40 mg of Solu-Medrol 3 times a day that may be partially responsible for the elevated leukocytosis. Recommendations have been to consider removal of the chest tube and perhaps replaced with a smaller bore, but the interventional radiologist will not be in for another 2 days and he was the same to be consulted for possible biopsy as has been championed by Dr. Hankins. Dr. Leos was asked to see the patient and recommendations also noted would decrease oral fluid intake and continue diuretic therapy given the new thigh edema, but continue on the steroid therapy. The present antifungal antibacterial agents are being used for the necrotizing pneumonia and for now, her pulmonary emboli are being treated with the IV heparin. The consideration for a chest surgeon in case of complications was discussed with Dr. Hankins and at present does not see an immediate need. Today she has anemia felt to be secondary to suppression secondary to the underlying infection. The note from Dr. Jackson was also appreciated and recommendations were to continue heparin and follow up with Eliquis once the chest tube is out and his recommendation was that salvage determiner prognosis is guarded at best because of some hypokalemia. She was replaced earlier. The input from Dr. Cazares, the regenerator operator managing the hyperglycemia was appreciated and carried out. The recent portable chest showed no significant change from a prior study with feeding tube now in satisfactory position, but noted increasing subcutaneous edema. Again, we had the privilege of discussing this shortly with Dr. Hankins and will follow closely his recommendations. We remain peripheral and we will convey the same findings to the son who is concerned as he has seen his mother rebound in earlier cases, but this time has been made aware that there are multiple conditions ongoing and the very frail body. OBJECTIVE: Today, she was comfortable during our earlier morning visit, asking about her pain medication and she is aware she is getting morphine. We advised her that the addition of Percocet to the regimen may further compromise respiratory status and may not be the appropriate mode given her presentation, but that the pain medication would be addressed once she gets improved with a filter changer to oral, pending improvement. Note from Dr. Lea on behalf of Dr. Viramontes was noted. PHYSICAL EXAMINATION: VITAL SIGNS: On review of her vitals today, during our visit was afebrile and more alert with us than yesterday. Temperature was 98.8, pulse rate was 82, blood pressure 115/71, respiratory rate of 18 and an O2 sat of 96. She was comfortable and is being followed concurrently and closely with the ICU staff. She has good response to the respiratory treatments and earlier ABGs had shown a pO2 of 57 with a pCO2 of 38, and an O2 sat of 94. There is a note of daily bowel movements. Not sure if these are diarrhea or not. The staff did not mention, but she is on oral vancomycin. The urine output seems to be fair and good in response to the Lasix as she is treated through the recommendations of Dr. Leos. She is pale in appearance and she has been taking ice chips as again, the second try at the swallow evaluation failed. She had been stable overnight on high flow O2. HEENT: Oral mucosa appeared moist to us this morning. Conjunctivae are pink. NEUROLOGIC: She has no focal neurological deficits. NECK: The neck had good range of motion, although the subcutaneous emphysema was rising. Did not appear tachypneic when we were visiting this morning, but we note that this was the case when she gets moved, chest tube is in place, has a leak, and palpable crepitus under the skin in the anterior aspect of the chest , up to the angle of the mandible on the right side. She was not using the accessory respiratory muscles when we were at the bedside, but we note it has been with some of the other consultants. HEART: Appears regular in rhythm. There is a grade II/ left sternal border murmur. ABDOMEN: Soft, bowel sounds were distant, but present and it was not tender. Rondon is draining. The hypokalemia was addressed through Dr. Jackson's orders. The elevated WBCs are in the 26,000 range, part septic, part reaction to the steroids, and we will continue to very closely follow her. The patient's condition is critical and earlier on we discussed with the son, although we are encouraged with her slight improvement from yesterday to today, at base is consideration for the biopsy of the lung to obtain appropriate culture and discard ineffective antibiotics or antifungals. This can only be done with the culture as she is being broadly covered and has responded somewhat from our estimation from a day to another. Marcellus Padron MD cc: [id number] TT: 07/31/2016 21:50:13 Confirmation # [id number] Dictation # [id number] seda LR
[2016-08-01] MEDS: Insulin Reg-LOW-Coverage SC SCH ×4 (00:50→17:03)
[2016-08-01] MEDS: Dexmedetomidine HCl 4mcg/ml 400 MCG/100 ML BOTTLE IV PRN (02:00)
[2016-08-01] MEDS: Albuterol-Ipratrop 3 mg / 0.5 (3 ml) UD IH SCH ×5 (03:00→19:40)
[2016-08-01 05:45] LABS: HEMATOCRIT 33.3 % (36.0-48.0); MEAN CELL VOLUME 87.4 fL (80.0-105.0); MEAN CORPUSCULAR HEMOGLOBIN 28.9 pg (25.0-35.0); PLATELET COUNT 105 10^3/uL (120.0-450.0); RED CELL DISTRIBUTION WIDTH 15.7 % (11.5-14.5); WHITE BLOOD COUNT 21.8 10^3/ul (4.5-11.0)
[2016-08-01 05:50] LABS: ALKALINE PHOSPHATASE 98 U/L (38-133); ALT/SGPT 57 U/L (7-56); AST/SGOT 40 U/L (15-39); BILIRUBIN,TOTAL 0.4 mg/dL (0.2-1.3); BLOOD UREA NITROGEN 35 mg/dL (7-21); CALCIUM 8.1 mg/dL (8.4-10.5); CARBON DIOXIDE 26 mmol/L (21-33); CHLORIDE 107 mmol/L (95-110); GFR AFRICAN-AMERICAN > 60; GLUCOSE,RANDOM 153 mg/dL (70-110); MAGNESIUM 1.8 mg/dL (1.7-2.2); PHOSPHOROUS 2.9 mg/dL (2.5-4.5); SODIUM 138 mmol/L (132-148); TOTAL PROTEIN 4.9 g/dL (5.8-8.3)
[2016-08-01 05:54] LABS: POTASSIUM 2.3 mmol/L (3.6-5.0)
[2016-08-01 05:56] LABS: ADD MANUAL DIFF? YES
[2016-08-01] MEDS: Saliva Substitute 44.3 ML PO SCH ×3 (06:06→21:20)
[2016-08-01] MEDS: MethylPREDNISolone 40 mg Vial IVP SCH ×3 (06:10→22:01)
[2016-08-01 06:21] LABS: NEUTROPHIL 92 % (50.0-70.0)
[2016-08-01 06:22] LABS: BAND 3 % (0-2)
[2016-08-01 06:23] LABS: PLATELET ESTIMATE LOW (NORMAL)
[2016-08-01 06:24] LABS: ANISOCYTOSIS SLIGHT; POIKILOCYTOSIS SLIGHT
--- NOTE | 2016-08-01 08:22 | CP.PCM.PN ---
Subjective - Date & Time of Evaluation Date of Evaluation: 08/01/16 Time of Evaluation: 08:13 - Subjective Subjective: General Surgery Progress Note for Dr. Case This 61F was seen and examined this AM at bedside. She reports no acute events overnight. Patient is awake and alert and answering questions. Chest tube to suction 40CC out over 24 hours. Patient denies chest pain or shortness of breath her only complaint at this time is abdominal pain. Objective - Vital Signs/Intake and Output Vital Signs (last 24 hours): Temp Pulse Resp BP Pulse Ox 98 F 80 21 108/74 89 L 08/01/16 04:00 08/01/16 06:00 08/01/16 06:00 08/01/16 06:00 08/01/16 06:00 Intake and Output: 08/01/16 08/01/16 06:59 18:59 Intake Total 1565.7 Output Total 1110 Balance 455.7 - Medications Medications: Current Medications Acetaminophen (Tylenol 650mg/20.3ml Solution Ud) 650 mg PO Q6H PRN PRN Reason: fever Last Admin: 07/25/16 18:08 Dose: 650 mg Albuterol/Ipratropium (Duoneb 3 Mg/0.5 Mg (3 Ml) Ud) 3 ml IH [id number] NISHANT Last Admin: 08/01/16 07:33 Dose: 3 ml Alprazolam (Xanax) 0.5 mg PO BID NISHANT PRN Reason: Protocol Last Admin: 07/27/16 10:07 Dose: 0.5 mg Aspirin (Ecotrin) 81 mg PO DAILY NISHANT Last Admin: 07/27/16 10:07 Dose: 81 mg Atovaquone (Mepron) 750 mg PO BID [facility] Stop: 08/20/16 11:05 Last Admin: 07/31/16 17:49 Dose: 750 mg Furosemide (Lasix) 40 mg IV DAILY NISHANT Last Admin: 07/31/16 10:13 Dose: 40 mg Haloperidol Lactate (Haldol) 2 mg IVP Q6H PRN; Protocol PRN Reason: Agitation Last Admin: 07/28/16 23:16 Dose: 2 mg Doxycycline Hyclate 100 mg/ (Sodium Chloride) 100 mls @ 100 mls/hr IVPB Q12 NISHANT PRN Reason: Protocol Last Admin: 07/31/16 21:41 Dose: 100 mls/hr Heparin Sodium/Sodium Chloride (Heparin 64238 Units/250ml 1/2 Normal Saline) 25 ,000 units in 250 mls @ 8.655 mls/hr IV .Q24H PRN; Protocol; 18 UNITS/KG/HR PRN Reason: ADJUST RATE PER PROTOCOL Last Admin: 07/30/16 22:45 Dose: 14.97 units/kg/hr, 7.2 mls/hr Dexmedetomidine HCl (Precedex 4 Mcg/Ml (100 Ml)) 400 mcg in 100 mls @ 2.597 mls /hr IV .Q24H PRN; Protocol; 0.2 MCG/KG/HR PRN Reason: Agitation Last Admin: 08/01/16 02:00 Dose: 0.7 mcg/kg/hr, 9.089 mls/hr Voriconazole 200 mg/ Sodium (Chloride) 100 mls @ 50 mls/hr IVPB Q12 NISHANT PRN Reason: Protocol Stop: 08/13/16 11:06 Last Admin: 07/31/16 21:40 Dose: 50 mls/hr Potassium Chloride (Potassium Chloride 10 Meq/100 Ml) 10 meq in 100 mls @ 100 mls/hr IVPB Q2H [facility] Stop: 08/01/16 09:29 Insulin Detemir (Levemir) 20 unit SC Q12 [facility] Last Admin: 07/31/16 21:40 Dose: 20 unit Insulin Human Regular (Humulin R Low) 0 units SC Q6 [facility] PRN Reason: Protocol Last Admin: 08/01/16 06:05 Dose: Not Given Magnesium Oxide (Mag-Ox) 400 mg PO BID [facility] Last Admin: 07/27/16 10:08 Dose: 400 mg Methylprednisolone (Solu-Medrol) 40 mg IVP Q8 [facility] Last Admin: 08/01/16 06:10 Dose: 40 mg Morphine Sulfate (Morphine) 2 mg IVP Q3H PRN PRN Reason: Pain, moderate (4-7) Last Admin: 07/31/16 16:18 Dose: 2 mg Nystatin (Nystatin Oral Susp) 5 ml PO QID [facility] Last Admin: 07/27/16 15:09 Dose: Not Given Pantoprazole Sodium (Protonix Inj) 40 mg IVP DAILY [facility] Last Admin: 07/31/16 10:11 Dose: 40 mg Potassium Chloride (Potassium Chloride Oral Soln) 40 meq PO Q3H [facility] Stop: 08/01/16 10:01 Saliva Substitute (Saliva Substitute) 0 ml PO Q8H [facility] Last Admin: 08/01/16 06:06 Dose: 1 ml Vancomycin HCl (Vancocin 25 Mg/Ml (Oral Use)) 500 mg PO QID NISHANT PRN Reason: Protocol Last Admin: 07/31/16 21:39 Dose: 500 mg - Labs Labs: 08/01/16 05:20 08/01/16 05:20 PT 12.4 Seconds (9.9-11.8) H 07/29/16 05:11 INR 1.15 (0.93-1.08) H 07/29/16 05:11 APTT 53.2 Seconds (23.7-30.8) H 08/01/16 05:20 - Constitutional Appears: Chronically Ill - Head Exam Head Exam: ATRAUMATIC, NORMAL INSPECTION, NORMOCEPHALIC - Eye Exam Eye Exam: EOMI, Normal appearance, PERRL Pupil Exam: NORMAL ACCOMODATION, PERRL - ENT Exam ENT Exam: Mucous Membranes Moist - Neck Exam Neck Exam: Full ROM. absent: Lymphadenopathy, Meningismus, Normal Inspection, Thyromegaly - Respiratory Exam Respiratory Exam: absent: NORMAL BREATHING PATTERN - Cardiovascular Exam Cardiovascular Exam: REGULAR RHYTHM - GI/Abdominal Exam GI & Abdominal Exam: Soft, Normal Bowel Sounds. absent: Distended, Tenderness - Rectal Exam Additional comments: Rectal Tube - Exam Additional comments: Rondon - Back Exam Back Exam: NORMAL INSPECTION - Neurological Exam Neurological Exam: Alert, Awake, CN II-XII Intact, Oriented x3 - Psychiatric Exam Psychiatric exam: Normal Affect, Normal Mood - Skin Skin Exam: Dry, Intact, Normal Color, Warm Assessment and Plan - Assessment and Plan (Free Text) Assessment: 61F with R pneumothorax s/p CT placement; POD#5 Plan: - Continue CT to wall suction, no air leaks noted - CXR shows no pneumothorax, however shows extensive subq empnasema continue daily CXR - continue dressing changes PRN - d/w Dr. Manpreet Combs PGY-1
[2016-08-01] MEDS: Heparin25000 units/250ml 1/2NS 25,000 UNITS/250 ML BAG IV PRN (08:27)
[2016-08-01] MEDS: Potassium Chloride 20 mEq/15 ml LIQ UD PO SCH ×2 (08:27→12:43)
--- NOTE | 2016-08-01 08:33 | RAD ---
HISTORY: sob COMPARISON: 07/31/2016 FINDINGS: LUNGS: No active pulmonary disease. PLEURA: Right-sided chest tube remains in place. Small right-sided pneumothorax CARDIOVASCULAR: Normal. OSSEOUS STRUCTURES: No significant abnormalities. VISUALIZED UPPER ABDOMEN: Normal. OTHER FINDINGS: No change in subcutaneous emphysema IMPRESSION: Small right-sided pneumothorax. Persistent subcutaneous emphysema
[2016-08-01] MEDS ORDERED: Magnesium Sulfate 2 GM in Sodium Chloride 0.9% 100 ML IVPB ONE (09:00)
[2016-08-01] MEDS: Atovaquone 750 mg/5 ml Susp UD PO SCH ×2 (09:52→17:05)
[2016-08-01] MEDS: Morphine 2 mg/ml ISec IVP PRN (10:04)
[2016-08-01] MEDS: Vancomycin 25 MG/ML PO SCH ×4 (10:39→22:17)
--- NOTE | 2016-08-01 11:05 | CP.CCUPN ---
<Gilles Goddard - Last Filed: 08/01/16 12:42> CCU Subjective - Physician Review Events Since Last Encounter (Free Text): 08/01/16 11:02 Gilles Goddard D.O. PGY-1, Internal Medicine Resident, ICU Progress Note Patient was seen and examined and at bedside. Patient is improved somewhat, states that she feels "ok" and would like to take her ambien to help her sleep. At this time denied any other complaints and is much more pleasant. No acute overnight events per RN. CCU Objective - Vital Signs / Intake & Output Vital Signs (Last 4 hours): Vital Signs Temp Pulse Resp BP Pulse Ox 08/01/16 09:52 119/70 08/01/16 08:00 99.3 F 94 H 23 112/79 96 Intake and Output (Last 8hrs): Intake & Output 07/31/16 08/01/16 08/01/16 22:59 06:59 14:59 Intake Total 1665 1565.7 250 Output Total 1010 1110 Balance 655 455.7 250 Weight 61.689 kg Intake: IV 485 385.7 250 Antibiotic 200 200 Heparin drip 84 84 K-rider 100 Precedex 101 101 Tube Feeding 980 980 Other 200 200 Output: Chest Tube Drainage 10 10 Right Lateral Chest 10 10 Urine 1000 1000 Urethral (Dumont) 1000 1000 Stool 100 Other: Voiding Method Indwelling Catheter Indwelling Catheter # Bowel Movements 2 - Physical Exam Head: Positive for: Atraumatic, Normocephalic Pupils: Positive for: PERRL Extroacular Muscles: Positive for: EOMI Conjunctiva: Positive for: Normal. Negative for: Injected, Icteric Ears: Positive for: Normal Mouth: Positive for: Moist Mucous Membranes Pharnyx: Positive for: Normal. Negative for: ERYTHEMA Nose (External): Positive for: Atraumatic, Other (Dobhoff in place, on hi-flow) Neck: Positive for: Normal Range of Motion, Trachea Midline, Other ( subcutaneous emphysema). Negative for: Lymphadenopathy Respiratory/Chest: Positive for: Decreased Breath Sounds, Other (Chest tube insertion site covered in dressing c/d/i, leak noted, has some residual creptius over right chest, anterior chest, and all over neck/mandible). Negative for: Clear to Auscultation (coarse expiratory breath sounds), Respiratory Distress, Accessory Muscle Use, Wheezes, Rhonchi, Tender to Palpation Cardiovascular: Positive for: Regular Rate and Rhythm, Murmurs (2/6 LSB), Normal S1, S2. Negative for: Rub, Gallop Abdomen: Positive for: Normal Bowel Sounds. Negative for: Tenderness, Distention, Peritoneal Signs Genitourinary/Pelvic Exam: Positive for: Other (dumont in place with clear yellow urine) Back: Negative for: Midline Tenderness, Paraspinal Tenderness Upper Extremity: Positive for: Normal Inspection, Capillary Refill < 2s, Other ( Diffuse bruising from blood draws). Negative for: Cyanosis, Edema Lower Extremity: Positive for: Normal Inspection, Neurovascularly Intact, Capillary Refill < 2 s. Negative for: Edema, CALF TENDERNESS Neurological: Positive for: GCS=15, CN II-XII Intact, Speech Normal, Motor Func Grossly Intact Skin: Positive for: Warm, Dry, Pale, Other (subcutaneous emphysema as described) Psychiatric: Positive for: Alert, Oriented x 3 - Medications Active Medications: Active Medications Generic Name Dose Route Start Last Admin Trade Name Freq PRN Reason Stop Dose Admin Acetaminophen 650 mg 07/25/16 16:23 07/25/16 18:08 Tylenol 650mg/20.3ml Solution Ud PO 650 mg Q6H PRN Administration fever Albuterol/Ipratropium 3 ml 07/26/16 07:30 08/01/16 07:33 Duoneb 3 Mg/0.5 Mg (3 Ml) Ud IH 3 ml [id number] NIHSANT Administration Alprazolam 0.5 mg 07/23/16 18:00 07/27/16 10:07 Xanax PO 0.5 mg BID NISHANT Administration Protocol Aspirin 81 mg 07/22/16 10:00 07/27/16 10:07 Ecotrin PO 81 mg DAILY NISHANT Administration Atovaquone 750 mg 07/30/16 11:04 08/01/16 09:52 Mepron PO 08/20/16 11:05 750 mg BID NISHANT Administration Furosemide 40 mg 07/29/16 10:00 08/01/16 09:52 Lasix IV 40 mg DAILY NISHANT Administration Haloperidol Lactate 2 mg 07/27/16 15:46 07/28/16 23:16 Haldol IVP 2 mg Q6H PRN Administration Agitation Protocol Doxycycline Hyclate 100 mg/ 100 mls @ 100 mls/hr 07/22/16 12:15 08/01/16 09: 51 Sodium Chloride IVPB 100 mls/hr Q12 NISHANT Administration Protocol Heparin Sodium/Sodium Chloride 25,000 units in 250 mls @ 8.655 mls/hr 12:31 08/01/16 08:27 Heparin 73814 Units/250ml 1/2 Normal Saline IV 14.97 units/kg/hr .Q24H PRN 7.198 mls/hr ADJUST RATE PER PROTOCOL Administration Protocol 18 UNITS/KG/HR Dexmedetomidine HCl 400 mcg in 100 mls @ 2.597 mls/hr 07/25/16 14:29 02:00 Precedex 4 Mcg/Ml (100 Ml) IV 0.7 mcg/kg/hr .Q24H PRN 9.089 mls/hr Agitation Administration Protocol 0.2 MCG/KG/HR Voriconazole 200 mg/ Sodium 100 mls @ 50 mls/hr 07/30/16 11:05 08/01/16 09:50 Chloride IVPB 08/13/16 11:06 50 mls/hr Q12 NISHANT Administration Protocol Meropenem 1g/NS 100mL IVPB 1 gm in 100 mls @ 100 mls/hr 08/01/16 14:00 Meropenem 1g/Ns 100ml Ivpb IVPB 08/15/16 14:01 Q8 [facility] Protocol Insulin Detemir 20 unit 07/30/16 10:00 07/31/16 21:40 Levemir SC 20 unit Q12 NISHANT Administration Insulin Human Regular 0 units 07/30/16 12:00 08/01/16 06:05 Humulin R Low SC Not Given Q6 [facility] Protocol Magnesium Oxide 400 mg 07/23/16 10:00 07/27/16 10:08 Mag-Ox PO 400 mg BID NISHANT Administration Methylprednisolone 40 mg 07/21/16 06:00 08/01/16 06:10 Solu-Medrol IVP 40 mg Q8 NISHANT Administration Morphine Sulfate 2 mg 07/29/16 10:18 08/01/16 10:04 Morphine IVP 2 mg Q3H PRN Administration Pain, moderate (4-7) Nystatin 5 ml 07/23/16 14:00 07/27/16 15:09 Nystatin Oral Susp PO Not Given QID NISHANT Pantoprazole Sodium 40 mg 07/21/16 10:00 08/01/16 09:53 Protonix Inj IVP 40 mg DAILY NISHANT Administration Saliva Substitute 0 ml 07/27/16 13:15 08/01/16 06:06 Saliva Substitute PO 1 ml Q8H NISHANT Administration Vancomycin HCl 500 mg 07/28/16 22:00 08/01/16 10:39 Vancocin 25 Mg/Ml (Oral Use) PO 500 mg QID NISHANT Administration Protocol - Patient Studies Lab Studies: Microbiology Studies 07/31/16 10:50 Blood Culture - Preliminary Blood NO GROWTH AFTER 24 HOURS 07/31/16 10:50 Blood Culture - Preliminary Blood NO GROWTH AFTER 24 HOURS 07/31/16 12:29 Urine Culture - Final Urine No Growth (<1,000 CFU/ML) 07/26/16 10:36 Gram Stain - Final Pleural Fluid Body Fluid Culture - Final Staphylococcus Epidermidis Sheree Albicans Fungal Culture - Preliminary 07/30/16 12:37 C. difficile Antigen & Toxin A,B (M - Final Stool Lab Studies 08/01/16 08/01/16 08/01/16 Range/Units 05:20 05:20 05:20 WBC 21.8 H (4.5-11.0) 10^3/ul RBC 3.81 (3.5-6.1) 10^6/uL Hgb 11.0 L (12.0-16.0) gm/dL Hct 33.3 L (36.0-48.0) % MCV 87.4 (80.0-105.0) fL MCH 28.9 (25.0-35.0) pg MCHC 33.0 (31.0-37.0) g/dl RDW 15.7 H (11.5-14.5) % Plt Count 105 L (120.0-450.0) 10^3/uL Neutrophils % (Manual) 92 H (50.0-70.0) % Band Neutrophils % 3 H (0-2) % Lymphocytes % (Manual) 3 L (22.0-35.0) % Monocytes % (Manual) 2 (1.0-6.0) % Platelet Evaluation Low (NORMAL) Poikilocytosis (manual Slight Anisocytosis (manual) Slight APTT 53.2 H (23.7-30.8) Seconds Sodium 138 (132-148) mmol/L Potassium 2.3 L* D (3.6-5.0) mmol/L Chloride 107 (95-110) mmol/L Carbon Dioxide 26 (21-33) mmol/L Anion Gap 7 L (10-20) BUN 35 H (7-21) mg/dL Creatinine 0.6 (0.5-1.4) mg/dL Est GFR ( Amer) > 60 Est GFR (Non-Af Amer) > 60 POC Glucose (mg/dL) (65-110) mg/dL Random Glucose 153 H (70-110) mg/dL Calcium 8.1 L (8.4-10.5) mg/dL Phosphorus 2.9 (2.5-4.5) mg/dL Magnesium 1.8 (1.7-2.2) mg/dL Total Bilirubin 0.4 (0.2-1.3) mg/dL AST 40 H (15-39) U/L ALT 57 H (7-56) U/L Alkaline Phosphatase 98 (38-133) U/L Total Protein 4.9 L (5.8-8.3) g/dL Albumin 2.4 L (3.0-4.8) g/dL Globulin 2.5 gm/dL Albumin/Globulin Ratio 1.0 L (1.1-1.8) Urine Color (YELLOW) Urine Appearance (CLEAR) Urine pH (4.7-8.0) Ur Specific [place] (1.005-1.035) Urine Protein (<30 mg/dL) mg/dL Urine Glucose (UA) (NEGATIVE) mg/dL Urine Ketones (NEGATIVE) mg/dL Urine Blood (NEGATIVE) Urine Nitrate (NEGATIVE) Urine Bilirubin (NEGATIVE) Urine Urobilinogen (<1 E.U./dL) E.U./dL Ur Leukocyte Esterase (NEGATIVE) Remy/uL Urine RBC (0-2) /hpf Urine WBC (0-6) /hpf Ur Epithelial Cells (0-5) /hpf 07/31/16 07/31/16 07/31/16 Range/Units 22:00 17:23 14:30 WBC (4.5-11.0) 10^3/ul RBC (3.5-6.1) 10^6/uL Hgb (12.0-16.0) gm/dL Hct (36.0-48.0) % MCV (80.0-105.0) fL MCH (25.0-35.0) pg MCHC (31.0-37.0) g/dl RDW (11.5-14.5) % Plt Count (120.0-450.0) 10^3/uL Neutrophils % (Manual) (50.0-70.0) % Band Neutrophils % (0-2) % Lymphocytes % (Manual) (22.0-35.0) % Monocytes % (Manual) (1.0-6.0) % Platelet Evaluation (NORMAL) Poikilocytosis (manual Anisocytosis (manual) APTT (23.7-30.8) Seconds Sodium (132-148) mmol/L Potassium (3.6-5.0) mmol/L Chloride (95-110) mmol/L Carbon Dioxide (21-33) mmol/L Anion Gap (10-20) BUN (7-21) mg/dL Creatinine (0.5-1.4) mg/dL Est GFR ( Amer) Est GFR (Non-Af Amer) POC Glucose (mg/dL) 237 H 195 H (65-110) mg/dL Random Glucose (70-110) mg/dL Calcium (8.4-10.5) mg/dL Phosphorus (2.5-4.5) mg/dL Magnesium (1.7-2.2) mg/dL Total Bilirubin (0.2-1.3) mg/dL AST (15-39) U/L ALT (7-56) U/L Alkaline Phosphatase (38-133) U/L Total Protein (5.8-8.3) g/dL Albumin (3.0-4.8) g/dL Globulin gm/dL Albumin/Globulin Ratio (1.1-1.8) Urine Color Yellow (YELLOW) Urine Appearance Clear (CLEAR) Urine pH 6.5 (4.7-8.0) Ur Specific [place] 1.010 (1.005-1.035) Urine Protein Negative (<30 mg/dL) mg/dL Urine Glucose (UA) Negative (NEGATIVE) mg/dL Urine Ketones Negative (NEGATIVE) mg/dL Urine Blood Large H (NEGATIVE) Urine Nitrate Negative (NEGATIVE) Urine Bilirubin Negative (NEGATIVE) Urine Urobilinogen 0.2 (<1 E.U./dL) E.U./dL Ur Leukocyte Esterase Negative (NEGATIVE) Remy/uL Urine RBC 25 - 30 (0-2) /hpf Urine WBC 2 - 5 (0-6) /hpf Ur Epithelial Cells 4 - 5 (0-5) /hpf 07/31/16 Range/Units 10:50 WBC (4.5-11.0) 10^3/ul RBC (3.5-6.1) 10^6/uL Hgb (12.0-16.0) gm/dL Hct (36.0-48.0) % MCV (80.0-105.0) fL MCH (25.0-35.0) pg MCHC (31.0-37.0) g/dl RDW (11.5-14.5) % Plt Count (120.0-450.0) 10^3/uL Neutrophils % (Manual) (50.0-70.0) % Band Neutrophils % (0-2) % Lymphocytes % (Manual) (22.0-35.0) % Monocytes % (Manual) (1.0-6.0) % Platelet Evaluation (NORMAL) Poikilocytosis (manual Anisocytosis (manual) APTT 53.5 H (23.7-30.8) Seconds Sodium (132-148) mmol/L Potassium (3.6-5.0) mmol/L Chloride (95-110) mmol/L Carbon Dioxide (21-33) mmol/L Anion Gap (10-20) BUN (7-21) mg/dL Creatinine (0.5-1.4) mg/dL Est GFR ( Amer) Est GFR (Non-Af Amer) POC Glucose (mg/dL) (65-110) mg/dL Random Glucose (70-110) mg/dL Calcium (8.4-10.5) mg/dL Phosphorus (2.5-4.5) mg/dL Magnesium (1.7-2.2) mg/dL Total Bilirubin (0.2-1.3) mg/dL AST (15-39) U/L ALT (7-56) U/L Alkaline Phosphatase (38-133) U/L Total Protein (5.8-8.3) g/dL Albumin (3.0-4.8) g/dL Globulin gm/dL Albumin/Globulin Ratio (1.1-1.8) Urine Color (YELLOW) Urine Appearance (CLEAR) Urine pH (4.7-8.0) Ur Specific [place] (1.005-1.035) Urine Protein (<30 mg/dL) mg/dL Urine Glucose (UA) (NEGATIVE) mg/dL Urine Ketones (NEGATIVE) mg/dL Urine Blood (NEGATIVE) Urine Nitrate (NEGATIVE) Urine Bilirubin (NEGATIVE) Urine Urobilinogen (<1 E.U./dL) E.U./dL Ur Leukocyte Esterase (NEGATIVE) Remy/uL Urine RBC (0-2) /hpf Urine WBC (0-6) /hpf Ur Epithelial Cells (0-5) /hpf Laboratory Results - last 24 hr 07/31/16 07/31/16 07/31/16 10:50 14:30 17:23 WBC RBC Hgb Hct MCV MCH MCHC RDW Plt Count Neutrophils % (Manual) Band Neutrophils % Lymphocytes % (Manual) Monocytes % (Manual) Platelet Evaluation Poikilocytosis (manual Anisocytosis (manual) APTT 53.5 H Sodium Potassium Chloride Carbon Dioxide Anion Gap BUN Creatinine Est GFR ( Amer) Est GFR (Non-Af Amer) POC Glucose (mg/dL) 195 H Random Glucose Calcium Phosphorus Magnesium Total Bilirubin AST ALT Alkaline Phosphatase Total Protein Albumin Globulin Albumin/Globulin Ratio Urine Color Yellow Urine Appearance Clear Urine pH 6.5 Ur Specific [place] 1.010 Urine Protein Negative Urine Glucose (UA) Negative Urine Ketones Negative Urine Blood Large H Urine Nitrate Negative Urine Bilirubin Negative Urine Urobilinogen 0.2 Ur Leukocyte Esterase Negative Urine RBC 25 - 30 Urine WBC 2 - 5 Ur Epithelial Cells 4 - 5 07/31/16 08/01/16 08/01/16 22:00 05:20 05:20 WBC 21.8 H RBC 3.81 Hgb 11.0 L Hct 33.3 L MCV 87.4 MCH 28.9 MCHC 33.0 RDW 15.7 H Plt Count 105 L Neutrophils % (Manual) 92 H Band Neutrophils % 3 H Lymphocytes % (Manual) 3 L Monocytes % (Manual) 2 Platelet Evaluation Low Poikilocytosis (manual Slight Anisocytosis (manual) Slight APTT Sodium 138 Potassium 2.3 L* D Chloride 107 Carbon Dioxide 26 Anion Gap 7 L BUN 35 H Creatinine 0.6 Est GFR ( Amer) > 60 Est GFR (Non-Af Amer) > 60 POC Glucose (mg/dL) 237 H Random Glucose 153 H Calcium 8.1 L Phosphorus 2.9 Magnesium 1.8 Total Bilirubin 0.4 AST 40 H ALT 57 H Alkaline Phosphatase 98 Total Protein 4.9 L Albumin 2.4 L Globulin 2.5 Albumin/Globulin Ratio 1.0 L Urine Color Urine Appearance Urine pH Ur Specific [place] Urine Protein Urine Glucose (UA) Urine Ketones Urine Blood Urine Nitrate Urine Bilirubin Urine Urobilinogen Ur Leukocyte Esterase Urine RBC Urine WBC Ur Epithelial Cells 08/01/16 05:20 WBC RBC Hgb Hct MCV MCH MCHC RDW Plt Count Neutrophils % (Manual) Band Neutrophils % Lymphocytes % (Manual) Monocytes % (Manual) Platelet Evaluation Poikilocytosis (manual Anisocytosis (manual) APTT 53.2 H Sodium Potassium Chloride Carbon Dioxide Anion Gap BUN Creatinine Est GFR ( Amer) Est GFR (Non-Af Amer) POC Glucose (mg/dL) Random Glucose Calcium Phosphorus Magnesium Total Bilirubin AST ALT Alkaline Phosphatase Total Protein Albumin Globulin Albumin/Globulin Ratio Urine Color Urine Appearance Urine pH Ur Specific [place] Urine Protein Urine Glucose (UA) Urine Ketones Urine Blood Urine Nitrate Urine Bilirubin Urine Urobilinogen Ur Leukocyte Esterase Urine RBC Urine WBC Ur Epithelial Cells Fingerstick Blood Sugar Results: 195 Results Reviewed to Date: Yes Review of Systems - Review of Systems All systems: reviewed and no additional remarkable complaints except - Psychiatric Psychiatric: Anxiety Critical Care Progress Note - Prophylaxis GI Prophylaxis GI: PPI - Prophylaxis DVT Prophylaxis DVT: Heparin SQ (drip), SCDs - Nutrition Nutrition: Nutrition Category Date Time Status NPO Diet [DIET] Diets 07/28/16 Dinner Ordered Assessment/Plan - Assessment and Plan (Free Text) Assessment: 61 year old female with a PMH of RA, chronic pain, osteoporosis who presented after she was found down in the bathroom, found to have BL subsegmental pulmonary emboli with RV dilatation, intubated, then extubated, then re- intubated for respiratory distress with a 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 and methotrexate therapy, multifocal necrotizing pneumonia Found to have multiple subsegmental PEs, on heparin drip Later found to have tension pneumonothorasx s/p chest tube placement, management by surgery team, on suction Some subcutaneous emphysema Poss pneumocystis vs aspergillus, elevated beta 1,3 D-glucan On doxycycline and merrem day 12, voriconazole and atovaquone day 3 Cont duonebs, solumedrol 40Q8 Cont Lasix 40mg IV QD Bronchial cx and fungal cultures from 07/27 negative so far Gastroenterologic Repeat C diff tox and antigen negative, cont vanco PO day 5 Swallow re-eval today Will keep Dobhoff at this time for medications and will continue tube feeds until can ensure enough nutrition PO GI ppx Endocrine Endo following, sick euthyroid, no indication for thyroid replacement Also found to have continued hyperglycemia, on levemir 20 q12 and RISS, management per Endo Continue Accuchecks, targeting eugylcemia Renal/Electrolytes/Fluid 3330.09/3319, targeting euvolemia Cont Lasix 40mg IV QD Continues to have hypokalemia, borderline magnesium, replenishing with recheck BMP/Mg @ 1300 Nephro following, decreased free water through dobhoff Infectious disease Multifocal necrotizing pneumonia and C. Diff, ID following Afebrile Leukocytosis downtrending As discussed above, poss pneumocystis vs aspergillus differental per ID given immunosuppressive therapy hx, elevated beta 1,3 D-glucan On doxycycline and merrem day 12, voriconazole and atovaquone day 3 Musculoskeletal Hx of RA on methotrexate for many years, most recently on xeljanz, current solumedrol of some help with inflammation, cont PRN analgesics Continue protective skin measures and monitoring for any skin breakdown As above, on tube feeds, optimizing nutritional status to ensure GI/DVT ppx: Protonix/SCDs/Heparin drip Patient was seen and examined at bedside and case was discussed at length with attending physician. - Date & Time Date: 08/01/16 Time: 10:00 <Juan Holden MD - Last Filed: 08/01/16 14:09> CCU Objective - Vital Signs / Intake & Output Vital Signs (Last 4 hours): Vital Signs Temp Pulse Resp BP Pulse Ox 08/01/16 12:00 98.3 F 91 H 20 96/66 L 92 L 08/01/16 11:00 95 H 24 99/59 L 91 L 08/01/16 10:16 82 21 08/01/16 10:15 86 21 08/01/16 10:14 87 27 H 08/01/16 10:13 85 28 H 08/01/16 10:12 91 H 26 H 08/01/16 10:11 87 33 H Intake and Output (Last 8hrs): Intake & Output 07/31/16 08/01/16 08/01/16 22:59 06:59 14:59 Intake Total 1665 1565.7 250 Output Total 1010 1110 Balance 655 455.7 250 Weight 136 lb Intake: IV 485 385.7 250 Antibiotic 200 200 Heparin drip 84 84 K-rider 100 Precedex 101 101 Tube Feeding 980 980 Other 200 200 Output: Chest Tube Drainage 10 10 Right Lateral Chest 10 10 Urine 1000 1000 Urethral (Dumont) 1000 1000 Stool 100 Other: Voiding Method Indwelling Catheter Indwelling Catheter # Bowel Movements 2 - Medications Active Medications: Active Medications Generic Name Dose Route Start Last Admin Trade Name Freq PRN Reason Stop Dose Admin Acetaminophen 650 mg 07/25/16 16:23 07/25/16 18:08 Tylenol 650mg/20.3ml Solution Ud PO 650 mg Q6H PRN Administration fever Albuterol/Ipratropium 3 ml 07/26/16 07:30 08/01/16 12:20 Duoneb 3 Mg/0.5 Mg (3 Ml) Ud IH 3 ml [id number] NISHANT Administration Alprazolam 0.5 mg 07/23/16 18:00 07/27/16 10:07 Xanax PO 0.5 mg BID NISHANT Administration Protocol Aspirin 81 mg 07/22/16 10:00 07/27/16 10:07 Ecotrin PO 81 mg DAILY NISHANT Administration Atovaquone 750 mg 07/30/16 11:04 08/01/16 09:52 Mepron PO 08/20/16 11:05 750 mg BID NISHANT Administration Furosemide 40 mg 07/29/16 10:00 08/01/16 09:52 Lasix IV 40 mg DAILY NISHANT Administration Haloperidol Lactate 2 mg 07/27/16 15:46 07/28/16 23:16 Haldol IVP 2 mg Q6H PRN Administration Agitation Protocol Doxycycline Hyclate 100 mg/ 100 mls @ 100 mls/hr 07/22/16 12:15 08/01/16 09: 51 Sodium Chloride IVPB 100 mls/hr Q12 NISHANT Administration Protocol Heparin Sodium/Sodium Chloride 25,000 units in 250 mls @ 8.655 mls/hr 12:31 08/01/16 08:27 Heparin 14362 Units/250ml 1/2 Normal Saline IV 14.97 units/kg/hr .Q24H PRN 7.198 mls/hr ADJUST RATE PER PROTOCOL Administration Protocol 18 UNITS/KG/HR Dexmedetomidine HCl 400 mcg in 100 mls @ 2.597 mls/hr 07/25/16 14:29 02:00 Precedex 4 Mcg/Ml (100 Ml) IV 0.7 mcg/kg/hr .Q24H PRN 9.089 mls/hr Agitation Administration Protocol 0.2 MCG/KG/HR Voriconazole 200 mg/ Sodium 100 mls @ 50 mls/hr 07/30/16 11:05 08/01/16 09:50 Chloride IVPB 08/13/16 11:06 50 mls/hr Q12 NISHANT Administration Protocol Meropenem 1g/NS 100mL IVPB 1 gm in 100 mls @ 100 mls/hr 08/01/16 14:00 Meropenem 1g/Ns 100ml Ivpb IVPB 08/15/16 14:01 Q8 NISHANT Protocol Potassium Chloride 20 meq in 100 mls @ 50 mls/hr 08/01/16 12:52 08/01/16 12: 56 Potassium Chloride 20 Meq/100 Ml IVPB 08/01/16 14:51 50 mls/hr ONCE ONE Administration Insulin Detemir 20 unit 07/30/16 10:00 08/01/16 12:42 Levemir SC 20 unit Q12 NISHANT Administration Insulin Human Regular 0 units 07/30/16 12:00 08/01/16 12:42 Humulin R Low SC 2 units Q6 NISHANT Administration Protocol Magnesium Oxide 400 mg 07/23/16 10:00 07/27/16 10:08 Mag-Ox PO 400 mg BID NISHANT Administration Methylprednisolone 40 mg 07/21/16 06:00 08/01/16 06:10 Solu-Medrol IVP 40 mg Q8 NISHANT Administration Morphine Sulfate 2 mg 07/29/16 10:18 08/01/16 10:04 Morphine IVP 2 mg Q3H PRN Administration Pain, moderate (4-7) Nystatin 5 ml 07/23/16 14:00 07/27/16 15:09 Nystatin Oral Susp PO Not Given QID NISHANT Pantoprazole Sodium 40 mg 07/21/16 10:00 08/01/16 09:53 Protonix Inj IVP 40 mg DAILY NISHANT Administration Saliva Substitute 0 ml 07/27/16 13:15 08/01/16 06:06 Saliva Substitute PO 1 ml Q8H NISHANT Administration Vancomycin HCl 500 mg 07/28/16 22:00 08/01/16 10:39 Vancocin 25 Mg/Ml (Oral Use) PO 500 mg QID NISHANT Administration Protocol - Patient Studies Lab Studies: Microbiology Studies 07/31/16 10:50 Blood Culture - Preliminary Blood NO GROWTH AFTER 24 HOURS 07/31/16 10:50 Blood Culture - Preliminary Blood NO GROWTH AFTER 24 HOURS 07/31/16 12:29 Urine Culture - Final Urine No Growth (<1,000 CFU/ML) 07/26/16 10:36 Gram Stain - Final Pleural Fluid Body Fluid Culture - Final Staphylococcus Epidermidis Sheree Albicans Fungal Culture - Preliminary 07/30/16 12:37 C. difficile Antigen & Toxin A,B (M - Final Stool Lab Studies 08/01/16 08/01/16 08/01/16 Range/Units 05:20 05:20 05:20 WBC 21.8 H (4.5-11.0) 10^3/ul RBC 3.81 (3.5-6.1) 10^6/uL Hgb 11.0 L (12.0-16.0) gm/dL Hct 33.3 L (36.0-48.0) % MCV 87.4 (80.0-105.0) fL MCH 28.9 (25.0-35.0) pg MCHC 33.0 (31.0-37.0) g/dl RDW 15.7 H (11.5-14.5) % Plt Count 105 L (120.0-450.0) 10^3/uL Neutrophils % (Manual) 92 H (50.0-70.0) % Band Neutrophils % 3 H (0-2) % Lymphocytes % (Manual) 3 L (22.0-35.0) % Monocytes % (Manual) 2 (1.0-6.0) % Platelet Evaluation Low (NORMAL) Poikilocytosis (manual Slight Anisocytosis (manual) Slight APTT 53.2 H (23.7-30.8) Seconds Sodium 138 (132-148) mmol/L Potassium 2.3 L* D (3.6-5.0) mmol/L Chloride 107 (95-110) mmol/L Carbon Dioxide 26 (21-33) mmol/L Anion Gap 7 L (10-20) BUN 35 H (7-21) mg/dL Creatinine 0.6 (0.5-1.4) mg/dL Est GFR ( Amer) > 60 Est GFR (Non-Af Amer) > 60 POC Glucose (mg/dL) (65-110) mg/dL Random Glucose 153 H (70-110) mg/dL Calcium 8.1 L (8.4-10.5) mg/dL Phosphorus 2.9 (2.5-4.5) mg/dL Magnesium 1.8 (1.7-2.2) mg/dL Total Bilirubin 0.4 (0.2-1.3) mg/dL AST 40 H (15-39) U/L ALT 57 H (7-56) U/L Alkaline Phosphatase 98 (38-133) U/L Total Protein 4.9 L (5.8-8.3) g/dL Albumin 2.4 L (3.0-4.8) g/dL Globulin 2.5 gm/dL Albumin/Globulin Ratio 1.0 L (1.1-1.8) Urine Color (YELLOW) Urine Appearance (CLEAR) Urine pH (4.7-8.0) Ur Specific [place] (1.005-1.035) Urine Protein (<30 mg/dL) mg/dL Urine Glucose (UA) (NEGATIVE) mg/dL Urine Ketones (NEGATIVE) mg/dL Urine Blood (NEGATIVE) Urine Nitrate (NEGATIVE) Urine Bilirubin (NEGATIVE) Urine Urobilinogen (<1 E.U./dL) E.U./dL Ur Leukocyte Esterase (NEGATIVE) Remy/uL Urine RBC (0-2) /hpf Urine WBC (0-6) /hpf Ur Epithelial Cells (0-5) /hpf 07/31/16 07/31/16 07/31/16 Range/Units 22:00 17:23 14:30 WBC (4.5-11.0) 10^3/ul RBC (3.5-6.1) 10^6/uL Hgb (12.0-16.0) gm/dL Hct (36.0-48.0) % MCV (80.0-105.0) fL MCH (25.0-35.0) pg MCHC (31.0-37.0) g/dl RDW (11.5-14.5) % Plt Count (120.0-450.0) 10^3/uL Neutrophils % (Manual) (50.0-70.0) % Band Neutrophils % (0-2) % Lymphocytes % (Manual) (22.0-35.0) % Monocytes % (Manual) (1.0-6.0) % Platelet Evaluation (NORMAL) Poikilocytosis (manual Anisocytosis (manual) APTT (23.7-30.8) Seconds Sodium (132-148) mmol/L Potassium (3.6-5.0) mmol/L Chloride (95-110) mmol/L Carbon Dioxide (21-33) mmol/L Anion Gap (10-20) BUN (7-21) mg/dL Creatinine (0.5-1.4) mg/dL Est GFR ( Amer) Est GFR (Non-Af Amer) POC Glucose (mg/dL) 237 H 195 H (65-110) mg/dL Random Glucose (70-110) mg/dL Calcium (8.4-10.5) mg/dL Phosphorus (2.5-4.5) mg/dL Magnesium (1.7-2.2) mg/dL Total Bilirubin (0.2-1.3) mg/dL AST (15-39) U/L ALT (7-56) U/L Alkaline Phosphatase (38-133) U/L Total Protein (5.8-8.3) g/dL Albumin (3.0-4.8) g/dL Globulin gm/dL Albumin/Globulin Ratio (1.1-1.8) Urine Color Yellow (YELLOW) Urine Appearance Clear (CLEAR) Urine pH 6.5 (4.7-8.0) Ur Specific [place] 1.010 (1.005-1.035) Urine Protein Negative (<30 mg/dL) mg/dL Urine Glucose (UA) Negative (NEGATIVE) mg/dL Urine Ketones Negative (NEGATIVE) mg/dL Urine Blood Large H (NEGATIVE) Urine Nitrate Negative (NEGATIVE) Urine Bilirubin Negative (NEGATIVE) Urine Urobilinogen 0.2 (<1 E.U./dL) E.U./dL Ur Leukocyte Esterase Negative (NEGATIVE) Remy/uL Urine RBC 25 - 30 (0-2) /hpf Urine WBC 2 - 5 (0-6) /hpf Ur Epithelial Cells 4 - 5 (0-5) /hpf Laboratory Results - last 24 hr 07/31/16 07/31/16 07/31/16 14:30 17:23 22:00 WBC RBC Hgb Hct MCV MCH MCHC RDW Plt Count Neutrophils % (Manual) Band Neutrophils % Lymphocytes % (Manual) Monocytes % (Manual) Platelet Evaluation Poikilocytosis (manual Anisocytosis (manual) APTT Sodium Potassium Chloride Carbon Dioxide Anion Gap BUN Creatinine Est GFR ( Amer) Est GFR (Non-Af Amer) POC Glucose (mg/dL) 195 H 237 H Random Glucose Calcium Phosphorus Magnesium Total Bilirubin AST ALT Alkaline Phosphatase Total Protein Albumin Globulin Albumin/Globulin Ratio Urine Color Yellow Urine Appearance Clear Urine pH 6.5 Ur Specific [place] 1.010 Urine Protein Negative Urine Glucose (UA) Negative Urine Ketones Negative Urine Blood Large H Urine Nitrate Negative Urine Bilirubin Negative Urine Urobilinogen 0.2 Ur Leukocyte Esterase Negative Urine RBC 25 - 30 Urine WBC 2 - 5 Ur Epithelial Cells 4 - 5 08/01/16 08/01/16 08/01/16 05:20 05:20 05:20 WBC 21.8 H RBC 3.81 Hgb 11.0 L Hct 33.3 L MCV 87.4 MCH 28.9 MCHC 33.0 RDW 15.7 H Plt Count 105 L Neutrophils % (Manual) 92 H Band Neutrophils % 3 H Lymphocytes % (Manual) 3 L Monocytes % (Manual) 2 Platelet Evaluation Low Poikilocytosis (manual Slight Anisocytosis (manual) Slight APTT 53.2 H Sodium 138 Potassium 2.3 L* D Chloride 107 Carbon Dioxide 26 Anion Gap 7 L BUN 35 H Creatinine 0.6 Est GFR ( Amer) > 60 Est GFR (Non-Af Amer) > 60 POC Glucose (mg/dL) Random Glucose 153 H Calcium 8.1 L Phosphorus 2.9 Magnesium 1.8 Total Bilirubin 0.4 AST 40 H ALT 57 H Alkaline Phosphatase 98 Total Protein 4.9 L Albumin 2.4 L Globulin 2.5 Albumin/Globulin Ratio 1.0 L Urine Color Urine Appearance Urine pH Ur Specific [place] Urine Protein Urine Glucose (UA) Urine Ketones Urine Blood Urine Nitrate Urine Bilirubin Urine Urobilinogen Ur Leukocyte Esterase Urine RBC Urine WBC Ur Epithelial Cells Critical Care Progress Note - Nutrition Nutrition: Nutrition Category Date Time Status NPO Diet [DIET] Diets 07/28/16 Dinner Ordered Attending/Attestation - Attestation I have personally seen and examined this patient.: Yes I have fully participated in the care of the patient.: Yes I have reviewed all pertinent clinical information: Yes Notes (Text): 08/01/16 14:07 61 y/o F w/ Respiratory failure Not much improvement overnight No further fevers. CT remains in place due to air leak that's present. Poor candidate for VATS. On HFNC 40% 50L o2 sat 92% On ABX and anti fungal medications to treat empirically due to immunocompromised state from RA and ILD. Tube feeds continued Pain management w/ Morhpine prn Needs palliative care and possible LTAC/ Hospice placement Case d/w PCP who agrees. B/L on Heparin drip . PTT WNL Extensive conversation had with the patient's son about prognosis and end of life cc time 65 min
--- NOTE | 2016-08-01 11:25 | PN ---
DATE: 08/01/2016 ENDO FOLLOWUP NOTE In room 129, ____ 4 CCU. SUBJECTIVE: This is a 61-year-old female with recent uncontrolled type 2 insulin-requiring diabetes, presenting here with acute respiratory failure and underlying exacerbation of COPD, currently on IV steroid therapy, and is now being followed closely for metabolic management. She has been extubated and currently on a BiPAP mask, which she is tolerating fairly well. LABORATORY DATA: Her latest chemistry showed a BUN of 35, sodium 138, potassium 2.3, chloride 107, C O2 of 26, glucose 153, and creatinine 0.6. Her glucose levels have ranged from 195-237 mg/dL. Her b edtime glucose was 123-136 mg/dL. So at this time, we will continue the same basal insulin given as Levemir at 20 units subQ every 12 h ours at 10:00 a.m. and 10:00 p.m. daily as given. We will continue also the low-dose correction scal e using regular insulin as ordered. We will titrate incrementally as indicated to optimize metabolic control. As her IV steroids are tapered down, we will also adjust her basal insulin accordingly. W e will obtain serial chemistries and supplement accordingly as needed. We will follow. Briana Cazares MD cc: [id number] TT: 08/01/2016 11:24:51 Confirmation # [id number] Dictation # [id number] karly
--- NOTE | 2016-08-01 11:46 | PN ---
DATE: 08/01/2016 The patient is seen in [facility], bed 4. No fevers. She is awake. She is responsive. She is very weak. She is mildly short of breath. No abdominal pain. PHYSICAL EXAMINATION: VITAL SIGNS: Temperature is 99, blood pressure is 112/70; respiratory rate of 23, the patient is on high flow; heart rate of 95. HEENT: Unremarkable. NECK: Supple. LUNGS: Have decreased breath sounds. HEART: Normal S1, S2. ABDOMEN: Soft, nontender. LABORATORY DATA: Reveals a white count of 21,000, hemoglobin of 11 and platelets of 105. BUN of 35, creatinine of 0.6. The beta 1-3 D glucan is positive at 120. Microbiology reveals the urine cultur e is no growth. The blood culture is no growth. The stool for C. diff antigen and toxin are negativ e. The bronchoscopy AFB is negative smear. No fungal elements are seen on the SHILOH preparation at th e bronchoscopy, although this was just washings; no biopsy was done. Review of the orders reveals th e patient to be on doxycycline, meropenem. The patient is on heparin. The patient is on Mepron, Maribel u-Medrol and voriconazole. The patient's last procalcitonin was 0.65. Chest x-ray is noted. ASSESSMENT AND PLAN: A 61-year-old female with severe sepsis, status post ventilatory-dependent resp iratory failure, multifocal healthcare-associated pneumonia with elevated procalcitonin, Escherichia coli, and status post bronchoscopy in a patient who has rheumatoid arthritis, immunosuppressed with p rednisone. The patient does have elevated 1-3 D beta glucan. Pneumocystis versus Aspergillus is in her differential diagnosis. Today is day #12 of doxycycline and meropenem. Would complete 14 days. Today is day #3 of voriconazole and Mepron; would continue that. Consider a tissue biopsy to make a diagnosis of Aspergillus. Will discuss with Dr. Blu Vanegas in the a.m. regarding CAT scan guided t issue diagnosis. The patient already has a pneumothorax on the right side. Will continue following with you. Triston Kilpatrick MD cc: [phone] TT: 08/01/2016 11:45:29 Confirmation # [id number] Dictation # [id number] mn
[2016-08-01] MEDS ORDERED: Potassium Chloride 20 mEq/15 ml LIQ UD PO STA (12:18)
[2016-08-01] MEDS: Insulin Detemir 100 units/ml Vial (Levemir) SC SCH ×2 (12:42→22:35)
[2016-08-01] MEDS: Meropenem 1g/NS 100mL IVPB 1 GM/100 ML PIGGYBACK IVPB SCH ×2 (14:20→22:00)
--- NOTE | 2016-08-01 14:39 | PN ---
DATE: 08/01/2016 SUBJECTIVE: The patient is once again seen in CCU bed 4. She is being sedated, but appears to be at tempting to communicate by shaking her head. She remains on high-flow oxygen. Chest tube remains in place. The patient is being treated for a necrotizing pneumonia, multilobar. She remains on antibi otics, antifungal agents. She was noted to be moderately hypokalemic today. Potassium supplements a re in the process of being administered. MEDICATIONS: List reviewed. The patient is currently on doxycycline, DuoNeb, Ecotrin, Haldol, hepar in, insulin, IV Lasix, Levemir, mag oxide, Mepron, meropenem, morphine p.r.n., nystatin, Precedex inf usion, Protonix, saliva substitute, Solu-Medrol, Tylenol, vancomycin, voriconazole, and Xanax p.r.n. She has received 1 mag rider and has received IV potassium chloride and she is currently receiving o ral potassium chloride through the Dobhoff tube. OBJECTIVE: INTAKE AND OUTPUT: Intake 3331, output 3320. VITAL SIGNS: Blood pressure 119/70, pulse 94, temperature is 99.3. Respiratory rate is 23. The pat ieradha is receiving high-flow oxygen therapy. HEENT: Normocephalic, atraumatic. Conjunctivae are pink. Sclerae are nonicteric. Dobhoff tube is in place. High-flow oxygen is in place. NECK: Supple, no neck vein distention. CHEST: Scattered rhonchi and rales bilaterally. Chest tube right side with diminished breath sounds on the right lower lung field. CARDIOVASCULAR: Regular rate and rhythm without murmurs, rubs, or gallops. Positive tricuspid regur gitation. ABDOMEN: Soft. Bowel sounds normal. No rebound, no guarding, no masses. EXTREMITIES: Trace to 1+ dependent edema in her upper thighs. No pedal edema. No cyanosis, no club carline. LABORATORY DATA AND IMAGING: CBC: White blood cell count 21.8, hemoglobin is 11.0, platelet count i s 105,000. Chemistries today: Sodium 138, potassium 2.3, chloride 107 with a CO2 of 26. BUN 35 wit h a creatinine of 0.6. Glucose is 153, calcium 8.1, albumin 2.4, calcium corrects to normal. Phosph orus 2.9 with a magnesium of 1.8. Mild elevation of her liver enzymes, AST 40, ALT is 57. Microbiol ogy: Stools are positive for C. diff. Repeat stool done 07/30 is currently negative for C. diff. Ur ine cultures are negative. Repeat blood cultures are negative at 24 hours. Initial sputum cultures are positive for Staph epidermidis and Sheree albicans. ASSESSMENT: 1. Mild prerenal azotemia and hypokalemia and this is in the setting of IV steroid therapy and IV di uretic therapy. The patient has had her potassium supplemented. She received extra magnesium today. I expect her potassium level to normalize and patient will likely require oral potassium supplement s through the Dobhoff feeding tube. Her prerenal azotemia is unavoidable given the need for steroids and Lasix therapy. 2. History of pneumonia, multilobar, necrotizing, pulmonary infiltrates, subcutaneous emphysema, rig ht chest tube for pneumothorax, history of pulmonary embolism. The patient is being followed closely by pulmonary. Pulmonary note reviewed. 3. Anemia. This is secondary to bone marrow suppression secondary to infection. Hemoglobin is stab le at 11.0. 4. Pseudomembranous colitis. Diarrhea appears to have improved. The patient is completing a course of oral vancomycin therapy. PLAN: 1. Discuss with patient's ICU/CCU team. The patient will continue receiving potassium supplements. I suggest repeating a potassium level later today to see that her potassium level has normalized. 2. For right now, we will continue low-dose IV diuretic therapy. 3. The patient to be followed closely by pulmonology, ID, and her parts sales manager. 4. Perhaps a CT-guided biopsy of the infected lung tissue as per ID and pulmonary's note. 5. Will continue to monitor patient along with you. Brock Leos MD cc: [phone] TT: 08/01/2016 14:38:27 Confirmation # [id number] Dictation # [id number] en
--- NOTE | 2016-08-01 14:55 | PN ---
DATE: 08/01/2016 REASON FOR CONSULTATION AND FOLLOWUP: Acute pulmonary embolism, positive troponin secondary to PE, t ension pneumothorax, subcutaneous emphysema, status post chest tube, status post extubated. BRIEF CLINICAL HISTORY: This is a 61-year-old female with a past medical history significant for rhe umatoid arthritis, osteoarthritis, on methotrexate therapy. Admitted with syncopal episode at home, fell down, found to be, brought here, found to be acute large PE, multilobar PE, pneumonia, status po st intubated, now extubated, developed subcutaneous emphysema, developed tension pneumothorax, status post chest tube. Awake and alert. PHYSICAL EXAMINATION: VITAL SIGNS: Temperature afebrile, heart rate 94, blood pressure 119/70. HEENT: PERRLA. Extraocular muscles intact. NECK: Supple. No carotid bruits. No thyromegaly. CHEST: Clear to auscultation. HEART: S1, S2 regular. ABDOMEN: Soft. EXTREMITIES: Clubbing, cyanosis negative. BLOOD WORKUP: WBC 21.8, hemoglobin 11, hematocrit 33.3, platelet count 105. Chemistry shows sodium 130, potassium 2. , chloride 107, carbon dioxide 26, anion gap of 7, BUN , creatinine 0.6, a lbumin 2.4. IMPRESSION: Severe protein calorie malnutrition which was present on admission but is moderate, jerrell re hypokalemia, subcutaneous emphysema, tension pneumothorax with respiratory failure, large pulmonar y embolism, rheumatoid arthritis, osteoarthritis, on methotrexate therapy, possible interstitial lung disease secondary to methotrexate therapy. RECOMMENDATION: Continue heparin. Once the chest tube is out, we are going to start Eliquis. Subcu taneous emphysema. Aggressively supplement potassium. Overall, patient's condition is critical. Lo ngterm prognosis is guarded. Discussed with Dr. Padron. Thank you, Dr. Padron, for providing us the opportunity in taking care of the patient. Will give IV La six for negative fluid balance, but will supplement potassium. Robert Jackson MD cc: [phone] TT: 08/01/2016 14:55:01 Confirmation # [id number] Dictation # [id number] en
[2016-08-01] MEDS ORDERED: Potassium Chloride 20 mEq/15 ml LIQ UD PO ONE ×2 (15:00→18:00)
--- NOTE | 2016-08-01 15:46 | PN ---
DATE: 08/01/2016 This unfortunate 61-year-old female, looking older than her stated age, appears to be somewhat improved from yesterday, remains critical, though as she is not quite able to fully finish sentence since she has a Dobhoff tube in place and at times we are not able to follow her train of thoughts. At bedside, she is in no immediate distress and does get short of breath when she tries to converse for a long period of time. She times her conversation and the recurrent complaint of pain, not being met with the morphine is a daily concern as she is used to a large dose Percocet on as an outpatient and although it has been more than 12 days now since her last dose of Percocet, she is still asking for it. This conversation was extended yesterday on 3 different occasions with her son who is quite concerned about her relief. As we tried to explain the precautionary methods that have to be taken with somebody who has had respiratory failure and opioid analgesia and the use of morphine seems to be the more adequate at these years to reverse in ICU. We attempted to explain to patient that some of her inflammatory pain is more than aptly addressed with the current dose of the IV Medrol that is used for her respiratory status, so as a secondary benefit we are getting the anti-inflammatory effect. Nevertheless, she is also asking for her Ambien, which have been a point of contention with her PCP as we always fear for her respiratory status and suppression by the use of this medication. The patient may have been using it on the outside on her own, but now with almost 2 weeks the use of it may render her more susceptible to respiratory failure. Again, this conversation is had almost on a daily basis with her and her son and she is being addressed with the medications by the district manager postal service for both of these concerns. So we are in a difficult position since we have no pain product management intern that could come and give us other recommendations. That being said, the pain is only part of this unfortunate patient's multiple disease states. She has a necrotizing pneumonia that is currently being treated with antifungals and antibacterials perhaps responding, but the desire for a biopsy is still ongoing. There was laboratory identification with a prior bronchoscopy of E. coli and subsequent sepsis with all the markers up cause for the IV antibiotics, some of which will be discontinued in 2 days as we proofread the recommendations from Dr. Kilpatrick. Yesterday, we spent some time discussing her case with Dr. Hankins as her subcutaneous emphysema is impressive and shows some enlarged area around her neck with no respiratory compromise. Nevertheless impressive to look at and I am certain concerned and felt by the patient. The subcutaneous emphysema , was a result of the leakage as we understand and a chest tube that hopefully can be removed tomorrow, tomorrow being the first regular day after the long holiday and consideration by Dr. Case for removal of the tube tomorrow is that Dr. Blu Vanegas would be available should we require an emergent reinsertion of the tube as she does have very brittle lungs due to the long- term effect of the methotrexate that she may not have been taking regularly over the past month or two, but has been on for years as all the DMARDs are for her underlying rheumatoid arthritis and the cause of her unrelenting pain. The patient is alert enough to understand us, but the complexity of her case sometimes is overwhelming for all involved in her care. We only wish the best for her. Dr. Hankins has continued her IV steroids for now and again his hope is for a CAT scan guided biopsy when Dr. Blu Vanegas is back tomorrow. We again noted the recommendations from Dr. Leos and as he adjusted her fluids there does seem to be some improvement. Dr. Cazares is very well in charge of her hyperglycemia and at present has established her markers. Dr. Jackson discussed with us this morning and no aggressive intervention and he will continue peripherally. Tomorrow, we expect Dr. Blu Vanegas to be of great assistance, await for his recommendations with this patient with so many disease processes ongoing. Nevertheless, she is somewhat improved this morning. She is receiving NG tube feedings and so far tolerating them, not certain of the cause of her hypokalemia that perhaps it is related to her sepsis. Dr. Viramontes also follows peripherally. PHYSICAL EXAMINATION: GENERAL: Today, the patient is alert and appears oriented and aware of the subjects of the conversation, but may not be processing them appropriately secondary to denial process, perhaps. VITAL SIGNS: Temperature 99.3 with no further peaks overnight, pulse rate is 82 , blood pressure is 106/71, respiratory rate of 21 and high flow O2 delivery she is at 94% O2 sat. There is a right lateral chest tube suction in place, receiving respiratory treatments every 4-6 hours. No ABGs were drawn for this morning. She used to have bowel movements every 2-4 days and right now appears to be having them daily. The note is that this is liquid brown and moderate in amount. There have been 2 notes in 24 hours on this account yesterday. Catheter is in place draining her urine clear. HEENT: She is pale in appearance. Conjunctivae are pink. Oral mucosa is moist. NG tube in place to the right nostril. NECK: Supple. She does move it well. However, the subcutaneous emphysema is up on the left side more evident today. LUNGS: Have diminished breath sounds all throughout. No wheeze, no bronchovesicular sounds other than some rhonchi at the bases. HEART: Distant in sound, regular in rhythm. ABDOMEN: Scaphoid with bowel sounds present, nontender. EXTREMITIES: She is moving all her extremities and again answering appropriately focusing on her pain that she wants her usual medication for despite morphine being superior for relief. She does get agitated at times and is being well managed with the district manager postal service at ICU. We had our discussion on plan of care and perhaps we need to consider long-terms because her condition is quite grave as half-way recuperation and what functionality will be after this very severe bout of sepsis is going to be hard for her to adjust to let alone for her son who seems very devoted in her care, but he does work and she is alone at some time of the day so need to consider options. We will reach out to the son later on today. We had expected him to be at bedside as we discussed yesterday and we told him we would be in between 8 and 9 and he was not there, but we know that he has shift work and it has been very difficult for him to face the ongoing illness of his mother. PLAN OF CARE: As per specialists. We are peripheral and have for the time being attempted to explain to son and patient the gravity of her condition and she is cognizant of this and does want to access every possible route of treatment. She asked for Ambien this morning and we discussed the possibility with the district manager postal service. He would prefer not intervening this way but rather to use it with her other antianxiety medications and given the very slight improvement in the respiratory status, we do not want to go back with this. We tried to explain to the patient the importance of using morphine over her Percocet, but at present, it does not seem to be her recurrent wish and we will ask her once she is an outpatient perhaps to consult the pain management because we are not qualified to manage chronic pain in this degree of advanced disease. We will try to do the best that we can. Marcellus Padron MD cc: [phone] TT: 08/01/2016 15:45:58 Confirmation # [id number] Dictation # [id number] LR
[2016-08-01 15:51] LABS: BLOOD UREA NITROGEN 35 mg/dL (7-21); CALCIUM 7.9 mg/dL (8.4-10.5); CARBON DIOXIDE 22 mmol/L (21-33); CHLORIDE 110 mmol/L (98-107); GFR AFRICAN-AMERICAN > 60; GLUCOSE,RANDOM 150 mg/dL (70-110); POTASSIUM 4.1 mmol/L (3.6-5.0); SODIUM 138 mmol/L (132-148)
--- NOTE | 2016-08-01 16:16 | PN ---
DATE: 08/01/2016 This is the patient's hospital visit in the intensive care unit. For Dr. Viramontes. ADDENDUM: One is referred to yesterday's dictation, which is not listed. In the dictation, it was r ecommended, after conversation with Dr. Hankins and Dr. Viramontes, that the patient be considered for a right lower lobe biopsy of her lung as there is a cavitary lesion there with suspicion for atypical o rganisms such as Aspergillus, Mycobacterium tuberculosis with consideration for repositioning or repl acing the chest tube should it be necessary. Consult was placed with Dr. Blu Vanegas, who will reeva luate the patient tomorrow as per Dr. Hankins and Dr. Viramontes's recommendation. SUBJECTIVE: The patient appears more comfortable this visit with oxygen on. She is still n.p.o. wit h NG tube with Dr. Leos's evaluation appreciated as the patient is now known to have significant h ypokalemic indices with nutrition via her NG tube continuing. The patient is also known to be on vor iconazole, VFEND, as per Dr. Kilpatrick with Solu-Medrol 40 IV q. 8 continuing along with replenishme nt of her potassium. Dr. Kilpatrick also continues the patient on meropenem and Mepron with heparin IV continuing for her pulmonary emboli. The patient is also on doxycycline with Precedex scheduled p .r.n. still continuing as per cad designer's recommendation. The patient appears in no acute distress . OBJECTIVE AND PHYSICAL EXAMINATION: VITAL SIGNS: Temperature 98.3, pulse 91, respirations 20, blood pressure 96/66, pulse ox 92%. GENERAL: She appears comfortable. HEENT: Oxygen is on, otherwise unremarkable. NECK: With subcutaneous emphysema still noted. HEART: Regular rate. LUNGS: Chest tube on the right with decreased breath sounds there. ABDOMEN: Soft, nontender. EXTREMITIES: No edema. SKIN: Ecchymotic changes on both arms bilaterally. NEUROLOGIC: Awake, alert with minimal talking, responds to questioning appropriately. The patient's labs were done today. White blood cell count of 21.8 thousand. C. difficile toxin is negative to testing. Hemoglobin 11.0, hematocrit 33.3 possibly due to heme constriction as her hemog lobin is 9.4 two days prior, platelet count of 105,000 down from 201,000 earlier in her hospital stay , 92 segs noted. Her PTT is 53.2 with an ABG done yesterday showing a pO2 of 57, pH of 7.4, bicarb o f 25.2. Urinalysis showed large amount of blood from today. She does have a Rondon catheter. The patient's urine culture showed no growth from yesterday. Blood culture showed no growth 2 days p rior. ASSESSMENT: Respiratory failure, now extubated, on high flow nasal cannula, malnutrition, pneumothor ax, right side chest tube, subcutaneous emphysema of the neck, necrotic pneumonia, pulmonary embolism bilateral, cavitary lesion right lower lobe, rheumatoid arthritis with methotrexate, pulmonary hyper tension. PLAN: After conversation with Dr. Viramontes and Dr. Hankins, we will recommend consult Dr. Blu Vanegas regarding a CT-guided right lower lobe biopsy with chest tube reinsertion as indicated as per Dr. Elizabeth Vanegas with the help of ruling out Aspergillus versus pneumocystis versus a Mycobacterium infection . We will continue the present medical regimen, monitor clinically and with labs, and treat for her severe hypokalemia as per Dr. Leos's recommendations with a potassium of 2.3 noted earlier today. Prognosis for this patient is guarded. Please find my dictation from 07/31/2016. It needs to be on the chart for dictations for that day as the recommendations for Blu Vanegas's evaluation were noted as of that day. Chacorta Lea MD cc: [phone] TT: 08/01/2016 16:15:24 Confirmation # [id number] Dictation # [id number] en
--- NOTE | 2016-08-01 23:29 | PN ---
DATE: 08/01/2016 REFERRING PHYSICIAN: Dr. Parker. SUBJECTIVE: She is lying in the bed, head at 45 degrees, therapy is at the bedside doing active/pass shantell movement. She is on high flow nasal cannula. Also nasogastric tube. Getting feeding. Still sh ort of breath. Has subcutaneous emphysema, mostly in the right chest and neck area. Chest tube stil l having leakage. Has cough. No hemoptysis, no hematemesis, no hematuria, no diarrhea. There is le g swelling. OBJECTIVE: GENERAL: Mild to moderate distress. VITAL SIGNS: Temp is 98, heart rate 61, respiratory rate is 20, blood pressure 124/49, pulse ox 97% on high flow oxygen at 40%. HEENT: Moist mucous membranes. . NECK: Supple. No JVD. LUNGS: Has subcutaneous emphysema, mostly on the right chest and neck area. Right chest tube has so me leakage. Lungs, scattered rhonchi. HEART: S1 and S2. ABDOMEN: Soft, nontender. No organomegaly. EXTREMITIES: There is not much edema. NEUROLOGIC: Awake, alert, follows simple command. MEDICATIONS: She is on doxycycline 100 mg twice a day, DuoNeb q. 4 hours, Ecotrin 81 mg daily, Haldo l 2 mg IV q. 6 hours p.r.n., IV heparin, Lasix 40 mg daily, Levemir 20 units subcutaneous q.12, magne sium oxide 400 mg twice a day, Mepron 750 mg twice a day, meropenem 1 g q. 8 hours, morphine 2 mg q. 3 hours p.r.n., nystatin oral suspension 5 times a day, Precedex IV, Protonix 40 mg daily, saliva sub stitute q. 8 hours, Solu-Medrol 40 mg IV q. 8 hours, Tylenol p.r.n. basis, vancomycin 500 mg 4 times daily, voriconazole 200 mg q. 12 hours, Xanax 0.5 mg twice a day. LABORATORY DATA: Shows hemoglobin 11.0, hematocrit 33.3, WBC 21.8, platelet is 105. PTT is 53. Sod ium 138, potassium 4.1, chloride 110, bicarbonate 22, BUN 35, creatinine 0.6, glucose 150, calcium 7. 9. Chest x-ray done today shows mild right-sided pneumothorax, persistent subcutaneous emphysema. IMPRESSION AND PLAN: Multiorgan dysfunction, respiratory failure, requiring high-flow nasal cannula oxygen, feeding difficulty, has a nasogastric tube, persistent pneumothorax with extensive subcutaneo us emphysema with persistent air leak in the chest tube, bilateral necrotic pulmonary infiltrate, mul tiple pulmonary emboli, rheumatoid arthritis, been on methotrexate in the past, pulmonary hypertensio n, Escherichia coli in the sputum and pseudomonas in the urine, hypertension. Also being treated for Aspergillus and pneumocystis. Case discussed with pr specialist, Dr. Holden, in detail. Spoke to nurs ing staff. Also spoke to patient's son at bedside in detail. All the questions answered. Informed him about the patient's poor prognosis. I also discussed this case in detail with Dr. Padron yesterday . At present, told she is high risk. We may have to place another chest tube and may be placed unde r CT guidance by interventional radiology. Two days ago, case discussed with Dr. Kilpatrick. Is luciano martinez for the tissue biopsy to make sure there is no aspergillosis or pneumocystis in the right lower lobe cavitary lesion. Consult is placed for Dr. Blu Vanegas for possible small needle biopsy of the right lower lobe cavitary lesion and placement of a new chest tube. Continue high-flow nasal cannula oxygen, continue antibiotics, bronchodilator. Continue feeding. Gastric prophylaxis. Sequential c ompression device to lower extremity. Follow up ABG, chest x-ray, CBC, CMP in the morning. Critical care time was more than 35 minutes. Thank you, and will follow with you. Robert Hankins MD cc: [phone] TT: 08/01/2016 23:28:26 Confirmation # [id number] Dictation # [id number] lopez
[2016-08-02] MEDS: Albuterol-Ipratrop 3 mg / 0.5 (3 ml) UD IH SCH ×6 (00:20→19:45)
[2016-08-02] MEDS: Insulin Reg-LOW-Coverage SC SCH ×3 (00:30→12:01)
[2016-08-02] MEDS ORDERED: Dextrose 50% SYRINGE Inj (50 ml) IVP ONE ×2 (02:08→04:28)
[2016-08-02] MEDS: MethylPREDNISolone 40 mg Vial IVP SCH ×2 (05:17→13:32)
[2016-08-02] MEDS: Meropenem 1g/NS 100mL IVPB 1 GM/100 ML PIGGYBACK IVPB SCH ×2 (05:18→14:19)
[2016-08-02] MEDS: Saliva Substitute 44.3 ML PO SCH ×2 (05:28→13:31)
[2016-08-02 06:22] LABS: HEMATOCRIT 32.8 % (36.0-48.0); MEAN CELL VOLUME 85.6 fL (80.0-105.0); MEAN CORPUSCULAR HGB CONC 33.8 g/dl (31.0-37.0); PLATELET COUNT 132 10^3/uL (120.0-450.0); RED CELL DISTRIBUTION WIDTH 15.5 % (11.5-14.5); WHITE BLOOD COUNT 17.7 10^3/ul (4.5-11.0)
[2016-08-02 06:26] LABS: ADD MANUAL DIFF? YES
[2016-08-02 06:37] LABS: ALKALINE PHOSPHATASE 94 U/L (38-133); ALT/SGPT 56 U/L (7-56); AST/SGOT 42 U/L (15-39); BILIRUBIN,TOTAL 0.4 mg/dL (0.2-1.3); BLOOD UREA NITROGEN 35 mg/dL (7-21); CALCIUM 8.2 mg/dL (8.4-10.5); CARBON DIOXIDE 28 mmol/L (21-33); CHLORIDE 111 mmol/L (95-110); GFR AFRICAN-AMERICAN > 60; GLUCOSE,RANDOM 83 mg/dL (70-110); MAGNESIUM 2.1 mg/dL (1.7-2.2); SODIUM 144 mmol/L (132-148)
[2016-08-02 06:51] LABS: BAND 2 % (0-2); NEUTROPHIL 93 % (50.0-70.0)
[2016-08-02 06:53] LABS: ANISOCYTOSIS 1+; POIKILOCYTOSIS 1+
[2016-08-02 07:04] LABS: PHOSPHOROUS 2.7 mg/dL (2.5-4.5)
[2016-08-02 07:09] LABS: POTASSIUM 2.9 mmol/L (3.6-5.0)
--- NOTE | 2016-08-02 07:27 | CP.PCM.PN ---
Subjective - Date & Time of Evaluation Date of Evaluation: 08/02/16 Time of Evaluation: 07:24 - Subjective Subjective: General surgery progress note for Johny Gamez PGY1 Patient seen and examined at bedside this morning in conjunction with surgical team. No acute overnight events or new complaints reported. Patient appears to be tolerating high flow NC well. Over the weekend, her chest tube was placed on water seal and developed extensive subcutaneous emphysema. Chest tube was placed back on suction and we will continue to monitor daily CXR's. Patient denies chest pain, palpitations, SOB. Objective - Vital Signs/Intake and Output Vital Signs (last 24 hours): Temp Pulse Resp BP Pulse Ox 98.2 F 82 24 110/67 99 08/02/16 04:00 08/02/16 06:00 08/02/16 06:00 08/02/16 04:32 08/02/16 06:00 Intake and Output: 08/02/16 08/02/16 06:59 18:59 Intake Total 0 Balance 0 - Medications Medications: Current Medications Acetaminophen (Tylenol 650mg/20.3ml Solution Ud) 650 mg PO Q6H PRN PRN Reason: fever Last Admin: 07/25/16 18:08 Dose: 650 mg Albuterol/Ipratropium (Duoneb 3 Mg/0.5 Mg (3 Ml) Ud) 3 ml IH [id number] [facility], [facility] Last Admin: 08/02/16 04:05 Dose: 3 ml Alprazolam (Xanax) 0.5 mg PO BID NISHANT PRN Reason: Protocol Last Admin: 07/27/16 10:07 Dose: 0.5 mg Aspirin (Ecotrin) 81 mg PO DAILY [facility], [facility] Last Admin: 07/27/16 10:07 Dose: 81 mg Atovaquone (Mepron) 750 mg PO BID [facility] Stop: 08/20/16 11:05 Last Admin: 08/01/16 17:05 Dose: 750 mg Furosemide (Lasix) 40 mg IV DAILY [facility] Last Admin: 08/01/16 09:52 Dose: 40 mg Haloperidol Lactate (Haldol) 2 mg IVP Q6H PRN; Protocol PRN Reason: Agitation Last Admin: 07/28/16 23:16 Dose: 2 mg Doxycycline Hyclate 100 mg/ (Sodium Chloride) 100 mls @ 100 mls/hr IVPB Q12 NISHANT PRN Reason: Protocol Last Admin: 08/01/16 22:03 Dose: 100 mls/hr Heparin Sodium/Sodium Chloride (Heparin 36339 Units/250ml 1/2 Normal Saline) 25 ,000 units in 250 mls @ 8.655 mls/hr IV .Q24H PRN; Protocol; 18 UNITS/KG/HR PRN Reason: ADJUST RATE PER PROTOCOL Last Admin: 08/01/16 08:27 Dose: 14.97 units/kg/hr, 7.198 mls/hr Dexmedetomidine HCl (Precedex 4 Mcg/Ml (100 Ml)) 400 mcg in 100 mls @ 2.597 mls /hr IV .Q24H PRN; Protocol; 0.2 MCG/KG/HR PRN Reason: Agitation Last Titration: 08/02/16 06:11 Dose: 0.7 mcg/kg/hr, 9.089 mls/hr Voriconazole 200 mg/ Sodium (Chloride) 100 mls @ 50 mls/hr IVPB Q12 NISHANT PRN Reason: Protocol Stop: 08/13/16 11:06 Last Admin: 08/01/16 22:00 Dose: 50 mls/hr Meropenem 1g/NS 100mL IVPB (Meropenem 1g/Ns 100ml Ivpb) 1 gm in 100 mls @ 100 mls/hr IVPB Q8 NISHANT PRN Reason: Protocol Stop: 08/15/16 14:01 Last Admin: 08/02/16 05:18 Dose: 100 mls/hr Dextrose (Dextrose 10% In Water) 500 mls @ 30 mls/hr IV .[id number] [facility], [facility] Last Admin: 08/02/16 04:49 Dose: 30 mls/hr Insulin Detemir (Levemir) 20 unit SC Q12 [facility] Last Admin: 08/01/16 22:35 Dose: 20 unit Insulin Human Regular (Humulin R Low) 0 units SC Q6 NISHANT PRN Reason: Protocol Last Admin: 08/02/16 00:30 Dose: Not Given Magnesium Oxide (Mag-Ox) 400 mg PO BID [facility] Last Admin: 07/27/16 10:08 Dose: 400 mg Methylprednisolone (Solu-Medrol) 40 mg IVP Q8 [facility] Last Admin: 08/02/16 05:17 Dose: 40 mg Morphine Sulfate (Morphine) 2 mg IVP Q3H PRN PRN Reason: Pain, moderate (4-7) Last Admin: 08/01/16 10:04 Dose: 2 mg Nystatin (Nystatin Oral Susp) 5 ml PO QID [facility] Last Admin: 07/27/16 15:09 Dose: Not Given Pantoprazole Sodium (Protonix Inj) 40 mg IVP DAILY [facility] Last Admin: 08/01/16 09:53 Dose: 40 mg Saliva Substitute (Saliva Substitute) 0 ml PO Q8H [facility] Last Admin: 08/02/16 05:28 Dose: Not Given Vancomycin HCl (Vancocin 25 Mg/Ml (Oral Use)) 500 mg PO QID NISHANT PRN Reason: Protocol Last Admin: 08/01/16 22:17 Dose: 500 mg - Labs Labs: 08/02/16 05:20 08/02/16 05:20 PT 12.4 Seconds (9.9-11.8) H 07/29/16 05:11 INR 1.15 (0.93-1.08) H 07/29/16 05:11 APTT 43.2 Seconds (23.7-30.8) H 08/02/16 05:20 - Constitutional Appears: No Acute Distress - Head Exam Head Exam: ATRAUMATIC, NORMAL INSPECTION, NORMOCEPHALIC - Eye Exam Eye Exam: EOMI, PERRL - Respiratory Exam Respiratory Exam: absent: Accessory Muscle Use, Rales, Rhonchi, Respiratory Distress Additional comments: right-sided chest tube in place; site is clean, dry and intact - Cardiovascular Exam Cardiovascular Exam: RRR, +S1, +S2. absent: Gallop, Rubs - GI/Abdominal Exam GI & Abdominal Exam: Soft. absent: Distended, Firm, Guarding, Rigid, Rebound - Neurological Exam Neurological Exam: Alert, Awake - Psychiatric Exam Psychiatric exam: Normal Affect, Normal Mood - Skin Skin Exam: Dry, Intact, Normal Color, Warm Assessment and Plan - Assessment and Plan (Free Text) Plan: 61yo Female with right-sided pneumothorax s/p chest tube placement (POD #6) -Will continue with chest tube on suction at the present time -CXR from 08/01 revealed small right-sided pneumothorax with persistent subcutaneous emphysema -Continue daily CXR; will continue to follow -Dressing changes PRN Further recommendations per attending, Dr. Manpreet Randolph PGY1
[2016-08-02] MEDS ORDERED: Potassium Chloride 40 mEq/30 ml LIQ UD PO SCH ×2 (07:45→13:15)
[2016-08-02] MEDS ORDERED: Insulin Detemir 100 units/ml Vial (Levemir) SC SCH ×2 (07:49→22:00)
--- NOTE | 2016-08-02 08:19 | PN ---
DATE: 07/31/2016 This is the patient's hospital visit in the ICU: For Dr. Viramontes: SUBJECTIVE: The patient is a 61-year-old female, seen lying awake in bed with a feeding tube in her nostril with the patient being essentially nonverbal; however, denying any pain at this point. She i s known to have cavitary lesion with respiratory failure, status post extubation with chest tube on t he right for pneumothorax with a cavitary lesion in the right lower lobe. Also, problems with nutrit ion and severe arthritis on methotrexate at one point. She appears to be in no acute distress. OBJECTIVE: PHYSICAL EXAMINATION: VITAL SIGNS: Temperature 98.1, pulse 75, respirations 15, blood pressure 102/64, pulse ox 96%. HEENT: Oxygen is on. NECK: Full with subcutaneous emphysema around her neck. HEART: Tachy rate, regular rhythm. LUNGS: Chest tube on the right. NG tube feeding tube through her nose. GENITOURINARY AND RECTAL: Rondon catheter and rectal tube noted. ABDOMEN: Soft. EXTREMITIES: No edema. SKIN: Ecchymotic changes probably from phlebotomies bilateral arms with arthritic changes of the dig its of the hands. NEUROLOGIC: Awake, alert, but with poor verbal responses to questions. She reports she is cold and we will get a blanket for her. LABORATORY DATA: The patient's labs were done with a white blood cell count of 26.9 thousand, hemogl obin 11.4 with a platelet count of 135. Yesterday's labs showed a white blood cell count of 15.5 tho usand, jumping up to 26.9 thousand today; a hemoglobin of 9.4 jumping up to 11.4 today with no transf usion, a platelet count of 173, now it is 135. Upon inspection, the patient is a very difficult stic k for phlebotomy with possible lab error causing this significant change in her labs. Due to multipl e attempts, we will request that the labs to be done in the morning one time, possibly by a student o r house physician so maybe we will get an accurate value. Again, labs done yesterday hemoglobin 9.4; today, hemoglobin is 11.4, which is inconsistent as the patient has not had a transfusion. Also, e white blood cell count was 15.5 thousand, now 26.9 thousand with no other parameters of significanc e noted. The patient had a rheumatoid factor done on 07/27, it is positive at 116, less than 14 as the normal variant. AMANDA screen was negative. Her serology testing for TB test QFT was indetermi adrienne with a Beta 1-3D glucan interpretation being positive for possible fungal infection. Her PTT is 53.5. Her chem panel today showed a potassium of 3.5 with a BUN of 33, creatinine of 0.6 with a glucose of 123. Chest x-ray was done today. It was read as feeding tube in satisfactory position, no significant gerhard nge from prior study as the patient does have a chest tube on the right, whereas yesterday's chest x- ray was read as increasing subcutaneous emphysema, chest tube is unchanged in position. ASSESSMENT: Sepsis with respiratory failure, status post extubation, necrotizing pneumonia with righ t lower lobe cavitary lesion, pulmonary embolus bilateral; deep venous thrombosis, severe rheumatoid arthritis, malnutrition, pulmonary hypertension, anxiety, hypokalemia, electrolyte imbalance and maln utrition. Abnormal labs with a repeat lab to be done in the morning with ecchymotic changes on the patient's ar ms noted. Consideration for central line for labs should it be necessary. PLAN: As above. After conversation with Dr. Viramontes and Dr. Hankins, we will ask for a consult with consult with Dr. Blu Vanegas regarding possible biopsy of her right lower lobe cavitary change to rul e out tumor versus infectious process such as Aspergillus with verus tuberculosis with repeat labs to be done tomorrow in the a.m. with consideration for a central line for PICC line for labs, as the pa tient's arms show continued worsening ecchymotic changes from lab sticks. Will continue IV heparin f or her pulmonary emboli with nutritional assessment, fluid management requested with Dr. Leos lary al. Prognosis for this patient is guarded. Chacorta Lea MD cc: [id number] TT: 07/31/2016 16:21:24 Confirmation # [id number] Dictation # [id number] dn
--- NOTE | 2016-08-02 08:23 | PN ---
DATE: 07/29/2016 REASON FOR CONSULTATION AND FOLLOWUP: Acute PE, positive troponin secondary to with PE, ____ status post chest tube, status post extubated. BRIEF CLINICAL HISTORY: This is a 61-year-old female with a past medical history significant for rhe umatoid arthritis, osteoarthritis on methotrexate therapy, admitted with syncopal episode at home and was found to have acute PE, pneumonia, extubated, awake and alert. Denies any chest pain, shortness of breath. Son is at the bedside. Started feeding through the NG tube. PHYSICAL EXAMINATION: VITAL SIGNS: Temperature afebrile, heart rate ____, blood pressure 117/80. HEENT: PERRLA. Extraocular muscles intact. NECK: Supple. No carotid bruit or thyromegaly. CHEST: Clear to auscultation. HEART: S1, S2 regular. ABDOMEN: Soft. EXTREMITIES: Clubbing and cyanosis negative. LABORATORY DATA: Blood workup as follows: WBC 17.1, hemoglobin 9, hematocrit 29.9, platelet count 2 01. Chemistry shows sodium 146, potassium 3.5, chloride 114, carbon dioxide 27, anion gap of 9, BUN 29, creatinine 0.7. Troponin 5, albumin 2.5, albumin/globulin ratio 1. IMPRESSION: Protein calorie malnutrition which was present since admission, hypokalemia, anemia, res piratory insufficiency, acute PE, right ventricular dysfunction secondary to acute PE, ____ successf ully extubated, right ____ significantly dilated by echo dated 07/21/2016, right ventricular systolic pressure 51, normal left ventricular ejection fraction 55%. RECOMMENDATION: Increase nutritional support, Lasix 1 dose, keep the lung dry so can be extubated. Continue antibiotic, continue heparin. We will follow with you. Thank you, Dr. Davis, for providing the opportunity in taking care of this patient. If pat ient remains stable ____ will change to oral anticoagulation tomorrow. Will follow with you. Robert Jackson MD cc: [id number] TT: 07/29/2016 19:10:56 Confirmation # [id number] Dictation # [id number] jn
--- NOTE | 2016-08-02 08:24 | PN ---
DATE: 07/30/2016 CONSULTATION AND FOLLOWUP: Acute pulmonary embolism, positive troponin secondary to PE, tension ____ status post extubated. BRIEF CLINICAL HISTORY: This is a 61-year-old female with a past medical history significant for rhe umatoid arthritis, osteoarthritis, on ____ therapy, admitted with a syncopal episode at home while go ing to the bathroom. Found to be acute PE, pneumonia, extubated, re-intubated, now successfully extu bated, status post retention ____ status post chest tube on IV heparin. PHYSICAL EXAMINATION: VITAL SIGNS: Temperature afebrile, heart rate 90, blood pressure 102/68. HEENT: PERRLA. Extraocular muscles intact. NECK: Supple. No carotid bruits. No thyromegaly. CHEST: Clear to auscultation. HEART: S1, S2 regular. ABDOMEN: Soft. EXTREMITIES: Clubbing and cyanosis negative. LABORATORY DATA: Blood workup as follows: WBC ____, hemoglobin 9____, hematocrit 29.6, platelet cou nt 173. Chemistry shows sodium 141, potassium 2.8, chloride 109, carbon dioxide 28, anion gap of 7, BUN ____, creatinine 0.6. IMPRESSION: Severe hypokalemia, protein-calorie malnutrition, severe, which was present since admiss ion, is moderate now, severe anemia ,tension pneumothorax, status post intubated and successfully ext ubated, acute PE ____ secondary to PE. RECOMMENDATION: Continue heparin. Once the chest tube is out and then we can start Eliquis because the patient has already had 5 - 7 days ____ IV heparin. We will start p.o. Eliquis 5 mg b.i.d. once the chest tube it out. I suggested discussed with the quality control manager, ____ , I discuss with the res ident taking care as well as the nursing staff. We will continue Lasix p.r.n. to keep negative fluid balance, will get for oxygenation. Supplement aggressively potassium. We will follow with you. Thank you, Dr. Davis, for providing the opportunity in taking care of the patient, severe, . Robert Jackson MD cc: [id number] TT: 07/30/2016 13:40:44 Confirmation # [id number] Dictation # [id number] jn
--- NOTE | 2016-08-02 09:44 | RAD ---
HISTORY: pna COMPARISON: 08/01/2016 FINDINGS: LUNGS: No pulmonary infiltrate. PLEURA: Small right pneumothorax, decreased from prior examination. . Chest tube at right base unchanged. Extensive subcutaneous emphysema over right lateral chest wall right side of neck. CARDIOVASCULAR: Nasogastric tube. Normal heart size. No congestive change. OSSEOUS STRUCTURES: No significant abnormalities. VISUALIZED UPPER ABDOMEN: Normal. OTHER FINDINGS: None. IMPRESSION: Decreased right pneumothorax. Extensive subcutaneous emphysema. Right chest tube at lung base unchanged.
--- NOTE | 2016-08-02 09:51 | PN ---
DATE: 08/02/2016 The patient seen and examined at bedside. She appears to be comfortable. She is on high flow with FIO2 40%. Her oxygen saturation on that setting is 95-97% . PHYSICAL EXAMINATION: VITAL SIGNS: The patient is afebrile with T-max 98.2, respiratory rate 20, blood pressure 110/67, oxygen saturation 97-99% overnight. Heart rate 82. HEAD AND NECK: Atraumatic. LUNGS: Decreased breath sounds on the right side and clear to auscultation bilaterally. HEART: Regular rate and rhythm. S1, S2 normal. ABDOMEN: Soft, nontender, nondistended. MUSCULOSKELETAL: There is subcutaneous emphysema from prior pneumothorax for which chest tube was placed on the right side. SKIN: Moist. PSYCHIATRIC: The patient is alert and oriented x 3. LABORATORY DATA: WBC is 17.7 (down from 21.8, hemoglobin 11.1, platelet count 132. Sodium 144, potassium 2.9 (p.o. and IV potassium given for supplementation ), chloride 111, carbon dioxide 28, BUN 35, creatinine 0.6, glucose 83, AST 42, ALT 56. The patient has positive rheumatoid factor at level of 116. However, AMANDA and ESR are negative. The patient has positive beta 13e glucan; however, galactomannan is negative. QuantiFERON A is indeterminate (AB in sputum and bronchial washings are negative). Pleural fluid from 07/26/2016 showed pH 6, total protein less than 3, LDH 28, amylase 118, lipase 28. Procalcitonin 0.65 down from 1.9. MEDICATIONS: Tylenol p.r.n., DuoNeb every 4 hours, Nepro, Precedex at 0.7 mcg/ kg/ hour, doxycycline, Lasix, Haldol p.r.n., heparin drip, Levemir 15 units subQ q. 12, regular insulin sliding scale low protocol, magnesium, meropenem, Solu-Medrol 40 mg IV q. 8, morphine p.r.n., potassium supplementation, vancomycin p.o., voriconazole. ASSESSMENT AND PLAN: This is a 61-year-old lady with respiratory insufficiency secondary to multiple factors including gram-negative kayleen pneumonia in the setting of chronic interstitial lung disease which may or may not be related to her underlying autoimmune process complicated by persistent air leak and empyema with fungal infection. It is unclear whether Sheree in the pleural space is just colonization or represents a real infectious etiology. However, at present time, the patient is covered with voriconazol (discussed with ID service). The patient was able to wean down FiO2 requirement to 40% via high flow and was switched to NC 5 L/min with maintaining adequate gas exchange. She had bronchoscopy which did not reveal any fungal or AFB pathogens. Culture from bronchial washings was negative for GNR and positive for saprophytic microorganisms. Possibility of ongoing invasive fungal infection cannot be discarded as patient has positive D-b-1.3 glucan test. Aspergillus (despite negative galactomannan), PCP and Sheree infection are on differential list. Discussed with Dr. Kilpatrick--Voriconazole would cover Aspergillus and Sheree. Mepron would cover PCP. Meropenem usually does not have cross reactivity with D-b, 1,3-glucan glucan as opposed to Zosyn; thus, possibility of falsely positive test is less likely. Noninfectious etiologies of cavitary lesion are possible. Even though AMANDA and ESR came back negative, rheumatoid factor is still elevated. It doesnt have high enough specificity for the diagnosis of RA related pulmonary disease. Of note, rheumatoid arthritis in pleural fluid presently is not available. Complicating the matter is the fact the patient has severe pulmonary hypertension (due to recent PE), thus placing patient at a higher risk for bleeding complication should biopsy of the lesions attempted. At a very least I would repeat Echo to see if RVSP declined after more then a week of TAC. Provided that the patient has persistent leak, empyema , thoracic surgery evaluation might be beneficial. I spoke with Dr. Case and Dr. Hankins about it who are agreed with these considerations. I spoke with [facility] and Dr. Abraham accepted patient with Dr. Aixa Malone (thoracic surgery on stand by for consult once patient is physically at the [facility]). In any case, at this point, we will continue with antibiotics including antibacterial and antifungal medication. We will continue with conservative oxygen and fluid management. We will continue with enteral nutrition. We will continue with gastrointestinal prophylaxis. We will continue with TAC. The patient does have poor prognosis, taking into consideration of acute pulmonary issues that overlap on the patient's chronic lung disease. Will repeat CT chest to assess chest tube position in light of substantial subcutaneous emphysema. We will continue to maintain blood glucose within 140-180 range according to NICE-SUGAR trial. We will avoid hypoglycemia. The patient has stable renal function at present time. The patient tolerating enteral nutrition well. We will continue with head of bed elevated more than 35 degrees and aspiration precaution. ccm time 40 min Dale Cárdenas MD cc: [id number] TT: 08/02/2016 09:50:29 Confirmation # [id number] Dictation # [id number] MTDD
[2016-08-02] MEDS ORDERED: Potassium Chloride 20 mEq/15 ml LIQ UD PO STA (10:04)
[2016-08-02] MEDS: Vancomycin 25 MG/ML PO SCH ×3 (10:05→18:15)
[2016-08-02] MEDS: Atovaquone 750 mg/5 ml Susp UD PO SCH ×2 (10:05→18:17)
--- NOTE | 2016-08-02 10:20 | PN ---
DATE: 08/02/2016 The patient is seen in the ICU. There is an air leak with a small pneumothorax, but a lot of subcuta neous emphysema. Discussed with radiology about the cyst in the right lower lobe as the probable alexis rce of the pneumothorax initially and on a continuing basis. The idea of doing a biopsy in the face of a persistent pneumothorax, pulmonary hypertension without t he support of a thoracic surgeon is difficult. We will follow expectantly and discuss with Dr. Vanegas. Ranjeet Case MD cc: [id number] TT: 08/02/2016 10:19:21 Confirmation # [id number] Dictation # [id number] jn
--- NOTE | 2016-08-02 10:29 | PN ---
DATE: 08/02/2016 REASON FOR CONSULTATION AND FOLLOWUP: Acute pulmonary embolism, positive troponin secondary to PE, t ension pneumothorax, subcutaneous emphysema, status post chest tube, status post extubated, cavitary lesion in the lung. BRIEF CLINICAL HISTORY: A 61-year-old female with past medical history significant for rheumatoid ar thritis, osteoarthritis, on methotrexate therapy, admitted with syncopal episode, found to be a big P E, found to be multilobar pneumonia, status post intubated, now successfully extubated. Also found c avitary lesion. Now patient developed tension pneumothorax and subcutaneous emphysema. The patient has a cavitary lesion, possibly need to biopsy. PHYSICAL EXAMINATION: VITAL SIGNS: Temperature afebrile, heart rate 80, blood pressure 110/67. HEENT: PERRLA. Extraocular muscles intact. NECK: Supple. No carotid bruits. No thyromegaly. CHEST: Clear to auscultation. HEART: S1, S2 regular. ABDOMEN: Soft. EXTREMITIES: Clubbing and cyanosis negative. LABORATORY DATA: Blood workup as follows: WBC 17.7, hemoglobin , hematocrit 32.8, platelet cou nt 132, sodium 144, potassium 2.9, chloride 111, carbon dioxide 28, anion gap of 8, BUN 35, creatinin e 0.8. Total protein 5, albumin 2.5. IMPRESSION: Severe hypokalemia, protein-calorie malnutrition was present on admission, anemia, subcu taneous emphysema, cavitary lesion, history of osteoarthritis, history of rheumatoid arthritis, on me thotrexate, rule out interstitial lung disease, pulmonary embolism, multiple low pulmonary embolisms, positive troponin secondary to pulmonary embolism, preserved left ventricular function, tension pneu mothorax, status post chest tube, subcutaneous emphysema. RECOMMENDATION: Continue heparin for now until the definite plan for thoracic surgery is made. Disc ussed with Dr. Cárdenas this morning. Possible patient needs biopsy and decortication, for possible transfer to tertiary care center. Discussed with Dr. Cárdenas. CVS status is stable. We will follow with you. In the interim, continue heparin. Keep negative fluid balance. Continue aspirin. Fozia nue gentle Lasix p.r.n. We will follow with you. Will supplement potassium. Thank you, Dr. Davis, for providing the opportunity in taking care of this patient. Robert Jackson MD cc: [id number] TT: 08/02/2016 10:28:52 Confirmation # [id number] Dictation # [id number] rn
[2016-08-02] MEDS: Morphine 2 mg/ml ISec IVP PRN ×2 (11:40→20:56)
--- NOTE | 2016-08-02 11:42 | CP.PCM.PN ---
Subjective - Date & Time of Evaluation Date of Evaluation: 08/02/16 Time of Evaluation: 09:40 - Subjective Subjective: Still on the high flow oxygen, speaking longer phrases compared to previous days , no fevers overnight. Objective - Vital Signs/Intake and Output Vital Signs (last 24 hours): Temp Pulse Resp BP Pulse Ox 98.2 F 101 H 23 136/97 H 97 08/02/16 04:00 08/02/16 11:00 08/02/16 11:00 08/02/16 11:00 08/02/16 11:00 Intake and Output: 08/02/16 08/02/16 06:59 18:59 Intake Total 0 Balance 0 - Medications Medications: Current Medications Acetaminophen (Tylenol 650mg/20.3ml Solution Ud) 650 mg PO Q6H PRN PRN Reason: fever Last Admin: 07/25/16 18:08 Dose: 650 mg Albuterol/Ipratropium (Duoneb 3 Mg/0.5 Mg (3 Ml) Ud) 3 ml IH [id number] [facility] Last Admin: 08/02/16 11:35 Dose: 3 ml Alprazolam (Xanax) 0.5 mg PO BID NISHANT PRN Reason: Protocol Last Admin: 07/27/16 10:07 Dose: 0.5 mg Aspirin (Ecotrin) 81 mg PO DAILY [facility] Last Admin: 07/27/16 10:07 Dose: 81 mg Atovaquone (Mepron) 750 mg PO BID [facility] Stop: 08/20/16 11:05 Last Admin: 08/01/16 17:05 Dose: 750 mg Furosemide (Lasix) 40 mg IV DAILY [facility] Last Admin: 08/01/16 09:52 Dose: 40 mg Haloperidol Lactate (Haldol) 2 mg IVP Q6H PRN; Protocol PRN Reason: Agitation Last Admin: 07/28/16 23:16 Dose: 2 mg Doxycycline Hyclate 100 mg/ (Sodium Chloride) 100 mls @ 100 mls/hr IVPB Q12 NISHANT PRN Reason: Protocol Last Admin: 08/01/16 22:03 Dose: 100 mls/hr Heparin Sodium/Sodium Chloride (Heparin 20809 Units/250ml 1/2 Normal Saline) 25 ,000 units in 250 mls @ 8.655 mls/hr IV .Q24H PRN; Protocol; 18 UNITS/KG/HR PRN Reason: ADJUST RATE PER PROTOCOL Last Admin: 08/01/16 08:27 Dose: 14.97 units/kg/hr, 7.198 mls/hr Dexmedetomidine HCl (Precedex 4 Mcg/Ml (100 Ml)) 400 mcg in 100 mls @ 2.597 mls /hr IV .Q24H PRN; Protocol; 0.2 MCG/KG/HR PRN Reason: Agitation Last Titration: 08/02/16 06:11 Dose: 0.7 mcg/kg/hr, 9.089 mls/hr Voriconazole 200 mg/ Sodium (Chloride) 100 mls @ 50 mls/hr IVPB Q12 NISHANT PRN Reason: Protocol Stop: 08/13/16 11:06 Last Admin: 08/01/16 22:00 Dose: 50 mls/hr Meropenem 1g/NS 100mL IVPB (Meropenem 1g/Ns 100ml Ivpb) 1 gm in 100 mls @ 100 mls/hr IVPB Q8 NISHANT PRN Reason: Protocol Stop: 08/15/16 14:01 Last Admin: 08/02/16 05:18 Dose: 100 mls/hr Dextrose (Dextrose 10% In Water) 500 mls @ 30 mls/hr IV .[id number] [facility] Last Admin: 08/02/16 04:49 Dose: 30 mls/hr Potassium Chloride (Potassium Chloride 20 Meq/100 Ml) 20 meq in 100 mls @ 50 mls/hr IVPB Q2H [facility] Stop: 08/02/16 11:59 Last Admin: 08/02/16 08:02 Dose: 50 mls/hr Potassium Chloride (Potassium Chloride 10 Meq/100 Ml) 10 meq in 100 mls @ 100 mls/hr IVPB Q2H [facility] Stop: 08/02/16 13:14 Insulin Detemir (Levemir) 15 unit SC Q12 NISHANT Insulin Human Regular (Humulin R Low) 0 units SC Q6 NISHANT PRN Reason: Protocol Last Admin: 08/02/16 07:58 Dose: Not Given Magnesium Oxide (Mag-Ox) 400 mg PO BID [facility] Last Admin: 07/27/16 10:08 Dose: 400 mg Methylprednisolone (Solu-Medrol) 40 mg IVP Q8 [facility] Last Admin: 08/02/16 05:17 Dose: 40 mg Morphine Sulfate (Morphine) 2 mg IVP Q3H PRN PRN Reason: Pain, moderate (4-7) Last Admin: 08/01/16 10:04 Dose: 2 mg Pantoprazole Sodium (Protonix Inj) 40 mg IVP DAILY [facility] Last Admin: 08/01/16 09:53 Dose: 40 mg Potassium Chloride (Potassium Chloride Oral Soln) 40 meq PO ONCE ONE Stop: 08/02/16 15:01 Saliva Substitute (Saliva Substitute) 0 ml PO Q8H [facility] Last Admin: 08/02/16 05:28 Dose: Not Given Vancomycin HCl (Vancocin 25 Mg/Ml (Oral Use)) 500 mg PO QID [facility] PRN Reason: Protocol Last Admin: 08/01/16 22:17 Dose: 500 mg - Labs Labs: 08/02/16 05:20 08/02/16 05:20 PT 12.4 Seconds (9.9-11.8) H 07/29/16 05:11 INR 1.15 (0.93-1.08) H 07/29/16 05:11 APTT 43.2 Seconds (23.7-30.8) H 08/02/16 05:20 - Constitutional Appears: Other (in mild acute distress) - ENT Exam ENT Exam: Mucous Membranes Moist - Neck Exam Neck Exam: absent: Lymphadenopathy, Meningismus - Respiratory Exam Respiratory Exam: Decreased Breath Sounds, Rhonchi (scattered) - Cardiovascular Exam Cardiovascular Exam: +S1, +S2 - GI/Abdominal Exam GI & Abdominal Exam: Soft. absent: Tenderness Assessment and Plan - Assessment and Plan (Free Text) Plan: Assessment Severe sepsis S/P ventilator-dependent respiratory failure due to multifocal healthcare-associated pneumonia with E. coli S/P bronchoscopy in a patient with lung disease probably from rheumatoid arthritis; need to rule out fungal pneumonia as well with an elevated beta glucan level Pseudomonas in urine cx Acute pulmonary embolism probable new C. diff. infection history of bilateral upper lobe severe pneumonia with associated systemic viral illness with Influenza, with associated persistent Methicillin-sensitive Staph aureus bacteremia history of C diff associated diarrhea rheumatoid arthritis osteoarthritis history of depression and anxiety history of pneumonia Plan will continue Merrem (day 13 of 14) and Doxycycline; bronchoscopy work up negative fungi, mycobacteria, but the beta glucan level is high - the patient is on Mepron and Voriconazole as well (day 4); awaiting Dr. Blu Vanegas's evaluation for possible CT-guided biopsy for pathology and for cx (bacterial, mycobacterial, fungal) continue PO Vancomycin day 10 of 10-14 days will continue to monitor clinically
--- NOTE | 2016-08-02 11:54 | PN ---
DATE: 08/02/2016 SUBJECTIVE: Once again, the patient is seen in CCU bed 4. She is being sedated with Precedex but sh e appears to be alert and arousable. Chest tube remains in place with minimal drainage. She remains on high flow oxygen. She is being treated for a necrotizing multilobar pneumonia. She remains on a ntibiotics and antifungal agents. There is some question about whether or not patient will go for a biopsy. Of note, there is no chest surgeon available in the hospital and there is talk about transfe rring patient out to a tertiary referral center. MEDICATIONS: Medication list reviewed. The patient is currently on dextrose, doxycycline, DuoNeb, E cotrin, Haldol, heparin, insulin, Lasix, Levemir, magnesium oxide, Mepron, meropenem, morphine, potas sium chloride, potassium is being given IV and through the PEG tube, Precedex, Protonix, Solu-Medrol, Tylenol p.r.n., vancomycin, voriconazole and Xanax. OBJECTIVE: INTAKE AND OUTPUT: Intake 2375, output is 1320. VITAL SIGNS: Blood pressure is 136/97, repeat 114/71, temperature is 98.2. Respiratory rate is 23 w ith a pulse of 101. Oxygen saturation is 97% on high flow oxygen therapy. HEENT: Normocephalic, atraumatic. Conjunctivae are pink. Sclerae are nonicteric. Dobbhoff tube in place. High flow oxygen in place. NECK: Supple, no neck vein distention. CHEST: Scattered rhonchi and rales bilaterally. Chest tube right side. Diminished breath sounds on the right side. Minimal chest tube drainage noted. CARDIOVASCULAR: Regular rate and rhythm without murmurs, rubs, or gallops. Positive tricuspid regur gitation seen on echocardiogram. ABDOMEN: Soft. Bowel sounds normal. No rebound, no guarding, no masses. EXTREMITIES: Show trace edema of her upper thighs. No pedal edema. No cyanosis, no clubbing. LABORATORY DATA AND IMAGING: CBC: White blood cell count 17.7, hemoglobin 11.1 with a platelet coun t of 132,000. Chemistries: Potassium was corrected yesterday. It was 2.3 and it came up to 4.1. O nce again it is 2.9 today. CO2 was 28 with a chloride of 111. BUN 35 with a creatinine of 0.6. Josiah cium 8.2, phosphorus 2.7, magnesium 2.1. Liver enzymes are normal. Albumin is 2.5. ASSESSMENT: 1. Mild prerenal azotemia and hypokalemia in the setting of intravenous steroid therapy, intravenous diuretic therapy. The patient will once again have potassium level supplemented. Magnesium level i s normal. Prerenal azotemia is unavoidable given her need for steroids and the use of Lasix therapy. 2. History of pneumonia, multilobar necrotizing pneumonia. Cultures of sputum were positive for Esc herichia coli, staphylococcus and leann. The patient has subcutaneous emphysema. She has a right chest tube in place for a small right-sided pneumothorax. History of pulmonary embolism. The patien t is being followed by pulmonary. Pulmonary note reviewed. 3. History of anemia secondary to bone marrow suppression secondary to her infection. Hemoglobin is stable at 11.1. 4. Pseudomembranous colitis. Diarrhea appears to have stabilized. The patient will complete a cour se of oral vancomycin therapy. 5. History of rheumatoid arthritis, on methotrexate therapy in the past, and likely an immunocomprom ised state. PLAN: 1. Discussed with Dr. Cárdenas. The patient would definitely benefit from a tertiary center where s he can have the expertise of the chest surgeon, given the fact that she needs a lung biopsy, given th e fact that she has a pneumothorax and has a chest tube in place. 2. Agree with potassium supplements. 3. Consider holding diuretic therapy at this point in time in order to allow her potassium level to normalize. 4. Case discussed with ICU staff. Brock Leos MD cc: [phone] TT: 08/02/2016 11:53:29 Confirmation # [id number] Dictation # [id number] mn
[2016-08-02] MEDS: Dexmedetomidine HCl 4mcg/ml 400 MCG/100 ML BOTTLE IV PRN (13:28)
[2016-08-02 13:37] LABS: BLOOD UREA NITROGEN 33 mg/dL (7-21); CALCIUM 8.2 mg/dL (8.4-10.5); CARBON DIOXIDE 28 mmol/L (21-33); CHLORIDE 112 mmol/L (98-107); GFR AFRICAN-AMERICAN > 60; GLUCOSE,RANDOM 70 mg/dL (70-110); POTASSIUM 3.8 mmol/L (3.6-5.0); SODIUM 143 mmol/L (132-148)
--- NOTE | 2016-08-02 14:47 | PN ---
DATE: 08/02/2016 LOCATION: CCU 129, room 4. This is a 61-year-old female with recent acute exacerbation of COPD and eventual acute respiratory fa ilure and has since then been extubated and currently on high flow oxygen and is now being followed c losely for metabolic management. She is also on enteral tube feedings as noted. However, overnight, her glycemic levels have been low normal with glucose values as low as 69-76 mg/dL. The fasting glu cose this morning was 106 mg/dL. The latest chemistry showed a BUN of 33, sodium 143, potassium 3.8, chloride 112, CO2 of 28, glucose 70 and creatinine 0.6. So, at this time, we will modify and lower the basal insulin to Levemir given as 10 units subQ at 10:00 a.m. and 10:00 p.m. daily as ordered. W e will continue the low-dose correction scale using regular insulin as modified every 6 hours as give n. We are awaiting the swallowing evaluation as the patient is actually quite insistent on partaking of oral intake of solid food at this time. This actually will help augment her glycemic levels and also improve her protein intake with her underlying medical condition. We will obtain serial physiological chemist harleen and supplement accordingly as needed. We will follow. Briana Cazares MD cc: [id number] TT: 08/02/2016 14:46:28 Confirmation # [id number] Dictation # [id number] seda
--- NOTE | 2016-08-02 14:49 | CT ---
PROCEDURE: CT Chest without contrast HISTORY: chest tube follow up COMPARISON: 07/22/2016 TECHNIQUE: Contiguous axial images were obtained through the chest without intravenous contrast enhancement. Sagittal and coronal reconstructions were performed. Radiation dose (DLP): 228 mGy-cm. This CT exam was performed using one or more of the following dose reduction techniques: Automated exposure control, adjustment of the mA and/or kV according to patient size, and/or use of iterative reconstruction technique. FINDINGS: LUNGS: Cavities are seen at the right lung base measuring 3.8 x 6.4 cm on image 72 series 4. There is a smaller adjacent cavity measuring 2 x 3 cm. There is a thin walled bulla in the right lung apex. MEDIASTINUM: Unremarkable thoracic aorta. No aneurysm. Normal sized heart. Main pulmonary artery unremarkable. No vascular congestion. No lymphadenopathy. There is a small amount of air in the mediastinum. PLEURA: Chest tube at right lung base. Right-sided subcutaneous emphysema BONES: Severe compression fracture in the mid thoracic spine UPPER ABDOMEN: Grossly unremarkable. OTHER FINDINGS: None. IMPRESSION: Cavities in the right lower lobe. Chest tube at right lung base. Minimal pneumomediastinum. Extensive subcutaneous emphysema
[2016-08-02] MEDS ORDERED: Potassium Chloride 20 mEq/15 ml LIQ UD PO ONE (15:00)
[2016-08-02] MEDS ORDERED: Insulin Reg-LOW-Coverage SC SCH (18:00)
[2016-08-02 20:17] VITALS: BP 112/66; PULSE 115; RESP 20; TEMP 98.6; O2SAT 96
--- NOTE | 2016-08-02 23:43 | PN ---
DATE: 08/02/2016 The patient remains in the intensive care unit. She was evaluated this morning with her son at bedside. The patient's condition seems is deteriorating. The patient remains very lethargic. She is on NG tube feeding with high-flow oxygen. PHYSICAL EXAMINATION: VITAL SIGNS: She is afebrile with temperature 98.2, blood pressure is fluctuating in the lower 100/67, her pulse is 90 irregular, respiratory rate 24 , oxygen saturation is 98% on nasal cannula high flow oxygen. GENERAL: She is drowsy but arousable, talks in few sentences. HEENT: Head is normocephalic, atraumatic. There is swelling of the right face due to subcutaneous emphysema. NG tube intact. NECK: With right side swelling. LUNGS: With decreased breath sounds, bilateral crackles in the mid lungs. HEART: Regular rhythm and rate. ABDOMEN: Soft, nontender, nondistended. There is a rectal tube draining yellow , watery stool. EXTREMITIES: With no edema. DIAGNOSTIC TESTS: This morning, CBC with WBC 17.7, hemoglobin 11.1, hematocrit 32.8, and platelet count is 132. Chemistry this morning, sodium 144, potassium low at 2.9, BUN 35, creatinine 0.6. Glucose improved with insulin therapy. Her repeated stool for Clostridium difficile was negative preliminary. Bronchial washings cultures are negative. Repeated CT scan of the chest showed cavities in the right lung base still minimal pneumomediastinum and extensive subcutaneous emphysema. There is a right-sided chest tube. ASSESSMENT: 1. Sepsis with multifocal pneumonia and necrotizing lesions in the right lower lung with almost resolved pneumothorax and bilateral pulmonary embolism. 2. Severe diarrhea with history of pseudomembranous colitis and negative repeated stool cultures. 3. Anemia of chronic disease. 4. Severe hypokalemia. PLAN OF TREATMENT: Case was discussed this morning with son and discussed critical condition. Review notes of specialists who recommended a lung biopsy. Agree with recommendation to transfer for evaluation by thoracic surgeon. Meantime, continue present therapy with IV antibiotics for coverage of bacterial , mycobacterial, possibly fungal infection. Continue coverage for PCP versus Aspergillus with Mepron and Voriconazole, continue NG tube feeding. We will replace electrolytes with IV potassium and magnesium. The patient's condition is critical. Mini Davis MD cc: [phone] TT: 08/02/2016 23:42:11 Confirmation # [id number] Dictation # [id number] mn MTDD
--- NOTE | 2016-08-03 08:08 | PN ---
DATE: 08/02/2016 REFERRING PHYSICIAN: Dr. Parker. SUBJECTIVE: The patient is lying in the bed, head at 45 degree, on nasal cannula oxygen, comfortable , still having extensive subcutaneous emphysema. The right-sided chest tube still has a leak. Has s ome cough, not much sputum production. No nausea, no vomiting, diarrhea. No leg pain or leg swellin g. OBJECTIVE: GENERAL: No acute distress. VITAL SIGNS: Temperature is 98, heart rate 114, respiratory rate is 20, blood pressure 112/66, pul se ox 98% on nasal cannula. HEENT: Moist mucous membranes. Small oral cavity. NECK: Supple. LUNGS: Has crackles at the bases, scattered rhonchi. HEART: S1, S2. ABDOMEN: Soft, nontender. No organomegaly. EXTREMITIES: There is no edema. NEUROLOGIC: Awake, alert, follows simple commands. MEDICATIONS: Reviewed. No new changes in medication reported since yesterday. LABORATORY DATA: Shows hemoglobin 11.1, hematocrit 32.8, WBC 17.7, platelets 132. PTT . Sodiu m 143, potassium 3.8, chloride 112, bicarbonate 28, BUN 33, creatinine 0.6, glucose is 70, calcium is 8.2. TB Gold test is indeterminate. Beta was positive. Had a CAT scan of the chest done tod ay. It shows extensive subcutaneous emphysema, cavities in the right lower lobe. Chest tube in the right lung, pneumomediastinum. IMPRESSION AND PLAN: Multiorgan dysfunction with respiratory failure, been on high flow nasal cannul a today, is regular nasal cannula oxygen, has a nasogastric tube for feedings. Persistent right pneu mothorax with subcutaneous emphysema, also pneumomediastinum, bilateral nephrotic pulmonary infiltrat e throughout most of the right lower lobe area, multiple pulmonary embolisms, , pulmonary hypert ension, in the sputum, pseudomonas in the urine. Suspect pneumocystis. Case discussed w [facility] director of coding, Dr. Cárdenas, in detail, who spoke to thoracic surgery at [facility]. Dr. Melina Malone will accept the patient for possible further workup including placing the bigger ch est tube, possibility of decortication? and possible right lower lobe area cavitary biopsy. Continue supplemental oxygen, high risk for respiratory failure. Robert Hankins MD cc: [phone] TT: 08/03/2016 03:21:16 Confirmation # [id number] Dictation # [id number] 08/03/2016 07:07:00
== END 2016-08-02 22:44 | disposition short-term general hospital (02) | DRG 581 ==
LOC: ED 00:48 → ERH 03:26 → CCU 04:24
PROVIDERS: ADMIT Family Medicine; ATTEND Family Medicine
PROC: 0BH17EZ Insertion of Endotracheal Airway into Trachea, Via Natural or Artificial Opening (ICD-10-PCS; principal; 2016-07-21)
PROC: 5A1945Z Respiratory Ventilation, 24-96 Consecutive Hours (ICD-10-PCS; 2016-07-21)
PROC: 0BH17EZ Insertion of Endotracheal Airway into Trachea, Via Natural or Artificial Opening (ICD-10-PCS; 2016-07-24)
PROC: 5A1945Z Respiratory Ventilation, 24-96 Consecutive Hours (ICD-10-PCS; 2016-07-24)
PROC: 0W9930Z Drainage of Right Pleural Cavity with Drainage Device, Percutaneous Approach (ICD-10-PCS; 2016-07-26)
PROC: 0BBK8ZX Excision of Right Lung, Via Natural or Artificial Opening Endoscopic, Diagnostic (ICD-10-PCS; 2016-07-27)
DX: A41.9 Sepsis, unspecified organism (principal); J15.6 Pneumonia due to other Gram-negative bacteria; J96.01 Acute respiratory failure with hypoxia; I21.4 Non-ST elevation (NSTEMI) myocardial infarction; I26.99 Other pulmonary embolism without acute cor pulmonale; J69.0 Pneumonitis due to inhalation of food and vomit; J86.9 Pyothorax without fistula; J93.0 Spontaneous tension pneumothorax; J44.0 Chronic obstructive pulmonary disease with (acute) lower respiratory infection; R13.10 Dysphagia, unspecified; E43 Unspecified severe protein-calorie malnutrition; Z99.11 Dependence on respirator [ventilator] status; J85.0 Gangrene and necrosis of lung; J93.82 Other air leak; J93.83 Other pneumothorax; E87.2 Acidosis; I08.1 Rheumatic disorders of both mitral and tricuspid valves; E87.0 Hyperosmolality and hypernatremia; I11.0 Hypertensive heart disease with heart failure; A04.7 Enterocolitis due to Clostridium difficile; B96.5 Pseudomonas (aeruginosa) (mallei) (pseudomallei) as the cause of diseases classified elsewhere; E87.6 Hypokalemia; I50.9 Heart failure, unspecified; J44.1 Chronic obstructive pulmonary disease with (acute) exacerbation; T79.7XXA Traumatic subcutaneous emphysema, initial encounter; E88.81 Metabolic syndrome and other insulin resistance; I27.2 Other secondary pulmonary hypertension; W19.XXXA Unspecified fall, initial encounter; B96.20 Unspecified Escherichia coli [E. coli] as the cause of diseases classified elsewhere; E11.9 Type 2 diabetes mellitus without complications; R65.20 Severe sepsis without septic shock; D63.8 Anemia in other chronic diseases classified elsewhere; E03.9 Hypothyroidism, unspecified; E07.81 Sick-euthyroid syndrome; E77.8 Other disorders of glycoprotein metabolism; E83.51 Hypocalcemia; F41.1 Generalized anxiety disorder; G47.09 Other insomnia; G89.4 Chronic pain syndrome; Z87.01 Personal history of pneumonia (recurrent); Z87.891 Personal history of nicotine dependence; Z86.711 Personal history of pulmonary embolism; Z82.49 Family history of ischemic heart disease and other diseases of the circulatory system; Z79.899 Other long term (current) drug therapy; Z79.82 Long term (current) use of aspirin; Z79.4 Long term (current) use of insulin; Z79.02 Long term (current) use of antithrombotics/antiplatelets; Y95 Nosocomial condition; Y92.009 Unspecified place in unspecified non-institutional (private) residence as the place of occurrence of the external cause; J98.4 Other disorders of lung; M06.9 Rheumatoid arthritis, unspecified; M15.9 Polyosteoarthritis, unspecified; M35.3 Polymyalgia rheumatica; M81.0 Age-related osteoporosis without current pathological fracture; F32.89 Other specified depressive episodes; F41.9 Anxiety disorder, unspecified; R40.2414 Glasgow coma scale score 13-15, 24 hours or more after hospital admission; Z78.1 Physical restraint status; R53.81 Other malaise; R55 Syncope and collapse